=== PATIENT | male | born 1945 | race Caucasian/White ===

== ENCOUNTER → 2017-05-01 | Outpatient (CLI) | payer MEDICARE, BC | LOC: OD 10:05 | PROVIDERS: ATTEND Family Medicine | DX: N40.1 Benign prostatic hyperplasia with lower urinary tract symptoms (principal) | CPT/HCPCS: 36415; 84153 ==

== ENCOUNTER → 2017-06-06 | Outpatient (CLI) | payer MEDICARE, BC ==
--- NOTE | 2017-06-06 14:35 | RADIOLOGY REPORT (SQ) ---
EXAM DESCRIPTION: CHEST PA/LATERAL COMPLETED DATE/TIME: 06/06/2017 2:16 pm REASON FOR STUDY: COPD J44.9 CHRONIC OBSTRUCTIVE PULMONARY DISEASE, UNSPECIFIED COMPARISON: CT angio chest 07/11/2016 Chest films 05/31/2016, 11/30/2008 NUMBER OF VIEWS: Two view. TECHNIQUE: Frontal and lateral radiographic views of the chest acquired. LIMITATIONS: None. FINDINGS: LUNGS AND PLEURA: No masses or pneumothorax. Minimal bandlike atelectasis left lung base. No pleural effusion. Attenuated blood vessels and flattened renuka-diaphragms. MEDIASTINUM AND HILAR STRUCTURES: No masses. No contour abnormalities. HEART AND VASCULAR STRUCTURES: Heart normal in size and contour. No evidence for failure. BONES: No acute findings. HARDWARE: None in the chest. OTHER: No other significant finding. IMPRESSION: COPD. Minimal left basilar bandlike atelectasis. TECHNICAL DOCUMENTATION: JOB ID: [id number] [employer]- All Rights Reserved
== END ==
LOC: OD 14:00
PROVIDERS: ATTEND Internal Medicine Pulmonary Disease
DX: J44.9 Chronic obstructive pulmonary disease, unspecified (principal)
CPT/HCPCS: 71020

== ENCOUNTER → 2017-07-10 | Outpatient (CLI) | payer MEDICARE, BC ==
--- NOTE | 2017-07-11 08:21 | RADIOLOGY REPORT (SQ) ---
EXAM DESCRIPTION: MRI CERVICAL SPINE WITHOUT COMPLETED DATE/TIME: 07/10/2017 8:49 pm REASON FOR STUDY: INTERVERTEBRAL DISC DEGEN, LUMBAR AND CERVICAL REGIONS M51.36 OTHER INTERVERTEBRA L DISC DEGENERATION, LUMBAR REGION M50.30 OTHER CERVICAL DISC DEGENERATION, UNSP CERVICAL REGIO COMPARISON: None. TECHNIQUE: Sagittal and Axial imaging includes T1, T2, STIR and gradient echo sequences. LIMITATIONS: None. FINDINGS: ALIGNMENT: Normal. VERTEBRAE: Intact. BONE MARROW: Normal. No marrow replacement or reactive changes. DISCS: Diffuse decreased T2 weighted intervertebral disc signal. Disc space loss of height from C5-6 through T1-2 HARDWARE: None in the spine. CORD AND BASE OF BRAIN: Normal in size and signal intensity. SOFT TISSUES: No soft tissue masses. C1-C2: No significant spinal stenosis. C2-C3: No significant spinal stenosis or exit foraminal stenosis. C3-C4: No central stenosis. There facet and uncovertebral hypertrophy causing moderate bilateral for aminal narrowing C4-C5: Broad diffuse disc bulge and bony spurring is present without central stenosis. High-grade ri ght, moderate left foraminal narrowing from facet and uncovertebral hypertrophy. C5-C6: Broad diffuse posterior disc bulging is present partly effacing the ventral thecal sac without cord flattening or abnormal intrinsic cord signal. Mild central canal stenosis. High-grade bilater al foraminal narrowing from facet and uncovertebral hypertrophy C6-C7: Minimal posterior disc bulge and bony spurring is present without significant central stenosis . High-grade right, mild left foraminal narrowing from facet and uncovertebral hypertrophy C7-T1: Mild posterior disc bulge and bony spurring is present without central stenosis. Mild bilater al foraminal narrowing from facet and uncovertebral hypertrophy OTHER: No other significant finding. IMPRESSION: Multilevel degenerative changes with multilevel significant foraminal narrowing TECHNICAL DOCUMENTATION: JOB ID: [id number] [employer]- All Rights Reserved
--- NOTE | 2017-07-11 08:30 | RADIOLOGY REPORT (SQ) ---
EXAM DESCRIPTION: MRI LUMBAR SPINE WITHOUT COMPLETED DATE/TIME: 07/10/2017 8:49 pm REASON FOR STUDY: INTERVERTEBRAL DISC DEGEN, LUMBAR AND CERVICAL REGIONS M51.36 OTHER INTERVERTEBRA L DISC DEGENERATION, LUMBAR REGION M50.30 OTHER CERVICAL DISC DEGENERATION, UNSP CERVICAL REGIO COMPARISON: None. TECHNIQUE: Sagittal and Axial imaging includes T1, T2, STIR and gradient echo sequences. Coronal T2/ HASTE imaging. LIMITATIONS: None. FINDINGS: VISUALIZED UPPER ABDOMEN: CT chest 07/11/2016 SEGMENTATION: No transitional anatomy. The lowest well-developed disc space is labeled L5-S1. ALIGNMENT: Anatomic. VERTEBRAE: Intact. BONE MARROW: Sclerotic vertebral body endplate change inferior endplate of L2 DISC SIGNAL: Diffuse decreased T2 weighted intervertebral disc signal POSTERIOR ELEMENTS: Generally intact. No pars defect evident. HARDWARE: None in the spine. CORD AND CONUS: Normal in size and signal intensity. Conus at the L1 level. SOFT TISSUES: No aortic aneurysm seen. No bulky retroperitoneal adenopathy or mass. No paraspinal mas s or fluid. T11-12: Minimal posterior disc bulging and mild bilateral facet hypertrophy is present without signi ficant central or foraminal stenosis. T12-L1: No central or foraminal stenosis. L1-L2: No central or foraminal stenosis. Mild bilateral facet hypertrophy. L2-L3: No central or foraminal stenosis. Mild bilateral facet hypertrophy. L3-L4: No central or foraminal stenosis. Mild bilateral facet hypertrophy. L4-L5: Broad diffuse posterior disc bulge and bony spurring, moderate bilateral facet hypertrophy. M ild central stenosis. Mild bilateral foraminal narrowing. L5-S1: Mild diffuse posterior disc bulging. Moderate bilateral facet and ligament hypertrophy. No c entral stenosis. Minimal right, no left foraminal narrowing. SACRUM: Visualized upper sacrum intact. OTHER: No other significant findings. IMPRESSION: Diffuse degenerative changes as above TECHNICAL DOCUMENTATION: JOB ID: [id number] [email or web address]- All Rights Reserved
== END ==
LOC: RAD 18:19
PROVIDERS: ATTEND Physician Assistant
DX: M51.36 Other intervertebral disc degeneration, lumbar region (principal); M50.30 Other cervical disc degeneration, unspecified cervical region
CPT/HCPCS: 72141; 72148

== ENCOUNTER → 2017-08-27 | Outpatient (CLI) | payer MEDICARE, BC ==
--- NOTE | 2017-08-28 09:11 | RADIOLOGY REPORT (SQ) ---
EXAM DESCRIPTION: PET CT LIMITED COMPLETED DATE/TIME: 08/27/2017 6:38 pm REASON FOR STUDY: SOLITARY PULMONARY NODULE R91.1 SOLITARY PULMONARY NODULE COMPARISON: None. Correlation: Chest CT 07/29/2017. RADIONUCLIDE AND DOSE: 11.9 mCi F18 FDG The route of agent administration: Intravenous FASTING BLOOD SUGAR: 91 mg/dl CONTRAST TYPE AND DOSE: No CT contrast given. TECHNIQUE: Blood glucose level was verified. Above dose of FDG was injected intravenously. 2-D seg mented attenuation correction images were obtained from the base of the skull to the midthighs. Nonc ontrast CT images were obtained for attenuation correction and fusion with emission images. CT image s were performed without oral or intravenous contrast and are not sensitive for parenchymal lesions. A series of overlapping emission PET images were obtained. Images reviewed and manipulated at [facility] work station by the radiologist. Images stored on PACS. LIMITATIONS: None. FINDINGS: HEAD AND NECK: No areas of abnormal metabolic activity in the soft tissues of the head and neck. CHEST: Recently described right upper lobe nodule measures about 1.9 mean SUV. ABDOMEN AND PELVIS: No areas of abnormal metabolic activity in the abdomen or pelvis. Expected physi ologic activity is present in the genitourinary system and bowel. PROXIMAL LOWER EXTREMITIES: No areas of abnormal metabolic activity in the soft tissues of the lower extremities. BONES: No abnormal metabolic activity in the visualized skeleton. ADDITIONAL CT FINDINGS: No additional significant findings on the noncontrast CT images. OTHER: No other significant findings. IMPRESSION: Right upper lobe nodule with borderline significant metabolic activity. COMMENT: Recommend repeat CT chest in 3 to 6 months. TECHNICAL DOCUMENTATION: JOB ID: [id number]- All Rights Reserved
== END ==
LOC: RAD 15:55
PROVIDERS: ATTEND Internal Medicine Pulmonary Disease
DX: R91.1 Solitary pulmonary nodule (principal)
CPT/HCPCS: 78814; A9552

== ENCOUNTER 2017-11-22 14:08 | Emergency (ER) | payer MEDICARE, BC ==
[2017-11-22] MEDS ORDERED: IPRATROPIUM/ALBUTEROL 0.5-2.5 MG/3 ML AMPUL NEB ONE (14:59)
--- NOTE | 2017-11-22 15:14 | ER Document Report ---
ED Medical Screen (RME) - General Chief Complaint: Breathing Difficulty Stated Complaint: DIFFICULTY BREATHING Time Seen by Provider: 11/22/17 14:59 Mode of Arrival: Ambulatory Information source: Patient Notes: pt with several days of shortness of breath and inability to sleep TRAVEL OUTSIDE OF THE [place] IN LAST 30 DAYS: No - Related Data Allergies/Adverse Reactions: Penicillins Allergy (Verified 11/22/17 14:09) Past Medical History - Past Medical History Cardiac Medical History: Reports: Hx Atrial Fibrillation, Hx Hypercholesterolemia, Hx Hypertension Pulmonary Medical History: Reports: Hx Asthma, Hx Bronchitis, Hx COPD Neurological Medical History: Reports: Hx Cerebrovascular Accident Endocrine Medical History: Reports: Hx Diabetes Mellitus Type 1, Hx Diabetes Mellitus Type 2 Renal/ Medical History: Denies: Hx Peritoneal Dialysis GI Medical History: Reports: Hx Gastritis, Hx Gastroesophageal Reflux Disease, Hx Ulcer, Hx Colonoscopy Musculoskeltal Medical History: Reports Hx Arthritis Psychiatric Medical History: Reports: Hx Anxiety, Hx Depression Past Surgical History: Reports: Hx Orthopedic Surgery - L Arm - Immunizations Hx Diphtheria, Pertussis, Tetanus Vaccination: Yes
[2017-11-22 15:49] LABS: ABSOLUTE BASOPHILS # (AUTO) 0.1 10^3/uL (0.0-0.2); ABSOLUTE EOSINOPHILS # (AUTO) 0.1 10^3/uL (0.0-0.6); ABSOLUTE LYMPHOCYTES (AUTO) 1.2 10^3/uL (0.5-4.7); ABSOLUTE MONOCYTES (AUTO) 0.7 10^3/uL (0.1-1.4); ABSOLUTE NEUT (AUTO) 8.3 10^3/uL (1.7-8.2); BASOPHILS % (AUTO) 0.5 % (0-2); EOSINOPHILS % (AUTO) 1.4 % (0-6); HEMATOCRIT 39.2 % (37.9-51.0); LYMPHOCYTES % (AUTO) 11.8 % (13-45); MEAN CORPUSCULAR HEMOGLOBIN 29.1 pg (27.0-33.4); MEAN CORPUSCULAR HGB CONC 33.2 g/dL (32.0-36.0); MEAN CORPUSCULAR VOLUME 88 fl (80-97); MONOCYTES % (AUTO) 6.3 % (3-13); PLATELET COUNT 367 10^3/uL (150-450); RED BLOOD COUNT 4.46 10^6/uL (4.35-5.55); RED CELL DISTRIBUTION WIDTH 16.3 % (11.5-14.0); TOTAL CELLS COUNTED % (AUTO) 100 %; WHITE BLOOD COUNT 10.3 10^3/uL (4.0-10.5)
[2017-11-22] MEDS ORDERED: ALBUTEROL SULFATE 0.083% NEB 2.5 MG/3 ML AMPUL NEB ONE (15:55)
[2017-11-22 16:02] LABS: ALANINE AMINOTRANSFERASE 66 U/L (21-72); ALBUMIN 4.1 g/dL (3.5-5.0); ALKALINE PHOSPHATASE 130 U/L (38-126); ANION GAP 14 (5-19); ASPARTATE AMINO TRANSFERASE 42 U/L (17-59); BILIRUBIN,DIRECT 0.5 mg/dL (0.0-0.4); BILIRUBIN,TOTAL 0.6 mg/dL (0.2-1.3); BLOOD UREA NITROGEN 16 mg/dL (7-20); CALCIUM 9.8 mg/dL (8.4-10.2); CARBON DIOXIDE 25 mmol/L (22-30); CHLORIDE 97 mmol/L (98-107); GLUCOSE 355 mg/dL (75-110); POTASSIUM 4.4 mmol/L (3.6-5.0); SODIUM 135.6 mmol/L (137-145); TOTAL PROTEIN 6.5 g/dL (6.3-8.2)
--- NOTE | 2017-11-22 16:03 | RADIOLOGY REPORT (SQ) ---
EXAM DESCRIPTION: CHEST PA/LAT COMPLETED DATE/TIME: 11/22/2017 3:36 pm REASON FOR STUDY: dyspnea COMPARISON: CT chest 07/01/2016, 07/29/2017 PET-CT 08/27/2017 EXAM PARAMETERS: NUMBER OF VIEWS: two views TECHNIQUE: Digital Frontal and Lateral radiographic views of the chest acquired. RADIATION DOSE: NA LIMITATIONS: none FINDINGS: LUNGS AND PLEURA: Persistent nodule periphery of the right lung apex. This had minimal me tabolic activity on PET-CT 08/27/2017. Continued periodic imaging surveillance is recommended with CT chest, in February 2018. There is bandlike atelectasis above the right hemidiaphragm. Left lung clear. No pleural effusions or pneumothorax. MEDIASTINUM AND HILAR STRUCTURES: No masses or contour abnormalities. HEART AND VASCULAR STRUCTURES: Heart normal size. No evidence for failure. BONES: No acute findings. HARDWARE: None in the chest. OTHER: No other significant finding. IMPRESSION: Right basilar bandlike atelectasis Persistent right apical nodule TECHNICAL DOCUMENTATION: JOB ID: [id number] [employer]- All Rights Reserved Reading location - IP/workstation name: [email or web address]
[2017-11-22 16:12] LABS: NT PRO BNP 640 pg/mL (5-900)
[2017-11-22 16:17] LABS: TROPONIN I < 0.012 ng/mL
--- NOTE | 2017-11-22 20:03 | EKG REPORT ---
SEVERITY:- ABNORMAL ECG - ATRIAL FIBRILLATION, V-RATE 63-114 LEFT AXIS DEVIATION LOW VOLTAGE IN FRONTAL LEADS BORDERLINE T WAVE ABNORMALITIES BORDERLINE PROLONGED QT INTERVAL : Confirmed by: Davonte Bailon MD 22-Nov-2017 20:02:39
--- NOTE | 2017-11-23 00:34 | ER Document Report ---
ED Respiratory Problem - General Chief Complaint: Breathing Difficulty Stated Complaint: DIFFICULTY BREATHING Time Seen by Provider: 11/22/17 14:59 Mode of Arrival: Ambulatory Notes: Patient says that he has been having trouble breathing for several months. It has worsened over the past couple of days. He has noticed some swelling of his ankles with some pink coloration to the lower portion of both extremities. He has a home nebulizer in which he uses albuterol 4 times a day. He is also on inhalers of Spiriva and Breo. Has not been on prednisone. Patient says he has had a productive cough that is white in color. Feel short of breath with difficulty breathing. Diagnosed with asthma and COPD. Has not noticed any fever. TRAVEL OUTSIDE OF THE [place] IN LAST 30 DAYS: No - Related Data Allergies/Adverse Reactions: Penicillins Allergy (Verified 11/22/17 14:09) Past Medical History - General Information source: Patient - Social History Smoking Status: Current Every Day Smoker Family History: Arthritis, CAD, COPD, DM, Hyperlipidemia, Hypertension, Thyroid Disfunction Patient has suicidal ideation: No Patient has homicidal ideation: No - Past Medical History Cardiac Medical History: Reports: Hx Atrial Fibrillation, Hx Hypercholesterolemia, Hx Hypertension Pulmonary Medical History: Reports: Hx Asthma, Hx Bronchitis, Hx COPD Neurological Medical History: Reports: Hx Cerebrovascular Accident Endocrine Medical History: Reports: Hx Diabetes Mellitus Type 1, Hx Diabetes Mellitus Type 2 Renal/ Medical History: Reports: Hx Benign Prostatic Hyperplasia GI Medical History: Reports: Hx Gastritis, Hx Gastroesophageal Reflux Disease, Hx Ulcer, Hx Colonoscopy Musculoskeltal Medical History: Reports Hx Arthritis Psychiatric Medical History: Reports: Hx Anxiety, Hx Depression Past Surgical History: Reports: Hx Orthopedic Surgery - L Arm - Immunizations Hx Diphtheria, Pertussis, Tetanus Vaccination: Yes Hx Pneumococcal Vaccination: 09/25/13 Review of Systems - Review of Systems Notes: REVIEW OF SYSTEMS: CONSTITUTIONAL : Denies fever. EENT: Denies eye, ear, nose or mouth or throat pain or other symptoms. CARDIOVASCULAR: Denies chest pain. RESPIRATORY: See HPI. GASTROINTESTINAL: Denies abdominal pain or nausea, vomiting, or diarrhea. GENITOURINARY: Denies difficulty or painful urinating, urinary frequency, blood in urine. MUSCULOSKELETAL: Denies back or neck pain. Denies joint pain or swelling. SKIN: Denies rash or skin lesions. NEUROLOGICAL: Denies LOC or altered mental status. Denies sensory loss or motor deficits. ALL OTHER SYSTEMS REVIEWED AND NEGATIVE. Physical Exam - Vital signs Interpretation: Normal - Notes Notes: PHYSICAL EXAMINATION: GENERAL: Well-appearing, in no acute distress. Has had a nebulizer treatment out front. Vital signs are all normal. HEAD: Atraumatic, normocephalic. NECK: Normal range of motion, supple. LUNGS: Breath sounds have diffuse expiratory wheezes, but good air exchange.. HEART: Irregular rate and rhythm without murmurs. ABDOMEN: Soft, nontender. No guarding or rebound. No masses. BACK: No tenderness throughout entire back. EXTREMITIES: Normal range of motion without pain. +1 pretibial edema bilaterally. Mild diffuse erythema of the lower portion of both lower legs likely representing mild cellulitis. NEUROLOGICAL: Normal speech, normal gait. Normal sensory, motor, and reflex exams. Awake, alert, and oriented x3. Cranial nerves normal. PSYCH: Normal mood, normal affect. SKIN: Warm, dry, no rashes. Course - Re-evaluation Re-evalutation: 11/23/17 00:37 After I to finish my initial assessment of this patient, and was about to leave his examining room, the patient said that he would like for us to provide him with 4 or 5 masks and tubings for him to use on his nebulizer machine. I told him that we could give him the tubing set that he has been using for his nebulizer treatment here, but not likely any more than that. While this patient was in the treatment area, after I examined him, we had a cardiac arrest brought in that required my full attention for some time. During that time, the patient expressed that he wanted to leave AGAINST MEDICAL ADVICE. After the patient left, 1 of the staff noted that 1 of the cabinets in the patient's room which house objects like tubing and mask for the nebulizers was practically empty. - Laboratory Result Diagrams: 11/22/17 15:20 11/22/17 15:20 Laboratory results interpreted by me: 11/22/17 11/22/17 15:20 15:20 Hgb 13.0 L RDW 16.3 H Seg Neutrophils % 80.0 H Lymphocytes % 11.8 L Absolute Neutrophils 8.3 H Sodium 135.6 L Chloride 97 L Glucose 355 H Direct Bilirubin 0.5 H Alkaline Phosphatase 130 H - Diagnostic Test Radiology results interpreted by me: 11/23/17 00:36 Chest x-ray shows very slight amount of basilar atelectasis. A nodule is present which is been noted previously. - EKG Interpretation by Me Rate: Normal Rhythm: A.Fib Additional EKG results interpreted by me: 11/23/17 00:37 No acute changes of the area Discharge - Discharge Clinical Impression: Left against medical advice, COPD exacerbation Disposition: AGAINST MEDICAL ADVICE Referrals: GERRI AGUILERA MD [Primary Care Provider] - Follow up as needed
== END 2017-11-22 16:54 | disposition left against medical advice (07) ==
LOC: ER 14:08
DX: J44.1 Chronic obstructive pulmonary disease with (acute) exacerbation (principal); R06.02 Shortness of breath; M79.89 Other specified soft tissue disorders; R60.0 Localized edema; R05 Cough; Z79.899 Other long term (current) drug therapy; F17.200 Nicotine dependence, unspecified, uncomplicated
CPT/HCPCS: 93005; 94640 ×2; 99285; 36415; 85025; 80053; 84484; 83880; 71046; 93010; A9270 ×2; J7620

== ENCOUNTER → 2017-11-29 | Outpatient (CLI) | payer MEDICARE, BC ==
--- NOTE | 2017-11-29 10:54 | RADIOLOGY REPORT (SQ) ---
EXAM DESCRIPTION: CT CHEST WITHOUT COMPLETED DATE/TIME: 11/29/2017 10:29 am REASON FOR STUDY: R91.1 SOLITARY PULMONARY NODULE R91.1 SOLITARY PULMONARY NODULE COMPARISON: 2016, 2017. TECHNIQUE: CT scan performed of the chest without intravenous contrast. Images reviewed with lung, soft tissue and bone windows. Reconstructed coronal and sagittal MPR images reviewed. All images st ored on PACS. All CT scanners at this facility use dose modulation, iterative reconstruction, and/or weight based d osing when appropriate to reduce radiation dose to as low as reasonably achievable (ALARA). [facility]: Dose Right [facility]: CareDose [facility]: Dose Right [facility]: Teradose 4D [facility]: [employer] RADIATION DOSE: CT Rad equipment meets quality standard of care and radiation dose reduction techniq ues were employed. CTDIvol: 16.1 mGy. DLP: 603 mGy-cm. mGy. LIMITATIONS: No technical limitations. FINDINGS: LUNGS AND PLEURA: Pleural-based nodule right upper lobe looks slightly larger, now at 1.4 cm with some adjacent parenchymal density. Regional bullous changes. No other nodules or masses dev eloping. Mild bronchial wall thickening particularly in the right lower lobe, likely bronchitis. HILAR AND MEDIASTINAL STRUCTURES: No identified masses or abnormal nodes. No obvious aneurysm. HEART AND VASCULAR STRUCTURES: No aneurysm. No pericardial effusion. UPPER ABDOMEN: No significant findings. Limited exam. THYROID AND OTHER SOFT TISSUES: No masses. No adenopathy. BONES: Mid thoracic spondylosis. HARDWARE: None in the chest. OTHER: No other significant findings. IMPRESSION: 1. Subpleural right upper lobe nodule looks larger and better defined on current study. This has increased compared to 2017 and was not seen as a discrete lesion in 2016. Recommend furthe r evaluation with PET-CT. TECHNICAL DOCUMENTATION: JOB ID: [id number] Quality ID # [id number]: Final reports with documentation of one or more dose reduction techniques (e.g., Au tomated exposure control, adjustment of the mA and/or kV according to patient size, use of iterative reconstruction technique) 2010 [email or web address]- All Rights Reserved Reading location - IP/workstation name: [email or web address]
== END ==
LOC: RAD 10:21
PROVIDERS: ATTEND Physician Assistant
DX: R91.1 Solitary pulmonary nodule (principal)
CPT/HCPCS: 71250

== ENCOUNTER → 2017-12-17 | Outpatient (CLI) | payer MEDICARE, BC ==
--- NOTE | 2017-12-19 09:47 | RADIOLOGY REPORT (SQ) ---
EXAM DESCRIPTION: PET CT SKULL/THIGH COMPLETED DATE/TIME: 12/18/2017 6:38 pm REASON FOR STUDY: PULMONARY NODULE (R91.1), OTHER DISORDERS OF LUNG (J98.4) R91.1 SOLITARY PULMONAR Y NODULE J98.4 OTHER DISORDERS OF LUNG COMPARISON: 08/27/2017 RADIONUCLIDE AND DOSE: 10.7 mCi F18 FDG The route of agent administration: Intravenous FASTING BLOOD SUGAR: 128 mg/dl CONTRAST TYPE AND DOSE: No CT contrast given. TECHNIQUE: Blood glucose level was verified. Above dose of FDG was injected intravenously. 2-D seg mented attenuation correction images were obtained from the base of the skull to the midthighs. Nonc ontrast CT images were obtained for attenuation correction and fusion with emission images. CT image s were performed without oral or intravenous contrast and are not sensitive for parenchymal lesions. A series of overlapping emission PET images were obtained. Images reviewed and manipulated at [facility] work station by the radiologist. Images stored on PACS. LIMITATIONS: None. FINDINGS: HEAD AND NECK: No areas of abnormal metabolic activity in the soft tissues of the head and neck. CHEST: Pleural-based right upper lobe nodule measures about 1.5 cm in diameter and 2.3 mean SUV. ABDOMEN AND PELVIS: No areas of abnormal metabolic activity in the abdomen or pelvis. Expected physi ologic activity is present in the genitourinary system and bowel. PROXIMAL LOWER EXTREMITIES: No areas of abnormal metabolic activity in the soft tissues of the lower extremities. BONES: No abnormal metabolic activity in the visualized skeleton. ADDITIONAL CT FINDINGS: Paraseptal emphysema. Cardiomegaly. OTHER: No other significant findings. IMPRESSION: Slight increase in size of right upper lobe nodule with unchanged borderline significant metabolic activity. Continued close surveillance is recommended. TECHNICAL DOCUMENTATION: JOB ID: [id number] [employer]- All Rights Reserved Reading location - IP/workstation name: [email or web address]
== END ==
LOC: RAD 18:53
PROVIDERS: ATTEND Physician Assistant
DX: R91.1 Solitary pulmonary nodule (principal); J98.4 Other disorders of lung
CPT/HCPCS: 78815; A9552

== ENCOUNTER → 2018-02-08 | Outpatient (CLI) | payer MEDICARE, BC | LOC: LAB 11:57 | PROVIDERS: ATTEND Thoracic Surgery (Cardiothoracic Vascular Surgery) | DX: Z87.891 Personal history of nicotine dependence (principal) | CPT/HCPCS: 36415; 82375 ==

== ENCOUNTER → 2018-03-02 | Outpatient (CLI) | payer MEDICARE, BC | LOC: LAB 11:12 | PROVIDERS: ATTEND Thoracic Surgery (Cardiothoracic Vascular Surgery) | DX: Z87.891 Personal history of nicotine dependence (principal) | CPT/HCPCS: 36415; 82375 ==

== ENCOUNTER → 2018-04-25 | Outpatient (CLI) | payer MEDICARE, BC ==
--- NOTE | 2018-04-25 13:19 | RADIOLOGY REPORT (SQ) ---
EXAM DESCRIPTION: CT CHEST WITHOUT COMPLETED DATE/TIME: 04/25/2018 8:40 am REASON FOR STUDY: LUNG CA (C34.11) C34.11 MALIGNANT NEOPLASM OF UPPER LOBE, RIGHT BRONCHUS OR L COMPARISON: 11/29/2017, 07/29/2017, and 07/11/2016. TECHNIQUE: CT scan performed of the chest without intravenous contrast. Images reviewed with lung, soft tissue and bone windows. Reconstructed coronal and sagittal MPR images reviewed. All images st ored on PACS. All CT scanners at this facility use dose modulation, iterative reconstruction, and/or weight based d osing when appropriate to reduce radiation dose to as low as reasonably achievable (ALARA). [facility]: Dose Right [facility]: CareDose [facility]: Dose Right [facility]: Teradose 4D [facility]: [employer] RADIATION DOSE: CT Rad equipment meets quality standard of care and radiation dose reduction techniq ues were employed. CTDIvol: 11.1 mGy. DLP: 388 mGy-cm. mGy. LIMITATIONS: No technical limitations. FINDINGS: LUNGS AND PLEURA: Surgical changes in the right upper lobe. Linear scar in the posterior right upper lobe with associated surgical david. The more inferior portion has a somewhat nodular appearance measuring 1.5 cm. No other parenchymal nodules. Emphysematous changes with apical bullae . Scattered scarring. No pleural effusion or pleural thickening. HILAR AND MEDIASTINAL STRUCTURES: No identified masses or abnormal nodes. No obvious aneurysm. HEART AND VASCULAR STRUCTURES: No aneurysm. Coronary artery calcifications. No pericardial effusion . UPPER ABDOMEN: No significant findings. Limited exam. THYROID AND OTHER SOFT TISSUES: No masses. No adenopathy. BONES: No significant finding. HARDWARE: None in the chest. OTHER: No other significant findings. IMPRESSION: INTERVAL SURGICAL CHANGES IN THE RIGHT UPPER LOBE WITH REMOVAL OF THE RIGHT UPPER LOBE N ODULE. THERE IS SOMEWHAT NODULAR APPEARANCE OF THE SURGICAL SCAR WHICH WILL NEED TO BE RE-EVALUATED WITH FOLLOW-UP CT. CHRONIC EMPHYSEMATOUS CHANGES. NO OTHER SIGNIFICANT FINDINGS. TECHNICAL DOCUMENTATION: JOB ID: [id number] Quality ID # 436: Final reports with documentation of one or more dose reduction techniques (e.g., Au tomated exposure control, adjustment of the mA and/or kV according to patient size, use of iterative reconstruction technique) 2010 [employer]- All Rights Reserved Reading location - IP/workstation name: [email or web address]
== END ==
LOC: RAD 08:24
PROVIDERS: ATTEND Internal Medicine
DX: C34.11 Malignant neoplasm of upper lobe, right bronchus or lung (principal)
CPT/HCPCS: 71250

== ENCOUNTER → 2018-07-31 | Outpatient (CLI) | payer MEDICARE, BC ==
--- NOTE | 2018-07-31 11:04 | RADIOLOGY REPORT (SQ) ---
EXAM DESCRIPTION: CT CHEST WITHOUT COMPLETED DATE/TIME: 07/31/2018 9:02 am REASON FOR STUDY: MAL ROYCE OF UPPER LOBE R BRONCHUS OR LUNG C34.11 MALIGNANT NEOPLASM OF UPPER LOBE, RIGHT BRONCHUS OR L COMPARISON: 04/25/2018 TECHNIQUE: CT scan performed of the chest without intravenous contrast. Images reviewed with lung, soft tissue and bone windows. Reconstructed coronal and sagittal MPR images reviewed. All images st ored on PACS. All CT scanners at this facility use dose modulation, iterative reconstruction, and/or weight based d osing when appropriate to reduce radiation dose to as low as reasonably achievable (ALARA). [facility]: Dose Right [facility]: CareDose [facility]: Dose Right [facility]: Teradose 4D [facility]: [employer] RADIATION DOSE: CT Rad equipment meets quality standard of care and radiation dose reduction techniq ues were employed. CTDIvol: 11.8 mGy. DLP: 441 mGy-cm. mGy. LIMITATIONS: No technical limitations. FINDINGS: LUNGS AND PLEURA: Bandlike scar tissue posterior right upper lung status post wedge resect ion. No developing nodules or infiltrate. No effusions. HILAR AND MEDIASTINAL STRUCTURES: No identified masses or abnormal nodes. No obvious aneurysm. HEART AND VASCULAR STRUCTURES: No aneurysm. No pericardial effusion. UPPER ABDOMEN: No significant findings. Limited exam. THYROID AND OTHER SOFT TISSUES: Gynecomastia. BONES: No acute findings. HARDWARE: None in the chest. OTHER: No other significant findings. IMPRESSION: Stable appearance of the chest. TECHNICAL DOCUMENTATION: JOB ID: [id number] Quality ID # 436: Final reports with documentation of one or more dose reduction techniques (e.g., Au tomated exposure control, adjustment of the mA and/or kV according to patient size, use of iterative reconstruction technique) 2010 [employer]- All Rights Reserved Reading location - IP/workstation name: [email or web address]
== END ==
LOC: RAD 08:45
PROVIDERS: ATTEND Internal Medicine
DX: C34.11 Malignant neoplasm of upper lobe, right bronchus or lung (principal)
CPT/HCPCS: 71250

== ENCOUNTER → 2018-11-05 | Outpatient (CLI) | payer MEDICARE, BC ==
--- NOTE | 2018-11-05 10:36 | RADIOLOGY REPORT (SQ) ---
EXAM DESCRIPTION: CT CHEST WITHOUT COMPLETED DATE/TIME: 11/05/2018 8:46 am REASON FOR STUDY: LUNG CA (C34.11) C34.11 MALIGNANT NEOPLASM OF UPPER LOBE, RIGHT BRONCHUS OR L COMPARISON: 07/31/2018 TECHNIQUE: CT scan performed of the chest without intravenous contrast. Images reviewed with lung, soft tissue and bone windows. Reconstructed coronal and sagittal MPR images reviewed. All images st ored on PACS. All CT scanners at this facility use dose modulation, iterative reconstruction, and/or weight based d osing when appropriate to reduce radiation dose to as low as reasonably achievable (ALARA). [facility]: Dose Right [facility]: CareDose [facility]: Dose Right [facility]: Teradose 4D [facility]: [employer] RADIATION DOSE: CT Rad equipment meets quality standard of care and radiation dose reduction techniq ues were employed. CTDIvol: 11.4 mGy. DLP: 428 mGy-cm. LIMITATIONS: No technical limitations. FINDINGS: LUNGS AND PLEURA: Stable post operative changes in the right upper lobe, status post wedg e resection with band slight scarring in the posterior right upper lobe. Emphysematous changes in th e lungs with biapical - upper lobe paramediastinal blebs/bullae. Scattered areas of minimal to very slight scarring in the lungs. No pneumothorax or pleural effusion. The central airways are clear. HILAR AND MEDIASTINAL STRUCTURES: No identified masses or abnormal nodes. No obvious aneurysm. HEART AND VASCULAR STRUCTURES: Mild atherosclerotic changes involving the thoracic aorta. Coronary artery calcifications, stable findings. Small pericardial effusion, unchanged finding. No aneurysm. UPPER ABDOMEN: No significant interval changes. Limited exam. THYROID AND OTHER SOFT TISSUES: No masses. No adenopathy. BONES: The osseous structures are stable in appearance. No significant finding. HARDWARE: None in the chest. OTHER: Bilateral mild gynecomastia, unchanged finding. IMPRESSION: 1. No significant interval changes since the prior study dated 07/31/2018. 2. Stable post operative changes in the right hemithorax. 3. Emphysematous changes in the lungs. TECHNICAL DOCUMENTATION: JOB ID: [id number] Quality ID # [id number]: Final reports with documentation of one or more dose reduction techniques (e.g., Au tomated exposure control, adjustment of the mA and/or kV according to patient size, use of iterative reconstruction technique) 2010 [employer]- All Rights Reserved Reading location - IP/workstation name: [email or web address]
== END ==
LOC: RAD 08:09
PROVIDERS: ATTEND Physician Assistant Medical
DX: C34.11 Malignant neoplasm of upper lobe, right bronchus or lung (principal); N62 Hypertrophy of breast
CPT/HCPCS: 71250

== ENCOUNTER → 2019-02-11 | Outpatient (CLI) | payer MEDICARE, BC ==
--- NOTE | 2019-02-11 12:34 | RADIOLOGY REPORT (SQ) ---
EXAM DESCRIPTION: CT CHEST WITHOUT COMPLETED DATE/TIME: 02/11/2019 9:22 am REASON FOR STUDY: MALIGNANT NEOPLASM OF UPPER LOBE, RIGHT BRONCHUS OR LUNG C34.11 MALIGNANT NEOPLAS M OF UPPER LOBE, RIGHT BRONCHUS OR L COMPARISON: 11/05/2018 TECHNIQUE: CT scan performed of the chest without intravenous contrast. Images reviewed with lung, soft tissue and bone windows. Reconstructed coronal and sagittal MPR images reviewed. All images st ored on PACS. All CT scanners at this facility use dose modulation, iterative reconstruction, and/or weight based d osing when appropriate to reduce radiation dose to as low as reasonably achievable (ALARA). [facility]: Dose Right [facility]: CareDose [facility]: Dose Right [facility]: Teradose 4D [facility]: [employer] RADIATION DOSE: CT Rad equipment meets quality standard of care and radiation dose reduction techniq ues were employed. CTDIvol: 11.2 mGy. DLP: 429 mGy-cm. mGy. LIMITATIONS: No technical limitations. FINDINGS: LUNGS AND PLEURA: Paraseptal blebs in the upper lobes. Surgical changes in right upper lo be with associated scarring. No pulmonary nodule or mass. Subsegmental atelectasis in the left base . HILAR AND MEDIASTINAL STRUCTURES: No identified masses or abnormal nodes. No obvious aneurysm. HEART AND VASCULAR STRUCTURES: No aneurysm. Small pericardial effusion. UPPER ABDOMEN: No significant findings. Limited exam. THYROID AND OTHER SOFT TISSUES: No masses. No adenopathy. BONES: No significant finding. HARDWARE: None in the chest. OTHER: No other significant findings. IMPRESSION: Pulmonary emphysema. Surgical changes. No acute findings in the thorax. TECHNICAL DOCUMENTATION: JOB ID: [id number] Quality ID # [id number]: Final reports with documentation of one or more dose reduction techniques (e.g., Au tomated exposure control, adjustment of the mA and/or kV according to patient size, use of iterative reconstruction technique) 2010 [employer]- All Rights Reserved Reading location - IP/workstation name: [email or web address]
== END ==
LOC: RAD 08:54
PROVIDERS: ATTEND Internal Medicine
DX: C34.11 Malignant neoplasm of upper lobe, right bronchus or lung (principal); J43.9 Emphysema, unspecified
CPT/HCPCS: 71250

== ENCOUNTER → 2019-06-03 | Outpatient (CLI) | payer MEDICARE, BC ==
--- NOTE | 2019-06-03 10:23 | RADIOLOGY REPORT (SQ) ---
EXAM DESCRIPTION: CT CHEST WITHOUT COMPLETED DATE/TIME: 06/03/2019 8:50 am REASON FOR STUDY: C34.12 MALIGNANT NEOPLASM OF UPPER LOBE, LEFT BRONCHUS OR LUNG C34.12 MALIGNANT N EOPLASM OF UPPER LOBE, LEFT BRONCHUS OR TOYA COMPARISON: PET-CT 12/17/2017 CT chest 07/29/2017, 07/31/2018, 11/05/2018, 02/11/2019 TECHNIQUE: CT scan performed of the chest without intravenous contrast. Images reviewed with lung, soft tissue and bone windows. Reconstructed coronal and sagittal MPR images reviewed. All images st ored on PACS. All CT scanners at this facility use dose modulation, iterative reconstruction, and/or weight based d osing when appropriate to reduce radiation dose to as low as reasonably achievable (ALARA). [facility]: Dose Right [facility]: CareDose [facility]: Dose Right [facility]: Teradose 4D [facility]: [employer] RADIATION DOSE: CT Rad equipment meets quality standard of care and radiation dose reduction techniq ues were employed. CTDIvol: 13.5 mGy. DLP: 532 mGy-cm. mGy. LIMITATIONS: No technical limitations. FINDINGS: LUNGS AND PLEURA: Patient has overall of david along the right upper lobe posterior lung apex. Bandlike scarring adjacent to the david is present without worrisome solid nodule. Overall appearance is similar compared to multiple previous studies. No focal infiltrates. No pleural effusion. No pneumothorax. Small bulla or blebs at the lung apice s. Airways are patent. HILAR AND MEDIASTINAL STRUCTURES: No identified masses or abnormal nodes. No obvious aneurysm. HEART AND VASCULAR STRUCTURES: No aneurysm. No pericardial effusion. Calcified aortic valve leaflet s, calcified coronary arteries UPPER ABDOMEN: No significant findings. Limited exam. THYROID AND OTHER SOFT TISSUES: No masses. No adenopathy. BONES: Diffuse degenerative disc changes thoracic spine. HARDWARE: None in the chest. OTHER: No other significant findings. IMPRESSION: Old right posterior upper lobe wedge resection scar. No CT evidence of recurrent lung c ancer. TECHNICAL DOCUMENTATION: JOB ID: [id number] Quality ID # 436: Final reports with documentation of one or more dose reduction techniques (e.g., Au tomated exposure control, adjustment of the mA and/or kV according to patient size, use of iterative reconstruction technique) 2010 [employer]- All Rights Reserved Reading location - IP/workstation name: [email or web address]
== END ==
LOC: RAD 08:30
PROVIDERS: ATTEND Physician Assistant Medical
DX: C34.12 Malignant neoplasm of upper lobe, left bronchus or lung (principal)
CPT/HCPCS: 71250

== ENCOUNTER → 2019-12-05 | Outpatient (CLI) | payer MEDICARE, BC ==
--- NOTE | 2019-12-05 14:04 | RADIOLOGY REPORT (SQ) ---
EXAM DESCRIPTION: CT CHEST WITHOUT COMPLETED DATE/TIME: 12/05/2019 9:12 am REASON FOR STUDY: LUNG CA C34.11 MALIGNANT NEOPLASM OF UPPER LOBE, RIGHT BRONCHUS OR L COMPARISON: Multiple, most recent 06/03/2019. TECHNIQUE: CT scan performed of the chest without intravenous contrast. Images reviewed with lung, soft tissue and bone windows. Reconstructed coronal and sagittal MPR images reviewed. All images st ored on PACS. All CT scanners at this facility use dose modulation, iterative reconstruction, and/or weight based d osing when appropriate to reduce radiation dose to as low as reasonably achievable (ALARA). [facility]: Dose Right [facility]: CareDose [facility]: Dose Right [facility]: Teradose 4D [facility]: [employer] RADIATION DOSE: CT Rad equipment meets quality standard of care and radiation dose reduction techniq ues were employed. CTDIvol: 13.6 mGy. DLP: 556 mGy-cm. mGy. LIMITATIONS: No technical limitations. FINDINGS: LUNGS AND PLEURA: Stable paraseptal emphysematous changes in the lung apices. Bandlike sc arring along staple line in the right upper lobe. No developing nodules or infiltrate. No effusions . HILAR AND MEDIASTINAL STRUCTURES: No identified masses or abnormal nodes. No obvious aneurysm. HEART AND VASCULAR STRUCTURES: No aneurysm. No pericardial effusion. UPPER ABDOMEN: No significant findings. Limited exam. THYROID AND OTHER SOFT TISSUES: No masses. No adenopathy. BONES: No significant finding. HARDWARE: None in the chest. OTHER: No other significant findings. IMPRESSION: Postsurgical changes right upper lobe wedge resection. No significant change. TECHNICAL DOCUMENTATION: JOB ID: [id number] Quality ID # 436: Final reports with documentation of one or more dose reduction techniques (e.g., Au tomated exposure control, adjustment of the mA and/or kV according to patient size, use of iterative reconstruction technique) 2010 [employer]- All Rights Reserved Reading location - IP/workstation name: [email or web address]
== END ==
LOC: RAD 09:00
PROVIDERS: ATTEND Internal Medicine
DX: C34.11 Malignant neoplasm of upper lobe, right bronchus or lung (principal)
CPT/HCPCS: 71250

== ENCOUNTER 2020-03-10 07:33 | Inpatient (IN) | payer MEDICARE, BC ==
[2020-03-10] MEDS ORDERED: NORMAL SALINE 500 ML IV ONE (08:34)
[2020-03-10] MEDS ORDERED: ALBUTEROL SULFATE 0.083% NEB 2.5 MG/3 ML AMPUL NEB ONE (08:37)
--- NOTE | 2020-03-10 08:49 | EKG REPORT ---
SEVERITY:- ABNORMAL ECG - ATRIAL FIBRILLATION, V-RATE 89-135 INFERIOR INFARCT, AGE INDETERMINATE NONSPECIFIC T ABNORMALITIES, ANT-LAT LEADS (NEW, COMPARED T 11/22/17 EKG). : Confirmed by: Davonte Bailon MD 10-Mar-2020 08:49:20
[2020-03-10 09:22] LABS: VENOUS BLOOD BASE EXCESS 2.5 mmol/L; VENOUS BLOOD HCO3 26.6 mmol/L (20-32); VENOUS BLOOD PCO2 39.5 mmHg (35-63); VENOUS BLOOD PH 7.45 (7.30-7.42)
--- NOTE | 2020-03-10 09:35 | RADIOLOGY REPORT (SQ) ---
EXAM DESCRIPTION: CHEST SINGLE VIEW IMAGES COMPLETED DATE/TIME: 03/10/2020 9:25 am REASON FOR STUDY: cough/lung cancer/copd/r resection/smoker COMPARISON: 11/22/2017 EXAM PARAMETERS: NUMBER OF VIEWS: One view. TECHNIQUE: Single frontal radiographic view of the chest acquired. RADIATION DOSE: NA LIMITATIONS: None. FINDINGS: LUNGS AND PLEURA: No opacities, masses or pneumothorax. No pleural effusion. MEDIASTINUM AND HILAR STRUCTURES: No masses. Contour normal. HEART AND VASCULAR STRUCTURES: Heart normal in size. Normal vasculature. BONES: No acute findings. HARDWARE: None in the chest. OTHER: No other significant finding. IMPRESSION: NO ACUTE RADIOGRAPHIC FINDING IN THE CHEST. TECHNICAL DOCUMENTATION: JOB ID: [id number] 2010 [employer]- All Rights Reserved Reading location - IP/workstation name: [email or web address]
[2020-03-10 09:37] LABS: HEMATOCRIT 42.7 % (37.9-51.0); HEMOGLOBIN 14.5 g/dL (13.5-17.0); MEAN CORPUSCULAR HEMOGLOBIN 31.4 pg (27.0-33.4); MEAN CORPUSCULAR HGB CONC 33.9 g/dL (32.0-36.0); MEAN CORPUSCULAR VOLUME 93 fl (80-97); PLATELET COUNT 253 10^3/uL (150-450); RED BLOOD COUNT 4.61 10^6/uL (4.35-5.55); RED CELL DISTRIBUTION WIDTH 14.6 % (11.5-14.0)
[2020-03-10 09:42] LABS: INTERNATIONAL RATION (INR) 1.57; PROTHROMBIN TIME 18.9 SEC (11.4-15.4)
[2020-03-10 09:43] LABS: PARTIAL THROMBOPLASTIN TIME 39.3 SEC (23.5-35.8)
[2020-03-10 10:01] LABS: ALBUMIN 3.6 g/dL (3.5-5.0); ALKALINE PHOSPHATASE 106 U/L (38-126); ANION GAP 9 (5-19); ASPARTATE AMINO TRANSFERASE 23 U/L (17-59); BILIRUBIN,DIRECT 0.3 mg/dL (0.0-0.4); BILIRUBIN,TOTAL 1.7 mg/dL (0.2-1.3); BLOOD UREA NITROGEN 23 mg/dL (7-20); CALCIUM 8.5 mg/dL (8.4-10.2); CARBON DIOXIDE 26 mmol/L (22-30); CHLORIDE 94 mmol/L (98-107); GLUCOSE 306 mg/dL (75-110); POTASSIUM 3.8 mmol/L (3.6-5.0); TOTAL PROTEIN 6.9 g/dL (6.3-8.2)
[2020-03-10 10:02] LABS: TROPONIN I 0.033 ng/mL
[2020-03-10 10:04] LABS: ABSOLUTE LYMPHOCYTES# (MANUAL) 1.8 10^3/uL (0.5-4.7); ABSOLUTE MONOCYTES # (MANUAL) 1.5 10^3/uL (0.1-1.4); BASOPHILS % (MANUAL) 0 % (0-2); EOSINOPHILS % (MANUAL) 0 % (0-6); LYMPHOCYTES % (MANUAL) 8 % (13-45); MONOCYTES % (MANUAL) 7 % (3-13); SEGMENTED NEUTROPHILS % (MAN) 85 % (42-78); TOTAL CELLS COUNTED 100
[2020-03-10 10:05] LABS: ANISOCYTOSIS SLIGHT; PLATELET COMMENT ADEQUATE; POLYCHROMASIA SLIGHT
[2020-03-10] MEDS ORDERED: CEFEPIME 2 GM/D5W RTU 2 GM/50 ML RTUPB IV ONE (10:47)
[2020-03-10] MEDS ORDERED: VANCOMYCIN HCL INJ 1000 MG VIAL IV ONE (10:48)
[2020-03-10] MEDS ORDERED: NORMAL SALINE 1000 ML 1,000 ML IV ONE ×2 (10:49→15:29)
[2020-03-10] MEDS ORDERED: ACETAMINOPHEN 325 MG TABLET PO ONE (11:39)
--- NOTE | 2020-03-10 12:18 | RADIOLOGY REPORT (SQ) ---
EXAM DESCRIPTION: CT HEAD WITHOUT IMAGES COMPLETED DATE/TIME: 03/10/2020 12:02 pm REASON FOR STUDY: headache/s/p forehead contusion/on coumadin COMPARISON: None. TECHNIQUE: Axial images acquired through the brain without intravenous contrast. Images reviewed wi th bone, brain and subdural windows. Additional sagittal and coronal reconstructions were generated. Images stored on PACS. All CT scanners at this facility use dose modulation, iterative reconstruction, and/or weight based d osing when appropriate to reduce radiation dose to as low as reasonably achievable (ALARA). [facility]: Dose Right [facility]: CareDose [facility]: Dose Right [facility]: Teradose 4D [facility]: [employer] RADIATION DOSE: CT Rad equipment meets quality standard of care and radiation dose reduction techniq ues were employed. CTDIvol: 53.2 mGy. DLP: 1070 mGy-cm. mGy. LIMITATIONS: None. FINDINGS: VENTRICLES: Mild ex vacuo dilatation of the left lateral ventricle. CEREBRUM: No masses. No hemorrhage. No midline shift. No evidence for acute infarction. Multifocal encephalomalacia involving the left frontal and left parietal lobes, consistent with sequela of larg e territory ischemic injury. CEREBELLUM: No masses. No hemorrhage. No alteration of density. No evidence for acute infarction. EXTRAAXIAL SPACES: No fluid collections. No masses. ORBITS AND GLOBE: No intra- or extraconal masses. Normal contour of globe without masses. CALVARIUM: No fracture. PARANASAL SINUSES: No fluid or mucosal thickening. SOFT TISSUES: No mass or hematoma. OTHER: No other significant finding. IMPRESSION: No evidence of calvarial injury or intracranial hemorrhage. Left frontal and parietal e ncephalomalacia consistent with sequela of previous large territory ischemic injury. EVIDENCE OF ACUTE STROKE: NO. COMMENT: Quality ID # 436: Final reports with documentation of one or more dose reduction techniques (e.g., Automated exposure control, adjustment of the mA and/or kV according to patient size, use of iterative reconstruction technique) TECHNICAL DOCUMENTATION: JOB ID: [id number] 2010 [employer]- All Rights Reserved Reading location - IP/workstation name: [email or web address]
[2020-03-10 12:26] LABS: APPEARANCE,URINE SLIGHTLY-CLOUDY; BILIRUBIN,URINE NEGATIVE (NEGATIVE); COLOR,URINE AMBER; GLUCOSE, URINE NEGATIVE (NEGATIVE); KETONES,URINE NEGATIVE (NEGATIVE); LEUKOCYTE ESTERASE,URINE NEGATIVE (NEGATIVE); NITRITE,URINE NEGATIVE (NEGATIVE); PROTEIN,URINE 30 mg/dL (NEGATIVE); URINE SPECIFIC GRAVITY 1.019
[2020-03-10 12:31] LABS: URINE AMPHETAMINES SCREEN NEGATIVE; URINE BENZODIAZEPINES SCREEN NEGATIVE; URINE COCAINE SCREEN NEGATIVE; URINE MARIJUANA (THC) SCREEN NEGATIVE; URINE METHADONE SCREEN NEGATIVE; URINE PHENCYCLIDINE SCREEN NEGATIVE
--- NOTE | 2020-03-10 12:32 | RADIOLOGY REPORT (SQ) ---
EXAM DESCRIPTION: CT CHEST WITH; CT ABD/PELVIS WITH IV ORAL IMAGES COMPLETED DATE/TIME: 03/10/2020 12:02 pm REASON FOR STUDY: lung cancer/weight loss/cough; abd distension/perianal abscess COMPARISON: 12/05/2019 CONTRAST TYPE AND DOSE: 100 mL Omnipaque 350- low osmolar. RENAL FUNCTION: BUN 23; creatinine 1.31 TECHNIQUE: CT scan of the chest performed using helical scanning technique with dynamic intravenous contrast injection. Images reviewed with lung, soft tissue and bone windows. Reconstructed coronal a nd sagittal MPR images reviewed. All images stored on PACS. CT scan of the abdomen and pelvis performed with intravenous and oral contrast using helical scanning technique with dynamic intravenous contrast injection. Images reviewed with lung, soft tissue and b one windows. Reconstructed coronal and sagittal MPR images reviewed. Delayed images for evaluation of the urinary system also acquired and evaluated. All images stored on PACS. All CT scanners at this facility use dose modulation, iterative reconstruction, and/or weight based d osing when appropriate to reduce radiation dose to as low as reasonably achievable (ALARA). [facility]: Dose Right [facility]: CareDose [facility]: Dose Right [facility]: Teradose 4D [facility]: [employer] RADIATION DOSE: CT Rad equipment meets quality standard of care and radiation dose reduction techniq ues were employed. CTDIvol: 12.3 - 16.5 mGy. DLP: 1921 mGy-cm. . LIMITATIONS: None. FINDINGS: CHEST: AXILLAE: No adenopathy. CHEST WALL: No masses. No subcutaneous air. LUNGS: Stable paraseptal emphysematous changes involving predominantly the apical lungs. Stable righ t apical and left lower lobe scarring. No focal consolidation, pleural effusion, or pneumothorax. PLEURA: No effusions. No calcifications. THYROID: No masses or significant asymmetry. HILAR AND MEDIASTINAL STRUCTURES: No identified masses or abnormal nodes. AORTA AND GREAT VESSELS: No aneurysm. No dissection. PULMONARY ARTERIES: No identified pulmonary emboli. Study not optimized for the pulmonary arteries. HEART: Trace pericardial effusion. Coronary artery calcifications. HARDWARE AND LIFELINES: None. BONES: No significant finding. OTHER: No other significant finding. ABDOMEN AND PELVIS: LIVER: Hepatic steatosis. No mass. No intrahepatic biliary dilatation. SPLEEN: Normal size. No focal lesions. PANCREAS: Fatty atrophy. No masses. No significant calcifications. No inflammatory changes. GALLBLADDER: Gallstones. No inflammatory changes to suggest cholecystitis. ADRENAL GLANDS: No significant masses or asymmetry. RIGHT KIDNEY AND URETER: No solid masses. No significant calcifications. No hydronephrosis or hyd roureter. LEFT KIDNEY AND URETER: No solid masses. No significant calcifications. No hydronephrosis or hydr oureter. AORTA AND VESSELS: No aneurysm. No dissection. Renal arteries, SMA, celiac without stenosis. RETROPERITONEUM: No retroperitoneal adenopathy, hemorrhage or masses. LARGE AND SMALL BOWEL: Colonic diverticula without acute inflammatory changes. No obstruction. No m ass. APPENDIX: Not visualized. ABDOMINAL WALL: Small fat containing umbilical hernia. Bilateral fat containing inguinal hernias. PERITONEAL CAVITY: No free air. No free fluid. No peritoneal implants or masses. PELVIS: No mass or free fluid. Normal bladder. BONES: No significant or acute findings. OTHER: Soft tissue attenuation and subcutaneous fat stranding is seen about the rectum. No subcutane ous gas. IMPRESSION: 1. Perirectal/perineal inflammatory changes without defined abscess. 2. No evidence of acute cardiopulmonary abnormality. 3. No evidence of acute intra-abdominal infectious/inflammatory process. 4. Chronic and incidental findings as detailed above. TECHNICAL DOCUMENTATION: JOB ID: [id number] Quality ID # 436: Final reports with documentation of one or more dose reduction techniques (e.g., Au tomated exposure control, adjustment of the mA and/or kV according to patient size, use of iterative reconstruction technique) 2010 [employer]- All Rights Reserved Reading location - IP/workstation name: [email or web address]
[2020-03-10 12:37] LABS: URINE BARBITURATES SCREEN UNCONFIRMED POSITIVE
--- NOTE | 2020-03-10 14:16 | ER Document Report ---
Entered by LYUDMILA NUÑEZ SCRIBE 03/10/20 0821 Acting as scribe for:STELLA LEWIS MD ED General - General Chief Complaint: Shortness Of Breath Stated Complaint: DIFFICULTY BREATHING Time Seen by Provider: 03/10/20 07:52 Primary Care Provider: ALCON CASILLAS MD [Primary Care Provider] - Follow up as needed Information source: Patient Notes: This 74 year old male patient presents to the emergency department today with complaints of general weakness for the past few weeks. Patient states he has to use more effort than usual getting himself out of his chair and feels off balance. Patient states he recently fell and it his head on the wall. Denies any headache, loss of consciousness, or visual changes after this. Patient states he was visiting his Doctor's office this morning for blood work and a nurse told him to come to the ED. Patient states he missed taking his medication this morning and has a history of COPD, lung cancer, and smoking. Patient states he was recently given a rescue inhaler and uses this x2 a day, with last night being the last time he has used it. Patient reports a cough, but that it is not different than usual, and sharp intermittent chest pain. Denies any fever or chills. Patient also reports a "boil" on his buttocks. TRAVEL OUTSIDE OF THE [place] IN LAST 30 DAYS: No - Related Data Allergies/Adverse Reactions: Penicillins Allergy (Verified 11/22/17 14:09) Past Medical History - General Information source: Patient - Social History Smoking Status: Current Every Day Smoker Cigarette use (# per day): Yes Chew tobacco use (# tins/day): No Frequency of alcohol use: Occasional Drug Abuse: None Family History: Arthritis, CAD, COPD, DM, Hyperlipidemia, Hypertension, Thyroid Disfunction Patient has homicidal ideation: No - Past Medical History Cardiac Medical History: Reports: Hx Atrial Fibrillation, Hx Hypercholesterolemia, Hx Hypertension Pulmonary Medical History: Reports: Hx Asthma, Hx Bronchitis, Hx COPD Neurological Medical History: Reports: Hx Cerebrovascular Accident - 1997 Endocrine Medical History: Reports: Hx Diabetes Mellitus Type 1, Hx Diabetes Mellitus Type 2 Renal/ Medical History: Reports: Hx Benign Prostatic Hyperplasia GI Medical History: Reports: Hx Gastritis, Hx Gastroesophageal Reflux Disease, Hx Ulcer, Hx Colonoscopy Musculoskeletal Medical History: Reports Hx Arthritis Psychiatric Medical History: Reports: Hx Anxiety, Hx Depression Past Surgical History: Reports: Hx Orthopedic Surgery - L Arm - Immunizations Hx Diphtheria, Pertussis, Tetanus Vaccination: Yes Hx Pneumococcal Vaccination: 09/25/13 Review of Systems - Review of Systems Constitutional: See HPI, Weakness. denies: Chills, Fever EENT: See HPI, Other - no vision changes Cardiovascular: See HPI, Chest pain Respiratory: See HPI, Cough Gastrointestinal: No symptoms reported Genitourinary: No symptoms reported Male Genitourinary: No symptoms reported Musculoskeletal: No symptoms reported Skin: See HPI Hematologic/Lymphatic: No symptoms reported Neurological/Psychological: See HPI. denies: Lost consciousness, Headaches -: Yes All other systems reviewed and negative Physical Exam - Vital signs Vitals: Temp 97.2 F 03/10/20 07:33 - General General appearance: Appears well, Alert - HEENT Head: Normocephalic, Atraumatic Eyes: Normal Pupils: PERRL Mucous membranes: Dry Pharynx: Normal - Respiratory Respiratory status: No respiratory distress Chest status: Nontender Breath sounds: Wheezing, Other - Diminished in bases bilaterally. Chest palpation: Normal - Cardiovascular Rhythm: Regular Heart sounds: Normal auscultation Murmur: No - Abdominal Inspection: Obese Distension: Distended, Fluid wave Bowel sounds: Normal Tenderness: Nontender - Extremities General upper extremity: Normal inspection. No: Edema General lower extremity: Normal inspection. No: Edema - Neurological Neuro grossly intact: Yes Cognition: Normal Orientation: AAOx4 Speech: Normal - Psychological Associated symptoms: Normal affect, Normal mood - Skin Skin Temperature: Warm Skin Moisture: Dry Skin Color: Normal Notes: Area of indurated skin on the right buttocks cheek in the perianal area. 20 cm in length and 4 cm in width. Skin is also warm and erythematous. No pus drainage. Course - Re-evaluation Re-evalutation: 03/10/20 14:06 Patient lying in bed resting comfortably at this time. Systolic blood pressure is 103. 03/10/20 14:13 Patient's data of leukocytosis tachycardia low-grade fever find a sepsis alert patient received IV fluids and antibiotics x2. Patient's blood pressure has remained stable throughout this alert phase. Initial lactic acid is within normal limits repeat order has been requested. - Vital Signs Vital signs: Temp Pulse Resp BP Pulse Ox 100.0 F 113 H 20 103/58 L 99 03/10/20 12:40 03/10/20 07:42 03/10/20 13:35 03/10/20 13:35 03/10/20 13:35 03/10/20 14:06 Vital signs as above temperature 100.0 tachycardia 113 - Laboratory Result Diagrams: 03/10/20 08:55 03/10/20 08:55 Laboratory results interpreted by me: 03/10/20 03/10/20 03/10/20 08:55 08:55 08:55 WBC 22.0 H RDW 14.6 H Seg Neuts % (Manual) 85 H Lymphocytes % (Manual) 8 L Abs Neuts (Manual) 18.7 H Abs Monocytes (Manual) 1.5 H PT 18.9 H APTT 39.3 H VBG pH Sodium 129.3 L Chloride 94 L BUN 23 H Creatinine 1.31 H Est GFR (MDRD) Non-Af 53 L Glucose 306 H Total Bilirubin 1.7 H NT-Pro-B Natriuret Pep Lipase 13.0 L Urine Protein Urine Urobilinogen 03/10/20 03/10/20 03/10/20 08:55 08:55 11:48 WBC RDW Seg Neuts % (Manual) Lymphocytes % (Manual) Abs Neuts (Manual) Abs Monocytes (Manual) PT APTT VBG pH 7.45 H Sodium Chloride BUN Creatinine Est GFR (MDRD) Non-Af Glucose Total Bilirubin NT-Pro-B Natriuret Pep 2010 H Lipase Urine Protein 30 H Urine Urobilinogen 2.0 H Laboratory work shows a leukocytosis and a BNP of 2010. Also patient has an claire vated creatinine of 1.3. And a sodium of 129. - Diagnostic Test Radiology reviewed: Image reviewed, Reports reviewed Radiology results interpreted by me: 03/10/20 14:07 Chest x-ray shows no acute process CT scan of head shows a prior infarct area but no new acute process. 03/10/20 14:08 CT abdomen pelvis shows no acute process except for peritoneal inflammatory changes noted without defined abscess. - EKG Interpretation by Me Additional EKG results interpreted by me: 03/10/20 14:10 EKG shows atrial fibrillation with a variable rate of ventricle 89-1 35. Old inferior infarct and nonspecific ST-T wave changes. Critical Care Note - Critical Care Note Total time excluding time spent on procedures (mins): 45 - Management sepsis, generalized weakness, dehydration, chronic A. fib, and perineal infection cellulitis. Discharge - Discharge Clinical Impression: Generalized weakness, Chronic atrial fibrillation with RVR, Cellulitis, perineum, Leukocytosis, COPD (chronic obstructive pulmonary disease), Dehydration, Hyponatremia Condition: Fair Disposition: ADMITTED INPATIENT Admitting Provider: Reid (Hospitalist) Unit Admitted: [facility] Referrals: ALCON CASILLAS MD [Primary Care Provider] - Follow up as needed I personally performed the services described in the documentation, reviewed and edited the documentation which was dictated to the scribe in my presence, and it accurately records my words and actions.
[2020-03-10] MEDS ORDERED: NORMAL SALINE 1000 ML 1,000 ML IV PRN (14:26)
[2020-03-10] MEDS ORDERED: ACETAMINOPHEN 325 MG TABLET PO PRN (14:26)
[2020-03-10] MEDS ORDERED: DEXTROSE 40% GEL 15 GM TUBE PO PRN ×4 (14:31→16:20)
[2020-03-10] MEDS ORDERED: DEXTROSE 50%-WATER 25 GM/50 ML DISP.SYRIN IV PRN ×4 (14:31→16:20)
[2020-03-10] MEDS ORDERED: GLUCAGON,HUMAN RECOMB 1 MG INJ IM PRN (14:31)
--- NOTE | 2020-03-10 14:51 | PDOC H&P ---
History of Present Illness Admission Date/PCP: 03/10/20 14:22 ALCON CASILLAS MD Patient complains of: generalized weakness History of Present Illness: JAMILA HOWELL is a 74 year old male with h/o copd /lung cancer , af on coumadin came to the emergency room with complaints of nonspecific symptoms of generalized weakness not feeling well shortness of breath and wheezing. Is also admitting he is not eating drinking well. In the emergency room shows low-grade fever of 100 with a WBC count of 22,000 and hypotensive. Lactic acid level is 1.8. CT scan of the abdomen pelvis indicates inflammation around the perirectal area without abscess. Patient agreed to stay in the hospital for further management wants to be DNR/DNI. Also given history of fall at home CT head was negative for bleed. INR is 1.57. Past Medical History Cardiac Medical History: Reports: Atrial Fibrillation, Hyperlipidema, Hypertension Pulmonary Medical History: Reports: Asthma, Bronchitis, Chronic Obstructive Pulmonary Disease (COPD) Endocrine Medical History: Reports: Diabetes Mellitus Type 1, Diabetes Mellitus Type 2 GI Medical History: Reports: Gastroesophageal Reflux Disease Musculoskeltal Medical History: Reports: Arthritis Psychiatric Medical History: Reports: Depression Past Surgical History Past Surgical History: Reports: Orthopedic Surgery - L Arm, Other - Lung surgery. Social History Information Source: Patient Smoking Status: Current Every Day Smoker Electronic Cigarette use?: No - Advance Directive Resuscitation Status: Do Not Resuscitate Family History Family History: Arthritis, CAD, COPD, DM, Hyperlipidemia, Hypertension, Thyroid Disfunction Family History: Family history of diabetes mellitus Parental Family History Reviewed: Yes Children Family History Reviewed: Yes Sibling(s) Family History Reviewed.: Yes Medication/Allergy Allergies/Adverse Reactions: Penicillins Allergy (Verified 11/22/17 14:09) Review of Systems Constitutional: PRESENT: fatigue, weakness. ABSENT: fever(s) Eyes: ABSENT: visual disturbances Ears: ABSENT: hearing changes Nose, Mouth, and Throat: ABSENT: sore throat Cardiovascular: PRESENT: dyspnea on exertion Respiratory: PRESENT: dyspnea Musculoskeletal: ABSENT: joint swelling Integumentary: ABSENT: rash, wounds Neurological: ABSENT: abnormal gait, abnormal speech, confusion, dizziness, focal weakness, syncope Psychiatric: ABSENT: anxiety, depression, homidical ideation, suicidal ideation Hematologic/Lymphatic: ABSENT: easy bleeding, easy bruising Physical Exam Vital Signs: Temp Pulse Resp BP Pulse Ox 100.0 F 113 H 19 93/56 L 98 03/10/20 12:40 03/10/20 07:42 03/10/20 14:10 03/10/20 14:10 03/10/20 14:10 Intake & Output 03/09/20 03/10/20 03/11/20 06:59 06:59 06:59 Intake Total 1550 Output Total 100 Balance 1450 Weight 89.358 kg General appearance: PRESENT: no acute distress, well-developed Head exam: PRESENT: atraumatic Eye exam: PRESENT: PERRLA Mouth exam: PRESENT: moist, tongue midline Teeth exam: PRESENT: poor dentation Neck exam: ABSENT: carotid bruit, JVD, lymphadenopathy, thyromegaly Respiratory exam: PRESENT: decreased breath sounds, wheezes Cardiovascular exam: PRESENT: tachycardia GI/Abdominal exam: PRESENT: normal bowel sounds, soft. ABSENT: distended, guarding, mass, organolmegaly, rebound, tenderness Rectal exam: PRESENT: deferred, other - Patient refused rectal exam Extremities exam: PRESENT: full ROM. ABSENT: calf tenderness, clubbing, pedal edema Neurological exam: PRESENT: alert, awake, oriented to person, oriented to place, oriented to time, oriented to situation, CN II-XII grossly intact. ABSENT: motor sensory deficit Psychiatric exam: PRESENT: appropriate affect, normal mood. ABSENT: homicidal ideation, suicidal ideation Results Laboratory Results: 03/10/20 08:55 03/10/20 08:55 03/10/20 03/10/20 03/10/20 08:55 08:55 08:55 WBC 22.0 H RBC 4.61 Hgb 14.5 Hct 42.7 MCV 93 MCH 31.4 MCHC 33.9 RDW 14.6 H Plt Count 253 Seg Neutrophils % Not Reportable VBG pH VBG pCO2 VBG HCO3 VBG Base Excess Sodium 129.3 L Potassium 3.8 Chloride 94 L Carbon Dioxide 26 Anion Gap 9 BUN 23 H Creatinine 1.31 H Est GFR ( Amer) > 60 Glucose 306 H Lactic Acid 1.8 Calcium 8.5 Total Bilirubin 1.7 H AST 23 Alkaline Phosphatase 106 Total Protein 6.9 Albumin 3.6 Lipase 13.0 L Urine Color Urine Appearance Urine pH Ur Specific [place] Urine Protein Urine Glucose (UA) Urine Ketones Urine Blood Urine Nitrite Ur Leukocyte Esterase Urine WBC (Auto) Urine RBC (Auto) 03/10/20 03/10/20 08:55 11:48 WBC RBC Hgb Hct MCV MCH MCHC RDW Plt Count Seg Neutrophils % VBG pH 7.45 H VBG pCO2 39.5 VBG HCO3 26.6 VBG Base Excess 2.5 Sodium Potassium Chloride Carbon Dioxide Anion Gap BUN Creatinine Est GFR ( Amer) Glucose Lactic Acid Calcium Total Bilirubin AST Alkaline Phosphatase Total Protein Albumin Lipase Urine Color [place] Urine Appearance SLIGHTLY-CLOUDY Urine pH 5.0 Ur Specific [place] 1.019 Urine Protein 30 H Urine Glucose (UA) NEGATIVE Urine Ketones NEGATIVE Urine Blood NEGATIVE Urine Nitrite NEGATIVE Ur Leukocyte Esterase NEGATIVE Urine WBC (Auto) 1 Urine RBC (Auto) 1 03/10/20 08:55 Troponin I 0.033 NT-Pro-B Natriuret Pep 2010 H Impressions: Abdomen/Pelvis CT 03/10/20 00:00 IMPRESSION: 1. Perirectal/perineal inflammatory changes without defined abscess. 2. No evidence of acute cardiopulmonary abnormality. 3. No evidence of acute intra-abdominal infectious/inflammatory process. 4. Chronic and incidental findings as detailed above. Chest X-Ray 03/10/20 08:32 IMPRESSION: NO ACUTE RADIOGRAPHIC FINDING IN THE CHEST. Head CT 03/10/20 08:36 IMPRESSION: No evidence of calvarial injury or intracranial hemorrhage. Left frontal and parietal encephalomalacia consistent with sequela of previous large territory ischemic injury. EVIDENCE OF ACUTE STROKE: NO. Chest CT 03/10/20 08:38 IMPRESSION: 1. Perirectal/perineal inflammatory changes without defined abscess. 2. No evidence of acute cardiopulmonary abnormality. 3. No evidence of acute intra-abdominal infectious/inflammatory process. 4. Chronic and incidental findings as detailed above. Assessment and Plan - Diagnosis (1) Sepsis Is this a current diagnosis for this admission?: Yes Plan: 03/10/2020-patient is going to be admitted to [facility] as an inpatient for sepsis. Came in with low-grade fever with elevated WBC count and is hypotensive. Septic protocol is initiated. Start on IV fluids normal saline at 200 cc/h, blood cultures are requested. Urine cultures are requested. GI prophylaxis DVT prophylaxis initiated. Started on IV cefepime and IV vancomycin. CODE STATUS will be DNR/DNI. (2) Cellulitis of perineum Is this a current diagnosis for this admission?: Yes Plan: 03/10/2020-patient came in with nonspecific symptoms CT abdomen and pelvis indicates perirectal inflammation with elevated WBC count and normal lactic acid level and hypotensive. To start him on IV cefepime and IV vancomycin at this time. (3) Hyponatremia Is this a current diagnosis for this admission?: Yes Plan: 03/10/2020-serum sodium is 129.3. Patient is complaining of poor appetite at home hyponatremia may be secondary to prerenal causes. Started on normal saline 200 cc/h to recheck the labs tomorrow. (4) ALEYDA (acute kidney injury) Is this a current diagnosis for this admission?: Yes Plan: 03/10/2021 baseline creatinine is around 1.1 admitted with serum creatinine 1.3. Started on IV fluids normal saline 200 cc/h plan is to recheck labs tomorrow. (5) Chronic obstructive pulmonary disease Is this a current diagnosis for this admission?: No Plan: 03/10/2020-patient has history of COPD on examination bilateral extensive wheezing is present with a decreased bilateral air entry. We will start him on albuterol nebulizations and to restart his home medications. (6) Tobacco abuse Is this a current diagnosis for this admission?: No Plan: 03/10/2020-patient is a chronic daily smoker smokes 2 packs/day. Smoking counseling was provided for more than 15 minutes to offer him nicotine patches. (7) Diabetes Qualifiers: Diabetes mellitus type: type 2 Is this a current diagnosis for this admission?: No Plan: 03/10/2020-patient has history of type 2 diabetes mellitus blood sugar is 306. To start him on insulin sliding scale before meals and at bedtime to check for hemoglobin A1c.
[2020-03-10] MEDS ORDERED: IPRATROPIUM/ALBUTEROL 0.5-2.5 MG/3 ML AMPUL NEB ONE (15:00)
[2020-03-10 15:33] LABS: HEMATOCRIT 34.7 % (37.9-51.0); MEAN CORPUSCULAR HEMOGLOBIN 31.3 pg (27.0-33.4); MEAN CORPUSCULAR HGB CONC 34.4 g/dL (32.0-36.0); MEAN CORPUSCULAR VOLUME 91 fl (80-97); PLATELET COUNT 206 10^3/uL (150-450); RED BLOOD COUNT 3.81 10^6/uL (4.35-5.55); RED CELL DISTRIBUTION WIDTH 14.4 % (11.5-14.0); WHITE BLOOD COUNT 16.8 10^3/uL (4.0-10.5)
[2020-03-10 16:12] LABS: HEMOGLOBIN 11.9 g/dL (13.5-17.0)
[2020-03-10] MEDS ORDERED: GLUCAGON,HUMAN RECOMB 1 MG INJ SUBCUT PRN (16:20)
[2020-03-10] MEDS ORDERED: NORMAL SALINE 250 ML IV PRN ×2 (16:21)
--- NOTE | 2020-03-10 16:35 | PDOC CONSULTATION ---
Consultation Consult Date: 03/10/20 Provider Consulted: HONORIO RUSH Consult reason:: GI bleeding, abnormal CT scan showing possible thickening in rectum History of Present Illness Admission Date/PCP: 03/10/20 14:22 ALCON CASILLAS MD History of Present Illness: JAMILA HOWELL is a 74 year old male I am asked to see this patient who has been admitted on the Hospitalist service history of being on anticoagulation and patient has normal INR having possible lower GI Bleeding patient did have CT scan and noted to have abnormal thickening in the rectum without any abscess patient admitted and I am asked to see this patient to evaluate for possible GI Bleeding patient will need a colonoscopy will schedule with Propofol sedation Past Medical History Cardiac Medical History: Reports: Atrial Fibrillation, Hyperlipidema, Hypertension Pulmonary Medical History: Reports: Asthma, Bronchitis, Chronic Obstructive Pulmonary Disease (COPD) Endocrine Medical History: Reports: Diabetes Mellitus Type 1, Diabetes Mellitus Type 2 GI Medical History: Reports: Gastroesophageal Reflux Disease Musculoskeltal Medical History: Reports: Arthritis Psychiatric Medical History: Reports: Depression Past Surgical History Past Surgical History: Reports: Orthopedic Surgery - L Arm, Other - Lung surge ry. Social History Smoking Status: Current Every Day Smoker Electronic Cigarette use?: No - Advance Directive Resuscitation Status: Do Not Resuscitate Family History Family History: Arthritis, CAD, COPD, DM, Hyperlipidemia, Hypertension, Thyroid Disfunction Parental Family History Reviewed: Yes Children Family History Reviewed: Unknown Sibling(s) Family History Reviewed.: Unknown Medication/Allergy Home Medications: Alfuzosin HCl [Alfuzosin HCl ER] 10 mg PO DAILY 03/10/20 Atorvastatin Calcium [Lipitor 40 mg Tablet] 40 mg PO QHS 03/10/20 Finasteride [Proscar 5 mg Tablet] 5 mg PO DAILY 03/10/20 Lamotrigine 100 mg PO DAILY 03/10/20 Lisinopril [Prinivil 10 mg Tablet] 10 mg PO DAILY 03/10/20 Primidone [Mysoline 50 mg Tablet] 50 mg PO 03/10/20 Warfarin Sodium [Coumadin 5 mg Tablet] 5 mg PO QHS 03/10/20 Allergies/Adverse Reactions: Penicillins Allergy (Verified 11/22/17 14:09) Review of Systems Constitutional: ABSENT: fever(s), headache(s), night sweats, weakness Eyes: ABSENT: visual disturbances Ears: ABSENT: hearing changes Nose, Mouth, and Throat: ABSENT: mouth pain, sore throat Respiratory: ABSENT: dyspnea, hemoptysis Gastrointestinal: ABSENT: dysphagia, hematemesis, hematochezia Genitourinary: ABSENT: dysuria, hematuria Musculoskeletal: ABSENT: deformity, joint swelling Neurological: ABSENT: syncope, tingling, tremor(s), vertigo Endocrine: ABSENT: polydipsia, polyphagia Hematologic/Lymphatic: ABSENT: easy bruising Physical Exam Vital Signs: Temp Pulse Resp BP Pulse Ox 99.0 F 113 H 21 H 94/62 L 99 03/10/20 15:01 03/10/20 07:42 03/10/20 15:21 03/10/20 15:32 03/10/20 15:21 Intake & Output 03/09/20 03/10/20 03/11/20 06:59 06:59 06:59 Intake Total 1643 Output Total 100 Balance 1543 Weight 89.358 kg General appearance: PRESENT: no acute distress, well-developed, well-nourished Head exam: PRESENT: atraumatic, normocephalic Eye exam: PRESENT: EOMI, PERRLA. ABSENT: nystagmus, scleral icterus Mouth exam: PRESENT: moist, neck supple Teeth exam: ABSENT: edentulous Throat exam: ABSENT: post pharyngeal erythema Neck exam: ABSENT: meningismus, tenderness, thyromegaly Respiratory exam: ABSENT: rhonchi, stridor, symmetrical, tachypnea Cardiovascular exam: PRESENT: +S2. ABSENT: irregular rhythm GI/Abdominal exam: PRESENT: normal bowel sounds, soft. ABSENT: John's sign, organolmegaly, rebound, rigid Extremities exam: ABSENT: joint swelling Musculoskeletal exam: PRESENT: full ROM Neurological exam: PRESENT: alert, awake, CN II-XII grossly intact Skin exam: ABSENT: normal color, pallor, petechiae, urticaria, vesicles Results Laboratory Results: 03/10/20 15:21 03/10/20 08:55 03/10/20 03/10/20 03/10/20 08:55 08:55 08:55 WBC 22.0 H RBC 4.61 Hgb 14.5 Hct 42.7 MCV 93 MCH 31.4 MCHC 33.9 RDW 14.6 H Plt Count 253 Seg Neutrophils % Not Reportable VBG pH VBG pCO2 VBG HCO3 VBG Base Excess Sodium 129.3 L Potassium 3.8 Chloride 94 L Carbon Dioxide 26 Anion Gap 9 BUN 23 H Creatinine 1.31 H Est GFR ( Amer) > 60 Glucose 306 H Lactic Acid 1.8 Calcium 8.5 Total Bilirubin 1.7 H AST 23 Alkaline Phosphatase 106 Total Protein 6.9 Albumin 3.6 Lipase 13.0 L Urine Color Urine Appearance Urine pH Ur Specific [place] Urine Protein Urine Glucose (UA) Urine Ketones Urine Blood Urine Nitrite Ur Leukocyte Esterase Urine WBC (Auto) Urine RBC (Auto) 03/10/20 03/10/20 03/10/20 08:55 11:48 14:30 WBC RBC Hgb Hct MCV MCH MCHC RDW Plt Count Seg Neutrophils % VBG pH 7.45 H VBG pCO2 39.5 VBG HCO3 26.6 VBG Base Excess 2.5 Sodium Potassium Chloride Carbon Dioxide Anion Gap BUN Creatinine Est GFR ( Amer) Glucose Lactic Acid 1.3 Calcium Total Bilirubin AST Alkaline Phosphatase Total Protein Albumin Lipase Urine Color [place] Urine Appearance SLIGHTLY-CLOUDY Urine pH 5.0 Ur Specific [place] 1.019 Urine Protein 30 H Urine Glucose (UA) NEGATIVE Urine Ketones NEGATIVE Urine Blood NEGATIVE Urine Nitrite NEGATIVE Ur Leukocyte Esterase NEGATIVE Urine WBC (Auto) 1 Urine RBC (Auto) 1 03/10/20 15:21 WBC 16.8 H RBC 3.81 L Hgb 11.9 L D Hct 34.7 L MCV 91 MCH 31.3 MCHC 34.4 RDW 14.4 H Plt Count 206 Seg Neutrophils % VBG pH VBG pCO2 VBG HCO3 VBG Base Excess Sodium Potassium Chloride Carbon Dioxide Anion Gap BUN Creatinine Est GFR ( Amer) Glucose Lactic Acid Calcium Total Bilirubin AST Alkaline Phosphatase Total Protein Albumin Lipase Urine Color Urine Appearance Urine pH Ur Specific [place] Urine Protein Urine Glucose (UA) Urine Ketones Urine Blood Urine Nitrite Ur Leukocyte Esterase Urine WBC (Auto) Urine RBC (Auto) 03/10/20 03/10/20 08:55 15:21 Troponin I 0.033 0.026 NT-Pro-B Natriuret Pep 2010 H Impressions: Abdomen/Pelvis CT 03/10/20 00:00 IMPRESSION: 1. Perirectal/perineal inflammatory changes without defined abscess. 2. No evidence of acute cardiopulmonary abnormality. 3. No evidence of acute intra-abdominal infectious/inflammatory process. 4. Chronic and incidental findings as detailed above. Chest X-Ray 03/10/20 08:32 IMPRESSION: NO ACUTE RADIOGRAPHIC FINDING IN THE CHEST. Head CT 03/10/20 08:36 IMPRESSION: No evidence of calvarial injury or intracranial hemorrhage. Left frontal and parietal encephalomalacia consistent with sequela of previous large territory ischemic injury. EVIDENCE OF ACUTE STROKE: NO. Chest CT 03/10/20 08:38 IMPRESSION: 1. Perirectal/perineal inflammatory changes without defined abscess. 2. No evidence of acute cardiopulmonary abnormality. 3. No evidence of acute intra-abdominal infectious/inflammatory process. 4. Chronic and incidental findings as detailed above. Assessment & Plan - Diagnosis (1) GI bleeding Plan: will schedule colonoscopy will need Propofol sedation given A Fib differential to include possible ischemic colitis vs diverticular bleeding however has thickening on recent CT scan in rectum and will need work up will schedule for am Risks, benefits and alternatives are explained to the patient in detail further recommendations to follow - Time Time Spent: 50 to 70 Minutes
[2020-03-10] MEDS ORDERED: POLYETHYLENE GLYCOL 3350 POWDER 17 GM/1 PACKET PO ONE (17:00)
[2020-03-10] MEDS: INSULIN LISPRO 100 UNIT/ML 3 ML VIAL SUBCUT SCH ×2 (17:22→22:00)
--- NOTE | 2020-03-10 19:43 | PDOC CONSULTATION ---
Consultation Consult Date: 03/10/20 Provider Consulted: SHAMAR CLAY Consult reason:: evaluate perineal abscess History of Present Illness Admission Date/PCP: 03/10/20 14:22 ALCON CASILLAS MD Patient complains of: Generalized weakness along with the pain at the buttocks. History of Present Illness: JAMILA HOWELL is a 74 year old male history of diabetes presenting with 2-week history of painful lump of his buttocks near the anus. Patient has noted in the last several days increasing malaise and generalized weakness. Uncertain whether he has had any fever. He has had diminished appetite. No abdominal pain. Patient was also noted with some blood per rectum upon hospitalization. Patient himself has not noticed any but he has not been looking in the toilet. Past Medical History Cardiac Medical History: Reports: Atrial Fibrillation, Hyperlipidema, Hypertension Pulmonary Medical History: Reports: Asthma, Bronchitis, Chronic Obstructive Pulmonary Disease (COPD) Endocrine Medical History: Reports: Diabetes Mellitus Type 1, Diabetes Mellitus Type 2 GI Medical History: Reports: Gastroesophageal Reflux Disease Musculoskeltal Medical History: Reports: Arthritis Psychiatric Medical History: Reports: Depression Past Surgical History Past Surgical History: Reports: Orthopedic Surgery - L Arm, Other - Lung surgery. Social History Smoking Status: Current Every Day Smoker Electronic Cigarette use?: No Frequency of Alcohol Use: Social Hx Recreational Drug Use: No Drugs: None - Advance Directive Resuscitation Status: Do Not Resuscitate Family History Family History: Arthritis, CAD, COPD, DM, Hyperlipidemia, Hypertension, Thyroid Disfunction Parental Family History Reviewed: No Children Family History Reviewed: No Sibling(s) Family History Reviewed.: No Medication/Allergy Home Medications: Alfuzosin HCl [Alfuzosin HCl ER] 10 mg PO DAILY 03/10/20 Atorvastatin Calcium [Lipitor 40 mg Tablet] 40 mg PO QHS 03/10/20 Ferrous Sulfate [Feosol 325 mg Tablet] 325 mg PO DAILY 03/10/20 Finasteride [Proscar 5 mg Tablet] 5 mg PO DAILY 03/10/20 Furosemide [Lasix 40 mg Tablet] 80 mg PO DAILY 03/10/20 Lamotrigine 100 mg PO DAILY 03/10/20 Lisinopril [Prinivil 10 mg Tablet] 10 mg PO DAILY 03/10/20 Primidone [Mysoline 50 mg Tablet] 50 mg PO QHS 03/10/20 Primidone [Mysoline 50 mg Tablet] 100 mg PO DAILY 03/10/20 Warfarin Sodium [Coumadin 5 mg Tablet] 5 mg PO MOWEFR@219903/10/20 Warfarin Sodium [Coumadin 5 mg Tablet] 7.5 mg PO SUTUTHSA@219903/10/20 Allergies/Adverse Reactions: Penicillins Allergy (Verified 11/22/17 14:09) Review of Systems All systems: reviewed and no additional remarkable complaints except as stated Constitutional: PRESENT: as per HPI Gastrointestinal: PRESENT: as per HPI Integumentary: PRESENT: as per HPI Physical Exam Vital Signs: Temp Pulse Resp BP Pulse Ox 99.0 F 92 24 H 94/62 L 99 03/10/20 15:01 03/10/20 16:08 03/10/20 15:30 03/10/20 15:32 03/10/20 15:30 Intake & Output 03/09/20 03/10/20 03/11/20 06:59 06:59 06:59 Intake Total 1643 Output Total 500 Balance 1143 Weight 89.358 kg General appearance: PRESENT: no acute distress, cooperative Eye exam: PRESENT: conjunctiva pink Respiratory exam: PRESENT: rhonchi Cardiovascular exam: PRESENT: irregular rhythm GI/Abdominal exam: PRESENT: other - Soft, nondistended, nontender to palpation. Rectal exam: PRESENT: other - At his right perianal region extending to his perineum, region of erythema and tenderness with underlying fluctuance and small amount of drainage. On digital rectal exam no palpable perianal masses other than the above-mentioned inflammatory process. Psychiatric exam: PRESENT: appropriate affect Results Laboratory Results: 03/10/20 15:21 03/10/20 08:55 03/10/20 03/10/20 03/10/20 08:55 08:55 08:55 WBC 22.0 H RBC 4.61 Hgb 14.5 Hct 42.7 MCV 93 MCH 31.4 MCHC 33.9 RDW 14.6 H Plt Count 253 Seg Neutrophils % Not Reportable VBG pH VBG pCO2 VBG HCO3 VBG Base Excess Sodium 129.3 L Potassium 3.8 Chloride 94 L Carbon Dioxide 26 Anion Gap 9 BUN 23 H Creatinine 1.31 H Est GFR ( Amer) > 60 Glucose 306 H Lactic Acid 1.8 Calcium 8.5 Total Bilirubin 1.7 H AST 23 Alkaline Phosphatase 106 Total Protein 6.9 Albumin 3.6 Lipase 13.0 L Urine Color Urine Appearance Urine pH Ur Specific [place] Urine Protein Urine Glucose (UA) Urine Ketones Urine Blood Urine Nitrite Ur Leukocyte Esterase Urine WBC (Auto) Urine RBC (Auto) Blood Type Antibody Screen 03/10/20 03/10/20 03/10/20 08:55 11:48 14:30 WBC RBC Hgb Hct MCV MCH MCHC RDW Plt Count Seg Neutrophils % VBG pH 7.45 H VBG pCO2 39.5 VBG HCO3 26.6 VBG Base Excess 2.5 Sodium Potassium Chloride Carbon Dioxide Anion Gap BUN Creatinine Est GFR ( Amer) Glucose Lactic Acid 1.3 Calcium Total Bilirubin AST Alkaline Phosphatase Total Protein Albumin Lipase Urine Color [place] Urine Appearance SLIGHTLY-CLOUDY Urine pH 5.0 Ur Specific [place] 1.019 Urine Protein 30 H Urine Glucose (UA) NEGATIVE Urine Ketones NEGATIVE Urine Blood NEGATIVE Urine Nitrite NEGATIVE Ur Leukocyte Esterase NEGATIVE Urine WBC (Auto) 1 Urine RBC (Auto) 1 Blood Type Antibody Screen 03/10/20 03/10/20 03/10/20 15:21 17:17 17:51 WBC 16.8 H RBC 3.81 L Hgb 11.9 L D Hct 34.7 L MCV 91 MCH 31.3 MCHC 34.4 RDW 14.4 H Plt Count 206 Seg Neutrophils % VBG pH VBG pCO2 VBG HCO3 VBG Base Excess Sodium Potassium Chloride Carbon Dioxide Anion Gap BUN Creatinine Est GFR ( Amer) Glucose Lactic Acid 3.5 H Calcium Total Bilirubin AST Alkaline Phosphatase Total Protein Albumin Lipase Urine Color Urine Appearance Urine pH Ur Specific [place] Urine Protein Urine Glucose (UA) Urine Ketones Urine Blood Urine Nitrite Ur Leukocyte Esterase Urine WBC (Auto) Urine RBC (Auto) Blood Type A POSITIVE Antibody Screen NEGATIVE 03/10/20 03/10/20 08:55 15:21 Troponin I 0.033 0.026 NT-Pro-B Natriuret Pep 2010 H Impressions: Abdomen/Pelvis CT 03/10/20 00:00 IMPRESSION: 1. Perirectal/perineal inflammatory changes without defined abscess. 2. No evidence of acute cardiopulmonary abnormality. 3. No evidence of acute intra-abdominal infectious/inflammatory process. 4. Chronic and incidental findings as detailed above. Chest X-Ray 03/10/20 08:32 IMPRESSION: NO ACUTE RADIOGRAPHIC FINDING IN THE CHEST. Head CT 03/10/20 08:36 IMPRESSION: No evidence of calvarial injury or intracranial hemorrhage. Left frontal and parietal encephalomalacia consistent with sequela of previous large territory ischemic injury. EVIDENCE OF ACUTE STROKE: NO. Chest CT 03/10/20 08:38 IMPRESSION: 1. Perirectal/perineal inflammatory changes without defined absces s. 2. No evidence of acute cardiopulmonary abnormality. 3. No evidence of acute intra-abdominal infectious/inflammatory process. 4. Chronic and incidental findings as detailed above. Assessment & Plan - Diagnosis (1) Perineal abscess Is this a current diagnosis for this admission?: Yes Plan: Possible perianal abscess but I believe it is a perineal process. I will plan to take the patient to the operating room tonight for an incision and drainage procedure. Possible drain placement. I have discussed with the patient the risk and benefits of the surgery including risk of bleeding, fistula formation if it is a perianal abscess, prolonged wound healing, heart-lung complications. Patient understands and agrees to proceed. I believe that he is presenting with low-grade sepsis due to this neglected perineal abscess in a diabetic patient.
[2020-03-10] MEDS: NORMAL SALINE 1000 ML 1,000 ML IV PRN (19:59)
[2020-03-10] MEDS ORDERED: PROMETHAZINE HCL INJ 25 MG/1 ML VIAL IV PRN ×2 (20:18)
[2020-03-10] MEDS ORDERED: DIPHENHYDRAMINE HCL 50 MG/ML VIAL IV PRN (20:18)
[2020-03-10] MEDS ORDERED: ONDANSETRON HCL INJ/PF 4 MG/2 ML SDV IV PRN (20:18)
[2020-03-10] MEDS ORDERED: FENTANYL CITRATE INJ/PF 100 MCG/2 ML AMPUL IV PRN ×3 (20:18)
[2020-03-10] MEDS ORDERED: MEPERIDINE HCL/PF INJ 25 MG/1 ML DISP.SYRIN IV PRN (20:18)
[2020-03-10] MEDS ORDERED: OXYCODONE-ACETAMINOPHEN 5-325 MG TABLET PO PRN ×2 (20:18)
[2020-03-10] MEDS: ZOLPIDEM TARTRATE 5 MG TABLET PO SCH (22:00)
[2020-03-10] MEDS ORDERED: CEFEPIME 2 GM/D5W RTU 2 GM/50 ML RTUPB IV SCH (22:00)
[2020-03-10] MEDS: PANTOPRAZOLE SODIUM 40 MG VIAL IV SCH (22:03)
[2020-03-10] MEDS: CEFEPIME HCL 2 GM in DEXTROSE 5%-WATER 50 ML IV SCH (22:04)
[2020-03-11] MEDS ORDERED: ALBUTEROL SULFATE 0.083% NEB 2.5 MG/3 ML AMPUL NEB ONE ×2 (00:06→00:30)
--- NOTE | 2020-03-11 00:37 | PDOC PROGRESS REPORT ---
Subjective Reason For Visit: GENERALIZED WEAKNESS,CHRONIC ATRIAL FIBRILLATION Physical Exam Vital Signs: Temp Pulse Resp BP Pulse Ox 99.3 F 110 H 21 H 137/79 H 100 03/10/20 23:26 03/11/20 00:15 03/11/20 00:15 03/10/20 23:26 03/11/20 00:15 Intake & Output 03/09/20 03/10/20 03/11/20 06:59 06:59 06:59 Intake Total 1643 Output Total 725 Balance 918 Weight 89.358 kg Results Laboratory Results: 03/10/20 15:21 03/10/20 08:55 03/10/20 03/10/20 03/10/20 08:55 08:55 08:55 WBC 22.0 H RBC 4.61 Hgb 14.5 Hct 42.7 MCV 93 MCH 31.4 MCHC 33.9 RDW 14.6 H Plt Count 253 Seg Neutrophils % Not Reportable VBG pH VBG pCO2 VBG HCO3 VBG Base Excess Sodium 129.3 L Potassium 3.8 Chloride 94 L Carbon Dioxide 26 Anion Gap 9 BUN 23 H Creatinine 1.31 H Est GFR ( Amer) > 60 Glucose 306 H Lactic Acid 1.8 Calcium 8.5 Total Bilirubin 1.7 H AST 23 Alkaline Phosphatase 106 Total Protein 6.9 Albumin 3.6 Lipase 13.0 L Urine Color Urine Appearance Urine pH Ur Specific [place] Urine Protein Urine Glucose (UA) Urine Ketones Urine Blood Urine Nitrite Ur Leukocyte Esterase Urine WBC (Auto) Urine RBC (Auto) Blood Type Antibody Screen 03/10/20 03/10/20 03/10/20 08:55 11:48 14:30 WBC RBC Hgb Hct MCV MCH MCHC RDW Plt Count Seg Neutrophils % VBG pH 7.45 H VBG pCO2 39.5 VBG HCO3 26.6 VBG Base Excess 2.5 Sodium Potassium Chloride Carbon Dioxide Anion Gap BUN Creatinine Est GFR ( Amer) Glucose Lactic Acid 1.3 Calcium Total Bilirubin AST Alkaline Phosphatase Total Protein Albumin Lipase Urine Color [place] Urine Appearance SLIGHTLY-CLOUDY Urine pH 5.0 Ur Specific [place] 1.019 Urine Protein 30 H Urine Glucose (UA) NEGATIVE Urine Ketones NEGATIVE Urine Blood NEGATIVE Urine Nitrite NEGATIVE Ur Leukocyte Esterase NEGATIVE Urine WBC (Auto) 1 Urine RBC (Auto) 1 Blood Type Antibody Screen 03/10/20 03/10/20 03/10/20 15:21 17:17 17:51 WBC 16.8 H RBC 3.81 L Hgb 11.9 L D Hct 34.7 L MCV 91 MCH 31.3 MCHC 34.4 RDW 14.4 H Plt Count 206 Seg Neutrophils % VBG pH VBG pCO2 VBG HCO3 VBG Base Excess Sodium Potassium Chloride Carbon Dioxide Anion Gap BUN Creatinine Est GFR ( Amer) Glucose Lactic Acid 3.5 H Calcium Total Bilirubin AST Alkaline Phosphatase Total Protein Albumin Lipase Urine Color Urine Appearance Urine pH Ur Specific [place] Urine Protein Urine Glucose (UA) Urine Ketones Urine Blood Urine Nitrite Ur Leukocyte Esterase Urine WBC (Auto) Urine RBC (Auto) Blood Type A POSITIVE Antibody Screen NEGATIVE 03/10/20 03/10/20 03/10/20 08:55 15:21 20:14 Troponin I 0.033 0.026 0.028 NT-Pro-B Natriuret Pep 2010 H Impressions: Abdomen/Pelvis CT 03/10/20 00:00 IMPRESSION: 1. Perirectal/perineal inflammatory changes without defined abscess. 2. No evidence of acute cardiopulmonary abnormality. 3. No evidence of acute intra-abdominal infectious/inflammatory process. 4. Chronic and incidental findings as detailed above. Chest X-Ray 03/10/20 08:32 IMPRESSION: NO ACUTE RADIOGRAPHIC FINDING IN THE CHEST. Head CT 03/10/20 08:36 IMPRESSION: No evidence of calvarial injury or intracranial hemorrhage. Left frontal and parietal encephalomalacia consistent with sequela of previous large territory ischemic injury. EVIDENCE OF ACUTE STROKE: NO. Chest CT 03/10/20 08:38 IMPRESSION: 1. Perirectal/perineal inflammatory changes without defined abscess. 2. No evidence of acute cardiopulmonary abnormality. 3. No evidence of acute intra-abdominal infectious/inflammatory process. 4. Chronic and incidental findings as detailed above. Assessment & Plan - Diagnosis (1) Perineal abscess Is this a current diagnosis for this admission?: Yes Plan: Due to scheduling delays, his incision and drainage procedure will be postponed till this morning. Patient is on antibiotics and I think it is reasonable to do the procedure in the morning.
[2020-03-11] MEDS ORDERED: LEVALBUTEROL HCL NEB 0.63 MG/3 ML AMPUL NEB PRN (00:53)
[2020-03-11 02:16] LABS: HEMATOCRIT 35.6 % (37.9-51.0); HEMOGLOBIN 12.2 g/dL (13.5-17.0); MEAN CORPUSCULAR HEMOGLOBIN 31.2 pg (27.0-33.4); MEAN CORPUSCULAR HGB CONC 34.1 g/dL (32.0-36.0); MEAN CORPUSCULAR VOLUME 91 fl (80-97); PLATELET COUNT 190 10^3/uL (150-450); RED CELL DISTRIBUTION WIDTH 14.5 % (11.5-14.0); WHITE BLOOD COUNT 16.7 10^3/uL (4.0-10.5)
[2020-03-11] MEDS: NORMAL SALINE 1000 ML 1,000 ML IV PRN ×4 (02:20→22:00)
[2020-03-11 02:45] LABS: ALBUMIN 2.8 g/dL (3.5-5.0); ALKALINE PHOSPHATASE 87 U/L (38-126); ANION GAP 7 (5-19); ASPARTATE AMINO TRANSFERASE 24 U/L (17-59); BILIRUBIN,DIRECT 0.3 mg/dL (0.0-0.4); BILIRUBIN,TOTAL 1.2 mg/dL (0.2-1.3); BLOOD UREA NITROGEN 22 mg/dL (7-20); CALCIUM 7.7 mg/dL (8.4-10.2); CARBON DIOXIDE 20 mmol/L (22-30); CHLORIDE 103 mmol/L (98-107); CHOLESTEROL 96.26 mg/dL (0-200); GLUCOSE 223 mg/dL (75-110); POTASSIUM 4.1 mmol/L (3.6-5.0); TOTAL PROTEIN 5.3 g/dL (6.3-8.2); TRIGLYCERIDES 98 mg/dL (<150)
[2020-03-11 02:55] LABS: INTERNATIONAL RATION (INR) 1.68
[2020-03-11 02:56] LABS: DIRECT LDL 57 mg/dL (<100)
[2020-03-11] MEDS ORDERED: NORMAL SALINE 1000 ML 1,000 ML IV PRN (04:57)
[2020-03-11] MEDS: VANCOMYCIN HCL 750 MG in DEXTROSE 5%-WATER 250 ML IV SCH ×2 (05:23→17:25)
[2020-03-11] MEDS: INSULIN LISPRO 100 UNIT/ML 3 ML VIAL SUBCUT SCH ×4 (08:34→22:01)
--- NOTE | 2020-03-11 09:05 | PDOC PROGRESS REPORT ---
Subjective Progress Note for:: 03/11/20 Subjective:: 74 year old male with h/o copd /lung cancer , af on coumadin came to the emergency room with complaints of nonspecific symptoms of generalized weakness not feeling well shortness of breath and wheezing. Is also admitting he is not eating drinking well. In the emergency room shows low-grade fever of 100 with a WBC count of 22,000 and hypotensive. Lactic acid level is 1.8. CT scan of the abdomen pelvis indicates inflammation around the perirectal area without a bscess. Patient agreed to stay in the hospital for further management wants to be DNR/DNI. Also given history of fall at home CT head was negative for bleed. INR is 1.57. 03/[id number] male with multiple medical problems including COPD, lung cancer, atrial fibrillation on Coumadin admitted with sepsis. Surgical consult was requested for perineal abscess. He will go to the OR today. Cover test is negative. Patient is also passing black-colored stools melanotic stools and Coumadin is on hold. Patient may go for a EGD/colonoscopy today. Patient is receiving normal saline at 250 cc/h blood pressures are soft this morning. 600/60. WBC count 16,700. Patient is receiving IV cefepime and vancomycin at this time. Blood cultures urine cultures are pending. CODE STATUS is DNR/DNI. Reason For Visit: GENERALIZED WEAKNESS,CHRONIC ATRIAL FIBRILLATION Physical Exam Vital Signs: Temp Pulse Resp BP Pulse Ox 99.2 F 119 H 24 H 98/65 L 98 03/11/20 07:29 03/11/20 07:29 03/11/20 07:29 03/11/20 07:29 03/11/20 07:29 Intake & Output 03/10/20 03/11/20 03/12/20 06:59 06:59 06:59 Intake Total 3693 Output Total 900 Balance 2793 Weight 90.8 kg General appearance: PRESENT: cooperative, mild distress, well-developed Head exam: PRESENT: atraumatic Eye exam: PRESENT: conjunctiva pale, PERRLA Mouth exam: PRESENT: moist, tongue midline Teeth exam: PRESENT: poor dentation Neck exam: ABSENT: carotid bruit, JVD, lymphadenopathy, thyromegaly Respiratory exam: PRESENT: decreased breath sounds, tachypnea, wheezes Cardiovascular exam: PRESENT: irregular rhythm Pulses: PRESENT: normal dorsalis pedis pul GI/Abdominal exam: PRESENT: normal bowel sounds, soft. ABSENT: distended, guarding, mass, organolmegaly, rebound, tenderness Rectal exam: PRESENT: deferred Extremities exam: PRESENT: full ROM. ABSENT: calf tenderness, clubbing, pedal edema Neurological exam: PRESENT: alert, awake, oriented to person, oriented to place, oriented to time, oriented to situation, CN II-XII grossly intact. ABSENT: motor sensory deficit Psychiatric exam: PRESENT: appropriate affect, normal mood. ABSENT: homicidal ideation, suicidal ideation Results Laboratory Results: 03/11/20 02:07 03/11/20 02:07 03/10/20 03/10/20 03/10/20 08:55 08:55 08:55 WBC 22.0 H RBC 4.61 Hgb 14.5 Hct 42.7 MCV 93 MCH 31.4 MCHC 33.9 RDW 14.6 H Plt Count 253 Seg Neutrophils % Not Reportable VBG pH VBG pCO2 VBG HCO3 VBG Base Excess Sodium 129.3 L Potassium 3.8 Chloride 94 L Carbon Dioxide 26 Anion Gap 9 BUN 23 H Creatinine 1.31 H Est GFR ( Amer) > 60 Glucose 306 H Lactic Acid 1.8 Calcium 8.5 Phosphorus Magnesium Total Bilirubin 1.7 H AST 23 Alkaline Phosphatase 106 Total Protein 6.9 Albumin 3.6 Triglycerides Cholesterol LDL Cholesterol Direct VLDL Cholesterol HDL Cholesterol Lipase 13.0 L TSH Urine Color Urine Appearance Urine pH Ur Specific [place] Urine Protein Urine Glucose (UA) Urine Ketones Urine Blood Urine Nitrite Ur Leukocyte Esterase Urine WBC (Auto) Urine RBC (Auto) Blood Type Antibody Screen 03/10/20 03/10/20 03/10/20 08:55 11:48 14:30 WBC RBC Hgb Hct MCV MCH MCHC RDW Plt Count Seg Neutrophils % VBG pH 7.45 H VBG pCO2 39.5 VBG HCO3 26.6 VBG Base Excess 2.5 Sodium Potassium Chloride Carbon Dioxide Anion Gap BUN Creatinine Est GFR ( Amer) Glucose Lactic Acid 1.3 Calcium Phosphorus Magnesium Total Bilirubin AST Alkaline Phosphatase Total Protein Albumin Triglycerides Cholesterol LDL Cholesterol Direct VLDL Cholesterol HDL Cholesterol Lipase TSH Urine Color [place] Urine Appearance SLIGHTLY-CLOUDY Urine pH 5.0 Ur Specific [place] 1.019 Urine Protein 30 H Urine Glucose (UA) NEGATIVE Urine Ketones NEGATIVE Urine Blood NEGATIVE Urine Nitrite NEGATIVE Ur Leukocyte Esterase NEGATIVE Urine WBC (Auto) 1 Urine RBC (Auto) 1 Blood Type Antibody Screen 03/10/20 03/10/20 03/10/20 15:21 17:17 17:51 WBC 16.8 H RBC 3.81 L Hgb 11.9 L D Hct 34.7 L MCV 91 MCH 31.3 MCHC 34.4 RDW 14.4 H Plt Count 206 Seg Neutrophils % VBG pH VBG pCO2 VBG HCO3 VBG Base Excess Sodium Potassium Chloride Carbon Dioxide Anion Gap BUN Creatinine Est GFR ( Amer) Glucose Lactic Acid 3.5 H Calcium Phosphorus Magnesium Total Bilirubin AST Alkaline Phosphatase Total Protein Albumin Triglycerides Cholesterol LDL Cholesterol Direct VLDL Cholesterol HDL Cholesterol Lipase TSH Urine Color Urine Appearance Urine pH Ur Specific [place] Urine Protein Urine Glucose (UA) Urine Ketones Urine Blood Urine Nitrite Ur Leukocyte Esterase Urine WBC (Auto) Urine RBC (Auto) Blood Type A POSITIVE Antibody Screen NEGATIVE 03/11/20 03/11/20 03/11/20 02:07 02:07 02:07 WBC 16.7 H RBC 3.90 L Hgb 12.2 L Hct 35.6 L MCV 91 MCH 31.2 MCHC 34.1 RDW 14.5 H Plt Count 190 Seg Neutrophils % VBG pH VBG pCO2 VBG HCO3 VBG Base Excess Sodium 130.2 L Potassium 4.1 Chloride 103 Carbon Dioxide 20 L Anion Gap 7 BUN 22 H Creatinine 1.14 Est GFR ( Amer) > 60 Glucose 223 H Lactic Acid Calcium 7.7 L Phosphorus 2.0 L Magnesium 1.4 L Total Bilirubin 1.2 AST 24 Alkaline Phosphatase 87 Total Protein 5.3 L Albumin 2.8 L Triglycerides 98 Cholesterol 96.26 LDL Cholesterol Direct 57 VLDL Cholesterol 20.0 HDL Cholesterol 23 L Lipase 17.0 L TSH 0.36 L Urine Color Urine Appearance Urine pH Ur Specific [place] Urine Protein Urine Glucose (UA) Urine Ketones Urine Blood Urine Nitrite Ur Leukocyte Esterase Urine WBC (Auto) Urine RBC (Auto) Blood Type Antibody Screen 03/11/20 02:07 WBC RBC Hgb Hct MCV MCH MCHC RDW Plt Count Seg Neutrophils % VBG pH VBG pCO2 VBG HCO3 VBG Base Excess Sodium Potassium Chloride Carbon Dioxide Anion Gap BUN Creatinine Est GFR ( Amer) Glucose Lactic Acid 1.6 Calcium Phosphorus Magnesium Total Bilirubin AST Alkaline Phosphatase Total Protein Albumin Triglycerides Cholesterol LDL Cholesterol Direct VLDL Cholesterol HDL Cholesterol Lipase TSH Urine Color Urine Appearance Urine pH Ur Specific [place] Urine Protein Urine Glucose (UA) Urine Ketones Urine Blood Urine Nitrite Ur Leukocyte Esterase Urine WBC (Auto) Urine RBC (Auto) Blood Type Antibody Screen 03/10/20 03/10/20 03/10/20 08:55 15:21 20:14 Troponin I 0.033 0.026 0.028 NT-Pro-B Natriuret Pep 2010 H 03/11/20 03/11/20 02:07 02:38 Troponin I 0.042 NT-Pro-B Natriuret Pep 3470 H Impressions: Abdomen/Pelvis CT 03/10/20 00:00 IMPRESSION: 1. Perirectal/perineal inflammatory changes without defined abscess. 2. No evidence of acute cardiopulmonary abnormality. 3. No evidence of acute intra-abdominal infectious/inflammatory process. 4. Chronic and incidental findings as detailed above. Chest X-Ray 03/10/20 08:32 IMPRESSION: NO ACUTE RADIOGRAPHIC FINDING IN THE CHEST. Head CT 03/10/20 08:36 IMPRESSION: No evidence of calvarial injury or intracranial hemorrhage. Left frontal and parietal encephalomalacia consistent with sequela of previous large territory ischemic injury. EVIDENCE OF ACUTE STROKE: NO. Chest CT 03/10/20 08:38 IMPRESSION: 1. Perirectal/perineal inflammatory changes without defined abscess. 2. No evidence of acute cardiopulmonary abnormality. 3. No evidence of acute intra-abdominal infectious/inflammatory process. 4. Chronic and incidental findings as detailed above. Assessment and Plan - Diagnosis (1) Sepsis Is this a current diagnosis for this admission?: Yes Plan: 03/10/2020-patient is going to be admitted to [facility] as an inpatient for sepsis. Came in with low-grade fever with elevated WBC count and is hypotensive. Septic protocol is initiated. Start on IV fluids normal saline at 200 cc/h, blood cultures are requested. Urine cultures are requested. GI prophylaxis DVT prophylaxis initiated. Started on IV cefepime and IV vancomycin. CODE STATUS will be DNR/DNI. 03/11/20-patient is receiving IV cefepime, IV vancomycin. Source of infection probably perineal abscess. Surgery is planning for a incision and drainage in OR. Cover test is negative and latest hemoglobin is 12.2. Coumadin is on hold. Today INR is 1.57. (2) Cellulitis of perineum Is this a current diagnosis for this admission?: Yes Plan: 03/10/2020-patient came in with nonspecific symptoms CT abdomen and pelvis indicates perirectal inflammation with elevated WBC count and normal lactic acid level and hypotensive. To start him on IV cefepime and IV vancomycin at this time. 03/11/2020-patient is going for incision and drainage with possible drain placement in OR today. Coumadin is on hold. Cover test is negative. Receiving IV Vanco and cefepime. WBC count is 16,700 temp is 98.8 this morning. Latest lactic acid level is 1.6. (3) Hyponatremia Is this a current diagnosis for this admission?: Yes Plan: 03/10/2020-serum sodium is 129.3. Patient is complaining of poor appetite at home hyponatremia may be secondary to prerenal causes. Started on normal saline 200 cc/h to recheck the labs tomorrow. 03/11/2020-serum sodium today is 130. Patient has history of lung cancer. He came in with complaints of very poor appetite not eating well at home. So lung cancer and poor nutritional status may be the contributing factors for hyponatremia. Patient is receiving normal saline at 250 cc/h. (4) ALEYDA (acute kidney injury) Is this a current diagnosis for this admission?: Yes Plan: 03/10/2021 baseline creatinine is around 1.1 admitted with serum creatinine 1.3. Started on IV fluids normal saline 200 cc/h plan is to recheck labs tomorrow. 03/11/2020-admission serum creatinine is 1.3 improved to 1.14 today. Acute kidn ey injury is resolving. (5) Chronic obstructive pulmonary disease Is this a current diagnosis for this admission?: No Plan: 03/10/2020-patient has history of COPD on examination bilateral extensive wheezing is present with a decreased bilateral air entry. We will start him on albuterol nebulizations and to restart his home medications. 03/11/2020-patient has history of COPD secondary to chronic smoking uses 3 L of oxygen at home during the night. Presently on 4 L of oxygen pulse ox is 96%. Patient is requesting for portable oxygen at the time of discharge. (6) Tobacco abuse Is this a current diagnosis for this admission?: No Plan: 03/10/2020-patient is a chronic daily smoker smokes 2 packs/day. Smoking counseling was provided for more than 15 minutes to offer him nicotine patches. (7) Diabetes Qualifiers: Diabetes mellitus type: type 2 Is this a current diagnosis for this admission?: No Plan: 03/10/2020-patient has history of type 2 diabetes mellitus blood sugar is 306. To start him on insulin sliding scale before meals and at bedtime to check for hemoglobin A1c. 03/11/20Patient has history of type 2 diabetes mellitus latest blood sugar is 22 3. Hemoglobin A1c is 8.9 patient is on insulin sliding scale before meals and at bedtime. He is n.p.o. at this time.
[2020-03-11] MEDS: CEFEPIME HCL 2 GM in DEXTROSE 5%-WATER 50 ML IV SCH ×2 (09:43→22:01)
[2020-03-11] MEDS: PANTOPRAZOLE SODIUM 40 MG VIAL IV SCH ×2 (09:43→22:01)
[2020-03-11] MEDS ORDERED: VANCOMYCIN HCL INJ 1000 MG VIAL IV SCH (10:00)
[2020-03-11] MEDS: NA PHOS,M-B/NA PHOS,DI-BA (ADULT) 133 ML ENEMA PR PRN ×2 (10:11→11:24)
[2020-03-11] MEDS ORDERED: MIDAZOLAM 2 MG/2 ML INJ ONE (13:16)
[2020-03-11] MEDS ORDERED: PROPOFOL INJ 200 MG/20 ML VIAL IV ONE (13:16)
[2020-03-11] MEDS ORDERED: EPHEDRINE SULFATE INJ 50 MG/1 ML AMPULE ONE ×2 (13:17)
--- NOTE | 2020-03-11 14:00 | Operative Report ---
Operative Report DATE OF SURGERY: 03/11/20 Operative Report: The risks, benefits and alternatives are discussed with the patient in detail he is taken to the OR Propofol sedation is provided colonoscopy is performed to the cecum prep not as good patient tolerated the procedure well retroflexion is performed PREOPERATIVE DIAGNOSIS: GI bleeding POSTOPERATIVE DIAGNOSIS: internal hemorrhoids. diverticulosis without any diverticulits. cecal polyp, removed via biopsy forceps. no active GI bleeding OPERATION: Colonoscopy with biopsy SURGEON: HONORIO RUSH ANESTHESIA: LMAC TISSUE REMOVED OR ALTERED: as noted above COMPLICATIONS: none ESTIMATED BLOOD LOSS: none INTRAOPERATIVE FINDINGS: as noted above PROCEDURE: patient tolerated the procedure well no post procedure complications Dr Safely performing I&D immediately following the colonoscopy follow up as outpatient 5 year surveillance colonoscopy to recovery in good condition resume previous diet and activity level following surgical procedure wait on biopsy report
--- NOTE | 2020-03-11 14:17 | Operative Report ---
Nonrecallable Operative Report DATE OF SURGERY: 03/11/20 PREOPERATIVE DIAGNOSIS: Perirectal abscess POSTOPERATIVE DIAGNOSIS: Large perirectal abscess, involving the ischio rectal fossa OPERATION: Incision and drainage of a large perirectal abscess, involving the ischio rectal fossa SURGEON: MADISYN MORA ANESTHESIA: LMAC TISSUE REMOVED OR ALTERED: Wound culture COMPLICATIONS: None apparent ESTIMATED BLOOD LOSS: Minimal PROCEDURE: Drain/implants: Kerlix soaked in Betadine. Procedure in detail: After informed consent was obtained, the patient was brought to the operating room and laid in the lithotomy position. The area of the perineum and buttock were prepped and draped in a normal sterile fashion. Quarter percent Marcaine was used to anesthetize the skin in the perineum and perirectal area. An incision was created over the area of maximal fluctuance. There is a large abscess cavity with frankly purulent material present. The abscess cavity extended into the ischio rectal fossa. The abscess cavity was cleaned vigorously. The abscess cavity was then packed with Kerlix, soaked in Betadine. Once this was completed, a dressing was fashioned. The procedure was at this time concluded. All sponge, histamine, needle counts were correct. Condition: Fair.
[2020-03-11] MEDS ORDERED: OXYCODONE-ACETAMINOPHEN 5-325 MG TABLET PO PRN ×2 (14:25)
[2020-03-11] MEDS ORDERED: MEPERIDINE HCL/PF INJ 25 MG/1 ML DISP.SYRIN IV PRN (14:25)
[2020-03-11] MEDS ORDERED: DIPHENHYDRAMINE HCL 50 MG/ML VIAL IV PRN (14:25)
[2020-03-11] MEDS ORDERED: FENTANYL CITRATE INJ/PF 100 MCG/2 ML AMPUL IV PRN ×3 (14:25)
[2020-03-11] MEDS ORDERED: PROMETHAZINE HCL INJ 25 MG/1 ML VIAL IV PRN ×2 (14:25)
[2020-03-11] MEDS ORDERED: BUPIVACAINE HCL 0.25 % INJ/PF (2.5 MG/1 ML) 30 ML VIAL ONE (14:46)
[2020-03-11] MEDS: IPRATROPIUM/ALBUTEROL 0.5-2.5 MG/3 ML AMPUL NEB PRN (16:32)
[2020-03-11 17:48] LABS: APPEARANCE,URINE CLOUDY; BILIRUBIN,URINE NEGATIVE (NEGATIVE); COLOR,URINE AMBER; GLUCOSE, URINE 50 mg/dL (NEGATIVE); KETONES,URINE TRACE mg/dL (NEGATIVE); LEUKOCYTE ESTERASE,URINE NEGATIVE (NEGATIVE); NITRITE,URINE NEGATIVE (NEGATIVE); PROTEIN,URINE 100 mg/dL (NEGATIVE); URINE SPECIFIC GRAVITY 1.026; UROBILINOGEN,URINE NEGATIVE mg/dL (<2.0)
[2020-03-11] MEDS: ATORVASTATIN CALCIUM 40 MG TABLET PO SCH (22:00)
[2020-03-11] MEDS: ZOLPIDEM TARTRATE 5 MG TABLET PO SCH (22:02)
[2020-03-11] MEDS: METHYLPREDNISOLONE INJ 40 MG/1 ML SDV IV SCH (22:02)
[2020-03-11] MEDS: PRIMIDONE 50 MG TABLET PO SCH (22:03)
[2020-03-12 05:34] LABS: HEMATOCRIT 33.9 % (37.9-51.0); HEMOGLOBIN 11.5 g/dL (13.5-17.0); MEAN CORPUSCULAR HEMOGLOBIN 31.1 pg (27.0-33.4); MEAN CORPUSCULAR HGB CONC 33.8 g/dL (32.0-36.0); MEAN CORPUSCULAR VOLUME 92 fl (80-97); PLATELET COUNT 193 10^3/uL (150-450); RED BLOOD COUNT 3.69 10^6/uL (4.35-5.55); RED CELL DISTRIBUTION WIDTH 14.8 % (11.5-14.0); WHITE BLOOD COUNT 14.4 10^3/uL (4.0-10.5)
[2020-03-12] MEDS: VANCOMYCIN HCL 750 MG in DEXTROSE 5%-WATER 250 ML IV SCH ×2 (05:46→18:38)
[2020-03-12 05:58] LABS: ALBUMIN 2.6 g/dL (3.5-5.0); ALKALINE PHOSPHATASE 81 U/L (38-126); ANION GAP 9 (5-19); ASPARTATE AMINO TRANSFERASE 39 U/L (17-59); BILIRUBIN,DIRECT 0.3 mg/dL (0.0-0.4); BILIRUBIN,TOTAL 0.8 mg/dL (0.2-1.3); BLOOD UREA NITROGEN 28 mg/dL (7-20); CALCIUM 7.9 mg/dL (8.4-10.2); CARBON DIOXIDE 18 mmol/L (22-30); CHLORIDE 105 mmol/L (98-107); GLUCOSE 189 mg/dL (75-110); TOTAL PROTEIN 5.2 g/dL (6.3-8.2)
[2020-03-12 06:01] LABS: ABSOLUTE LYMPHOCYTES# (MANUAL) 0.7 10^3/uL (0.5-4.7); BAND NEUTROPHILS % (MANUAL) 1 % (3-5); BASOPHILS % (MANUAL) 0 % (0-2); EOSINOPHILS % (MANUAL) 0 % (0-6); LYMPHOCYTES % (MANUAL) 5 % (13-45); MONOCYTES % (MANUAL) 7 % (3-13); PLATELET COMMENT ADEQUATE; RBC MORPHOLOGY COMMENT NORMO-CYTIC/CHROMIC; SEGMENTED NEUTROPHILS % (MAN) 87 % (42-78); TOTAL CELLS COUNTED 100
[2020-03-12] MEDS: INSULIN LISPRO 100 UNIT/ML 3 ML VIAL SUBCUT SCH ×4 (08:54→22:41)
--- NOTE | 2020-03-12 09:01 | PDOC PROGRESS REPORT ---
Subjective Progress Note for:: 03/12/20 Subjective:: 74 year old male with h/o copd /lung cancer , af on coumadin came to the emergency room with complaints of nonspecific symptoms of generalized weakness not feeling well shortness of breath and wheezing. Is also admitting he is not eating drinking well. In the emergency room shows low-grade fever of 100 with a WBC count of 22,000 and hypotensive. Lactic acid level is 1.8. CT scan of the abdomen pelvis indicates inflammation around the perirectal area without a bscess. Patient agreed to stay in the hospital for further management wants to be DNR/DNI. Also given history of fall at home CT head was negative for bleed. INR is 1.57. [id number]-old male with multiple medical problems including COPD, lung cancer, atrial fibrillation on Coumadin admitted with sepsis. Surgical consult was requested for perineal abscess. He will go to the OR today. Cover test is negative. Patient is also passing black-colored stools melanotic stools and Coumadin is on hold. Patient may go for a EGD/colonoscopy today. Patient is receiving normal saline at 250 cc/h blood pressures are soft this morning. 600/60. WBC count 16,700. Patient is receiving IV cefepime and vancomycin at this time. Blood cultures urine cultures are pending. CODE STATUS is DNR/DNI. 03/12/20-patient went for colonoscopy found to have internal hemorrhoids no active bleed seen. He also went for incision and drainage for perirectal abscess huge abscess. Patient is getting IV antibiotic therapy at this time. WBC count came down to 14,400. Patient is on cefepime and vancomycin to add IV Flagyl from today. Comfortably in the bed communicating well. Reason For Visit: GENERALIZED WEAKNESS,CHRONIC ATRIAL FIBRILLATION Physical Exam Vital Signs: Temp Pulse Resp BP Pulse Ox 97.7 F 77 20 120/74 100 03/12/20 02:58 03/12/20 07:00 03/12/20 05:05 03/12/20 02:58 03/12/20 05:05 Intake & Output 03/11/20 03/12/20 03/13/20 06:59 06:59 06:59 Intake Total 3943 886 Output Total 900 525 Balance 3043 361 Weight 90.8 kg 90.1 kg General appearance: PRESENT: no acute distress, well-developed Head exam: PRESENT: atraumatic Eye exam: PRESENT: PERRLA Teeth exam: PRESENT: poor dentation Neck exam: ABSENT: carotid bruit, JVD, lymphadenopathy, thyromegaly Respiratory exam: PRESENT: decreased breath sounds, wheezes Cardiovascular exam: PRESENT: irregular rhythm GI/Abdominal exam: PRESENT: normal bowel sounds, soft. ABSENT: distended, guarding, mass, organolmegaly, rebound, tenderness Rectal exam: PRESENT: deferred Extremities exam: PRESENT: full ROM. ABSENT: calf tenderness, clubbing, pedal edema Neurological exam: PRESENT: alert, awake, oriented to person, oriented to place, oriented to time, oriented to situation, CN II-XII grossly intact. ABSENT: motor sensory deficit Psychiatric exam: PRESENT: appropriate affect, normal mood. ABSENT: homicidal ideation, suicidal ideation Results Laboratory Results: 03/12/20 04:58 03/12/20 04:58 03/11/20 03/12/20 03/12/20 17:18 04:58 04:58 WBC 14.4 H RBC 3.69 L Hgb 11.5 L Hct 33.9 L MCV 92 MCH 31.1 MCHC 33.8 RDW 14.8 H Plt Count 193 Seg Neutrophils % Not Reportable Sodium 131.7 L Potassium 4.0 Chloride 105 Carbon Dioxide 18 L Anion Gap 9 BUN 28 H Creatinine 1.42 H Est GFR ( Amer) 59 L Glucose 189 H Calcium 7.9 L Magnesium 1.8 Total Bilirubin 0.8 AST 39 Alkaline Phosphatase 81 Total Protein 5.2 L Albumin 2.6 L Urine Color [place] Urine Appearance CLOUDY Urine pH 5.0 Ur Specific [place] 1.026 Urine Protein 100 H Urine Glucose (UA) 50 H Urine Ketones TRACE H Urine Blood MODERATE H Urine Nitrite NEGATIVE Ur Leukocyte Esterase NEGATIVE Urine WBC (Auto) 16 Urine RBC (Auto) 29 03/10/20 03/10/20 03/10/20 08:55 15:21 20:14 Troponin I 0.033 0.026 0.028 NT-Pro-B Natriuret Pep 2010 H 03/11/20 03/11/20 02:07 02:38 Troponin I 0.042 NT-Pro-B Natriuret Pep 3470 H Impressions: Abdomen/Pelvis CT 03/10/20 00:00 IMPRESSION: 1. Perirectal/perineal inflammatory changes without defined abscess. 2. No evidence of acute cardiopulmonary abnormality. 3. No evidence of acute intra-abdominal infectious/inflammatory process. 4. Chronic and incidental findings as detailed above. Chest X-Ray 03/10/20 08:32 IMPRESSION: NO ACUTE RADIOGRAPHIC FINDING IN THE CHEST. Head CT 03/10/20 08:36 IMPRESSION: No evidence of calvarial injury or intracranial hemorrhage. Left frontal and parietal encephalomalacia consistent with sequela of previous large territory ischemic injury. EVIDENCE OF ACUTE STROKE: NO. Chest CT 03/10/20 08:38 IMPRESSION: 1. Perirectal/perineal inflammatory changes without defined abscess. 2. No evidence of acute cardiopulmonary abnormality. 3. No evidence of acute intra-abdominal infectious/inflammatory process. 4. Chronic and incidental findings as detailed above. Assessment and Plan - Diagnosis (1) Sepsis Is this a current diagnosis for this admission?: Yes Plan: 03/10/2020-patient is going to be admitted to [facility] as an inpatient for sepsis. Came in with low-grade fever with elevated WBC count and is hypotensive. Septic protocol is initiated. Start on IV fluids normal saline at 200 cc/h, blood cultures are requested. Urine cultures are requested. GI prophylaxis DVT prophylaxis initiated. Started on IV cefepime and IV vancomycin. CODE STATUS will be DNR/DNI. 03/11/20-patient is receiving IV cefepime, IV vancomycin. Source of infection probably perineal abscess. Surgery is planning for a incision and drainage in OR. Cover test is negative and latest hemoglobin is 12.2. Coumadin is on hold. Today INR is 1.57. 03/12/20-patient is presently on IV cefepime, IV vancomycin. Cultures are pending. Went for incision and drainage for huge perirectal abscess. Surgery is following the patient. Sepsis is due to ricky-rectal abscess. (2) Cellulitis of perineum Is this a current diagnosis for this admission?: Yes Plan: 03/10/2020-patient came in with nonspecific symptoms CT abdomen and pelvis indicates perirectal inflammation with elevated WBC count and normal lactic acid level and hypotensive. To start him on IV cefepime and IV vancomycin at this time. 03/11/2020-patient is going for incision and drainage with possible drain placement in OR today. Coumadin is on hold. Covid test is negative. Receiving IV Vanco and cefepime. WBC count is 16,700 temp is 98.8 this morning. Latest lactic acid level is 1.6. 03/12/20-patient has a huge perirectal abscess status post incision and drainage. To continue IV vancomycin and cefepime to add IV Flagyl at this time. Covid test is negative. (3) Hyponatremia Is this a current diagnosis for this admission?: Yes Plan: 03/10/2020-serum sodium is 129.3. Patient is complaining of poor appetite at home hyponatremia may be secondary to prerenal causes. Started on normal saline 200 cc/h to recheck the labs tomorrow. 03/11/2020-serum sodium today is 130. Patient has history of lung cancer. He came in with complaints of very poor appetite not eating well at home. So lung cancer and poor nutritional status may be the contributing factors for hyponatremia. Patient is receiving normal saline at 250 cc/h. 03/12/2020-serum sodium is 131.7 patient has persistent hyponatremia most likely secondary to history of lung cancer. Patient is asymptomatic alert and awake communicating well. (4) ALEYDA (acute kidney injury) Is this a current diagnosis for this admission?: Yes Plan: 03/10/2021 baseline creatinine is around 1.1 admitted with serum creatinine 1.3. Started on IV fluids normal saline 200 cc/h plan is to recheck labs tomorrow. 03/11/2020-admission serum creatinine is 1.3 improved to 1.14 today. Acute kidney injury is resolving. 03/12/20-serum creatinine today is 1.42 yesterday's creatinine is 1.14. Plan is to continue IV fluids today and to recheck the labs tomorrow. (5) Chronic obstructive pulmonary disease Is this a current diagnosis for this admission?: No Plan: 03/10/2020-patient has history of COPD on examination bilateral extensive wheezing is present with a decreased bilateral air entry. We will start him on albuterol nebulizations and to restart his home medications. 03/11/2020-patient has history of COPD secondary to chronic smoking uses 3 L of oxygen at home during the night. Presently on 4 L of oxygen pulse ox is 96%. Patient is requesting for portable oxygen at the time of discharge. 03/12/2020-patient has history of COPD on 3 L of oxygen at home. Patient was placed on as needed BiPAP yesterday because of complaints of increasing shortness of breath and wheezing. Pulse ox today is 98% on 4 L. To continue IV Solu-Medrol and nebulizer treatments. (6) Tobacco abuse Is this a current diagnosis for this admission?: No (7) Diabetes Qualifiers: Diabetes mellitus type: type 2 Is this a current diagnosis for this admission?: No Plan: 03/10/2020-patient has history of type 2 diabetes mellitus blood sugar is 306. To start him on insulin sliding scale before meals and at bedtime to check for hemoglobin A1c. 03/11/20Patient has history of type 2 diabetes mellitus latest blood sugar is 223. Hemoglobin A1c is 8.9 patient is on insulin sliding scale before meals and at bedtime. He is n.p.o. at this time. 03/12/2020-blood sugar today is 189 to continue insulin sliding scale before meals and at bedtime. Patient is back on diabetic diet. Hemoglobin A1c is 8.9. (8) Atrial fibrillation Is this a current diagnosis for this admission?: No Plan: 03/12/2020-patient history of chronic atrial fibrillation. On Coumadin at home because of the need for a colonoscopy and incision and drainage of the perirectal abscess Coumadin is on hold. Plan is to restart Coumadin from [facility].
--- NOTE | 2020-03-12 09:13 | PDOC PROGRESS REPORT ---
Subjective Progress Note for:: 03/12/20 Subjective:: Wants to go home. Reason For Visit: GENERALIZED WEAKNESS,CHRONIC ATRIAL FIBRILLATION Physical Exam Vital Signs: Temp Pulse Resp BP Pulse Ox 97.7 F 77 20 120/74 100 03/12/20 02:58 03/12/20 07:00 03/12/20 05:05 03/12/20 02:58 03/12/20 05:05 Intake & Output 03/11/20 03/12/20 03/13/20 06:59 06:59 06:59 Intake Total 3943 886 Output Total 900 525 Balance 3043 361 Weight 90.8 kg 90.1 kg Rectal exam: PRESENT: other - Large open wound in the perianal region. His packing was removed today no active bleeding. Slight erythema in the skin edges. Otherwise wound is clean. Results Laboratory Results: 03/12/20 04:58 03/12/20 04:58 03/11/20 03/12/20 03/12/20 17:18 04:58 04:58 WBC 14.4 H RBC 3.69 L Hgb 11.5 L Hct 33.9 L MCV 92 MCH 31.1 MCHC 33.8 RDW 14.8 H Plt Count 193 Seg Neutrophils % Not Reportable Sodium 131.7 L Potassium 4.0 Chloride 105 Carbon Dioxide 18 L Anion Gap 9 BUN 28 H Creatinine 1.42 H Est GFR ( Amer) 59 L Glucose 189 H Calcium 7.9 L Magnesium 1.8 Total Bilirubin 0.8 AST 39 Alkaline Phosphatase 81 Total Protein 5.2 L Albumin 2.6 L Urine Color [place] Urine Appearance CLOUDY Urine pH 5.0 Ur Specific [place] 1.026 Urine Protein 100 H Urine Glucose (UA) 50 H Urine Ketones TRACE H Urine Blood MODERATE H Urine Nitrite NEGATIVE Ur Leukocyte Esterase NEGATIVE Urine WBC (Auto) 16 Urine RBC (Auto) 29 03/10/20 03/10/20 03/10/20 08:55 15:21 20:14 Troponin I 0.033 0.026 0.028 NT-Pro-B Natriuret Pep 2010 H 03/11/20 03/11/20 02:07 02:38 Troponin I 0.042 NT-Pro-B Natriuret Pep 3470 H Impressions: Abdomen/Pelvis CT 03/10/20 00:00 IMPRESSION: 1. Perirectal/perineal inflammatory changes without defined abscess. 2. No evidence of acute cardiopulmonary abnormality. 3. No evidence of acute intra-abdominal infectious/inflammatory process. 4. Chronic and incidental findings as detailed above. Chest X-Ray 03/10/20 08:32 IMPRESSION: NO ACUTE RADIOGRAPHIC FINDING IN THE CHEST. Head CT 03/10/20 08:36 IMPRESSION: No evidence of calvarial injury or intracranial hemorrhage. Left frontal and parietal encephalomalacia consistent with sequela of previous large territory ischemic injury. EVIDENCE OF ACUTE STROKE: NO. Chest CT 03/10/20 08:38 IMPRESSION: 1. Perirectal/perineal inflammatory changes without defined abscess. 2. No evidence of acute cardiopulmonary abnormality. 3. No evidence of acute intra-abdominal infectious/inflammatory process. 4. Chronic and incidental findings as detailed above. Assessment & Plan - Diagnosis (1) Perineal abscess Is this a current diagnosis for this admission?: Yes (2) Perirectal abscess Is this a current diagnosis for this admission?: Yes Plan: Status post debridement. Packing removed today. We will have the patient either do sitz bath's or take a shower daily to keep the wound clean. May use sanitary napkins or ABD pads to catch drainage. Completely agree with hospitalist plan to keep the patient in the hospital for at least another day or 2.
[2020-03-12] MEDS: LISINOPRIL 10 MG TABLET PO SCH (09:36)
[2020-03-12] MEDS: CEFEPIME HCL 2 GM in DEXTROSE 5%-WATER 50 ML IV SCH ×2 (09:36→22:40)
[2020-03-12] MEDS: FINASTERIDE 5 MG TABLET PO SCH (09:36)
[2020-03-12] MEDS: PANTOPRAZOLE SODIUM 40 MG VIAL IV SCH ×2 (09:36→22:40)
[2020-03-12] MEDS: LAMOTRIGINE 100 MG TABLET PO SCH (09:36)
[2020-03-12] MEDS: TAMSULOSIN HCL 0.4 MG CAP.SR.24H PO SCH (09:36)
[2020-03-12] MEDS: FERROUS SULFATE 325 MG TABLET PO SCH (09:36)
[2020-03-12] MEDS: METHYLPREDNISOLONE INJ 40 MG/1 ML SDV IV SCH ×2 (09:37→22:40)
[2020-03-12] MEDS ORDERED: (PENDING PHARMACY ID) (Alfuzosin Hcl [Alfuzosin Hcl Er] 10 MG) PO SCH (10:00)
[2020-03-12] MEDS: IPRATROPIUM/ALBUTEROL 0.5-2.5 MG/3 ML AMPUL NEB PRN (10:52)
[2020-03-12] MEDS: METRONIDAZOLE 500 MG/NS RTU 500 MG/100 ML RTUPB IV SCH ×3 (12:08→23:38)
[2020-03-12] MEDS: OXYCODONE-ACETAMINOPHEN 5-325 MG TABLET PO PRN (17:59)
[2020-03-12] MEDS ORDERED: WARFARIN SODIUM 7.5 MG TABLET PO SCH (22:00)
[2020-03-12] MEDS: ATORVASTATIN CALCIUM 40 MG TABLET PO SCH (22:40)
[2020-03-12] MEDS: ZOLPIDEM TARTRATE 5 MG TABLET PO SCH (22:41)
[2020-03-12] MEDS: PRIMIDONE 50 MG TABLET PO SCH (22:45)
[2020-03-13] MEDS: NORMAL SALINE 1000 ML 1,000 ML IV PRN ×3 (02:50→23:17)
[2020-03-13] MEDS: IPRATROPIUM/ALBUTEROL 0.5-2.5 MG/3 ML AMPUL NEB PRN ×4 (03:25→19:58)
[2020-03-13] MEDS: METRONIDAZOLE 500 MG/NS RTU 500 MG/100 ML RTUPB IV SCH ×3 (05:55→17:05)
[2020-03-13 06:09] LABS: HEMATOCRIT 34.7 % (37.9-51.0); HEMOGLOBIN 11.6 g/dL (13.5-17.0); MEAN CORPUSCULAR HEMOGLOBIN 31.1 pg (27.0-33.4); MEAN CORPUSCULAR HGB CONC 33.6 g/dL (32.0-36.0); MEAN CORPUSCULAR VOLUME 93 fl (80-97); PLATELET COUNT 237 10^3/uL (150-450); RED BLOOD COUNT 3.74 10^6/uL (4.35-5.55); WHITE BLOOD COUNT 14.5 10^3/uL (4.0-10.5)
[2020-03-13 06:13] LABS: PROTHROMBIN TIME 21.2 SEC (11.4-15.4)
[2020-03-13 06:29] LABS: ABSOLUTE LYMPHOCYTES# (MANUAL) 0.4 10^3/uL (0.5-4.7); ABSOLUTE MONOCYTES # (MANUAL) 0.4 10^3/uL (0.1-1.4); ANISOCYTOSIS SLIGHT; BAND NEUTROPHILS % (MANUAL) 1 % (3-5); BASOPHILS % (MANUAL) 0 % (0-2); BURR CELLS 2+; EOSINOPHILS % (MANUAL) 0 % (0-6); LYMPHOCYTES % (MANUAL) 3 % (13-45); MONOCYTES % (MANUAL) 3 % (3-13); PLATELET CLUMPS PRESENT; PLATELET COMMENT ADEQUATE; POIKILOCYTOSIS 2+; SEGMENTED NEUTROPHILS % (MAN) 93 % (42-78); TOTAL CELLS COUNTED 100
[2020-03-13 06:39] LABS: ALBUMIN 2.5 g/dL (3.5-5.0); ALKALINE PHOSPHATASE 96 U/L (38-126); ANION GAP 8 (5-19); ASPARTATE AMINO TRANSFERASE 69 U/L (17-59); BILIRUBIN,DIRECT 0.3 mg/dL (0.0-0.4); BILIRUBIN,TOTAL 0.6 mg/dL (0.2-1.3); BLOOD UREA NITROGEN 45 mg/dL (7-20); CALCIUM 8.3 mg/dL (8.4-10.2); CARBON DIOXIDE 18 mmol/L (22-30); CHLORIDE 105 mmol/L (98-107); GLUCOSE 266 mg/dL (75-110); POTASSIUM 4.2 mmol/L (3.6-5.0); TOTAL PROTEIN 5.1 g/dL (6.3-8.2)
[2020-03-13 06:40] LABS: VANCOMYCIN,TROUGH 13.1 ug/mL (5.0-20.0)
[2020-03-13] MEDS: VANCOMYCIN HCL 750 MG in DEXTROSE 5%-WATER 250 ML IV SCH ×2 (06:45→18:15)
[2020-03-13] MEDS: INSULIN LISPRO 100 UNIT/ML 3 ML VIAL SUBCUT SCH ×4 (07:51→23:18)
[2020-03-13] MEDS: OXYCODONE-ACETAMINOPHEN 5-325 MG TABLET PO PRN (07:54)
[2020-03-13] MEDS: CEFEPIME HCL 2 GM in DEXTROSE 5%-WATER 50 ML IV SCH ×2 (09:12→23:15)
--- NOTE | 2020-03-13 09:12 | PDOC PROGRESS REPORT ---
Subjective Progress Note for:: 03/13/20 Subjective:: 74 year old male with h/o copd /lung cancer , af on coumadin came to the emergency room with complaints of nonspecific symptoms of generalized weakness not feeling well shortness of breath and wheezing. Is also admitting he is not eating drinking well. In the emergency room shows low-grade fever of 100 with a WBC count of 22,000 and hypotensive. Lactic acid level is 1.8. CT scan of the abdomen pelvis indicates inflammation around the perirectal area without a bscess. Patient agreed to stay in the hospital for further management wants to be DNR/DNI. Also given history of fall at home CT head was negative for bleed. INR is 1.57. 03/[id number]-old male with multiple medical problems including COPD, lung cancer, atrial fibrillation on Coumadin admitted with sepsis. Surgical consult was requested for perineal abscess. He will go to the OR today. Cover test is negative. Patient is also passing black-colored stools melanotic stools and Coumadin is on hold. Patient may go for a EGD/colonoscopy today. Patient is receiving normal saline at 250 cc/h blood pressures are soft this morning. 600/60. WBC count 16,700. Patient is receiving IV cefepime and vancomycin at this time. Blood cultures urine cultures are pending. CODE STATUS is DNR/DNI. 03/12/20-patient went for colonoscopy found to have internal hemorrhoids no active bleed seen. He also went for incision and drainage for perirectal abscess huge abscess. Patient is getting IV antibiotic therapy at this time. WBC count came down to 14,400. Patient is on cefepime and vancomycin to add IV Flagyl from today. Comfortably in the bed communicating well. 03/13/20-no acute events in the last 24 hours. WBC count is 14,500 patient is receiving IV Flagyl, IV cefepime, IV vancomycin. wound Culture is positive for group B streptococcus. Reason For Visit: GENERALIZED WEAKNESS,CHRONIC ATRIAL FIBRILLATION Physical Exam Vital Signs: Temp Pulse Resp BP Pulse Ox 97.3 F 98 20 106/74 98 03/13/20 07:00 03/13/20 07:00 03/13/20 07:00 03/13/20 07:00 03/13/20 07:00 Intake & Output 03/12/20 03/13/2003/14/20 06:59 06:59 06:59 Intake Total 936 1715 Output Total 525 675 Balance 411 1040 Weight 90.1 kg 95 kg General appearance: PRESENT: no acute distress, well-developed Head exam: PRESENT: atraumatic Eye exam: PRESENT: PERRLA Ear exam: PRESENT: normal external ear exam Mouth exam: PRESENT: neck supple Teeth exam: PRESENT: poor dentation Neck exam: PRESENT: lymphadenopathy Respiratory exam: PRESENT: decreased breath sounds, wheezes Cardiovascular exam: PRESENT: irregular rhythm. ABSENT: diastolic murmur, rubs, systolic murmur Pulses: PRESENT: normal dorsalis pedis pul GI/Abdominal exam: PRESENT: normal bowel sounds, soft. ABSENT: distended, guarding, mass, organolmegaly, rebound, tenderness Rectal exam: PRESENT: deferred, other - The wound around the perianal area looking better. Extremities exam: PRESENT: full ROM. ABSENT: calf tenderness, clubbing, pedal edema Neurological exam: PRESENT: alert, awake, oriented to person, oriented to place, oriented to time, oriented to situation, CN II-XII grossly intact. ABSENT: motor sensory deficit Results Laboratory Results: 03/13/20 05:35 03/13/20 05:35 03/13/20 03/13/20 03/13/20 05:35 05:35 05:35 WBC 14.5 H RBC 3.74 L Hgb 11.6 L Hct 34.7 L MCV 93 MCH 31.1 MCHC 33.6 RDW 15.0 H Plt Count 237 Seg Neutrophils % Not Reportable Sodium 131.4 L Potassium 4.2 Chloride 105 Carbon Dioxide 18 L Anion Gap 8 BUN 45 H Creatinine Cancelled 1.62 H Est GFR ( Amer) Cancelled 51 L Est GFR (Non-Af Amer) Cancelled Glucose 266 H Calcium 8.3 L Magnesium Cancelled 2.1 Total Bilirubin 0.6 AST 69 H Alkaline Phosphatase 96 Total Protein 5.1 L Albumin 2.5 L 03/11/20 14:02 Perirectal Gram Stain - Final 03/11/20 14:02 Perirectal Wound Culture - Final Group B Beta Streptococcus Prevotella Species Anaerococcus (Peptostrep) Sp. 03/10/20 03/10/20 03/10/20 08:55 15:21 20:14 Troponin I 0.033 0.026 0.028 NT-Pro-B Natriuret Pep 2010 H 03/11/20 03/11/20 02:07 02:38 Troponin I 0.042 NT-Pro-B Natriuret Pep 3470 H Impressions: Abdomen/Pelvis CT 03/10/20 00:00 IMPRESSION: 1. Perirectal/perineal inflammatory changes without defined abscess. 2. No evidence of acute cardiopulmonary abnormality. 3. No evidence of acute intra-abdominal infectious/inflammatory process. 4. Chronic and incidental findings as detailed above. Chest X-Ray 03/10/20 08:32 IMPRESSION: NO ACUTE RADIOGRAPHIC FINDING IN THE CHEST. Head CT 03/10/20 08:36 IMPRESSION: No evidence of calvarial injury or intracranial hemorrhage. Left frontal and parietal encephalomalacia consistent with sequela of previous large territory ischemic injury. EVIDENCE OF ACUTE STROKE: NO. Chest CT 03/10/20 08:38 IMPRESSION: 1. Perirectal/perineal inflammatory changes without defined abscess. 2. No evidence of acute cardiopulmonary abnormality. 3. No evidence of acute intra-abdominal infectious/inflammatory process. 4. Chronic and incidental findings as detailed above. Assessment and Plan - Diagnosis (1) Sepsis Is this a current diagnosis for this admission?: Yes Plan: 03/10/2020-patient is going to be admitted to [facility] as an inpatient for sepsis. Came in with low-grade fever with elevated WBC count and is hypotensive. Septic protocol is initiated. Start on IV fluids normal saline at 200 cc/h, blood c ultures are requested. Urine cultures are requested. GI prophylaxis DVT prophylaxis initiated. Started on IV cefepime and IV vancomycin. CODE STATUS will be DNR/DNI. 03/11/20-patient is receiving IV cefepime, IV vancomycin. Source of infection probably perineal abscess. Surgery is planning for a incision and drainage in OR. Cover test is negative and latest hemoglobin is 12.2. Coumadin is on hold. Today INR is 1.57. 03/12/20-patient is presently on IV cefepime, IV vancomycin. Cultures are pending. Went for incision and drainage for huge perirectal abscess. Surgery is following the patient. Sepsis is due to ricky-rectal abscess. 03/13/2020-blood cultures are negative. Wound cultures are positive for group b streptococcus. Presently on Comycin, cefepime, Flagyl. And is to continue IV antibiotic therapy at this time. (2) Cellulitis of perineum Is this a current diagnosis for this admission?: Yes Plan: 03/10/2020-patient came in with nonspecific symptoms CT abdomen and pelvis indicates perirectal inflammation with elevated WBC count and normal lactic acid level and hypotensive. To start him on IV cefepime and IV vancomycin at this time. 03/11/2020-patient is going for incision and drainage with possible drain placement in OR today. Coumadin is on hold. Covid test is negative. Receiving IV Vanco and cefepime. WBC count is 16,700 temp is 98.8 this morning. Latest lactic acid level is 1.6. 03/12/20-patient has a huge perirectal abscess status post incision and drainage. To continue IV vancomycin and cefepime to add IV Flagyl at this time. Covid test is negative. 03/13/20-patient has perirectal abscess status post incision and drainage. Surgery on board. (3) Hyponatremia Is this a current diagnosis for this admission?: Yes Plan: 03/10/2020-serum sodium is 129.3. Patient is complaining of poor appetite at home hyponatremia may be secondary to prerenal causes. Started on normal saline 200 cc/h to recheck the labs tomorrow. 03/11/2020-serum sodium today is 130. Patient has history of lung cancer. He came in with complaints of very poor appetite not eating well at home. So lung cancer and poor nutritional status may be the contributing factors for hyponatremia. Patient is receiving normal saline at 250 cc/h. 03/12/2020-serum sodium is 131.7 patient has persistent hyponatremia most likely secondary to history of lung cancer. Patient is asymptomatic alert and awake communicating well. 03/13/2020-serum sodium is 131.4. Persistently low. It may be secondary to history of lung cancer. (4) ALEYDA (acute kidney injury) Is this a current diagnosis for this admission?: Yes Plan: 03/10/2021 baseline creatinine is around 1.1 admitted with serum creatinine 1.3. Started on IV fluids normal saline 200 cc/h plan is to recheck labs tomorrow. 03/11/2020-admission serum creatinine is 1.3 improved to 1.14 today. Acute kidney injury is resolving. 6/18/20-serum creatinine today is 1.42 yesterday's creatinine is 1.14. Plan is to continue IV fluids today and to recheck the labs tomorrow. 03/13/2020-serum creatinine today is 1.62. Getting IV fluids at this time. (5) Chronic obstructive pulmonary disease Is this a current diagnosis for this admission?: No Plan: 03/10/2020-patient has history of COPD on examination bilateral extensive wheezing is present with a decreased bilateral air entry. We will start him on albuterol nebulizations and to restart his home medications. 03/11/2020-patient has history of COPD secondary to chronic smoking uses 3 L of oxygen at home during the night. Presently on 4 L of oxygen pulse ox is 96%. Patient is requesting for portable oxygen at the time of discharge. 03/12/2020-patient has history of COPD on 3 L of oxygen at home. Patient was placed on as needed BiPAP yesterday because of complaints of increasing shortness of breath and wheezing. Pulse ox today is 98% on 4 L. To continue IV Solu-Medrol and nebulizer treatments. (6) Tobacco abuse Is this a current diagnosis for this admission?: No Plan: 03/10/2020-patient is a chronic daily smoker smokes 2 packs/day. Smoking counseling was provided for more than 15 minutes to offer him nicotine patches. (7) Diabetes Qualifiers: Diabetes mellitus type: type 2 Is this a current diagnosis for this admission?: No Plan: 03/10/2020-patient has history of type 2 diabetes mellitus blood sugar is 306. To start him on insulin sliding scale before meals and at bedtime to check for hemoglobin A1c. 03/11/20Patient has history of type 2 diabetes mellitus latest blood sugar is 223. Hemoglobin A1c is 8.9 patient is on insulin sliding scale before meals and at bedtime. He is n.p.o. at this time. 03/12/2020-blood sugar today is 189 to continue insulin sliding scale before meals and at bedtime. Patient is back on diabetic diet. Hemoglobin A1c is 8.9. 03/13/2020-hemoglobin A1c is 8.9. Latest blood sugar is 266. Patient is insulin sliding scale before meals and at bedtime to start him on Lantus 10 units twice a day. (8) Atrial fibrillation Is this a current diagnosis for this admission?: No Plan: 03/12/2020-patient history of chronic atrial fibrillation. On Coumadin at home because of the need for a colonoscopy and incision and drainage of the perirectal abscess Coumadin is on hold. Plan is to restart Coumadin from tonight. 03/13/20-patient has history of chronic atrial fibrillation Coumadin was restarted yesterday. Pharmacy adjusting the doses. INR today is 1.8.
[2020-03-13] MEDS: METHYLPREDNISOLONE INJ 40 MG/1 ML SDV IV SCH ×2 (09:14→23:19)
[2020-03-13] MEDS: TAMSULOSIN HCL 0.4 MG CAP.SR.24H PO SCH (09:14)
[2020-03-13] MEDS: PANTOPRAZOLE SODIUM 40 MG VIAL IV SCH ×2 (09:14→23:20)
[2020-03-13] MEDS: FERROUS SULFATE 325 MG TABLET PO SCH (09:15)
[2020-03-13] MEDS: FINASTERIDE 5 MG TABLET PO SCH (09:15)
[2020-03-13] MEDS: LAMOTRIGINE 100 MG TABLET PO SCH (09:15)
[2020-03-13] MEDS: LISINOPRIL 10 MG TABLET PO SCH (09:25)
--- NOTE | 2020-03-13 10:16 | PDOC PROGRESS REPORT ---
Subjective Progress Note for:: 03/13/20 Subjective:: Some pain at the perianal region but otherwise fairly comfortable Reason For Visit: GENERALIZED WEAKNESS,CHRONIC ATRIAL FIBRILLATION Physical Exam Vital Signs: Temp Pulse Resp BP Pulse Ox 97.3 F 98 20 106/74 98 03/13/20 07:00 03/13/20 07:00 03/13/20 07:00 03/13/20 07:00 03/13/20 07:00 Intake & Output 03/12/20 03/13/20 03/14/20 06:59 06:59 06:59 Intake Total 936 1715 Output Total 525 675 Balance 411 1040 Weight 90.1 kg 95 kg General appearance: PRESENT: no acute distress, cooperative Rectal exam: PRESENT: other - Perianal wound appears clean but there is erythema in the surrounding skin with no fluctuance and no crepitus. No necrotic tissue Results Laboratory Results: 03/13/20 05:35 03/13/20 05:35 03/13/20 03/13/20 03/13/20 05:35 05:35 05:35 WBC 14.5 H RBC 3.74 L Hgb 11.6 L Hct 34.7 L MCV 93 MCH 31.1 MCHC 33.6 RDW 15.0 H Plt Count 237 Seg Neutrophils % Not Reportable Sodium 131.4 L Potassium 4.2 Chloride 105 Carbon Dioxide 18 L Anion Gap 8 BUN 45 H Creatinine Cancelled 1.62 H Est GFR ( Amer) Cancelled 51 L Est GFR (Non-Af Amer) Cancelled Glucose 266 H Calcium 8.3 L Magnesium Cancelled 2.1 Total Bilirubin 0.6 AST 69 H Alkaline Phosphatase 96 Total Protein 5.1 L Albumin 2.5 L 03/11/20 14:02 Perirectal Gram Stain - Final 03/11/20 14:02 Perirectal Wound Culture - Final Group B Beta Streptococcus Prevotella Species Anaerococcus (Peptostrep) Sp. 03/10/20 03/10/20 03/10/20 08:55 15:21 20:14 Troponin I 0.033 0.026 0.028 NT-Pro-B Natriuret Pep 2010 H 03/11/20 03/11/20 02:07 02:38 Troponin I 0.042 NT-Pro-B Natriuret Pep 3470 H Impressions: Abdomen/Pelvis CT 03/10/20 00:00 IMPRESSION: 1. Perirectal/perineal inflammatory changes without defined abscess. 2. No evidence of acute cardiopulmonary abnormality. 3. No evidence of acute intra-abdominal infectious/inflammatory process. 4. Chronic and incidental findings as detailed above. Chest X-Ray 03/10/20 08:32 IMPRESSION: NO ACUTE RADIOGRAPHIC FINDING IN THE CHEST. Head CT 03/10/20 08:36 IMPRESSION: No evidence of calvarial injury or intracranial hemorrhage. Left frontal and parietal encephalomalacia consistent with sequela of previous large territory ischemic injury. EVIDENCE OF ACUTE STROKE: NO. Chest CT 03/10/20 08:38 IMPRESSION: 1. Perirectal/perineal inflammatory changes without defined abscess. 2. No evidence of acute cardiopulmonary abnormality. 3. No evidence of acute intra-abdominal infectious/inflammatory process. 4. Chronic and incidental findings as detailed above. Assessment & Plan - Diagnosis (1) Perineal abscess Is this a current diagnosis for this admission?: Yes (2) Perirectal abscess Is this a current diagnosis for this admission?: Yes Plan: Status post debridement. Patient still has significant surrounding erythema. I do not see a role for any further surgical debridement at this time however with multiple organisms growing from his wound and the patient having diabetes and that continued erythema, infectious disease will be consulted as per hospitalist.
[2020-03-13] MEDS: INSULIN GLARGINE,HUM.REC.ANLOG 1,000 UNIT/10 ML VIAL SUBCUT SCH ×2 (10:40→23:17)
[2020-03-13 13:00] LABS: APPEARANCE,URINE SLIGHTLY-CLOUDY; BILIRUBIN,URINE NEGATIVE (NEGATIVE); COLOR,URINE YELLOW; GLUCOSE, URINE 50 mg/dL (NEGATIVE); KETONES,URINE TRACE mg/dL (NEGATIVE); LEUKOCYTE ESTERASE,URINE SMALL (NEGATIVE); NITRITE,URINE NEGATIVE (NEGATIVE); PROTEIN,URINE 30 mg/dL (NEGATIVE); URINE SPECIFIC GRAVITY 1.023; UROBILINOGEN,URINE NEGATIVE mg/dL (<2.0)
--- NOTE | 2020-03-13 14:07 | Progress Note ---
Provider Note Provider Note: [facility] ID Telephone Advice Consultation Chart reviewed. Patient is a 74-year-old man with history of lung cancer, at ria fibrillation, hypercholesterolemia, COPD, arthritis and depression who was admitted due to fever, and generalized weakness. He was also presenting abdominal discomfort. He had leukocytosis on admission up to 22k. A CT scan of abdomen and pelvis demonstrated inflammation in the perineum and perirectal area. He was started on vancomycin, cefepime and metronidazole and he was evaluated by surgery and GI service. He had a colonoscopy that showed internal hemorrhoids. Surgery determined that patient needed I&D. He was taken to the OR and he was found with a large perianal abscess involving the ischio rectal fossa. This was drained on 03/11 and cultures are positive for GBS, Prevotella and Anaerococcus. Blood cultures from 03/10 are still in process but negative to date. Patient has been clinically improving, although per surgery notes there is still significant erythema. ID consulted for recommendations. PMH: Atrial fibrillation Hypercholesterolemia Hypertension COPD DM2 GERD Arthritis Depression Allergies: Penicillins Allergy (Verified 11/22/17 14:09) Medications: Alfuzosin HCl [Alfuzosin HCl ER] 10 mg PO DAILY 03/10/20 Atorvastatin Calcium [Lipitor 40 mg Tablet] 40 mg PO QHS 03/10/20 Ferrous Sulfate [Feosol 325 mg Tablet] 325 mg PO DAILY 03/10/20 Finasteride [Proscar 5 mg Tablet] 5 mg PO DAILY 03/10/20 Furosemide [Lasix 40 mg Tablet] 80 mg PO DAILY 03/10/20 Lamotrigine 100 mg PO DAILY 03/10/20 Lisinopril [Prinivil 10 mg Tablet] 10 mg PO DAILY 03/10/20 Primidone [Mysoline 50 mg Tablet] 50 mg PO QHS 03/10/20 Primidone [Mysoline 50 mg Tablet] 100 mg PO DAILY 03/10/20 Warfarin Sodium [Coumadin 5 mg Tablet] 5 mg PO MOWEFR@219903/10/20 Warfarin Sodium [Coumadin 5 mg Tablet] 7.5 mg PO SUTUTHSA@219903/10/20 Vital Signs: Temp Pulse Resp BP Pulse Ox 97.4 F 78 20 101/62 91 L 03/13/20 10:55 03/13/20 10:55 03/13/20 10:55 03/13/20 10:55 03/13/20 10:55 Intake & Output 03/12/20 03/13/20 03/14/20 06:59 06:59 06:59 Intake Total 936 1715 700 Output Total 525 675 200 Balance 411 1040 500 Weight 90.1 kg 95 kg Weight/Height Weight 95 kg Height 5 ft 10 in Laboratories: 03/13/20 05:35 03/13/20 05:35 MCV 93 fl (80-97) 03/13/20 05:35 MCH 31.1 pg (27.0-33.4) 03/13/20 05:35 MCHC 33.6 g/dL (32.0-36.0) 03/13/20 05:35 RDW 15.0 % (11.5-14.0) H 03/13/20 05:35 Seg Neutrophils % Not Reportable 03/13/20 05:35 VBG pH 7.45 (7.30-7.42) H 03/10/20 08:55 VBG pCO2 39.5 mmHg (35-63) 03/10/20 08:55 VBG HCO3 26.6 mmol/L (20-32) 03/10/20 08:55 VBG Base Excess 2.5 mmol/L 03/10/20 08:55 Chloride 105 mmol/L (98-107) 03/13/20 05:35 Carbon Dioxide 18 mmol/L (22-30) L 03/13/20 05:35 Anion Gap 8 (5-19) 03/13/20 05:35 Est GFR ( Amer) 51 (>60) L 03/13/20 05:35 Est GFR ( Amer) Cancelled 03/13/20 05:35 Est GFR (Non-Af Amer) Cancelled 03/13/20 05:35 Glucose 266 mg/dL (75-110) H 03/13/20 05:35 Lactic Acid 1.6 mmol/L (0.7-2.1) 03/11/20 02:07 Calcium 8.3 mg/dL (8.4-10.2) L 03/13/20 05:35 Phosphorus 2.0 mg/dL (2.5-4.5) L 03/11/20 02:07 Magnesium 2.1 mg/dL (1.6-2.3) 03/13/20 05:35 Magnesium Cancelled 03/13/20 05:35 Total Bilirubin 0.6 mg/dL (0.2-1.3) 03/13/20 05:35 AST 69 U/L (17-59) H 03/13/20 05:35 Alkaline Phosphatase 96 U/L (38-126) 03/13/20 05:35 Total Protein 5.1 g/dL (6.3-8.2) L 03/13/20 05:35 Albumin 2.5 g/dL (3.5-5.0) L 03/13/20 05:35 Triglycerides 98 mg/dL (<150) 03/11/20 02:07 Cholesterol 96.26 mg/dL (0-200) 03/11/20 02:07 LDL Cholesterol Direct 57 mg/dL (<100) 03/11/20 02:07 VLDL Cholesterol 20.0 mg/dL (10-31) 03/11/20 02:07 HDL Cholesterol 23 mg/dL (>40) L 03/11/20 02:07 Lipase 17.0 U/L (23-300) L 03/11/20 02:07 TSH 0.36 uIU/mL (0.47-4.68) L 03/11/20 02:07 Urine Color YELLOW 03/13/20 12:29 Urine Appearance SLIGHTLY-CLOUDY 03/13/20 12:29 Urine pH 6.0 (5.0-9.0) 03/13/20 12:29 Ur Specific [facility] 1.023 03/13/20 12:29 Urine Protein 30 mg/dL (NEGATIVE) H 03/13/20 12:29 Urine Glucose (UA) 50 mg/dL (NEGATIVE) H 03/13/20 12:29 Urine Ketones TRACE mg/dL (NEGATIVE) H 03/13/20 12:29 Urine Blood MODERATE (NEGATIVE) H 03/13/20 12:29 Urine Nitrite NEGATIVE (NEGATIVE) 03/13/20 12:29 Ur Leukocyte Esterase SMALL (NEGATIVE) H 03/13/20 12:29 Urine WBC (Auto) 24 /HPF 03/13/20 12:29 Urine RBC (Auto) 35 /HPF 03/13/20 12:29 Blood Type A POSITIVE 03/10/20 17:51 Antibody Screen NEGATIVE 03/10/20 17:51 03/11/20 14:02 Perirectal Gram Stain - Final 03/11/20 14:02 Perirectal Wound Culture - Final Group B Beta Streptococcus Prevotella Species Anaerococcus (Peptostrep) Sp. 03/10/20 03/10/20 03/10/20 08:55 15:21 20:14 Troponin I 0.033 0.026 0.028 NT-Pro-B Natriuret Pep 2010 H 03/11/20 03/11/20 02:07 02:38 Troponin I 0.042 NT-Pro-B Natriuret Pep 3470 H Radiology: Abdomen/Pelvis CT 03/10/20 00:00 IMPRESSION: 1. Perirectal/perineal inflammatory changes without defined abscess. 2. No evidence of acute cardiopulmonary abnormality. 3. No evidence of acute intra-abdominal infectious/inflammatory process. 4. Chronic and incidental findings as detailed above. Chest X-Ray 03/10/20 08:32 IMPRESSION: NO ACUTE RADIOGRAPHIC FINDING IN THE CHEST. Head CT 03/10/20 08:36 IMPRESSION: No evidence of calvarial injury or intracranial hemorrhage. Left frontal and parietal encephalomalacia consistent with sequela of previous large territory ischemic injury. EVIDENCE OF ACUTE STROKE: NO. Chest CT 03/10/20 08:38 IMPRESSION: 1. Perirectal/perineal inflammatory changes without defined abscess. 2. No evidence of acute cardiopulmonary abnormality. 3. No evidence of acute intra-abdominal infectious/inflammatory process. 4. Chronic and incidental findings as detailed above. Assessment and Recommendations: Patient evaluated for large perirectal abscess with polymicrobial infection including GBS, Prevotella and Anaerococcus. He is afebrile and HD stable, leukocytosis slowly improving. Blood cultures remain negative. He is now s/p I&D with source control. Per surgery, no further surgical procedure planned for now. He is on vancomycin, cefepime and metronidazole. At this point vancomycin is not needed, consider to discontinue. Can continue cefepime and metronidazole. Duration of therapy will depend on clinical response and source control. It seems that he is improving and that good source control has been achieved. He is diabetic and BS is not very well controlled, this may impair healing. A minimum of 14 days of therapy is recommended. If patient clinically improves, may transition therapy to oral antibiotics to ciprofloxacin 500 mg po bid and metronidazole 500 mg po bid. Should avoid any divalent cations while taking ciprofloxacin due to impaired absorption. QTc is 421 which is adequate. Patient should be aware of risk of tendon rupture, aneurysms and C diff infection with ciprofloxacin and he should notify his PCP if he develops diarrhea. Please call if questions. Claudette Walker MD [facility] ID [phone]
[2020-03-13 14:58] LABS: HEMATOCRIT 35.2 % (37.9-51.0); HEMOGLOBIN 11.8 g/dL (13.5-17.0); MEAN CORPUSCULAR HEMOGLOBIN 31.4 pg (27.0-33.4); MEAN CORPUSCULAR HGB CONC 33.6 g/dL (32.0-36.0); MEAN CORPUSCULAR VOLUME 93 fl (80-97); PLATELET COUNT 244 10^3/uL (150-450); RED BLOOD COUNT 3.76 10^6/uL (4.35-5.55); RED CELL DISTRIBUTION WIDTH 14.8 % (11.5-14.0); WHITE BLOOD COUNT 13.2 10^3/uL (4.0-10.5)
[2020-03-13] MEDS ORDERED: WARFARIN SODIUM 5 MG TABLET PO SCH (22:00)
[2020-03-13] MEDS ORDERED: INSULIN GLARGINE,HUM.REC.ANLOG 1,000 UNIT/10 ML VIAL (PYX) SUBCUT ONE (23:02)
[2020-03-13] MEDS: ZOLPIDEM TARTRATE 5 MG TABLET PO SCH (23:19)
[2020-03-13] MEDS: ATORVASTATIN CALCIUM 40 MG TABLET PO SCH (23:19)
[2020-03-13] MEDS: PRIMIDONE 50 MG TABLET PO SCH (23:22)
[2020-03-14] MEDS: METRONIDAZOLE 500 MG/NS RTU 500 MG/100 ML RTUPB IV SCH ×4 (01:08→17:38)
[2020-03-14] MEDS ORDERED: BENZOCAINE/MENTHOL SORE THROAT LOZENGE BUCCAL PRN (02:30)
[2020-03-14 05:44] LABS: HEMATOCRIT 36.7 % (37.9-51.0); HEMOGLOBIN 12.1 g/dL (13.5-17.0); MEAN CORPUSCULAR HEMOGLOBIN 30.9 pg (27.0-33.4); MEAN CORPUSCULAR HGB CONC 32.9 g/dL (32.0-36.0); MEAN CORPUSCULAR VOLUME 94 fl (80-97); PLATELET COUNT 291 10^3/uL (150-450); RED CELL DISTRIBUTION WIDTH 15.6 % (11.5-14.0); WHITE BLOOD COUNT 14.2 10^3/uL (4.0-10.5)
[2020-03-14 05:45] LABS: INTERNATIONAL RATION (INR) 2.56
[2020-03-14 06:00] LABS: ALBUMIN 2.7 g/dL (3.5-5.0); ALKALINE PHOSPHATASE 111 U/L (38-126); ANION GAP 9 (5-19); ASPARTATE AMINO TRANSFERASE 76 U/L (17-59); BILIRUBIN,DIRECT 0.1 mg/dL (0.0-0.4); BILIRUBIN,TOTAL 0.5 mg/dL (0.2-1.3); BLOOD UREA NITROGEN 46 mg/dL (7-20); CALCIUM 8.5 mg/dL (8.4-10.2); CARBON DIOXIDE 20 mmol/L (22-30); CHLORIDE 105 mmol/L (98-107); GLUCOSE 320 mg/dL (75-110); TOTAL PROTEIN 5.5 g/dL (6.3-8.2)
[2020-03-14 06:14] LABS: ABSOLUTE LYMPHOCYTES# (MANUAL) 0.3 10^3/uL (0.5-4.7); ABSOLUTE MONOCYTES # (MANUAL) 1.3 10^3/uL (0.1-1.4); BAND NEUTROPHILS % (MANUAL) 5 % (3-5); BASOPHILS % (MANUAL) 0 % (0-2); EOSINOPHILS % (MANUAL) 0 % (0-6); LYMPHOCYTES % (MANUAL) 2 % (13-45); MONOCYTES % (MANUAL) 9 % (3-13); SEGMENTED NEUTROPHILS % (MAN) 84 % (42-78); TOTAL CELLS COUNTED 100
[2020-03-14 06:15] LABS: PLATELET COMMENT ADEQUATE; RBC MORPHOLOGY COMMENT NORMO-CYTIC/CHROMIC
[2020-03-14] MEDS: VANCOMYCIN HCL 750 MG in DEXTROSE 5%-WATER 250 ML IV SCH (06:40)
[2020-03-14] MEDS: INSULIN LISPRO 100 UNIT/ML 3 ML VIAL SUBCUT SCH ×5 (09:27→22:44)
[2020-03-14] MEDS: METHYLPREDNISOLONE INJ 40 MG/1 ML SDV IV SCH ×2 (09:28→23:37)
[2020-03-14] MEDS: LISINOPRIL 10 MG TABLET PO SCH (09:29)
[2020-03-14] MEDS: FINASTERIDE 5 MG TABLET PO SCH (09:29)
[2020-03-14] MEDS: TAMSULOSIN HCL 0.4 MG CAP.SR.24H PO SCH (09:29)
[2020-03-14] MEDS: FERROUS SULFATE 325 MG TABLET PO SCH (09:29)
[2020-03-14] MEDS: LAMOTRIGINE 100 MG TABLET PO SCH (09:29)
[2020-03-14] MEDS: PANTOPRAZOLE SODIUM 40 MG VIAL IV SCH ×2 (09:29→23:36)
[2020-03-14] MEDS: INSULIN GLARGINE,HUM.REC.ANLOG 1,000 UNIT/10 ML VIAL SUBCUT SCH ×2 (09:43→23:31)
[2020-03-14] MEDS: CEFEPIME HCL 2 GM in DEXTROSE 5%-WATER 50 ML IV SCH ×2 (09:44→23:29)
[2020-03-14] MEDS: LORAZEPAM 0.5 MG TABLET PO SCH ×2 (10:25→16:23)
[2020-03-14] MEDS: NORMAL SALINE 1000 ML 1,000 ML IV PRN (11:53)
[2020-03-14] MEDS ORDERED: NORMAL SALINE 1000 ML 1,000 ML IV PRN (15:08)
--- NOTE | 2020-03-14 15:27 | PDOC PROGRESS REPORT ---
Subjective Progress Note for:: 03/14/20 Subjective:: 74 year old male with h/o copd /lung cancer , af on coumadin came to the emergency room with complaints of nonspecific symptoms of generalized weakness not feeling well shortness of breath and wheezing. Is also admitting he is not eating drinking well. In the emergency room shows low-grade fever of 100 with a WBC count of 22,000 and hypotensive. Lactic acid level is 1.8. CT scan of the abdomen pelvis indicates inflammation around the perirectal area without ab scess. Patient agreed to stay in the hospital for further management wants to be DNR/DNI. Also given history of fall at home CT head was negative for bleed. INR is 1.57. 11/14/2019. No acute events overnight. Patient still BiPAP and supplemental oxygen dependent, respiratory symptoms has not improved much, alert and oriented with physical examination. Denies any fever, chills, nausea, vomiting, diarrhea. Reason For Visit: GENERALIZED WEAKNESS,CHRONIC ATRIAL FIBRILLATION Physical Exam Vital Signs: Temp Pulse Resp BP Pulse Ox 97.6 F 94 16 132/72 H 98 03/14/20 11:10 03/14/20 11:10 03/14/20 11:10 03/14/20 11:10 03/14/20 11:10 Intake & Output 03/13/20 03/14/20 03/15/20 06:59 06:59 06:59 Intake Total 1715 4780 400 Output Total 675 875 200 Balance 1040 3905 200 Weight 95 kg 97.4 kg General appearance: PRESENT: mild distress, obese Head exam: PRESENT: atraumatic, normocephalic Respiratory exam: PRESENT: accessory muscle use, clear to auscultation vannessa, decreased breath sounds, tachypnea. ABSENT: rales, rhonchi, wheezes GI/Abdominal exam: PRESENT: normal bowel sounds, soft. ABSENT: distended, guarding, mass, organolmegaly, rebound, tenderness Extremities exam: PRESENT: full ROM. ABSENT: calf tenderness, clubbing, pedal edema Neurological exam: PRESENT: alert, awake, oriented to person, oriented to place, oriented to time, oriented to situation, CN II-XII grossly intact. ABSENT: motor sensory deficit Results Laboratory Results: 03/14/20 05:15 03/14/20 05:15 03/14/20 03/14/20 05:15 05:15 WBC 14.2 H RBC 3.90 L Hgb 12.1 L Hct 36.7 L MCV 94 MCH 30.9 MCHC 32.9 RDW 15.6 H Plt Count 291 Seg Neutrophils % Not Reportable Sodium 134.1 L Potassium 4.0 Chloride 105 Carbon Dioxide 20 L Anion Gap 9 BUN 46 H Creatinine 1.71 H Est GFR ( Amer) 48 L Glucose 320 H Calcium 8.5 Magnesium 2.4 H Total Bilirubin 0.5 AST 76 H Alkaline Phosphatase 111 Total Protein 5.5 L Albumin 2.7 L 03/10/20 11:48 Clean Catch Midstream Urine Culture - Final NO GROWTH 2 DAYS 03/10/20 03/10/20 03/10/20 08:55 15:21 20:14 Troponin I 0.033 0.026 0.028 NT-Pro-B Natriuret Pep 2010 H 03/11/20 03/11/20 02:07 02:38 Troponin I 0.042 NT-Pro-B Natriuret Pep 3470 H Impressions: Abdomen/Pelvis CT 03/10/20 00:00 IMPRESSION: 1. Perirectal/perineal inflammatory changes without defined abscess. 2. No evidence of acute cardiopulmonary abnormality. 3. No evidence of acute intra-abdominal infectious/inflammatory process. 4. Chronic and incidental findings as detailed above. Chest X-Ray 03/10/20 08:32 IMPRESSION: NO ACUTE RADIOGRAPHIC FINDING IN THE CHEST. Head CT 03/10/20 08:36 IMPRESSION: No evidence of calvarial injury or intracranial hemorrhage. Left frontal and parietal encephalomalacia consistent with sequela of previous large territory ischemic injury. EVIDENCE OF ACUTE STROKE: NO. Chest CT 03/10/20 08:38 IMPRESSION: 1. Perirectal/perineal inflammatory changes without defined abscess. 2. No evidence of acute cardiopulmonary abnormality. 3. No evidence of acute intra-abdominal infectious/inflammatory process. 4. Chronic and incidental findings as detailed above. Assessment and Plan - Diagnosis (1) ALEYDA (acute kidney injury) Is this a current diagnosis for this admission?: Yes Plan: Mild worsening of renal function. Electrolytes overnight. Monitor volume status and electrolyte repletion as needed. Cautious corrie ymerization guided by volume status. Strict in and out. Renal ultrasound unremarkable. (2) Atrial fibrillation Qualifiers: Atrial fibrillation type: longstanding persistent Qualified Code(s): I48.11 - Longstanding persistent atrial fibrillation Is this a current diagnosis for this admission?: No Plan: History of nonvalvular A. fib. Rate controlled. Anticoagulated. Continue Coumadin INR goal of 2-2.5. Monitor for bleeding. (3) Cellulitis of perineum Is this a current diagnosis for this admission?: Yes Plan: Polymicrobial. Status post I&D by surgery. On broad-spectrum IV antibiotics. DC vancomycin as per ID recommendation. Continue IV cefepime and metronidazole. Based on clinical improvement could be switched to p.o. ciprofloxacin and metronidazole. Continue wound care. Surgery following, recommendations noted. (4) Chronic obstructive pulmonary disease Qualifiers: COPD type: COPD with acute exacerbation Qualified Code(s): J44.1 - Chronic obstructive pulmonary disease with (acute) exacerbation Is this a current diagnosis for this admission?: No Plan: History of COPD. Presented with acute exacerbation. Continue IV steroids, LABA, LABA, ICS, incentive spirometry, flutter valve, pulmonary toileting. (5) Diabetes Qualifiers: Diabetes mellitus type: type 2 Is this a current diagnosis for this admission?: Yes Plan: Not very well controlled. Hemoglobin A1c 8.9%. Continue basal, sliding scale and prandial insulin. Accu-Cheks. Hypoglycemic protocol. Adjust dosage increase. Could be a candidate for oral hypoglycemic once kidney function improves. Outpatient PCP follow-up. 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 Stable. Monitor electrolytes and replace as needed. (7) Tobacco abuse Is this a current diagnosis for this admission?: No Plan: Counseled on quitting. NicoDerm patch placement.
[2020-03-14] MEDS: FLUTICASONE/UMECLIDIN/VILANTER 100-62.5-25 MCG/DOSE IH SCH (17:38)
[2020-03-14] MEDS: LORAZEPAM 0.5 MG TABLET PO PRN (19:20)
[2020-03-14] MEDS: IPRATROPIUM/ALBUTEROL 0.5-2.5 MG/3 ML AMPUL NEB SCH (20:04)
[2020-03-14] MEDS: WARFARIN SODIUM 4 MG TABLET PO SCH (23:31)
[2020-03-14] MEDS: ZOLPIDEM TARTRATE 5 MG TABLET PO SCH (23:31)
[2020-03-14] MEDS: ATORVASTATIN CALCIUM 40 MG TABLET PO SCH (23:36)
[2020-03-14] MEDS: PRIMIDONE 50 MG TABLET PO SCH (23:36)
[2020-03-15] MEDS: METRONIDAZOLE 500 MG/NS RTU 500 MG/100 ML RTUPB IV SCH ×4 (02:16→19:33)
[2020-03-15 05:38] LABS: HEMATOCRIT 37.3 % (37.9-51.0); HEMOGLOBIN 12.4 g/dL (13.5-17.0); MEAN CORPUSCULAR HEMOGLOBIN 31.2 pg (27.0-33.4); MEAN CORPUSCULAR HGB CONC 33.2 g/dL (32.0-36.0); MEAN CORPUSCULAR VOLUME 94 fl (80-97); PLATELET COUNT 343 10^3/uL (150-450); RED BLOOD COUNT 3.97 10^6/uL (4.35-5.55); RED CELL DISTRIBUTION WIDTH 15.5 % (11.5-14.0); WHITE BLOOD COUNT 10.9 10^3/uL (4.0-10.5)
[2020-03-15 05:44] LABS: INTERNATIONAL RATION (INR) 3.09; PROTHROMBIN TIME 32.6 SEC (11.4-15.4)
[2020-03-15 06:05] LABS: ABSOLUTE LYMPHOCYTES# (MANUAL) 0.7 10^3/uL (0.5-4.7); ABSOLUTE MONOCYTES # (MANUAL) 0.8 10^3/uL (0.1-1.4); BAND NEUTROPHILS % (MANUAL) 2 % (3-5); BASOPHILS % (MANUAL) 0 % (0-2); EOSINOPHILS % (MANUAL) 0 % (0-6); LYMPHOCYTES % (MANUAL) 6 % (13-45); MONOCYTES % (MANUAL) 7 % (3-13); SEGMENTED NEUTROPHILS % (MAN) 85 % (42-78); TOTAL CELLS COUNTED 100
[2020-03-15 06:08] LABS: ANISOCYTOSIS 1+; POLYCHROMASIA 1+
[2020-03-15 06:09] LABS: PLATELET COMMENT ADEQUATE
[2020-03-15 06:12] LABS: ALBUMIN 2.5 g/dL (3.5-5.0); ALKALINE PHOSPHATASE 118 U/L (38-126); ANION GAP 8 (5-19); ASPARTATE AMINO TRANSFERASE 82 U/L (17-59); BILIRUBIN,DIRECT 0.1 mg/dL (0.0-0.4); BILIRUBIN,TOTAL 0.4 mg/dL (0.2-1.3); BLOOD UREA NITROGEN 38 mg/dL (7-20); CALCIUM 8.8 mg/dL (8.4-10.2); CARBON DIOXIDE 22 mmol/L (22-30); CHLORIDE 109 mmol/L (98-107); GLUCOSE 234 mg/dL (75-110); POTASSIUM 4.1 mmol/L (3.6-5.0); TOTAL PROTEIN 5.2 g/dL (6.3-8.2)
[2020-03-15] MEDS: IPRATROPIUM/ALBUTEROL 0.5-2.5 MG/3 ML AMPUL NEB SCH ×3 (08:04→20:37)
[2020-03-15] MEDS: INSULIN LISPRO 100 UNIT/ML 3 ML VIAL SUBCUT SCH ×7 (08:13→23:56)
[2020-03-15] MEDS: LORAZEPAM 0.5 MG TABLET PO PRN (08:15)
[2020-03-15] MEDS: LAMOTRIGINE 100 MG TABLET PO SCH (10:05)
[2020-03-15] MEDS: CEFEPIME HCL 2 GM in DEXTROSE 5%-WATER 50 ML IV SCH ×2 (10:05→23:55)
[2020-03-15] MEDS: METHYLPREDNISOLONE INJ 40 MG/1 ML SDV IV SCH (10:05)
[2020-03-15] MEDS: FERROUS SULFATE 325 MG TABLET PO SCH (10:05)
[2020-03-15] MEDS: FINASTERIDE 5 MG TABLET PO SCH (10:05)
[2020-03-15] MEDS: PANTOPRAZOLE SODIUM 40 MG VIAL IV SCH ×2 (10:05→23:58)
[2020-03-15] MEDS: INSULIN GLARGINE,HUM.REC.ANLOG 1,000 UNIT/10 ML VIAL SUBCUT SCH ×2 (10:06→23:55)
[2020-03-15] MEDS: TAMSULOSIN HCL 0.4 MG CAP.SR.24H PO SCH (10:06)
[2020-03-15] MEDS: FLUTICASONE/UMECLIDIN/VILANTER 100-62.5-25 MCG/DOSE IH SCH (10:07)
[2020-03-15] MEDS ORDERED: GUAIFENESIN/D-METHORPHAN (200-20 MG) SYRUP 10 ML PO PRN (10:42)
[2020-03-15] MEDS ORDERED: NORMAL SALINE 250 ML IV PRN ×2 (14:09)
--- NOTE | 2020-03-15 14:23 | PDOC PROGRESS REPORT ---
Subjective Progress Note for:: 03/15/20 Subjective:: 74 year old male with h/o copd /lung cancer , af on coumadin came to the emergency room with complaints of nonspecific symptoms of generalized weakness not feeling well shortness of breath and wheezing. Is also admitting he is not eating drinking well. In the emergency room shows low-grade fever of 100 with a WBC count of 22,000 and hypotensive. Lactic acid level is 1.8. CT scan of the abdomen pelvis indicates inflammation around the perirectal area without ab scess. Patient agreed to stay in the hospital for further management wants to be DNR/DNI. Also given history of fall at home CT head was negative for bleed. INR is 1.57. 11/14/2019. No acute events overnight. Patient still BiPAP and supplemental oxygen dependent, respiratory symptoms has not improved much, alert and oriented with physical examination. Denies any fever, chills, nausea, vomiting, diarrhea. 11/15/2019. No acute events overnight. Patient reported to be getting anxious once a while and has mentioned that he would like to go home but unfortunately patient is still IV antibiotics and needs further I&D as per surgery, on my encounter patient is resting in bed no apparent distress, wearing BiPAP, denies any chest pain, nausea, vomiting, diarrhea, constipation or any urinary symptoms, complaining of nonproductive cough. Reason For Visit: GENERALIZED WEAKNESS,CHRONIC ATRIAL FIBRILLATION Physical Exam Vital Signs: Temp Pulse Resp BP Pulse Ox 97.6 F 70 27 H 136/81 H 98 03/15/20 11:15 03/15/20 14:03 03/15/20 14:03 03/15/20 11:15 03/15/20 14:03 Intake & Output 03/14/20 03/15/20 03/16/20 06:59 06:59 06:59 Intake Total 4780 1850 250 Output Total 875 2000 550 Balance 3905 -150 -300 Weight 97.4 kg 99.4 kg General appearance: PRESENT: no acute distress, obese, well-developed, well- nourished Head exam: PRESENT: atraumatic, normocephalic Respiratory exam: PRESENT: decreased breath sounds, prolonged expiratory phas, tachypnea, wheezes. ABSENT: rales, rhonchi Cardiovascular exam: PRESENT: RRR. ABSENT: diastolic murmur, rubs, systolic m urmur GI/Abdominal exam: PRESENT: normal bowel sounds, soft. ABSENT: distended, guarding, mass, organolmegaly, rebound, tenderness Neurological exam: PRESENT: alert, awake, oriented to person, oriented to place, oriented to time, oriented to situation, CN II-XII grossly intact. ABSENT: motor sensory deficit Results Laboratory Results: 03/15/20 05:12 03/15/20 05:12 03/15/20 03/15/20 05:12 05:12 WBC 10.9 H RBC 3.97 L Hgb 12.4 L Hct 37.3 L MCV 94 MCH 31.2 MCHC 33.2 RDW 15.5 H Plt Count 343 Seg Neutrophils % Not Reportable Sodium 138.6 Potassium 4.1 Chloride 109 H Carbon Dioxide 22 Anion Gap 8 BUN 38 H Creatinine 1.42 H Est GFR ( Amer) 59 L Glucose 234 H Calcium 8.8 Magnesium 2.5 H Total Bilirubin 0.4 AST 82 H Alkaline Phosphatase 118 Total Protein 5.2 L Albumin 2.5 L 03/10/20 09:50 Blood Blood Culture - Final NO GROWTH IN 5 DAYS 03/10/20 08:55 Blood Blood Culture - Final NO GROWTH IN 5 DAYS 03/10/20 03/10/20 03/10/20 08:55 15:21 20:14 Troponin I 0.033 0.026 0.028 NT-Pro-B Natriuret Pep 2010 H 03/11/20 03/11/20 02:07 02:38 Troponin I 0.042 NT-Pro-B Natriuret Pep 3470 H Impressions: Abdomen/Pelvis CT 03/10/20 00:00 IMPRESSION: 1. Perirectal/perineal inflammatory changes without defined abscess. 2. No evidence of acute cardiopulmonary abnormality. 3. No evidence of acute intra-abdominal infectious/inflammatory process. 4. Chronic and incidental findings as detailed above. Chest X-Ray 03/10/20 08:32 IMPRESSION: NO ACUTE RADIOGRAPHIC FINDING IN THE CHEST. Head CT 03/10/20 08:36 IMPRESSION: No evidence of calvarial injury or intracranial hemorrhage. Left frontal and parietal encephalomalacia consistent with sequela of previous large territory ischemic injury. EVIDENCE OF ACUTE STROKE: NO. Chest CT 03/10/20 08:38 IMPRESSION: 1. Perirectal/perineal inflammatory changes without defined abscess. 2. No evidence of acute cardiopulmonary abnormality. 3. No evidence of acute intra-abdominal infectious/inflammatory process. 4. Chronic and incidental findings as detailed above. Assessment and Plan - Diagnosis (1) ALEYDA (acute kidney injury) Is this a current diagnosis for this admission?: Yes Plan: Improving renal function. Nonoliguric. Electrolytes WNL. Monitor volume status and electrolyte repletion as needed. Cautious polymerization guided by volume status. Strict in and out. Renal ultrasound unremarkable. (2) Atrial fibrillation Qualifiers: Atrial fibrillation type: longstanding persistent Qualified Code(s): I48.11 - Longstanding persistent atrial fibrillation Is this a current diagnosis for this admission?: No Plan: History of nonvalvular A. fib. Rate controlled. Anticoagulated. Continue Coumadin INR goal of 2-2.5. Monitor for bleeding. (3) Cellulitis of perineum Is this a current diagnosis for this admission?: Yes Plan: Polymicrobial. Status post I&D by surgery. Scheduled for another I&D today. On broad-spectrum IV antibiotics. DC vancomycin as per ID recommendation. Continue IV cefepime and metronidazole. Based on clinical improvement could be switched to p.o. ciprofloxacin and metronidazole. Continue wound care. Surgery following, recommendations noted. (4) Chronic obstructive pulmonary disease Qualifiers: COPD type: COPD with acute exacerbation Qualified Code(s): J44.1 - Chronic obstructive pulmonary disease with (acute) exacerbation Is this a current diagnosis for this admission?: No Plan: History of present dependent COPD. 3 L/min. Presented with acute exacerbation. Continue IV steroids, LABA, LABA, ICS, incentive spirometry, flutter valve, pulmonary toileting. (5) Diabetes Qualifiers: Diabetes mellitus type: type 2 Is this a current diagnosis for this admission?: Yes Plan: Not very well controlled. Hemoglobin A1c 8.9%. Continue basal, sliding scale and prandial insulin. Accu-Cheks. Hypoglycemic protocol. Adjust dosage increase. Could be a candidate for oral hypoglycemic once kidney function improves. Outpatient PCP follow-up. 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 Stable. Monitor electrolytes and replace as needed. (7) Tobacco abuse Is this a current diagnosis for this admission?: Yes Plan: Counseled on quitting. NicoDerm patch placement.
[2020-03-15 14:31] LABS: HEMATOCRIT 37.2 % (37.9-51.0); HEMOGLOBIN 12.2 g/dL (13.5-17.0); MEAN CORPUSCULAR HEMOGLOBIN 30.9 pg (27.0-33.4); MEAN CORPUSCULAR HGB CONC 32.9 g/dL (32.0-36.0); MEAN CORPUSCULAR VOLUME 94 fl (80-97); PLATELET COUNT 348 10^3/uL (150-450); RED BLOOD COUNT 3.96 10^6/uL (4.35-5.55); RED CELL DISTRIBUTION WIDTH 15.7 % (11.5-14.0); WHITE BLOOD COUNT 12.2 10^3/uL (4.0-10.5)
[2020-03-15] MEDS ORDERED: FENTANYL CITRATE INJ/PF 100 MCG/2 ML AMPUL ONE ×2 (14:59→19:17)
[2020-03-15] MEDS ORDERED: ONDANSETRON HCL INJ/PF 4 MG/2 ML SDV ONE (15:00)
[2020-03-15] MEDS ORDERED: PROPOFOL INJ 200 MG/20 ML VIAL IV ONE (15:00)
[2020-03-15] MEDS ORDERED: MIDAZOLAM 2 MG/2 ML INJ ONE (15:00)
[2020-03-15] MEDS ORDERED: FUROSEMIDE INJ/PF 20 MG/2 ML SDV ONE (16:50)
[2020-03-15] MEDS ORDERED: DIPHENHYDRAMINE HCL 50 MG/ML VIAL IV PRN (17:29)
[2020-03-15] MEDS ORDERED: MEPERIDINE HCL/PF INJ 25 MG/1 ML DISP.SYRIN IV PRN (17:29)
[2020-03-15] MEDS ORDERED: PROMETHAZINE HCL INJ 25 MG/1 ML VIAL IV PRN ×2 (17:29)
[2020-03-15] MEDS ORDERED: ONDANSETRON HCL INJ/PF 4 MG/2 ML SDV IV PRN (17:29)
[2020-03-15] MEDS ORDERED: MORPHINE SULFATE 10 MG/ML INJ IV PRN (17:29)
[2020-03-15] MEDS ORDERED: OXYCODONE-ACETAMINOPHEN 5-325 MG TABLET PO PRN ×2 (17:29)
[2020-03-15] MEDS ORDERED: FENTANYL CITRATE INJ/PF 100 MCG/2 ML AMPUL IV PRN ×2 (17:29)
[2020-03-15 18:06] LABS: INTERNATIONAL RATION (INR) 2.12; PROTHROMBIN TIME 24.1 SEC (11.4-15.4)
[2020-03-15] MEDS ORDERED: METRONIDAZOLE 500 MG/NS RTU 500 MG/100 ML RTUPB IV ONE (18:32)
[2020-03-15] MEDS ORDERED: IPRATROPIUM/ALBUTEROL 0.5-2.5 MG/3 ML AMPUL NEB ONE (18:44)
[2020-03-15] MEDS: FENTANYL CITRATE INJ/PF 100 MCG/2 ML AMPUL IV PRN ×2 (19:04→19:09)
[2020-03-15] MEDS ORDERED: DEXAMETHASONE SOD PHOSPHATE INJ 4 MG/1 ML VIAL ONE (19:13)
[2020-03-15] MEDS ORDERED: ACETAMINOPHEN 0 MG/0 ML RTUPB IV ONE (19:13)
--- NOTE | 2020-03-15 19:16 | Operative Report ---
Nonrecallable Operative Report DATE OF SURGERY: 03/15/20 PREOPERATIVE DIAGNOSIS: Rectal abscess, Camacho's gangrene OPERATION: Incision and debridement of perirectal abscess debridement of posterior scrotum SURGEON: MARY BRITTON ANESTHESIA: LMAC TISSUE REMOVED OR ALTERED: Necrotic tissue from perirectal abscess and ischial fossa COMPLICATIONS: None INTRAOPERATIVE FINDINGS: Perirectal abscess extending to the ischio fossa involving the seminal vesicles base of the scrotum sphincters of the rectum extending down to the ischium PROCEDURE: Patient was brought to the operating room awake alert in stable condition placed in the operative table in a left lateral decubitus position with his right leg extended the perineum and base the scrotum and area of the previous abscess drainage at the rec perirectal tissue was prepped and draped in usual sterile fashion patient. With obvious necrosis extending up to the rectum on the right side. We made a elliptical incision from the base of the scrotum to the buttock just hugging the skin along the border of the anus on the right side extending up to the base of the scrotum. Dissection was carried down to the deep ischio fat with the Bovie cautery there was severe necrosis and purulent tissue all the way up to the base of the scrotum and this was excised with the Bovie cautery. When we reached the seminal vesicles we reached the top of the area of necrosis excised the perirectal fat and it is an issue fossil fat with the Bovie cautery. Is quite obvious that the lateral border of the rectum was quite visible the sphincters were gone on the on the right side. Is able to palpate the Butt catheter and the base of the wound that was noted there was no injury to the urethra. The initial fossa was then irrigated normal saline suctioned dry and a Betadine soaked Kerlix gauze was used to pack the wound. If patient consents he will need a colostomy as he had will have no control of his of his stool and he will continue to stool the wound that will not heal. However the patient is DNR/DNI with known lung cancer sure at this point if he wants to continue treatment. Sponge needle counts were correct x2 the patient was awakened in the operating transferred recovery in stable condition
[2020-03-15] MEDS: OXYCODONE-ACETAMINOPHEN 5-325 MG TABLET PO PRN (20:24)
[2020-03-15] MEDS: PRIMIDONE 50 MG TABLET PO SCH (23:55)
[2020-03-15] MEDS: ZOLPIDEM TARTRATE 5 MG TABLET PO SCH (23:57)
[2020-03-15] MEDS: ATORVASTATIN CALCIUM 40 MG TABLET PO SCH (23:57)
[2020-03-16] MEDS: WARFARIN SODIUM 4 MG TABLET PO SCH ×2 (01:18→22:21)
[2020-03-16] MEDS: METHYLPREDNISOLONE INJ 40 MG/1 ML SDV IV SCH ×4 (01:18→18:20)
[2020-03-16] MEDS: METRONIDAZOLE 500 MG/NS RTU 500 MG/100 ML RTUPB IV SCH ×4 (01:24→18:20)
[2020-03-16] MEDS: ONDANSETRON HCL INJ/PF 4 MG/2 ML SDV IV PRN (04:32)
[2020-03-16 05:22] LABS: HEMOGLOBIN 11.8 g/dL (13.5-17.0); MEAN CORPUSCULAR HGB CONC 33.6 g/dL (32.0-36.0); MEAN CORPUSCULAR VOLUME 92 fl (80-97); PLATELET COUNT 372 10^3/uL (150-450); RED BLOOD COUNT 3.79 10^6/uL (4.35-5.55); RED CELL DISTRIBUTION WIDTH 15.6 % (11.5-14.0); WHITE BLOOD COUNT 12.7 10^3/uL (4.0-10.5)
[2020-03-16 05:31] LABS: INTERNATIONAL RATION (INR) 3.01; PROTHROMBIN TIME 31.9 SEC (11.4-15.4)
[2020-03-16 05:41] LABS: ANION GAP 6 (5-19); BLOOD UREA NITROGEN 31 mg/dL (7-20); CALCIUM 8.6 mg/dL (8.4-10.2); CARBON DIOXIDE 25 mmol/L (22-30); CHLORIDE 109 mmol/L (98-107); GLUCOSE 197 mg/dL (75-110); POTASSIUM 3.4 mmol/L (3.6-5.0)
[2020-03-16] MEDS: IPRATROPIUM/ALBUTEROL 0.5-2.5 MG/3 ML AMPUL NEB SCH ×3 (07:47→19:44)
[2020-03-16] MEDS: INSULIN LISPRO 100 UNIT/ML 3 ML VIAL SUBCUT SCH ×7 (08:10→22:13)
[2020-03-16] MEDS ORDERED: POTASSIUM CHLORIDE 10 MEQ TABLET.ER PO ONE (09:00)
--- NOTE | 2020-03-16 13:31 | PDOC PROGRESS REPORT ---
Subjective Progress Note for:: 03/16/20 Reason For Visit: GENERALIZED WEAKNESS,CHRONIC ATRIAL FIBRILLATION Patient having no complaints. Physical Exam Vital Signs: Temp Pulse Resp BP Pulse Ox 98.6 F 80 18 134/69 H 100 03/16/20 11:24 03/16/20 11:24 03/16/20 11:24 03/16/20 11:24 03/16/20 11:24 Intake & Output 03/15/20 03/16/20 03/17/20 06:59 06:59 06:59 Intake Total 185 2766 240 Output Total 1999 4487 Balance -150 -1659 240 Weight 99.4 kg 97.7 kg 97.7 kg General appearance: PRESENT: no acute distress Rectal exam: PRESENT: other - Patient examined left lateral cubitus position. All packing removed. No active liquid drainage; some nonviable soft tissue g ently debrided. Results Laboratory Results: 03/16/20 05:14 03/16/20 05:14 03/15/20 03/15/20 03/16/20 14:20 14:20 05:14 WBC 12.2 H 12.7 H RBC 3.96 L 3.79 L Hgb 12.2 L 11.8 L Hct 37.2 L 35.0 L MCV 94 92 MCH 30.9 31.0 MCHC 32.9 33.6 RDW 15.7 H 15.6 H Plt Count 348 372 Sodium Potassium Chloride Carbon Dioxide Anion Gap BUN Creatinine Est GFR ( Amer) Glucose Calcium Magnesium Blood Type A POSITIVE 03/16/20 05:14 WBC RBC Hgb Hct MCV MCH MCHC RDW Plt Count Sodium 139.5 Potassium 3.4 L Chloride 109 H Carbon Dioxide 25 Anion Gap 6 BUN 31 H Creatinine 1.21 Est GFR ( Amer) > 60 Glucose 197 H Calcium 8.6 Magnesium 2.0 Blood Type 03/10/20 09:50 Blood Blood Culture - Final NO GROWTH IN 5 DAYS 03/10/20 03/10/20 03/10/20 08:55 15:21 20:14 Troponin I 0.033 0.026 0.028 NT-Pro-B Natriuret Pep 2010 H 03/11/20 03/11/20 02:07 02:38 Troponin I 0.042 NT-Pro-B Natriuret Pep 3470 H Impressions: Abdomen/Pelvis CT 03/10/20 00:00 IMPRESSION: 1. Perirectal/perineal inflammatory changes without defined abscess. 2. No evidence of acute cardiopulmonary abnormality. 3. No evidence of acute intra-abdominal infectious/inflammatory process. 4. Chronic and incidental findings as detailed above. Chest X-Ray 03/10/20 08:32 IMPRESSION: NO ACUTE RADIOGRAPHIC FINDING IN THE CHEST. Head CT 03/10/20 08:36 IMPRESSION: No evidence of calvarial injury or intracranial hemorrhage. Left frontal and parietal encephalomalacia consistent with sequela of previous large territory ischemic injury. EVIDENCE OF ACUTE STROKE: NO. Chest CT 03/10/20 08:38 IMPRESSION: 1. Perirectal/perineal inflammatory changes without defined abscess. 2. No evidence of acute cardiopulmonary abnormality. 3. No evidence of acute intra-abdominal infectious/inflammatory process. 4. Chronic and incidental findings as detailed above. Assessment & Plan - Diagnosis (1) Perirectal abscess Is this a current diagnosis for this admission?: Yes Plan: Impression: Status post aggressive debridement of ricky-rectal abscesses extending through the sphincter and up into the ischio rectal fossa, sepsis appears reasonably controlled Recommendations: 1. Patient growing Prevotella species, Peptostreptococcus, and Streptococcus; on multiple antibiotics, sensitivities pending 2. Urged open wound, with extremity to anus, and this 74-year-old gentleman with multiple comorbidities, patient may best be served with a diverting colostomy. He is not in a position to have this discussion at this time 3. We will continue dressing changes intravenous antibiotic therapy, and reas sess in the next 24 hours. - Time Time Spent: 30 to 50 Minutes
[2020-03-16] MEDS: INSULIN GLARGINE,HUM.REC.ANLOG 1,000 UNIT/10 ML VIAL SUBCUT SCH ×2 (13:59→22:15)
[2020-03-16] MEDS: FINASTERIDE 5 MG TABLET PO SCH (13:59)
[2020-03-16] MEDS: LAMOTRIGINE 100 MG TABLET PO SCH (14:00)
[2020-03-16] MEDS: TAMSULOSIN HCL 0.4 MG CAP.SR.24H PO SCH (14:00)
[2020-03-16] MEDS: FERROUS SULFATE 325 MG TABLET PO SCH (14:00)
[2020-03-16] MEDS: PANTOPRAZOLE SODIUM 40 MG VIAL IV SCH ×2 (14:02→22:12)
[2020-03-16] MEDS: CEFEPIME HCL 2 GM in DEXTROSE 5%-WATER 50 ML IV SCH ×2 (14:13→22:10)
[2020-03-16] MEDS: FLUTICASONE/UMECLIDIN/VILANTER 100-62.5-25 MCG/DOSE IH SCH (14:16)
--- NOTE | 2020-03-16 14:36 | PDOC PROGRESS REPORT ---
Subjective Progress Note for:: 03/16/20 Subjective:: 74 year old male with h/o copd /lung cancer , af on coumadin came to the emergency room with complaints of nonspecific symptoms of generalized weakness not feeling well shortness of breath and wheezing. Is also admitting he is not eating drinking well. In the emergency room shows low-grade fever of 100 with a WBC count of 22,000 and hypotensive. Lactic acid level is 1.8. CT scan of the abdomen pelvis indicates inflammation around the perirectal area without ab scess. Patient agreed to stay in the hospital for further management wants to be DNR/DNI. Also given history of fall at home CT head was negative for bleed. INR is 1.57. 03/14/2020. No acute events overnight. Patient still BiPAP and supplemental oxygen dependent, respiratory symptoms has not improved much, alert and oriented with physical examination. Denies any fever, chills, nausea, vomiting, diarrhea. 03/15/2020. No acute events overnight. Patient reported to be getting anxious once a while and has mentioned that he would like to go home but unfortunately patient is still IV antibiotics and needs further I&D as per surgery, on my encounter patient is resting in bed no apparent distress, wearing BiPAP, denies any chest pain, nausea, vomiting, diarrhea, constipation or any urinary symptoms, complaining of nonproductive cough. 03/16/2020. No acute events overnight. Respiratory symptoms are getting better, patient very anxious to leave however patient was informed that he has very bad infection and he needs further surgical care and IV antibiotics and he has decided to stay, patient denies any fever, chest pain, nausea, vomiting, diarrhea, constipation or any urinary symptoms. Reason For Visit: GENERALIZED WEAKNESS,CHRONIC ATRIAL FIBRILLATION Physical Exam Vital Signs: Temp Pulse Resp BP Pulse Ox 98.6 F 85 18 134/69 H 97 03/16/20 11:24 03/16/20 14:10 03/16/20 14:10 03/16/20 11:24 03/16/20 14:10 Intake & Output 03/15/20 03/16/20 03/17/20 06:59 06:59 06:59 Intake Total 1356 4646 390 Output Total 9707 4968 Balance -150 -3278 390 Weight 99.4 kg 97.7 kg 97.7 kg General appearance: PRESENT: no acute distress, well-developed, well-nourished Head exam: PRESENT: atraumatic, normocephalic Respiratory exam: PRESENT: decreased breath sounds, wheezes. ABSENT: rales, rhonchi Cardiovascular exam: PRESENT: RRR. ABSENT: diastolic murmur, rubs, systolic murmur GI/Abdominal exam: PRESENT: normal bowel sounds, soft. ABSENT: distended, guarding, mass, organolmegaly, rebound, tenderness Rectal exam: PRESENT: other - Perirectal wound dressing in place, no sign of active discharge Neurological exam: PRESENT: alert, awake, oriented to person, oriented to place, oriented to time, oriented to situation, CN II-XII grossly intact. ABSENT: motor sensory deficit Results Laboratory Results: 03/16/20 05:14 03/16/20 05:14 03/15/20 03/15/20 03/16/20 14:20 14:20 05:14 WBC 12.2 H 12.7 H RBC 3.96 L 3.79 L Hgb 12.2 L 11.8 L Hct 37.2 L 35.0 L MCV 94 92 MCH 30.9 31.0 MCHC 32.9 33.6 RDW 15.7 H 15.6 H Plt Count 348 372 Sodium Potassium Chloride Carbon Dioxide Anion Gap BUN Creatinine Est GFR ( Amer) Glucose Calcium Magnesium Blood Type A POSITIVE 03/16/20 05:14 WBC RBC Hgb Hct MCV MCH MCHC RDW Plt Count Sodium 139.5 Potassium 3.4 L Chloride 109 H Carbon Dioxide 25 Anion Gap 6 BUN 31 H Creatinine 1.21 Est GFR ( Amer) > 60 Glucose 197 H Calcium 8.6 Magnesium 2.0 Blood Type 03/10/20 03/10/20 03/10/20 08:55 15:21 20:14 Troponin I 0.033 0.026 0.028 NT-Pro-B Natriuret Pep 2009 H 03/11/20 03/11/20 02:07 02:38 Troponin I 0.042 NT-Pro-B Natriuret Pep 3470 H Impressions: Abdomen/Pelvis CT 03/10/20 00:00 IMPRESSION: 1. Perirectal/perineal inflammatory changes without defined abscess. 2. No evidence of acute cardiopulmonary abnormality. 3. No evidence of acute intra-abdominal infectious/inflammatory process. 4. Chronic and incidental findings as detailed above. Chest X-Ray 03/10/20 08:32 IMPRESSION: NO ACUTE RADIOGRAPHIC FINDING IN THE CHEST. Head CT 03/10/20 08:36 IMPRESSION: No evidence of calvarial injury or intracranial hemorrhage. Left frontal and parietal encephalomalacia consistent with sequela of previous large territory ischemic injury. EVIDENCE OF ACUTE STROKE: NO. Chest CT 03/10/20 08:38 IMPRESSION: 1. Perirectal/perineal inflammatory changes without defined abscess. 2. No evidence of acute cardiopulmonary abnormality. 3. No evidence of acute intra-abdominal infectious/inflammatory process. 4. Chronic and incidental findings as detailed above. Assessment and Plan - Diagnosis (1) ALEYDA (acute kidney injury) Is this a current diagnosis for this admission?: Yes Plan: Resolved. Nonoliguric. Electrolytes WNL. Monitor volume status and electrolyte repletion as needed. Renal ultrasound unremarkable. (2) Atrial fibrillation Qualifiers: Atrial fibrillation type: longstanding persistent Qualified Code(s): I48.11 - Longstanding persistent atrial fibrillation Is this a current diagnosis for this admission?: No Plan: History of nonvalvular A. fib. Rate controlled. Anticoagulated. Continue Coumadin INR goal of 2-2.5. Monitor for bleeding. (3) Cellulitis of perineum Is this a current diagnosis for this admission?: Yes Plan: Perirectal abscess, Camacho gangrene as per surgery note. Polymicrobial. Status post multiple I&D's, by surgery. Afebrile. Leukocytosis improving. On broad-spectrum IV antibiotics. DC vancomycin as per ID recommendation. Continue IV cefepime and metronidazole. As per ID recommendation based on clinical improvement could be switched to p.o. ciprofloxacin and metronidazole. Continue wound care. Surgery following, recommendations noted. (4) Chronic obstructive pulmonary disease Qualifiers: COPD type: COPD with acute exacerbation Qualified Code(s): J44.1 - Chronic obstructive pulmonary disease with (acute) exacerbation Is this a current diagnosis for this admission?: No Plan: History of present dependent COPD. 3 L/min. Presented with acute exacerbation. Continue IV steroids, LABA, LABA, ICS, incentive spirometry, flutter valve, pulmonary toileting. (5) Diabetes Qualifiers: Diabetes mellitus type: type 2 Is this a current diagnosis for this admission?: Yes Plan: Not very well controlled. Hemoglobin A1c 8.9%. Continue basal, sliding scale and prandial insulin. Accu-Cheks. Hypoglycemic protocol. Adjust dosage increase. Could be a candidate for oral hypoglycemic once kidney function improves. Outpatient PCP follow-up. 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 Stable. Monitor electrolytes and replace as needed. (7) Tobacco abuse Is this a current diagnosis for this admission?: Yes Plan: Counseled on quitting. NicoDerm patch placement.
[2020-03-16 15:26] LABS: HEMATOCRIT 34.5 % (37.9-51.0); HEMOGLOBIN 11.6 g/dL (13.5-17.0); MEAN CORPUSCULAR HGB CONC 33.5 g/dL (32.0-36.0); MEAN CORPUSCULAR VOLUME 93 fl (80-97); PLATELET COUNT 369 10^3/uL (150-450); RED BLOOD COUNT 3.73 10^6/uL (4.35-5.55); RED CELL DISTRIBUTION WIDTH 15.7 % (11.5-14.0); WHITE BLOOD COUNT 11.8 10^3/uL (4.0-10.5)
[2020-03-16 17:58] LABS: APPEARANCE,URINE SLIGHTLY-CLOUDY; BILIRUBIN,URINE NEGATIVE (NEGATIVE); COLOR,URINE YELLOW; GLUCOSE, URINE 50 mg/dL (NEGATIVE); KETONES,URINE NEGATIVE (NEGATIVE); LEUKOCYTE ESTERASE,URINE NEGATIVE (NEGATIVE); NITRITE,URINE NEGATIVE (NEGATIVE); PROTEIN,URINE 30 mg/dL (NEGATIVE); URINE SPECIFIC GRAVITY 1.016; UROBILINOGEN,URINE NEGATIVE mg/dL (<2.0)
[2020-03-16] MEDS: METOPROLOL SUCCINATE 25 MG TAB.SR.24H PO SCH (18:17)
[2020-03-16] MEDS: ATORVASTATIN CALCIUM 40 MG TABLET PO SCH (22:12)
[2020-03-16] MEDS: ZOLPIDEM TARTRATE 5 MG TABLET PO SCH (22:12)
[2020-03-16] MEDS: PRIMIDONE 50 MG TABLET PO SCH (22:29)
[2020-03-17] MEDS: METRONIDAZOLE 500 MG/NS RTU 500 MG/100 ML RTUPB IV SCH ×4 (01:09→17:11)
[2020-03-17] MEDS: METHYLPREDNISOLONE INJ 40 MG/1 ML SDV IV SCH ×2 (01:09→11:26)
[2020-03-17] MEDS: ONDANSETRON HCL INJ/PF 4 MG/2 ML SDV IV PRN (02:51)
[2020-03-17 07:05] LABS: HEMATOCRIT 37.4 % (37.9-51.0); HEMOGLOBIN 12.1 g/dL (13.5-17.0); MEAN CORPUSCULAR HEMOGLOBIN 30.4 pg (27.0-33.4); MEAN CORPUSCULAR HGB CONC 32.3 g/dL (32.0-36.0); MEAN CORPUSCULAR VOLUME 94 fl (80-97); PLATELET COUNT 425 10^3/uL (150-450); RED BLOOD COUNT 3.99 10^6/uL (4.35-5.55); RED CELL DISTRIBUTION WIDTH 15.6 % (11.5-14.0); WHITE BLOOD COUNT 18.5 10^3/uL (4.0-10.5)
[2020-03-17 07:09] LABS: INTERNATIONAL RATION (INR) 3.21; PROTHROMBIN TIME 33.5 SEC (11.4-15.4)
[2020-03-17 07:27] LABS: ANION GAP 8 (5-19); BLOOD UREA NITROGEN 24 mg/dL (7-20); CALCIUM 8.6 mg/dL (8.4-10.2); CARBON DIOXIDE 27 mmol/L (22-30); CHLORIDE 105 mmol/L (98-107); GLUCOSE 198 mg/dL (75-110); POTASSIUM 4.1 mmol/L (3.6-5.0)
[2020-03-17] MEDS: IPRATROPIUM/ALBUTEROL 0.5-2.5 MG/3 ML AMPUL NEB SCH ×3 (07:42→19:54)
[2020-03-17 08:26] LABS: ABSOLUTE LYMPHOCYTES# (MANUAL) 1.5 10^3/uL (0.5-4.7); ABSOLUTE MONOCYTES # (MANUAL) 1.3 10^3/uL (0.1-1.4); BASOPHILS % (MANUAL) 0 % (0-2); EOSINOPHILS % (MANUAL) 1 % (0-6); LYMPHOCYTES % (MANUAL) 8 % (13-45); METAMYELOCYTES % (MANUAL) 1 % (0-1); MONOCYTES % (MANUAL) 7 % (3-13); MYELOCYTES % (MANUAL) 2 % (0); SEGMENTED NEUTROPHILS % (MAN) 81 % (42-78); TOTAL CELLS COUNTED 100
[2020-03-17 08:29] LABS: ANISOCYTOSIS SLIGHT; PLATELET COMMENT ADEQUATE; TEAR DROP CELLS SLIGHT; TOXIC GRANULATION SLIGHT
[2020-03-17] MEDS: INSULIN LISPRO 100 UNIT/ML 3 ML VIAL SUBCUT SCH ×5 (08:52→22:15)
[2020-03-17] MEDS: FINASTERIDE 5 MG TABLET PO SCH (11:24)
[2020-03-17] MEDS: PANTOPRAZOLE SODIUM 40 MG VIAL IV SCH (11:24)
[2020-03-17] MEDS: TAMSULOSIN HCL 0.4 MG CAP.SR.24H PO SCH (11:25)
[2020-03-17] MEDS: METOPROLOL SUCCINATE 25 MG TAB.SR.24H PO SCH (11:25)
[2020-03-17] MEDS: LAMOTRIGINE 100 MG TABLET PO SCH (11:25)
[2020-03-17] MEDS: CEFEPIME HCL 2 GM in DEXTROSE 5%-WATER 50 ML IV SCH ×2 (11:26→22:16)
[2020-03-17] MEDS: FERROUS SULFATE 325 MG TABLET PO SCH (11:34)
[2020-03-17] MEDS: FLUTICASONE/UMECLIDIN/VILANTER 100-62.5-25 MCG/DOSE IH SCH (11:38)
--- NOTE | 2020-03-17 14:16 | PDOC PROGRESS REPORT ---
Subjective Progress Note for:: 03/17/20 Subjective:: 74 year old male with h/o copd /lung cancer , af on coumadin came to the emergency room with complaints of nonspecific symptoms of generalized weakness not feeling well shortness of breath and wheezing. Is also admitting he is not eating drinking well. In the emergency room shows low-grade fever of 100 with a WBC count of 22,000 and hypotensive. Lactic acid level is 1.8. CT scan of the abdomen pelvis indicates inflammation around the perirectal area without ab scess. Patient agreed to stay in the hospital for further management wants to be DNR/DNI. Also given history of fall at home CT head was negative for bleed. INR is 1.57. 03/14/2020. No acute events overnight. Patient still BiPAP and supplemental oxygen dependent, respiratory symptoms has not improved much, alert and oriented with physical examination. Denies any fever, chills, nausea, vomiting, diarrhea. 03/15/2020. No acute events overnight. Patient reported to be getting anxious once a while and has mentioned that he would like to go home but unfortunately patient is still IV antibiotics and needs further I&D as per surgery, on my encounter patient is resting in bed no apparent distress, wearing BiPAP, denies any chest pain, nausea, vomiting, diarrhea, constipation or any urinary symptoms, complaining of nonproductive cough. 03/16/2020. No acute events overnight. Respiratory symptoms are getting better, patient very anxious to leave however patient was informed that he has very bad infection and he needs further surgical care and IV antibiotics and he has decided to stay, patient denies any fever, chest pain, nausea, vomiting, diarrhea, constipation or any urinary symptoms. 03/17/2020. No acute events overnight. Moderate improvement of respiratory symptoms, patient progressing with no apparent distress, denies any fever, chills, nausea, vomiting. P.o. tolerant. Reason For Visit: GENERALIZED WEAKNESS,CHRONIC ATRIAL FIBRILLATION Physical Exam Vital Signs: Temp Pulse Resp BP Pulse Ox 97.4 F 78 17 140/73 H 97 03/17/20 11:17 03/17/20 13:35 03/17/20 13:35 03/17/20 11:17 03/17/20 13:35 Intake & Output 03/16/20 03/17/20 03/18/20 06:59 06:59 06:59 Intake Total 2766 1350 Output Total 4452 5424 Balance -1659 -350 Weight 97.7 kg 95 kg General appearance: PRESENT: no acute distress, obese, well-developed, well- nourished Head exam: PRESENT: atraumatic, normocephalic Respiratory exam: PRESENT: clear to auscultation vannessa. ABSENT: rales, rhonchi, wheezes Cardiovascular exam: PRESENT: RRR. ABSENT: diastolic murmur, rubs, systolic murmur GI/Abdominal exam: PRESENT: normal bowel sounds, soft. ABSENT: distended, guarding, mass, organolmegaly, rebound, tenderness Extremities exam: PRESENT: full ROM. ABSENT: calf tenderness, clubbing, pedal edema Neurological exam: PRESENT: alert, awake, oriented to person, oriented to place, oriented to time, oriented to situation, CN II-XII grossly intact. ABSENT: motor sensory deficit Results Laboratory Results: 03/17/20 05:57 03/17/20 05:57 03/16/20 03/16/20 03/17/20 14:40 17:12 05:57 WBC 11.8 H 18.5 H RBC 3.73 L 3.99 L Hgb 11.6 L 12.1 L Hct 34.5 L 37.4 L MCV 93 94 MCH 31.0 30.4 MCHC 33.5 32.3 RDW 15.7 H 15.6 H Plt Count 369 425 Seg Neutrophils % Not Reportable Sodium Potassium Chloride Carbon Dioxide Anion Gap BUN Creatinine Est GFR ( Amer) Glucose Calcium Magnesium Urine Color YELLOW Urine Appearance SLIGHTLY-CLOUDY Urine pH 5.0 Ur Specific [place] 1.016 Urine Protein 30 H Urine Glucose (UA) 50 H Urine Ketones NEGATIVE Urine Blood MODERATE H Urine Nitrite NEGATIVE Ur Leukocyte Esterase NEGATIVE Urine WBC (Auto) 1 Urine RBC (Auto) 9 03/17/20 05:57 WBC RBC Hgb Hct MCV MCH MCHC RDW Plt Count Seg Neutrophils % Sodium 140.0 Potassium 4.1 Chloride 105 Carbon Dioxide 27 Anion Gap 8 BUN 24 H Creatinine 1.22 Est GFR ( Amer) > 60 Glucose 198 H Calcium 8.6 Magnesium 1.9 Urine Color Urine Appearance Urine pH Ur Specific [place] Urine Protein Urine Glucose (UA) Urine Ketones Urine Blood Urine Nitrite Ur Leukocyte Esterase Urine WBC (Auto) Urine RBC (Auto) 03/10/20 03/10/20 03/10/20 08:55 15:21 20:14 Troponin I 0.033 0.026 0.028 NT-Pro-B Natriuret Pep 2010 H 03/11/20 03/11/20 02:07 02:38 Troponin I 0.042 NT-Pro-B Natriuret Pep 3470 H Impressions: Abdomen/Pelvis CT 03/10/20 00:00 IMPRESSION: 1. Perirectal/perineal inflammatory changes without defined abscess. 2. No evidence of acute cardiopulmonary abnormality. 3. No evidence of acute intra-abdominal infectious/inflammatory process. 4. Chronic and incidental findings as detailed above. Chest X-Ray 03/10/20 08:32 IMPRESSION: NO ACUTE RADIOGRAPHIC FINDING IN THE CHEST. Head CT 03/10/20 08:36 IMPRESSION: No evidence of calvarial injury or intracranial hemorrhage. Left frontal and parietal encephalomalacia consistent with sequela of previous large territory ischemic injury. EVIDENCE OF ACUTE STROKE: NO. Chest CT 03/10/20 08:38 IMPRESSION: 1. Perirectal/perineal inflammatory changes without defined abscess. 2. No evidence of acute cardiopulmonary abnormality. 3. No evidence of acute intra-abdominal infectious/inflammatory process. 4. Chronic and incidental findings as detailed above. Assessment and Plan - Diagnosis (1) Cellulitis of perineum Is this a current diagnosis for this admission?: Yes Plan: Perirectal abscess, Camacho gangrene as per surgery note. Polymicrobial. Status post multiple I&D's, by surgery. Surgery suggesting diverting colostomy in order to help with the healing of sacral and perianal wound. Patient is aware, still thinking about it. Afebrile. Leukocytosis improving. On broad-spectrum IV antibiotics. DC vancomycin as per ID recommendation. Continue IV cefepime and metronidazole. As per ID recommendation based on clinical improvement could be switched to p.o. ciprofloxacin and metronidazole. Continue wound care. Surgery following, recommendations noted. (2) ALEYDA (acute kidney injury) Is this a current diagnosis for this admission?: Yes Plan: Resolved. Nonoliguric. Electrolytes WNL. Monitor volume status and electrolyte repletion as needed. Renal ultrasound unremarkable. (3) Atrial fibrillation Qualifiers: Atrial fibrillation type: longstanding persistent Qualified Code(s): I48.11 - Longstanding persistent atrial fibrillation Is this a current diagnosis for this admission?: No Plan: History of nonvalvular A. fib. Rate controlled. Anticoagulated. Continue Coumadin INR goal of 2-2.5. Monitor for bleeding. (4) Chronic obstructive pulmonary disease Qualifiers: COPD type: COPD with acute exacerbation Qualified Code(s): J44.1 - Chronic obstructive pulmonary disease with (acute) exacerbation Is this a current diagnosis for this admission?: No Plan: Moderate improvement. Back to baseline. SPO2 WNL on 3 L nasal cannula. History of present dependent COPD. 3 L/min. Presented with acute exacerbation. Continue IV steroids, LABA, LABA, ICS, incentive spirometry, flutter valve, pulmonary toileting. (5) Diabetes Qualifiers: Diabetes mellitus type: type 2 Is this a current diagnosis for this admission?: Yes Plan: Not very well controlled. Hemoglobin A1c 8.9%. Continue basal, sliding scale and prandial insulin. Accu-Cheks. Hypoglycemic protocol. Adjust dosage increase. Could be a candidate for oral hypoglycemic once kidney function improves. Outpatient PCP follow-up. 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 Stable. Monitor electrolytes and replace as needed. (7) Tobacco abuse Is this a current diagnosis for this admission?: Yes Plan: Counseled on quitting. NicoDerm patch placement.
[2020-03-17 14:21] LABS: PATH REVIEW PATHOLOGIST REVIEWED
--- NOTE | 2020-03-17 15:19 | PDOC PROGRESS REPORT ---
Subjective Progress Note for:: 03/17/20 Reason For Visit: GENERALIZED WEAKNESS,CHRONIC ATRIAL FIBRILLATION Physical Exam Vital Signs: Temp Pulse Resp BP Pulse Ox 97.4 F 78 17 140/73 H 97 03/17/20 11:17 03/17/20 13:35 03/17/20 13:35 03/17/20 11:17 03/17/20 13:35 Intake & Output 03/16/20 03/17/20 03/18/20 06:59 06:59 06:59 Intake Total 2766 1350 50 Output Total 4403 1700 Balance -1659 -350 50 Weight 97.7 kg 95 kg Results Laboratory Results: 03/17/20 05:57 03/17/20 05:57 03/16/20 03/16/20 03/17/20 14:40 17:12 05:57 WBC 11.8 H 18.5 H RBC 3.73 L 3.99 L Hgb 11.6 L 12.1 L Hct 34.5 L 37.4 L MCV 93 94 MCH 31.0 30.4 MCHC 33.5 32.3 RDW 15.7 H 15.6 H Plt Count 369 425 Seg Neutrophils % Not Reportable Sodium Potassium Chloride Carbon Dioxide Anion Gap BUN Creatinine Est GFR ( Amer) Glucose Calcium Magnesium Urine Color YELLOW Urine Appearance SLIGHTLY-CLOUDY Urine pH 5.0 Ur Specific [place] 1.016 Urine Protein 30 H Urine Glucose (UA) 50 H Urine Ketones NEGATIVE Urine Blood MODERATE H Urine Nitrite NEGATIVE Ur Leukocyte Esterase NEGATIVE Urine WBC (Auto) 1 Urine RBC (Auto) 9 03/17/20 05:57 WBC RBC Hgb Hct MCV MCH MCHC RDW Plt Count Seg Neutrophils % Sodium 140.0 Potassium 4.1 Chloride 105 Carbon Dioxide 27 Anion Gap 8 BUN 24 H Creatinine 1.22 Est GFR ( Amer) > 60 Glucose 198 H Calcium 8.6 Magnesium 1.9 Urine Color Urine Appearance Urine pH Ur Specific [place] Urine Protein Urine Glucose (UA) Urine Ketones Urine Blood Urine Nitrite Ur Leukocyte Esterase Urine WBC (Auto) Urine RBC (Auto) 03/10/20 03/10/20 03/10/20 08:55 15:21 20:14 Troponin I 0.033 0.026 0.028 NT-Pro-B Natriuret Pep 2009 H 03/11/20 03/11/20 02:07 02:38 Troponin I 0.042 NT-Pro-B Natriuret Pep 3470 H Impressions: Abdomen/Pelvis CT 03/10/20 00:00 IMPRESSION: 1. Perirectal/perineal inflammatory changes without defined abscess. 2. No evidence of acute cardiopulmonary abnormality. 3. No evidence of acute intra-abdominal infectious/inflammatory process. 4. Chronic and incidental findings as detailed above. Chest X-Ray 03/10/20 08:32 IMPRESSION: NO ACUTE RADIOGRAPHIC FINDING IN THE CHEST. Head CT 03/10/20 08:36 IMPRESSION: No evidence of calvarial injury or intracranial hemorrhage. Left frontal and parietal encephalomalacia consistent with sequela of previous large territory ischemic injury. EVIDENCE OF ACUTE STROKE: NO. Chest CT 03/10/20 08:38 IMPRESSION: 1. Perirectal/perineal inflammatory changes without defined abscess. 2. No evidence of acute cardiopulmonary abnormality. 3. No evidence of acute intra-abdominal infectious/inflammatory process. 4. Chronic and incidental findings as detailed above. Assessment & Plan - Diagnosis (1) Perirectal abscess Is this a current diagnosis for this admission?: Yes - Plan Summary Plan Summary: This is a 74-year-old male with a severe perineal/perirectal abscess. He has a large cavity present. I have changed the packing today and examined the wound. There is no active purulence or fecal soiling. There is concern, however, that he may have sphincter dysfunction due to the large amount of inflammation and necrosis. Patient has not had a bowel movement since admission to the hospital. I have again discussed the likelihood that he will require a diverting colostomy (likely permanent) in order to heal his large wound. The patient would like to think more about this before making a decision. Surgery will cont inue to follow this patient very closely with you. Continue dressing changes. Okay to shower. Out of bed today.
[2020-03-17] MEDS: INSULIN GLARGINE,HUM.REC.ANLOG 1,000 UNIT/10 ML VIAL SUBCUT SCH ×2 (15:34→22:16)
[2020-03-17] MEDS: ATORVASTATIN CALCIUM 40 MG TABLET PO SCH (22:15)
[2020-03-17] MEDS: PRIMIDONE 50 MG TABLET PO SCH (22:15)
[2020-03-18] MEDS: METRONIDAZOLE 500 MG/NS RTU 500 MG/100 ML RTUPB IV SCH ×4 (00:08→18:09)
[2020-03-18] MEDS: METHYLPREDNISOLONE INJ 40 MG/1 ML SDV IV SCH ×4 (02:00→21:43)
[2020-03-18 07:03] LABS: HEMATOCRIT 36.4 % (37.9-51.0); HEMOGLOBIN 12.1 g/dL (13.5-17.0); MEAN CORPUSCULAR HEMOGLOBIN 30.8 pg (27.0-33.4); MEAN CORPUSCULAR HGB CONC 33.1 g/dL (32.0-36.0); MEAN CORPUSCULAR VOLUME 93 fl (80-97); PLATELET COUNT 432 10^3/uL (150-450); RED BLOOD COUNT 3.91 10^6/uL (4.35-5.55); RED CELL DISTRIBUTION WIDTH 15.7 % (11.5-14.0); WHITE BLOOD COUNT 18.1 10^3/uL (4.0-10.5)
[2020-03-18 07:13] LABS: INTERNATIONAL RATION (INR) 3.87
[2020-03-18 07:30] LABS: BLOOD UREA NITROGEN 23 mg/dL (7-20); CALCIUM 8.5 mg/dL (8.4-10.2); GLUCOSE 133 mg/dL (75-110)
[2020-03-18 07:31] LABS: ALBUMIN 2.7 g/dL (3.5-5.0); ALKALINE PHOSPHATASE 118 U/L (38-126); ASPARTATE AMINO TRANSFERASE 51 U/L (17-59); BILIRUBIN,DIRECT 0.2 mg/dL (0.0-0.4); BILIRUBIN,TOTAL 0.5 mg/dL (0.2-1.3); CARBON DIOXIDE 32 mmol/L (22-30); CHLORIDE 105 mmol/L (98-107); POTASSIUM 3.6 mmol/L (3.6-5.0); TOTAL PROTEIN 5.4 g/dL (6.3-8.2)
[2020-03-18 07:37] LABS: ANION GAP 3 (5-19)
--- NOTE | 2020-03-18 08:06 | PDOC PROGRESS REPORT ---
Subjective Progress Note for:: 03/18/20 Subjective:: feels ok Reason For Visit: GENERALIZED WEAKNESS,CHRONIC ATRIAL FIBRILLATION Physical Exam Vital Signs: Temp Pulse Resp BP Pulse Ox 97.8 F 79 23 H 138/72 H 97 03/18/20 03:49 03/18/20 03:49 03/18/20 04:20 03/18/20 03:49 03/18/20 04:20 Intake & Output 03/17/20 03/18/20 03/19/20 06:59 06:59 06:59 Intake Total 1350 550 Output Total 1700 1600 Balance -350 -1050 Weight 95 kg 95.3 kg General appearance: PRESENT: no acute distress Head exam: PRESENT: normocephalic Eye exam: PRESENT: EOMI Ear exam: PRESENT: normal external ear exam Mouth exam: PRESENT: moist Teeth exam: PRESENT: poor dentation Neck exam: PRESENT: full ROM Respiratory exam: PRESENT: clear to auscultation vannessa Cardiovascular exam: PRESENT: RRR Pulses: PRESENT: normal femoral pulses, normal dorsalis pedis pul Vascular exam: PRESENT: normal capillary refill Breast: PRESENT: Normal GI/Abdominal exam: PRESENT: soft Rectal exam: PRESENT: other - rectal wound clean, packed Gentrourinary exam: PRESENT: indwelling catheter Extremities exam: PRESENT: full ROM Musculoskeletal exam: PRESENT: full ROM Psychiatric exam: PRESENT: appropriate affect Skin exam: PRESENT: dry Results Laboratory Results: 03/18/20 06:49 03/18/20 06:49 03/17/20 03/18/20 03/18/20 05:57 06:49 06:49 WBC 18.5 H 18.1 H RBC 3.99 L 3.91 L Hgb 12.1 L 12.1 L Hct 37.4 L 36.4 L MCV 94 93 MCH 30.4 30.8 MCHC 32.3 33.1 RDW 15.6 H 15.7 H Plt Count 425 432 Seg Neutrophils % Not Reportable Sodium 140.4 Potassium 3.6 Chloride 105 Carbon Dioxide 32 H Anion Gap 3 L BUN 23 H Creatinine 1.17 Est GFR ( Amer) > 60 Glucose 133 H Calcium 8.5 Total Bilirubin 0.5 AST 51 Alkaline Phosphatase 118 Total Protein 5.4 L Albumin 2.7 L 03/10/20 03/10/20 03/10/20 08:55 15:21 20:14 Troponin I 0.033 0.026 0.028 NT-Pro-B Natriuret Pep 2010 H 03/11/20 03/11/20 02:07 02:38 Troponin I 0.042 NT-Pro-B Natriuret Pep 3470 H Impressions: Abdomen/Pelvis CT 03/10/20 00:00 IMPRESSION: 1. Perirectal/perineal inflammatory changes without defined abscess. 2. No evidence of acute cardiopulmonary abnormality. 3. No evidence of acute intra-abdominal infectious/inflammatory process. 4. Chronic and incidental findings as detailed above. Chest X-Ray 03/10/20 08:32 IMPRESSION: NO ACUTE RADIOGRAPHIC FINDING IN THE CHEST. Head CT 03/10/20 08:36 IMPRESSION: No evidence of calvarial injury or intracranial hemorrhage. Left frontal and parietal encephalomalacia consistent with sequela of previous large territory ischemic injury. EVIDENCE OF ACUTE STROKE: NO. Chest CT 03/10/20 08:38 IMPRESSION: 1. Perirectal/perineal inflammatory changes without defined abscess. 2. No evidence of acute cardiopulmonary abnormality. 3. No evidence of acute intra-abdominal infectious/inflammatory process. 4. Chronic and incidental findings as detailed above. Assessment & Plan - Plan Summary Plan Summary: doing ok from surgery standpt will need colostomy due to loss of rectal sphincters pt has agreed to lap colostomy will schedule for tomorrow
[2020-03-18] MEDS: IPRATROPIUM/ALBUTEROL 0.5-2.5 MG/3 ML AMPUL NEB SCH ×3 (08:42→20:13)
[2020-03-18] MEDS: METOPROLOL SUCCINATE 25 MG TAB.SR.24H PO SCH (10:25)
[2020-03-18] MEDS: FINASTERIDE 5 MG TABLET PO SCH (10:25)
[2020-03-18] MEDS: FERROUS SULFATE 325 MG TABLET PO SCH (10:25)
[2020-03-18] MEDS: TAMSULOSIN HCL 0.4 MG CAP.SR.24H PO SCH (10:25)
[2020-03-18] MEDS: LAMOTRIGINE 100 MG TABLET PO SCH (10:25)
[2020-03-18] MEDS: INSULIN LISPRO 100 UNIT/ML 3 ML VIAL SUBCUT SCH ×7 (10:27→21:40)
[2020-03-18] MEDS: INSULIN GLARGINE,HUM.REC.ANLOG 1,000 UNIT/10 ML VIAL SUBCUT SCH ×2 (10:30→21:44)
[2020-03-18] MEDS: CEFEPIME HCL 2 GM in DEXTROSE 5%-WATER 50 ML IV SCH ×2 (10:31→21:47)
[2020-03-18] MEDS: FLUTICASONE/UMECLIDIN/VILANTER 100-62.5-25 MCG/DOSE IH SCH (10:32)
--- NOTE | 2020-03-18 11:47 | PDOC PROGRESS REPORT ---
Subjective Progress Note for:: 03/18/20 Subjective:: 74 year old male with h/o copd /lung cancer , af on coumadin came to the emergency room with complaints of nonspecific symptoms of generalized weakness not feeling well shortness of breath and wheezing. Is also admitting he is not eating drinking well. In the emergency room shows low-grade fever of 100 with a WBC count of 22,000 and hypotensive. Lactic acid level is 1.8. CT scan of the abdomen pelvis indicates inflammation around the perirectal area without ab scess. Patient agreed to stay in the hospital for further management wants to be DNR/DNI. Also given history of fall at home CT head was negative for bleed. INR is 1.57. 03/14/2020. No acute events overnight. Patient still BiPAP and supplemental oxygen dependent, respiratory symptoms has not improved much, alert and oriented with physical examination. Denies any fever, chills, nausea, vomiting, diarrhea. 03/15/2020. No acute events overnight. Patient reported to be getting anxious once a while and has mentioned that he would like to go home but unfortunately patient is still IV antibiotics and needs further I&D as per surgery, on my encounter patient is resting in bed no apparent distress, wearing BiPAP, denies any chest pain, nausea, vomiting, diarrhea, constipation or any urinary symptoms, complaining of nonproductive cough. 03/16/2020. No acute events overnight. Respiratory symptoms are getting better, patient very anxious to leave however patient was informed that he has very bad infection and he needs further surgical care and IV antibiotics and he has decided to stay, patient denies any fever, chest pain, nausea, vomiting, diarrhea, constipation or any urinary symptoms. 03/17/2020. No acute events overnight. Moderate improvement of respiratory symptoms, patient progressing with no apparent distress, denies any fever, chills, nausea, vomiting. P.o. tolerant. 03/18/2020. Events overnight. Patient currently receiving up in distress, complaining of minimal pain in the buttocks region, shortness of breath has improved, patient has decided to undergo diverting colostomy tomorrow, denies any fever, chills, nausea, vomiting, diarrhea, constipation or any urinary symptoms. Reason For Visit: GENERALIZED WEAKNESS,CHRONIC ATRIAL FIBRILLATION Physical Exam Vital Signs: Temp Pulse Resp BP Pulse Ox 98.7 F 75 16 160/77 H 96 03/18/20 08:02 03/18/20 08:42 03/18/20 08:42 03/18/20 08:02 03/18/20 08:42 Intake & Output 03/17/20 03/18/20 03/19/20 06:59 06:59 06:59 Intake Total 1350 550 240 Output Total 1700 1600 400 Balance -350 -1050 -160 Weight 95 kg 95.3 kg General appearance: PRESENT: no acute distress, obese, well-developed, well- nourished Head exam: PRESENT: atraumatic, normocephalic Respiratory exam: PRESENT: clear to auscultation vannessa. ABSENT: rales, rhonchi, wheezes Cardiovascular exam: PRESENT: RRR. ABSENT: diastolic murmur, rubs, systolic murmur GI/Abdominal exam: PRESENT: normal bowel sounds, soft. ABSENT: distended, guarding, mass, organolmegaly, rebound, tenderness Rectal exam: PRESENT: other - Right perirectal abscess, wound looks clean, no drainage or discharge, no tenderness. Neurological exam: PRESENT: alert, awake, oriented to person, oriented to place, oriented to time, oriented to situation, CN II-XII grossly intact. ABSENT: motor sensory deficit Results Laboratory Results: 03/18/20 06:49 03/18/20 06:49 03/18/20 03/18/20 06:49 06:49 WBC 18.1 H RBC 3.91 L Hgb 12.1 L Hct 36.4 L MCV 93 MCH 30.8 MCHC 33.1 RDW 15.7 H Plt Count 432 Sodium 140.4 Potassium 3.6 Chloride 105 Carbon Dioxide 32 H Anion Gap 3 L BUN 23 H Creatinine 1.17 Est GFR ( Amer) > 60 Glucose 133 H Calcium 8.5 Total Bilirubin 0.5 AST 51 Alkaline Phosphatase 118 Total Protein 5.4 L Albumin 2.7 L 03/10/20 03/10/20 03/10/20 08:55 15:21 20:14 Troponin I 0.033 0.026 0.028 NT-Pro-B Natriuret Pep 2010 H 03/11/20 03/11/20 02:07 02:38 Troponin I 0.042 NT-Pro-B Natriuret Pep 3470 H Impressions: Abdomen/Pelvis CT 03/10/20 00:00 IMPRESSION: 1. Perirectal/perineal inflammatory changes without defined abscess. 2. No evidence of acute cardiopulmonary abnormality. 3. No evidence of acute intra-abdominal infectious/inflammatory process. 4. Chronic and incidental findings as detailed above. Chest X-Ray 03/10/20 08:32 IMPRESSION: NO ACUTE RADIOGRAPHIC FINDING IN THE CHEST. Head CT 03/10/20 08:36 IMPRESSION: No evidence of calvarial injury or intracranial hemorrhage. Left frontal and parietal encephalomalacia consistent with sequela of previous large territory ischemic injury. EVIDENCE OF ACUTE STROKE: NO. Chest CT 03/10/20 08:38 IMPRESSION: 1. Perirectal/perineal inflammatory changes without defined abscess. 2. No evidence of acute cardiopulmonary abnormality. 3. No evidence of acute intra-abdominal infectious/inflammatory process. 4. Chronic and incidental findings as detailed above. Assessment and Plan - Diagnosis (1) Cellulitis of perineum Is this a current diagnosis for this admission?: Yes Plan: Perirectal abscess, Camacho gangrene as per surgery note. Polymicrobial. Status post multiple I&D's, by surgery. Surgery suggesting diverting colostomy patient has agreed to. Possible surgery tomorrow. Afebrile. Leukocytosis improving. On broad-spectrum IV antibiotics. DC vancomycin as per ID recommendation. Continue IV cefepime and metronidazole. As per ID recommendation based on clinical improvement could be switched to p.o. ciprofloxacin and metronidazole. Continue wound care. Surgery following, recommendations noted. (2) ALEYDA (acute kidney injury) Is this a current diagnosis for this admission?: Yes Plan: Resolved. Nonoliguric. Electrolytes WNL. Monitor volume status and electrolyte repletion as needed. Renal ultrasound unremarkable. (3) Atrial fibrillation Qualifiers: Atrial fibrillation type: longstanding persistent Qualified Code(s): I48.11 - Longstanding persistent atrial fibrillation Is this a current diagnosis for this admission?: No Plan: History of nonvalvular A. fib. Rate controlled. Anticoagulated. Continue Coumadin INR goal of 2-2.5. Monitor for bleeding. (4) Chronic obstructive pulmonary disease Qualifiers: COPD type: COPD with acute exacerbation Qualified Code(s): J44.1 - Chronic obstructive pulmonary disease with (acute) exacerbation Is this a current diagnosis for this admission?: No Plan: Moderate improvement. Back to baseline. SPO2 WNL on 3 L nasal cannula. History of present dependent COPD. 3 L/min. Presented with acute exacerbation. Continue IV steroids, LABA, LABA, ICS, incentive spirometry, flutter valve, pulmonary toileting. (5) Diabetes Qualifiers: Diabetes mellitus type: type 2 Is this a current diagnosis for this admission?: Yes Plan: Not very well controlled. Hemoglobin A1c 8.9%. Continue basal, sliding scale and prandial insulin. Accu-Cheks. Hypoglycemic protocol. Adjust dosage increase. Could be a candidate for oral hypoglycemic once kidney function improves. Outpatient PCP follow-up. 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 Stable. Monitor electrolytes and replace as needed. (7) Tobacco abuse Is this a current diagnosis for this admission?: Yes Plan: Counseled on quitting. NicoDerm patch placement.
[2020-03-18] MEDS ORDERED: HYDRALAZINE HCL INJ/PF 20 MG/1 ML SDV IV PRN (11:54)
[2020-03-18] MEDS ORDERED: NORMAL SALINE 250 ML IV PRN ×2 (14:58)
[2020-03-18] MEDS ORDERED: FUROSEMIDE INJ/PF 20 MG/2 ML SDV IV ONE ×2 (15:30→18:15)
[2020-03-18] MEDS ORDERED: PHYTONADIONE 5 MG TABLET PO ONE (16:00)
[2020-03-18] MEDS: ATORVASTATIN CALCIUM 40 MG TABLET PO SCH (21:47)
[2020-03-18] MEDS: PRIMIDONE 50 MG TABLET PO SCH (21:48)
[2020-03-19] MEDS: METRONIDAZOLE 500 MG/NS RTU 500 MG/100 ML RTUPB IV SCH ×5 (00:49→23:21)
[2020-03-19 00:53] LABS: APPEARANCE,URINE CLEAR; BILIRUBIN,URINE NEGATIVE (NEGATIVE); COLOR,URINE YELLOW; GLUCOSE, URINE NEGATIVE (NEGATIVE); KETONES,URINE TRACE mg/dL (NEGATIVE); LEUKOCYTE ESTERASE,URINE NEGATIVE (NEGATIVE); NITRITE,URINE NEGATIVE (NEGATIVE); PROTEIN,URINE 30 mg/dL (NEGATIVE); URINE SPECIFIC GRAVITY 1.017; UROBILINOGEN,URINE NEGATIVE mg/dL (<2.0)
[2020-03-19] MEDS: METHYLPREDNISOLONE INJ 40 MG/1 ML SDV IV SCH ×2 (02:04→10:00)
[2020-03-19 02:24] LABS: HEMATOCRIT 34.1 % (37.9-51.0); HEMOGLOBIN 11.4 g/dL (13.5-17.0); MEAN CORPUSCULAR HEMOGLOBIN 30.8 pg (27.0-33.4); MEAN CORPUSCULAR HGB CONC 33.3 g/dL (32.0-36.0); MEAN CORPUSCULAR VOLUME 93 fl (80-97); PLATELET COUNT 355 10^3/uL (150-450); RED BLOOD COUNT 3.69 10^6/uL (4.35-5.55); RED CELL DISTRIBUTION WIDTH 15.5 % (11.5-14.0); WHITE BLOOD COUNT 15.7 10^3/uL (4.0-10.5)
[2020-03-19] MEDS: OXYCODONE-ACETAMINOPHEN 5-325 MG TABLET PO PRN ×3 (02:49→22:30)
[2020-03-19 03:09] LABS: ABSOLUTE LYMPHOCYTES# (MANUAL) 1.3 10^3/uL (0.5-4.7); ABSOLUTE MONOCYTES # (MANUAL) 1.1 10^3/uL (0.1-1.4); BASOPHILS % (MANUAL) 0 % (0-2); EOSINOPHILS % (MANUAL) 1 % (0-6); LYMPHOCYTES % (MANUAL) 8 % (13-45); MONOCYTES % (MANUAL) 7 % (3-13); SEGMENTED NEUTROPHILS % (MAN) 84 % (42-78); TOTAL CELLS COUNTED 100
[2020-03-19 03:11] LABS: OVALOCYTES SLIGHT; PLATELET COMMENT ADEQUATE; POIKILOCYTOSIS SLIGHT; POLYCHROMASIA SLIGHT; SCHISTOCYTES SLIGHT; TOXIC GRANULATION SLIGHT
[2020-03-19 07:30] LABS: HEMATOCRIT 37.5 % (37.9-51.0); HEMOGLOBIN 12.3 g/dL (13.5-17.0); MEAN CORPUSCULAR HEMOGLOBIN 30.5 pg (27.0-33.4); MEAN CORPUSCULAR HGB CONC 32.7 g/dL (32.0-36.0); MEAN CORPUSCULAR VOLUME 93 fl (80-97); PLATELET COUNT 399 10^3/uL (150-450); RED BLOOD COUNT 4.02 10^6/uL (4.35-5.55); RED CELL DISTRIBUTION WIDTH 15.5 % (11.5-14.0); WHITE BLOOD COUNT 18.5 10^3/uL (4.0-10.5)
[2020-03-19 07:34] LABS: INTERNATIONAL RATION (INR) 1.69; PROTHROMBIN TIME 20.1 SEC (11.4-15.4)
[2020-03-19 07:48] LABS: ANION GAP 7 (5-19); BLOOD UREA NITROGEN 23 mg/dL (7-20); CALCIUM 8.5 mg/dL (8.4-10.2); CARBON DIOXIDE 31 mmol/L (22-30); CHLORIDE 101 mmol/L (98-107); GLUCOSE 172 mg/dL (75-110); POTASSIUM 4.1 mmol/L (3.6-5.0)
[2020-03-19] MEDS: IPRATROPIUM/ALBUTEROL 0.5-2.5 MG/3 ML AMPUL NEB SCH ×3 (08:09→20:06)
[2020-03-19 08:16] LABS: ABSOLUTE LYMPHOCYTES# (MANUAL) 1.7 10^3/uL (0.5-4.7); BAND NEUTROPHILS % (MANUAL) 5 % (3-5); BASOPHILS % (MANUAL) 0 % (0-2); EOSINOPHILS % (MANUAL) 0 % (0-6); LYMPHOCYTES % (MANUAL) 8 % (13-45); METAMYELOCYTES % (MANUAL) 3 % (0-1); MONOCYTES % (MANUAL) 0 % (3-13); MYELOCYTES % (MANUAL) 2 % (0); SEGMENTED NEUTROPHILS % (MAN) 81 % (42-78); TOTAL CELLS COUNTED 100
[2020-03-19 08:17] LABS: ANISOCYTOSIS 1+; PLATELET COMMENT ADEQUATE; POLYCHROMASIA SLIGHT; TOXIC GRANULATION 1+
[2020-03-19] MEDS: INSULIN LISPRO 100 UNIT/ML 3 ML VIAL SUBCUT SCH ×9 (08:54→22:25)
[2020-03-19] MEDS ORDERED: NORMAL SALINE 250 ML IV PRN ×2 (09:34)
--- NOTE | 2020-03-19 09:34 | PDOC PROGRESS REPORT ---
Subjective Progress Note for:: 03/19/20 Reason For Visit: GENERALIZED WEAKNESS,CHRONIC ATRIAL FIBRILLATION Physical Exam Vital Signs: Temp Pulse Resp BP Pulse Ox 97.7 F 71 15 163/82 H 98 03/19/20 06:56 03/19/20 08:09 03/19/20 08:09 03/19/20 06:56 03/19/20 08:09 Intake & Output 03/18/20 03/19/20 03/20/20 06:59 06:59 06:59 Intake Total 550 1574 Output Total 1600 3075 Balance -1050 -1501 Weight 95.3 kg 95.1 kg Results Laboratory Results: 03/19/20 06:57 03/19/20 06:57 03/18/20 03/19/20 03/19/20 15:32 00:19 02:02 WBC 15.7 H RBC 3.69 L Hgb 11.4 L Hct 34.1 L MCV 93 MCH 30.8 MCHC 33.3 RDW 15.5 H Plt Count 355 Seg Neutrophils % Not Reportable Sodium Potassium Chloride Carbon Dioxide Anion Gap BUN Creatinine Est GFR ( Amer) Glucose Calcium Urine Color YELLOW Urine Appearance CLEAR Urine pH 5.0 Ur Specific Serafina 1.017 Urine Protein 30 H Urine Glucose (UA) NEGATIVE Urine Ketones TRACE H Urine Blood MODERATE H Urine Nitrite NEGATIVE Ur Leukocyte Esterase NEGATIVE Urine WBC (Auto) 1 Urine RBC (Auto) 19 Blood Type A POSITIVE 03/19/20 03/19/20 06:57 06:57 WBC 18.5 H RBC 4.02 L Hgb 12.3 L Hct 37.5 L MCV 93 MCH 30.5 MCHC 32.7 RDW 15.5 H Plt Count 399 Seg Neutrophils % Not Reportable Sodium 138.5 Potassium 4.1 Chloride 101 Carbon Dioxide 31 H Anion Gap 7 BUN 23 H Creatinine 1.14 Est GFR ( Amer) > 60 Glucose 172 H Calcium 8.5 Urine Color Urine Appearance Urine pH Ur Specific Serafina Urine Protein Urine Glucose (UA) Urine Ketones Urine Blood Urine Nitrite Ur Leukocyte Esterase Urine WBC (Auto) Urine RBC (Auto) Blood Type 03/10/20 03/10/20 03/10/20 08:55 15:21 20:14 Troponin I 0.033 0.026 0.028 NT-Pro-B Natriuret Pep 2009 H 03/11/20 03/11/20 02:07 02:38 Troponin I 0.042 NT-Pro-B Natriuret Pep 3470 H Impressions: Abdomen/Pelvis CT 03/10/20 00:00 IMPRESSION: 1. Perirectal/perineal inflammatory changes without defined abscess. 2. No evidence of acute cardiopulmonary abnormality. 3. No evidence of acute intra-abdominal infectious/inflammatory process. 4. Chronic and incidental findings as detailed above. Chest X-Ray 03/10/20 08:32 IMPRESSION: NO ACUTE RADIOGRAPHIC FINDING IN THE CHEST. Head CT 03/10/20 08:36 IMPRESSION: No evidence of calvarial injury or intracranial hemorrhage. Left frontal and parietal encephalomalacia consistent with sequela of previous large territory ischemic injury. EVIDENCE OF ACUTE STROKE: NO. Chest CT 03/10/20 08:38 IMPRESSION: 1. Perirectal/perineal inflammatory changes without defined abscess. 2. No evidence of acute cardiopulmonary abnormality. 3. No evidence of acute intra-abdominal infectious/inflammatory process. 4. Chronic and incidental findings as detailed above. Assessment & Plan - Diagnosis (1) Perirectal abscess Is this a current diagnosis for this admission?: Yes - Plan Summary Plan Summary: This is a 74-year-old male with a severe perineal/perirectal abscess. He has a large cavity present. There is no active purulence or fecal soiling. There is concern, however, that he may have sphincter dysfunction due to the large amount of inflammation and necrosis. Patient has not had a bowel movement since admission to the hospital. I have again discussed the likelihood that he will require a diverting colostomy (likely permanent) in order to heal his large wound. The patient is receptive today, and has agreed to placement of a diverting colostomy. Plan for diverting colostomy in the very near future. Surgery will continue to follow this patient very closely with you. Continue dressing changes. Okay to shower. Out of bed.
[2020-03-19] MEDS: METOPROLOL SUCCINATE 50 MG TAB.SR.24H PO SCH (10:00)
[2020-03-19] MEDS: LAMOTRIGINE 100 MG TABLET PO SCH (10:00)
[2020-03-19] MEDS ORDERED: METOPROLOL SUCCINATE 25 MG TAB.SR.24H PO SCH (10:00)
[2020-03-19] MEDS: TAMSULOSIN HCL 0.4 MG CAP.SR.24H PO SCH (10:00)
[2020-03-19] MEDS: FINASTERIDE 5 MG TABLET PO SCH (10:00)
[2020-03-19] MEDS: FLUTICASONE/UMECLIDIN/VILANTER 100-62.5-25 MCG/DOSE IH SCH (10:05)
[2020-03-19] MEDS: CEFEPIME HCL 2 GM in DEXTROSE 5%-WATER 50 ML IV SCH ×2 (10:09→22:30)
[2020-03-19] MEDS: FERROUS SULFATE 325 MG TABLET PO SCH (11:25)
[2020-03-19] MEDS: INSULIN GLARGINE,HUM.REC.ANLOG 1,000 UNIT/10 ML VIAL SUBCUT SCH ×2 (11:25→22:36)
[2020-03-19] MEDS ORDERED: FENTANYL CITRATE INJ/PF 100 MCG/2 ML AMPUL ONE (12:19)
[2020-03-19] MEDS ORDERED: DEXAMETHASONE SOD PHOSPHATE INJ 4 MG/1 ML VIAL ONE (12:20)
[2020-03-19] MEDS ORDERED: MIDAZOLAM 2 MG/2 ML INJ ONE (12:20)
[2020-03-19] MEDS ORDERED: PROPOFOL INJ 200 MG/20 ML VIAL IV ONE ×2 (12:20→13:14)
[2020-03-19] MEDS ORDERED: ONDANSETRON HCL INJ/PF 4 MG/2 ML SDV ONE (12:20)
[2020-03-19] MEDS ORDERED: BUPIVACAINE HCL 0.25 % INJ/PF (2.5 MG/1 ML) 30 ML VIAL ONE (13:03)
[2020-03-19] MEDS ORDERED: LIDOCAINE 1% INJ-PF (10 MG/ML) 30 ML SDV ONE (13:12)
[2020-03-19] MEDS ORDERED: DEXMEDETOMIDINE INJ 80 MCG/20 ML VIAL IV ONE (13:14)
[2020-03-19] MEDS ORDERED: PHENYLEPHRINE HCL 0.25% NASAL SPRAY 15 ML ONE (14:09)
--- NOTE | 2020-03-19 14:38 | Operative Report ---
Nonrecallable Operative Report DATE OF SURGERY: 03/19/20 PREOPERATIVE DIAGNOSIS: 1. Necrotizing fasciitis. 2. Large perirectal abscess, with loss of sphincters due to infection. POSTOPERATIVE DIAGNOSIS: Same as above. OPERATION: Diverting left lower quadrant loop sigmoid colostomy SURGEON: MADISYN MORA ANESTHESIA: LMAC TISSUE REMOVED OR ALTERED: None COMPLICATIONS: None apparent ESTIMATED BLOOD LOSS: Minimal PROCEDURE: Drains/implants: 18 Norwegian Butt used as a strut for loop colostomy. Procedure in detail: After informed consent was obtained, the patient was brought to the operating room and laid in the supine position. The area of the abdomen was prepped and draped in a normal sterile fashion. An incision was created in the anterior abdominal wall, left lower quadrant. Dissection was carried through the subcutaneous tissues using sharp dissection. The fascia was incised using a cruciate incision. The rectus muscle was spread, and the posterior fascia was then incised. The posterior fascia was incised in cruciate fashion as well. The descending/sigmoid colon was easily palpated. It was elevated. Blunt dissection was used to mobilize it superiorly and inferiorly. The colon reached easily into the wound. An 18 Norwegian Butt catheter was placed behind the colon for retraction purposes. The colon was then exteriorized. The 18 Norwegian Butt catheter was sutured to the skin, as a support. Next, the colon was opened, and matured in Ivis fashion. A colostomy appliance was then p laced, and the procedure was concluded. All sponge, instrument, and needle counts were correct x2. Condition: fair.
--- NOTE | 2020-03-19 16:02 | PDOC PROGRESS REPORT ---
Subjective Progress Note for:: 03/19/20 Subjective:: 74 year old male with h/o copd /lung cancer , af on coumadin came to the emergency room with complaints of nonspecific symptoms of generalized weakness not feeling well shortness of breath and wheezing. Is also admitting he is not eating drinking well. In the emergency room shows low-grade fever of 100 with a WBC count of 22,000 and hypotensive. Lactic acid level is 1.8. CT scan of the abdomen pelvis indicates inflammation around the perirectal area without ab scess. Patient agreed to stay in the hospital for further management wants to be DNR/DNI. Also given history of fall at home CT head was negative for bleed. INR is 1.57. 03/14/2020. No acute events overnight. Patient still BiPAP and supplemental oxygen dependent, respiratory symptoms has not improved much, alert and oriented with physical examination. Denies any fever, chills, nausea, vomiting, diarrhea. 03/15/2020. No acute events overnight. Patient reported to be getting anxious once a while and has mentioned that he would like to go home but unfortunately patient is still IV antibiotics and needs further I&D as per surgery, on my encounter patient is resting in bed no apparent distress, wearing BiPAP, denies any chest pain, nausea, vomiting, diarrhea, constipation or any urinary symptoms, complaining of nonproductive cough. 03/16/2020. No acute events overnight. Respiratory symptoms are getting better, patient very anxious to leave however patient was informed that he has very bad infection and he needs further surgical care and IV antibiotics and he has decided to stay, patient denies any fever, chest pain, nausea, vomiting, diarrhea, constipation or any urinary symptoms. 03/17/2020. No acute events overnight. Moderate improvement of respiratory symptoms, patient progressing with no apparent distress, denies any fever, chills, nausea, vomiting. P.o. tolerant. 03/18/2020. Events overnight. Patient currently receiving up in distress, complaining of minimal pain in the buttocks region, shortness of breath has improved, patient has decided to undergo diverting colostomy tomorrow, denies any fever, chills, nausea, vomiting, diarrhea, constipation or any urinary symptoms. 03/19/2020. Saw patient this morning, comfortably resting in bed no apparent distress, n.p.o. and waiting for his surgery, alert and oriented x3 no apparent distress, denies any fever, chills, nausea, vomiting, diarrhea. Reason For Visit: GENERALIZED WEAKNESS,CHRONIC ATRIAL FIBRILLATION Physical Exam Vital Signs: Temp Pulse Resp BP Pulse Ox 98.1 F 70 20 150/85 H 96 03/19/20 14:42 03/19/20 14:57 03/19/20 14:57 03/19/20 14:57 03/19/20 14:57 Intake & Output 03/18/20 03/19/20 03/20/20 06:59 06:59 06:59 Intake Total 550 1574 850 Output Total 1600 3075 10 Balance -1050 -1501 840 Weight 95.3 kg 95.1 kg General appearance: PRESENT: no acute distress, well-developed, well-nourished Head exam: PRESENT: atraumatic, normocephalic Respiratory exam: PRESENT: clear to auscultation vannessa. ABSENT: rales, rhonchi, wheezes Cardiovascular exam: PRESENT: RRR. ABSENT: diastolic murmur, rubs, systolic murmur Pulses: PRESENT: normal dorsalis pedis pul GI/Abdominal exam: PRESENT: normal bowel sounds, soft. ABSENT: distended, guarding, mass, organolmegaly, rebound, tenderness Rectal exam: PRESENT: other - Right perirectal wound looks clean, packing in place. No discharge. Neurological exam: PRESENT: alert, awake, oriented to person, oriented to place, oriented to time, oriented to situation, CN II-XII grossly intact. ABSENT: motor sensory deficit Results Laboratory Results: 03/19/20 06:57 03/19/20 06:57 03/18/20 03/19/20 03/19/20 15:32 00:19 02:02 WBC 15.7 H RBC 3.69 L Hgb 11.4 L Hct 34.1 L MCV 93 MCH 30.8 MCHC 33.3 RDW 15.5 H Plt Count 355 Seg Neutrophils % Not Reportable Sodium Potassium Chloride Carbon Dioxide Anion Gap BUN Creatinine Est GFR ( Amer) Glucose Calcium Urine Color YELLOW Urine Appearance CLEAR Urine pH 5.0 Ur Specific [place] 1.017 Urine Protein 30 H Urine Glucose (UA) NEGATIVE Urine Ketones TRACE H Urine Blood MODERATE H Urine Nitrite NEGATIVE Ur Leukocyte Esterase NEGATIVE Urine WBC (Auto) 1 Urine RBC (Auto) 19 Blood Type A POSITIVE 03/19/20 03/19/20 06:57 06:57 WBC 18.5 H RBC 4.02 L Hgb 12.3 L Hct 37.5 L MCV 93 MCH 30.5 MCHC 32.7 RDW 15.5 H Plt Count 399 Seg Neutrophils % Not Reportable Sodium 138.5 Potassium 4.1 Chloride 101 Carbon Dioxide 31 H Anion Gap 7 BUN 23 H Creatinine 1.14 Est GFR ( Amer) > 60 Glucose 172 H Calcium 8.5 Urine Color Urine Appearance Urine pH Ur Specific [place] Urine Protein Urine Glucose (UA) Urine Ketones Urine Blood Urine Nitrite Ur Leukocyte Esterase Urine WBC (Auto) Urine RBC (Auto) Blood Type 03/10/20 03/10/20 03/10/20 08:55 15:21 20:14 Troponin I 0.033 0.026 0.028 NT-Pro-B Natriuret Pep 2010 H 03/11/20 03/11/20 02:07 02:38 Troponin I 0.042 NT-Pro-B Natriuret Pep 3470 H Impressions: Abdomen/Pelvis CT 03/10/20 00:00 IMPRESSION: 1. Perirectal/perineal inflammatory changes without defined abscess. 2. No evidence of acute cardiopulmonary abnormality. 3. No evidence of acute intra-abdominal infectious/inflammatory process. 4. Chronic and incidental findings as detailed above. Chest X-Ray 03/10/20 08:32 IMPRESSION: NO ACUTE RADIOGRAPHIC FINDING IN THE CHEST. Head CT 03/10/20 08:36 IMPRESSION: No evidence of calvarial injury or intracranial hemorrhage. Left frontal and parietal encephalomalacia consistent with sequela of previous large territory ischemic injury. EVIDENCE OF ACUTE STROKE: NO. Chest CT 03/10/20 08:38 IMPRESSION: 1. Perirectal/perineal inflammatory changes without defined abscess. 2. No evidence of acute cardiopulmonary abnormality. 3. No evidence of acute intra-abdominal infectious/inflammatory process. 4. Chronic and incidental findings as detailed above. Assessment and Plan - Diagnosis (1) Perirectal abscess Is this a current diagnosis for this admission?: Yes Plan: POD #1 diverting colostomy Perirectal abscess, necrotizing fasciitis Status post multiple I&D's, by surgery. Polymicrobial. Afebrile. Leukocytosis improving. On broad-spectrum IV antibiotics. DC vancomycin as per ID recommendation. Continue IV cefepime and metronidazole. As per ID recommendation based on clinical improvement could be switched to p.o. ciprofloxacin and metronidazole. Continue wound care. Surgery following, recommendations noted. (2) Cellulitis of perineum Is this a current diagnosis for this admission?: Yes Plan: Perirectal abscess, Camacho gangrene as per surgery note. Polymicrobial. Status post multiple I&D's, by surgery. Surgery suggesting diverting colostomy patient has agreed to. Possible surgery tomorrow. Afebrile. Leukocytosis improving. On broad-spectrum IV antibiotics. DC vancomycin as per ID recommendation. Continue IV cefepime and metronidazole. As per ID recommendation based on clinical improvement could be switched to p.o. ciprofloxacin and metronidazole. Continue wound care. Surgery following, recommendations noted. (3) ALEYDA (acute kidney injury) Is this a current diagnosis for this admission?: Yes Plan: Resolved. Nonoliguric. Electrolytes WNL. Monitor volume status and electrolyte repletion as needed. Renal ultrasound unremarkable. (4) Atrial fibrillation Qualifiers: Atrial fibrillation type: longstanding persistent Qualified Code(s): I48.11 - Longstanding persistent atrial fibrillation Is this a current diagnosis for this admission?: No Plan: History of nonvalvular A. fib. Rate controlled. Coumadin on hold for diverting colostomy. (5) Chronic obstructive pulmonary disease Qualifiers: COPD type: COPD with acute exacerbation Qualified Code(s): J44.1 - Chronic obstructive pulmonary disease with (acute) exacerbation Is this a current diagnosis for this admission?: No Plan: Moderate improvement. Back to baseline. SPO2 WNL on 3 L nasal cannula. History of present dependent COPD. 3 L/min. Presented with acute exacerbation. Continue IV steroids, LABA, LABA, ICS, incentive spirometry, flutter valve, pulmonary toileting. (6) Diabetes Qualifiers: Diabetes mellitus type: type 2 Is this a current diagnosis for this admission?: Yes Plan: Not very well controlled. Hemoglobin A1c 8.9%. Continue basal, sliding scale and prandial insulin. Accu-Cheks. Hypoglycemic protocol. Adjust dosage increase. Could be a candidate for oral hypoglycemic once kidney function improves. Outpatient PCP follow-up. 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 Stable. Monitor electrolytes and replace as needed. (8) Tobacco abuse Is this a current diagnosis for this admission?: Yes Plan: Counseled on quitting. NicoDerm patch placement.
[2020-03-19 16:08] LABS: HEMATOCRIT 36.4 % (37.9-51.0); HEMOGLOBIN 11.9 g/dL (13.5-17.0); MEAN CORPUSCULAR HEMOGLOBIN 30.8 pg (27.0-33.4); MEAN CORPUSCULAR HGB CONC 32.8 g/dL (32.0-36.0); MEAN CORPUSCULAR VOLUME 94 fl (80-97); PLATELET COUNT 399 10^3/uL (150-450); RED BLOOD COUNT 3.88 10^6/uL (4.35-5.55); RED CELL DISTRIBUTION WIDTH 15.5 % (11.5-14.0)
[2020-03-19] MEDS: PRIMIDONE 50 MG TABLET PO SCH (22:30)
[2020-03-19] MEDS: ATORVASTATIN CALCIUM 40 MG TABLET PO SCH (22:30)
[2020-03-20] MEDS: CLONAZEPAM 1 MG TABLET PO PRN ×2 (04:31→12:34)
[2020-03-20] MEDS: METRONIDAZOLE 500 MG/NS RTU 500 MG/100 ML RTUPB IV SCH ×4 (05:36→23:35)
[2020-03-20] MEDS: IPRATROPIUM/ALBUTEROL 0.5-2.5 MG/3 ML AMPUL NEB SCH ×3 (07:49→20:00)
--- NOTE | 2020-03-20 07:52 | PDOC PROGRESS REPORT ---
Subjective Progress Note for:: 03/20/20 Subjective:: comfortable Reason For Visit: GENERALIZED WEAKNESS,CHRONIC ATRIAL FIBRILLATION Physical Exam Vital Signs: Temp Pulse Resp BP Pulse Ox 97.7 F 72 16 158/95 H 97 03/20/20 03:32 03/20/20 03:32 03/20/20 03:32 03/20/20 03:32 03/20/20 03:32 Intake & Output 03/19/20 03/20/20 03/21/20 06:59 06:59 06:59 Intake Total 1574 2260 Output Total 3075 1210 Balance -1501 1050 Weight 95.1 kg 94.2 kg General appearance: PRESENT: no acute distress Head exam: PRESENT: normocephalic Eye exam: PRESENT: EOMI Ear exam: PRESENT: normal external ear exam Mouth exam: PRESENT: moist Teeth exam: PRESENT: poor dentation Neck exam: PRESENT: full ROM Respiratory exam: PRESENT: clear to auscultation vannessa Cardiovascular exam: PRESENT: RRR Pulses: PRESENT: normal radial pulses, normal femoral pulses Breast: PRESENT: Normal GI/Abdominal exam: PRESENT: soft, other - stoma pink Rectal exam: PRESENT: deferred, other - wound on left ischium and rectum clean, being packed with saline soaked gauze Gentrourinary exam: PRESENT: indwelling catheter Extremities exam: PRESENT: full ROM Musculoskeletal exam: PRESENT: full ROM Neurological exam: PRESENT: alert, awake, oriented to person, oriented to place Psychiatric exam: PRESENT: appropriate affect Skin exam: PRESENT: dry Results Laboratory Results: 03/19/20 15:49 03/19/20 06:57 03/18/20 03/19/20 03/19/20 15:32 06:57 06:57 WBC 18.5 H RBC 4.02 L Hgb 12.3 L Hct 37.5 L MCV 93 MCH 30.5 MCHC 32.7 RDW 15.5 H Plt Count 399 Seg Neutrophils % Not Reportable Sodium 138.5 Potassium 4.1 Chloride 101 Carbon Dioxide 31 H Anion Gap 7 BUN 23 H Creatinine 1.14 Est GFR ( Amer) > 60 Glucose 172 H Calcium 8.5 Blood Type A POSITIVE 03/19/20 15:49 WBC 18.0 H RBC 3.88 L Hgb 11.9 L Hct 36.4 L MCV 94 MCH 30.8 MCHC 32.8 RDW 15.5 H Plt Count 399 Seg Neutrophils % Sodium Potassium Chloride Carbon Dioxide Anion Gap BUN Creatinine Est GFR ( Amer) Glucose Calcium Blood Type 03/10/20 03/10/20 03/10/20 08:55 15:21 20:14 Troponin I 0.033 0.026 0.028 NT-Pro-B Natriuret Pep 2010 H 03/11/20 03/11/20 02:07 02:38 Troponin I 0.042 NT-Pro-B Natriuret Pep 3470 H Impressions: Abdomen/Pelvis CT 03/10/20 00:00 IMPRESSION: 1. Perirectal/perineal inflammatory changes without defined abscess. 2. No evidence of acute cardiopulmonary abnormality. 3. No evidence of acute intra-abdominal infectious/inflammatory process. 4. Chronic and incidental findings as detailed above. Chest X-Ray 03/10/20 08:32 IMPRESSION: NO ACUTE RADIOGRAPHIC FINDING IN THE CHEST. Head CT 03/10/20 08:36 IMPRESSION: No evidence of calvarial injury or intracranial hemorrhage. Left frontal and parietal encephalomalacia consistent with sequela of previous large territory ischemic injury. EVIDENCE OF ACUTE STROKE: NO. Chest CT 03/10/20 08:38 IMPRESSION: 1. Perirectal/perineal inflammatory changes without defined abscess. 2. No evidence of acute cardiopulmonary abnormality. 3. No evidence of acute intra-abdominal infectious/inflammatory process. 4. Chronic and incidental findings as detailed above. Assessment & Plan - Plan Summary Plan Summary: s/p colostomy for large perirectal abscess and loss of rectal sphincters pod 1 will start full liquids pt could be discharged after bowel function resumes.
[2020-03-20] MEDS: INSULIN LISPRO 100 UNIT/ML 3 ML VIAL SUBCUT SCH ×7 (08:43→22:37)
[2020-03-20] MEDS: OXYCODONE-ACETAMINOPHEN 5-325 MG TABLET PO PRN (09:27)
[2020-03-20] MEDS: INSULIN GLARGINE,HUM.REC.ANLOG 1,000 UNIT/10 ML VIAL SUBCUT SCH ×2 (09:28→22:36)
[2020-03-20] MEDS: LAMOTRIGINE 100 MG TABLET PO SCH (09:28)
[2020-03-20] MEDS: FERROUS SULFATE 325 MG TABLET PO SCH (09:28)
[2020-03-20] MEDS: CEFEPIME HCL 2 GM in DEXTROSE 5%-WATER 50 ML IV SCH ×2 (09:28→22:35)
[2020-03-20] MEDS: FINASTERIDE 5 MG TABLET PO SCH (09:28)
[2020-03-20] MEDS: METOPROLOL SUCCINATE 50 MG TAB.SR.24H PO SCH (09:28)
[2020-03-20] MEDS: TAMSULOSIN HCL 0.4 MG CAP.SR.24H PO SCH (09:28)
[2020-03-20] MEDS: FLUTICASONE/UMECLIDIN/VILANTER 100-62.5-25 MCG/DOSE IH SCH (09:28)
[2020-03-20 14:14] LABS: HEMATOCRIT 36.9 % (37.9-51.0); HEMOGLOBIN 12.2 g/dL (13.5-17.0); MEAN CORPUSCULAR HEMOGLOBIN 30.6 pg (27.0-33.4); MEAN CORPUSCULAR HGB CONC 33.2 g/dL (32.0-36.0); MEAN CORPUSCULAR VOLUME 92 fl (80-97); PLATELET COUNT 369 10^3/uL (150-450); RED CELL DISTRIBUTION WIDTH 15.3 % (11.5-14.0); WHITE BLOOD COUNT 18.6 10^3/uL (4.0-10.5)
[2020-03-20 15:08] LABS: APPEARANCE,URINE SLIGHTLY-CLOUDY; BILIRUBIN,URINE NEGATIVE (NEGATIVE); COLOR,URINE YELLOW; GLUCOSE, URINE NEGATIVE (NEGATIVE); KETONES,URINE NEGATIVE (NEGATIVE); LEUKOCYTE ESTERASE,URINE SMALL (NEGATIVE); NITRITE,URINE NEGATIVE (NEGATIVE); PROTEIN,URINE 30 mg/dL (NEGATIVE); URINE SPECIFIC GRAVITY 1.011; UROBILINOGEN,URINE NEGATIVE mg/dL (<2.0)
--- NOTE | 2020-03-20 17:38 | PDOC PROGRESS REPORT ---
Subjective Progress Note for:: 03/20/20 Subjective:: 74 year old male with h/o copd /lung cancer , af on coumadin came to the emergency room with complaints of nonspecific symptoms of generalized weakness not feeling well shortness of breath and wheezing. Is also admitting he is not eating drinking well. In the emergency room shows low-grade fever of 100 with a WBC count of 22,000 and hypotensive. Lactic acid level is 1.8. CT scan of the abdomen pelvis indicates inflammation around the perirectal area without ab scess. Patient agreed to stay in the hospital for further management wants to be DNR/DNI. Also given history of fall at home CT head was negative for bleed. INR is 1.57. 03/14/2020. No acute events overnight. Patient still BiPAP and supplemental oxygen dependent, respiratory symptoms has not improved much, alert and oriented with physical examination. Denies any fever, chills, nausea, vomiting, diarrhea. 03/15/2020. No acute events overnight. Patient reported to be getting anxious once a while and has mentioned that he would like to go home but unfortunately patient is still IV antibiotics and needs further I&D as per surgery, on my encounter patient is resting in bed no apparent distress, wearing BiPAP, denies any chest pain, nausea, vomiting, diarrhea, constipation or any urinary symptoms, complaining of nonproductive cough. 03/16/2020. No acute events overnight. Respiratory symptoms are getting better, patient very anxious to leave however patient was informed that he has very bad infection and he needs further surgical care and IV antibiotics and he has decided to stay, patient denies any fever, chest pain, nausea, vomiting, diarrhea, constipation or any urinary symptoms. 03/17/2020. No acute events overnight. Moderate improvement of respiratory symptoms, patient progressing with no apparent distress, denies any fever, chills, nausea, vomiting. P.o. tolerant. 03/18/2020. Events overnight. Patient currently receiving up in distress, complaining of minimal pain in the buttocks region, shortness of breath has improved, patient has decided to undergo diverting colostomy tomorrow, denies any fever, chills, nausea, vomiting, diarrhea, constipation or any urinary symptoms. 03/19/2020. Saw patient this morning, comfortably resting in bed no apparent distress, n.p.o. and waiting for his surgery, alert and oriented x3 no apparent distress, denies any fever, chills, nausea, vomiting, diarrhea. 03/20/2020. No acute events overnight. Patient complaining of soreness in his ostomy area, tolerating p.o. intake, denies any fever, chills, nausea, vomiting, diarrhea. Patient has agreed to be transition to LTAC were he can receive continuous wound care. Reason For Visit: GENERALIZED WEAKNESS,CHRONIC ATRIAL FIBRILLATION Physical Exam Vital Signs: Temp Pulse Resp BP Pulse Ox 97.4 F 82 16 149/86 H 96 03/20/20 11:50 03/20/20 14:00 03/20/20 13:45 03/20/20 11:50 03/20/20 13:45 Intake & Output 03/19/20 03/20/20 03/21/20 06:59 06:59 06:59 Intake Total 1574 2260 390 Output Total 3075 1210 1000 Balance -1501 1050 -610 Weight 95.1 kg 94.2 kg General appearance: PRESENT: no acute distress, well-developed, well-nourished Head exam: PRESENT: atraumatic, normocephalic Respiratory exam: PRESENT: clear to auscultation vannessa. ABSENT: rales, rhonchi, wheezes GI/Abdominal exam: PRESENT: normal bowel sounds, soft. ABSENT: distended, guarding, mass, organolmegaly, rebound, tenderness Rectal exam: PRESENT: other - Right perirectal wound looks clean, no sign of discharge, no erythema. Packing in place. Neurological exam: PRESENT: alert, awake, oriented to person, oriented to place, oriented to time, oriented to situation, CN II-XII grossly intact. ABSENT: motor sensory deficit Skin exam: PRESENT: dry, intact, warm. ABSENT: cyanosis, rash Results Laboratory Results: 03/20/20 13:55 03/19/20 06:57 03/18/20 03/20/20 03/20/20 15:32 13:55 14:45 WBC 18.6 H RBC 4.00 L Hgb 12.2 L Hct 36.9 L MCV 92 MCH 30.6 MCHC 33.2 RDW 15.3 H Plt Count 369 Urine Color YELLOW Urine Appearance SLIGHTLY-CLOUDY Urine pH 7.0 Ur Specific [place] 1.011 Urine Protein 30 H Urine Glucose (UA) NEGATIVE Urine Ketones NEGATIVE Urine Blood MODERATE H Urine Nitrite NEGATIVE Ur Leukocyte Esterase SMALL H Urine WBC (Auto) 8 Urine RBC (Auto) 24 Blood Type A POSITIVE 03/10/20 03/10/20 03/10/20 08:55 15:21 20:14 Troponin I 0.033 0.026 0.028 NT-Pro-B Natriuret Pep 2010 H 03/11/20 03/11/20 02:07 02:38 Troponin I 0.042 NT-Pro-B Natriuret Pep 3470 H Impressions: Abdomen/Pelvis CT 03/10/20 00:00 IMPRESSION: 1. Perirectal/perineal inflammatory changes without defined abscess. 2. No evidence of acute cardiopulmonary abnormality. 3. No evidence of acute intra-abdominal infectious/inflammatory process. 4. Chronic and incidental findings as detailed above. Chest X-Ray 03/10/20 08:32 IMPRESSION: NO ACUTE RADIOGRAPHIC FINDING IN THE CHEST. Head CT 03/10/20 08:36 IMPRESSION: No evidence of calvarial injury or intracranial hemorrhage. Left frontal and parietal encephalomalacia consistent with sequela of previous large territory ischemic injury. EVIDENCE OF ACUTE STROKE: NO. Chest CT 03/10/20 08:38 IMPRESSION: 1. Perirectal/perineal inflammatory changes without defined abscess. 2. No evidence of acute cardiopulmonary abnormality. 3. No evidence of acute intra-abdominal infectious/inflammatory process. 4. Chronic and incidental findings as detailed above. Assessment and Plan - Diagnosis (1) Perirectal abscess Is this a current diagnosis for this admission?: Yes Plan: POD #2 diverting colostomy Perirectal abscess, necrotizing fasciitis Status post multiple I&D's, by surgery. Polymicrobial. Afebrile. Leukocytosis improving. On broad-spectrum IV antibiotics. DC vancomycin as per ID recommendation. Continue IV cefepime and metronidazole. As per ID recommendation based on clinical improvement could be switched to p.o. ciprofloxacin and metronidazole. Continue wound care. Surgery following, recommendations noted. (2) Cellulitis of perineum Is this a current diagnosis for this admission?: Yes Plan: Perirectal abscess, Camacho gangrene as per surgery note. Polymicrobial. Status post multiple I&D's, by surgery. Surgery suggesting diverting colostomy patient has agreed to. Possible surgery tomorrow. Afebrile. Leukocytosis improving. On broad-spectrum IV antibiotics. DC vancomycin as per ID recommendation. Continue IV cefepime and metronidazole. As per ID recommendation based on clinical improvement could be switched to p.o. ciprofloxacin and metronidazole. Continue wound care. Surgery following, recommendations noted. (3) ALEYDA (acute kidney injury) Is this a current diagnosis for this admission?: Yes Plan: Resolved. Nonoliguric. Electrolytes WNL. Monitor volume status and electrolyte repletion as needed. Renal ultrasound unremarkable. (4) Atrial fibrillation Qualifiers: Atrial fibrillation type: longstanding persistent Qualified Code(s): I48.11 - Longstanding persistent atrial fibrillation Is this a current diagnosis for this admission?: No Plan: History of nonvalvular A. fib. Rate controlled. Coumadin on hold for diverting colostomy. (5) Chronic obstructive pulmonary disease Qualifiers: COPD type: COPD with acute exacerbation Qualified Code(s): J44.1 - Chronic obstructive pulmonary disease with (acute) exacerbation Is this a current diagnosis for this admission?: No Plan: Moderate improvement. Back to baseline. SPO2 WNL on 3 L nasal cannula. History of present dependent COPD. 3 L/min. Presented with acute exacerbation. Continue IV steroids, LABA, LABA, ICS, incentive spirometry, flutter valve, pulmonary toileting. (6) Diabetes Qualifiers: Diabetes mellitus type: type 2 Is this a current diagnosis for this admission?: Yes Plan: Not very well controlled. Hemoglobin A1c 8.9%. Continue basal, sliding scale and prandial insulin. Accu-Cheks. Hypoglycemic protocol. Adjust dosage increase. Could be a candidate for oral hypoglycemic once kidney function improves. Outpatient PCP follow-up. 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 Stable. Monitor electrolytes and replace as needed. (8) Tobacco abuse Is this a current diagnosis for this admission?: Yes Plan: Counseled on quitting. NicoDerm patch placement.
[2020-03-20] MEDS: ONDANSETRON HCL INJ/PF 4 MG/2 ML SDV IV PRN (22:33)
[2020-03-20] MEDS: ATORVASTATIN CALCIUM 40 MG TABLET PO SCH (22:36)
[2020-03-20] MEDS: PRIMIDONE 50 MG TABLET PO SCH (22:36)
[2020-03-20] MEDS: WARFARIN SODIUM 4 MG TABLET PO SCH (22:48)
[2020-03-21] MEDS: METRONIDAZOLE 500 MG/NS RTU 500 MG/100 ML RTUPB IV SCH ×3 (05:08→18:16)
[2020-03-21 06:32] LABS: HEMOGLOBIN 12.2 g/dL (13.5-17.0); MEAN CORPUSCULAR HEMOGLOBIN 31.2 pg (27.0-33.4); MEAN CORPUSCULAR HGB CONC 33.7 g/dL (32.0-36.0); MEAN CORPUSCULAR VOLUME 92 fl (80-97); PLATELET COUNT 320 10^3/uL (150-450); RED CELL DISTRIBUTION WIDTH 15.3 % (11.5-14.0); WHITE BLOOD COUNT 17.3 10^3/uL (4.0-10.5)
[2020-03-21 06:35] LABS: BLOOD UREA NITROGEN 16 mg/dL (7-20); CALCIUM 8.2 mg/dL (8.4-10.2); CARBON DIOXIDE 35 mmol/L (22-30); CHLORIDE 100 mmol/L (98-107); GLUCOSE 118 mg/dL (75-110); POTASSIUM 3.4 mmol/L (3.6-5.0)
[2020-03-21 06:44] LABS: ANION GAP 3 (5-19)
[2020-03-21 06:47] LABS: ABSOLUTE LYMPHOCYTES# (MANUAL) 0.7 10^3/uL (0.5-4.7); ABSOLUTE MONOCYTES # (MANUAL) 0.9 10^3/uL (0.1-1.4); BAND NEUTROPHILS % (MANUAL) 7 % (3-5); BASOPHILS % (MANUAL) 0 % (0-2); EOSINOPHILS % (MANUAL) 0 % (0-6); INTERNATIONAL RATION (INR) 1.16; LYMPHOCYTES % (MANUAL) 4 % (13-45); MONOCYTES % (MANUAL) 5 % (3-13); PROTHROMBIN TIME 14.9 SEC (11.4-15.4); SEGMENTED NEUTROPHILS % (MAN) 84 % (42-78); TOTAL CELLS COUNTED 100
[2020-03-21 06:48] LABS: ANISOCYTOSIS 1+; PLATELET COMMENT ADEQUATE; POLYCHROMASIA 1+
[2020-03-21] MEDS ORDERED: POTASSIUM CHLORIDE 10 MEQ TABLET.ER PO ONE (07:36)
[2020-03-21] MEDS: IPRATROPIUM/ALBUTEROL 0.5-2.5 MG/3 ML AMPUL NEB SCH ×3 (08:06→20:16)
[2020-03-21] MEDS: INSULIN LISPRO 100 UNIT/ML 3 ML VIAL SUBCUT SCH ×7 (08:55→21:55)
[2020-03-21] MEDS: METOPROLOL SUCCINATE 50 MG TAB.SR.24H PO SCH (09:34)
[2020-03-21] MEDS: OXYCODONE-ACETAMINOPHEN 5-325 MG TABLET PO PRN (09:34)
[2020-03-21] MEDS: TAMSULOSIN HCL 0.4 MG CAP.SR.24H PO SCH (09:35)
[2020-03-21] MEDS: FERROUS SULFATE 325 MG TABLET PO SCH (09:35)
[2020-03-21] MEDS: LAMOTRIGINE 100 MG TABLET PO SCH (09:35)
[2020-03-21] MEDS: FINASTERIDE 5 MG TABLET PO SCH (09:35)
[2020-03-21] MEDS: FLUTICASONE/UMECLIDIN/VILANTER 100-62.5-25 MCG/DOSE IH SCH (09:36)
[2020-03-21] MEDS: INSULIN GLARGINE,HUM.REC.ANLOG 1,000 UNIT/10 ML VIAL SUBCUT SCH ×2 (09:36→21:57)
[2020-03-21] MEDS: CEFEPIME HCL 2 GM in DEXTROSE 5%-WATER 50 ML IV SCH ×2 (09:36→22:00)
--- NOTE | 2020-03-21 12:42 | PDOC PROGRESS REPORT ---
Subjective Progress Note for:: 03/21/20 Subjective:: 74 year old male with h/o copd /lung cancer , af on coumadin came to the emergency room with complaints of nonspecific symptoms of generalized weakness not feeling well shortness of breath and wheezing. Is also admitting he is not eating drinking well. In the emergency room shows low-grade fever of 100 with a WBC count of 22,000 and hypotensive. Lactic acid level is 1.8. CT scan of the abdomen pelvis indicates inflammation around the perirectal area without ab scess. Patient agreed to stay in the hospital for further management wants to be DNR/DNI. Also given history of fall at home CT head was negative for bleed. INR is 1.57. 03/14/2020. No acute events overnight. Patient still BiPAP and supplemental oxygen dependent, respiratory symptoms has not improved much, alert and oriented with physical examination. Denies any fever, chills, nausea, vomiting, diarrhea. 03/15/2020. No acute events overnight. Patient reported to be getting anxious once a while and has mentioned that he would like to go home but unfortunately patient is still IV antibiotics and needs further I&D as per surgery, on my encounter patient is resting in bed no apparent distress, wearing BiPAP, denies any chest pain, nausea, vomiting, diarrhea, constipation or any urinary symptoms, complaining of nonproductive cough. 03/16/2020. No acute events overnight. Respiratory symptoms are getting better, patient very anxious to leave however patient was informed that he has very bad infection and he needs further surgical care and IV antibiotics and he has decided to stay, patient denies any fever, chest pain, nausea, vomiting, diarrhea, constipation or any urinary symptoms. 03/17/2020. No acute events overnight. Moderate improvement of respiratory symptoms, patient progressing with no apparent distress, denies any fever, chills, nausea, vomiting. P.o. tolerant. 03/18/2020. Events overnight. Patient currently receiving up in distress, complaining of minimal pain in the buttocks region, shortness of breath has improved, patient has decided to undergo diverting colostomy tomorrow, denies any fever, chills, nausea, vomiting, diarrhea, constipation or any urinary symptoms. 03/19/2020. Saw patient this morning, comfortably resting in bed no apparent distress, n.p.o. and waiting for his surgery, alert and oriented x3 no apparent distress, denies any fever, chills, nausea, vomiting, diarrhea. 03/20/2020. No acute events overnight. Patient complaining of soreness in his ostomy area, tolerating p.o. intake, denies any fever, chills, nausea, vomiting, diarrhea. Patient has agreed to be transition to LTAC were he can receive continuous wound care. 03/21/2020. No acute events overnight. Patient complains with no apparent distress. Complaining of persistent lower back pain however compared to yesterday improving, denies any fever, chills, nausea, vomiting any urinary symptoms. Pending transfer to LTAC. Reason For Visit: GENERALIZED WEAKNESS,CHRONIC ATRIAL FIBRILLATION Physical Exam Vital Signs: Temp Pulse Resp BP Pulse Ox 97.4 F 74 20 141/77 H 96 03/21/20 12:04 03/21/20 12:04 03/21/20 12:04 03/21/20 12:04 03/21/20 12:04 Intake & Output 03/20/20 03/21/20 03/22/20 06:59 06:59 06:59 Intake Total 2260 858 50 Output Total 1210 3550 Balance 1050 -2692 50 Weight 94.2 kg 90.3 kg General appearance: PRESENT: no acute distress, obese, well-developed, well- nourished Head exam: PRESENT: atraumatic, normocephalic Respiratory exam: PRESENT: clear to auscultation vannessa. ABSENT: rales, rhonchi, wheezes Cardiovascular exam: PRESENT: RRR. ABSENT: diastolic murmur, rubs, systolic murmur GI/Abdominal exam: PRESENT: normal bowel sounds, soft, other - Colostomy in place. Patent.. ABSENT: distended, guarding, mass, organolmegaly, rebound, tenderness Rectal exam: PRESENT: other - Wound looks clean. Packing in place. Extremities exam: PRESENT: full ROM. ABSENT: calf tenderness, clubbing, pedal edema Neurological exam: PRESENT: alert, awake, oriented to person, oriented to place, oriented to time, oriented to situation, CN II-XII grossly intact. ABSENT: motor sensory deficit Results Laboratory Results: 03/21/20 05:50 03/21/20 05:50 03/20/20 03/20/20 03/21/20 13:55 14:45 05:50 WBC 18.6 H 17.3 H RBC 4.00 L 3.90 L Hgb 12.2 L 12.2 L Hct 36.9 L 36.0 L MCV 92 92 MCH 30.6 31.2 MCHC 33.2 33.7 RDW 15.3 H 15.3 H Plt Count 369 320 Seg Neutrophils % Not Reportable Sodium Potassium Chloride Carbon Dioxide Anion Gap BUN Creatinine Est GFR ( Amer) Glucose Calcium Urine Color YELLOW Urine Appearance SLIGHTLY-CLOUDY Urine pH 7.0 Ur Specific [place] 1.011 Urine Protein 30 H Urine Glucose (UA) NEGATIVE Urine Ketones NEGATIVE Urine Blood MODERATE H Urine Nitrite NEGATIVE Ur Leukocyte Esterase SMALL H Urine WBC (Auto) 8 Urine RBC (Auto) 24 03/21/20 05:50 WBC RBC Hgb Hct MCV MCH MCHC RDW Plt Count Seg Neutrophils % Sodium 138.3 Potassium 3.4 L Chloride 100 Carbon Dioxide 35 H Anion Gap 3 L BUN 16 Creatinine 1.08 Est GFR ( Amer) > 60 Glucose 118 H Calcium 8.2 L Urine Color Urine Appearance Urine pH Ur Specific [place] Urine Protein Urine Glucose (UA) Urine Ketones Urine Blood Urine Nitrite Ur Leukocyte Esterase Urine WBC (Auto) Urine RBC (Auto) 03/10/20 03/10/20 03/10/20 08:55 15:21 20:14 Troponin I 0.033 0.026 0.028 NT-Pro-B Natriuret Pep 2010 H 03/11/20 03/11/20 02:07 02:38 Troponin I 0.042 NT-Pro-B Natriuret Pep 3470 H Impressions: Abdomen/Pelvis CT 03/10/20 00:00 IMPRESSION: 1. Perirectal/perineal inflammatory changes without defined abscess. 2. No evidence of acute cardiopulmonary abnormality. 3. No evidence of acute intra-abdominal infectious/inflammatory process. 4. Chronic and incidental findings as detailed above. Chest X-Ray 03/10/20 08:32 IMPRESSION: NO ACUTE RADIOGRAPHIC FINDING IN THE CHEST. Head CT 03/10/20 08:36 IMPRESSION: No evidence of calvarial injury or intracranial hemorrhage. Left frontal and parietal encephalomalacia consistent with sequela of previous large territory ischemic injury. EVIDENCE OF ACUTE STROKE: NO. Chest CT 03/10/20 08:38 IMPRESSION: 1. Perirectal/perineal inflammatory changes without defined abscess. 2. No evidence of acute cardiopulmonary abnormality. 3. No evidence of acute intra-abdominal infectious/inflammatory process. 4. Chronic and incidental findings as detailed above. Assessment and Plan - Diagnosis (1) Perirectal abscess Is this a current diagnosis for this admission?: Yes Plan: POD #3 diverting colostomy Perirectal abscess, necrotizing fasciitis Status post multiple I&D's, by surgery. Polymicrobial. Afebrile. Leukocytosis improving. On broad-spectrum IV antibiotics. DC vancomycin as per ID recommendation. Continue IV cefepime and metronidazole. As per ID recommendation based on clinical improvement could be switched to p.o. ciprofloxacin and metronidazole. Continue wound care. Surgery following, recommendations noted. (2) Cellulitis of perineum Is this a current diagnosis for this admission?: Yes Plan: Perirectal abscess, Camacho gangrene as per surgery note. Polymicrobial. Status post multiple I&D's, by surgery. Surgery suggesting diverting colostomy patient has agreed to. Possible surgery tomorrow. Afebrile. Leukocytosis improving. On broad-spectrum IV antibiotics. DC vancomycin as per ID recommendation. Continue IV cefepime and metronidazole. As per ID recommendation based on clinical improvement could be switched to p.o. ciprofloxacin and metronidazole. Continue wound care. Surgery following, recommendations noted. (3) ALEYDA (acute kidney injury) Is this a current diagnosis for this admission?: Yes Plan: Resolved. Nonoliguric. Electrolytes WNL. Monitor volume status and electrolyte repletion as needed. Renal ultrasound unremarkable. (4) Atrial fibrillation Qualifiers: Atrial fibrillation type: longstanding persistent Qualified Code(s): I48.11 - Longstanding persistent atrial fibrillation Is this a current diagnosis for this admission?: No Plan: History of nonvalvular A. fib. Rate controlled. Coumadin on hold for diverting colostomy. (5) Chronic obstructive pulmonary disease Qualifiers: COPD type: COPD with acute exacerbation Qualified Code(s): J44.1 - Chronic obstructive pulmonary disease with (acute) exacerbation Is this a current diagnosis for this admission?: No Plan: Moderate improvement. Back to baseline. SPO2 WNL on 3 L nasal cannula. History of present dependent COPD. 3 L/min. Presented with acute exacerbation. Continue IV steroids, LABA, LABA, ICS, incentive spirometry, flutter valve, pulmonary toileting. (6) Diabetes Qualifiers: Diabetes mellitus type: type 2 Is this a current diagnosis for this admission?: Yes Plan: Not very well controlled. Hemoglobin A1c 8.9%. Continue basal, sliding scale and prandial insulin. Accu-Cheks. Hypoglycemic protocol. Adjust dosage increase. Could be a candidate for oral hypoglycemic once kidney function improves. Outpatient PCP follow-up. 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 Stable. Monitor electrolytes and replace as needed. (8) Tobacco abuse Is this a current diagnosis for this admission?: Yes Plan: Counseled on quitting. NicoDerm patch placement.
--- NOTE | 2020-03-21 15:16 | PDOC PROGRESS REPORT ---
Subjective Reason For Visit: GENERALIZED WEAKNESS,CHRONIC ATRIAL FIBRILLATION Patient states he wants to go home, is tolerating liquids; minimal out ostomy bag Physical Exam Vital Signs: Temp Pulse Resp BP Pulse Ox 97.4 F 78 16 141/77 H 97 03/21/20 12:04 03/21/20 14:25 03/21/20 14:25 03/21/20 12:04 03/21/20 14:25 Intake & Output 03/20/20 03/21/20 03/22/20 06:59 06:59 06:59 Intake Total 2260 858 630 Output Total 1210 3550 Balance 1050 -2312 630 Weight 94.2 kg 90.3 kg 90.3 kg General appearance: PRESENT: no acute distress GI/Abdominal exam: PRESENT: other - Colostomy exam with appliance soft. Some edema somewhat retracted; not interrogated with under. Rectal exam: PRESENT: other - Patient rolled in left lateral cubitus position. Cavity packing removed, and cavity examined carefully. Some fibrinous debris, minimal cloudy fluid; irrigated and repacked with two 4 x 4 gauzes. Results Laboratory Results: 03/21/20 05:50 03/21/20 05:50 03/21/20 03/21/20 05:50 05:50 WBC 17.3 H RBC 3.90 L Hgb 12.2 L Hct 36.0 L MCV 92 MCH 31.2 MCHC 33.7 RDW 15.3 H Plt Count 320 Seg Neutrophils % Not Reportable Sodium 138.3 Potassium 3.4 L Chloride 100 Carbon Dioxide 35 H Anion Gap 3 L BUN 16 Creatinine 1.08 Est GFR ( Amer) > 60 Glucose 118 H Calcium 8.2 L 03/10/20 03/10/20 03/10/20 08:55 15:21 20:14 Troponin I 0.033 0.026 0.028 NT-Pro-B Natriuret Pep 2009 H 03/11/20 03/11/20 02:07 02:38 Troponin I 0.042 NT-Pro-B Natriuret Pep 3470 H Impressions: Abdomen/Pelvis CT 03/10/20 00:00 IMPRESSION: 1. Perirectal/perineal inflammatory changes without defined abscess. 2. No evidence of acute cardiopulmonary abnormality. 3. No evidence of acute intra-abdominal infectious/inflammatory process. 4. Chronic and incidental findings as detailed above. Chest X-Ray 03/10/20 08:32 IMPRESSION: NO ACUTE RADIOGRAPHIC FINDING IN THE CHEST. Head CT 03/10/20 08:36 IMPRESSION: No evidence of calvarial injury or intracranial hemorrhage. Left frontal and parietal encephalomalacia consistent with sequela of previous large territory ischemic injury. EVIDENCE OF ACUTE STROKE: NO. Chest CT 03/10/20 08:38 IMPRESSION: 1. Perirectal/perineal inflammatory changes without defined abscess. 2. No evidence of acute cardiopulmonary abnormality. 3. No evidence of acute intra-abdominal infectious/inflammatory process. 4. Chronic and incidental findings as detailed above. Assessment & Plan - Diagnosis (1) Perirectal abscess Is this a current diagnosis for this admission?: Yes Plan: Impression: Wound reasonably clean, no indication for additional drainage. Persisting leukocytosis. Patient is 2 days status post colostomy without consistent output yet. Recommendations: 1. Would not advance diet at this time until colostomy functioning reliably 2. We will need to set patient up for home health aftercare. 3. We will continue to follow patient with you
[2020-03-21] MEDS: WARFARIN SODIUM 4 MG TABLET PO SCH (21:58)
[2020-03-21] MEDS: ATORVASTATIN CALCIUM 40 MG TABLET PO SCH (21:58)
[2020-03-21] MEDS: PRIMIDONE 50 MG TABLET PO SCH (22:00)
[2020-03-22] MEDS: METRONIDAZOLE 500 MG/NS RTU 500 MG/100 ML RTUPB IV SCH ×4 (00:57→17:23)
[2020-03-22 04:46] LABS: INTERNATIONAL RATION (INR) 1.26; PROTHROMBIN TIME 15.9 SEC (11.4-15.4)
[2020-03-22 07:06] LABS: HEMOGLOBIN 11.6 g/dL (13.5-17.0); MEAN CORPUSCULAR HGB CONC 33.2 g/dL (32.0-36.0); MEAN CORPUSCULAR VOLUME 93 fl (80-97); PLATELET COUNT 247 10^3/uL (150-450); RED BLOOD COUNT 3.75 10^6/uL (4.35-5.55); RED CELL DISTRIBUTION WIDTH 15.1 % (11.5-14.0); WHITE BLOOD COUNT 13.8 10^3/uL (4.0-10.5)
[2020-03-22 07:27] LABS: ABSOLUTE MONOCYTES # (MANUAL) 0.8 10^3/uL (0.1-1.4); ANISOCYTOSIS 1+; BAND NEUTROPHILS % (MANUAL) 6 % (3-5); BASOPHILS % (MANUAL) 0 % (0-2); EOSINOPHILS % (MANUAL) 0 % (0-6); LYMPHOCYTES % (MANUAL) 22 % (13-45); MONOCYTES % (MANUAL) 6 % (3-13); PLATELET COMMENT ADEQUATE; POLYCHROMASIA 1+; SEGMENTED NEUTROPHILS % (MAN) 66 % (42-78); TOTAL CELLS COUNTED 100
[2020-03-22] MEDS: IPRATROPIUM/ALBUTEROL 0.5-2.5 MG/3 ML AMPUL NEB SCH ×3 (08:10→19:48)
[2020-03-22] MEDS: INSULIN LISPRO 100 UNIT/ML 3 ML VIAL SUBCUT SCH ×7 (08:40→22:16)
[2020-03-22] MEDS: TAMSULOSIN HCL 0.4 MG CAP.SR.24H PO SCH (10:17)
[2020-03-22] MEDS: LAMOTRIGINE 100 MG TABLET PO SCH (10:17)
[2020-03-22] MEDS: LISINOPRIL 5 MG TABLET PO SCH (10:18)
[2020-03-22] MEDS: METOPROLOL SUCCINATE 50 MG TAB.SR.24H PO SCH (10:18)
[2020-03-22] MEDS: FINASTERIDE 5 MG TABLET PO SCH (10:19)
[2020-03-22] MEDS: FERROUS SULFATE 325 MG TABLET PO SCH (10:19)
[2020-03-22] MEDS: INSULIN GLARGINE,HUM.REC.ANLOG 1,000 UNIT/10 ML VIAL SUBCUT SCH ×2 (10:19→22:16)
[2020-03-22] MEDS: CEFEPIME HCL 2 GM in DEXTROSE 5%-WATER 50 ML IV SCH ×2 (10:20→22:28)
[2020-03-22] MEDS: FLUTICASONE/UMECLIDIN/VILANTER 100-62.5-25 MCG/DOSE IH SCH (10:21)
[2020-03-22] MEDS: NICOTINE 21 MG/24 HR PATCH.TD24 TD SCH (13:37)
[2020-03-22] MEDS: OXYCODONE-ACETAMINOPHEN 5-325 MG TABLET PO PRN ×2 (14:37→22:28)
[2020-03-22 15:19] LABS: HEMATOCRIT 33.8 % (37.9-51.0); HEMOGLOBIN 11.2 g/dL (13.5-17.0); MEAN CORPUSCULAR HGB CONC 33.2 g/dL (32.0-36.0); MEAN CORPUSCULAR VOLUME 94 fl (80-97); PLATELET COUNT 243 10^3/uL (150-450); RED BLOOD COUNT 3.61 10^6/uL (4.35-5.55); RED CELL DISTRIBUTION WIDTH 15.2 % (11.5-14.0)
--- NOTE | 2020-03-22 15:58 | PDOC PROGRESS REPORT ---
Subjective Progress Note for:: 03/22/20 Reason For Visit: GENERALIZED WEAKNESS,CHRONIC ATRIAL FIBRILLATION Patient sitting up in bed, more awake alert; glasses on Physical Exam Vital Signs: Temp Pulse Resp BP Pulse Ox 97.6 F 82 18 149/80 H 95 03/22/20 11:44 03/22/20 11:44 03/22/20 11:44 03/22/20 11:44 03/22/20 11:44 Intake & Output 03/21/20 03/22/20 03/23/20 06:59 06:59 06:59 Intake Total 858 1756 390 Output Total 3550 1175 Balance -8062 581 390 Weight 90.3 kg 91.2 kg General appearance: PRESENT: no acute distress GI/Abdominal exam: PRESENT: other - Abdomen examined. Soft, minimally distended. The ostomy appliance has approximately 20 cc in the bag; the mucosa is still edematous and aperture small Results Laboratory Results: 03/22/20 14:45 03/21/20 05:50 03/22/20 03/22/20 04:09 14:45 WBC 13.8 H 14.0 H RBC 3.75 L 3.61 L Hgb 11.6 L 11.2 L Hct 35.0 L 33.8 L MCV 93 94 MCH 31.0 31.0 MCHC 33.2 33.2 RDW 15.1 H 15.2 H Plt Count 247 243 Seg Neutrophils % Not Reportable 03/10/20 03/10/20 03/10/20 08:55 15:21 20:14 Troponin I 0.033 0.026 0.028 NT-Pro-B Natriuret Pep 2010 H 03/11/20 03/11/20 02:07 02:38 Troponin I 0.042 NT-Pro-B Natriuret Pep 3470 H Impressions: Abdomen/Pelvis CT 03/10/20 00:00 IMPRESSION: 1. Perirectal/perineal inflammatory changes without defined absc ess. 2. No evidence of acute cardiopulmonary abnormality. 3. No evidence of acute intra-abdominal infectious/inflammatory process. 4. Chronic and incidental findings as detailed above. Chest X-Ray 03/10/20 08:32 IMPRESSION: NO ACUTE RADIOGRAPHIC FINDING IN THE CHEST. Head CT 03/10/20 08:36 IMPRESSION: No evidence of calvarial injury or intracranial hemorrhage. Left frontal and parietal encephalomalacia consistent with sequela of previous large territory ischemic injury. EVIDENCE OF ACUTE STROKE: NO. Chest CT 03/10/20 08:38 IMPRESSION: 1. Perirectal/perineal inflammatory changes without defined a bscess. 2. No evidence of acute cardiopulmonary abnormality. 3. No evidence of acute intra-abdominal infectious/inflammatory process. 4. Chronic and incidental findings as detailed above. Assessment & Plan - Diagnosis (1) Perirectal abscess Is this a current diagnosis for this admission?: Yes Plan: Impression: Patient is 1 week status post perineal debridement, and 4 days status post loop colostomy, with minimal ostomy output. Perineum cleaning up nicely. Recommendations: 1. Patient on clear liquids; would not advance until ostomy functioning satisfactorily 2. Continue intravenous antimicrobial therapy (3) Diabetes Qualifiers: Diabetes mellitus type: type 2
--- NOTE | 2020-03-22 16:33 | PDOC PROGRESS REPORT ---
Subjective Progress Note for:: 03/22/20 Subjective:: 74 year old male with h/o copd /lung cancer , af on coumadin came to the emergency room with complaints of nonspecific symptoms of generalized weakness not feeling well shortness of breath and wheezing. Is also admitting he is not eating drinking well. In the emergency room shows low-grade fever of 100 with a WBC count of 22,000 and hypotensive. Lactic acid level is 1.8. CT scan of the abdomen pelvis indicates inflammation around the perirectal area without ab scess. Patient agreed to stay in the hospital for further management wants to be DNR/DNI. Also given history of fall at home CT head was negative for bleed. INR is 1.57. 03/14/2020. No acute events overnight. Patient still BiPAP and supplemental oxygen dependent, respiratory symptoms has not improved much, alert and oriented with physical examination. Denies any fever, chills, nausea, vomiting, diarrhea. 03/15/2020. No acute events overnight. Patient reported to be getting anxious once a while and has mentioned that he would like to go home but unfortunately patient is still IV antibiotics and needs further I&D as per surgery, on my encounter patient is resting in bed no apparent distress, wearing BiPAP, denies any chest pain, nausea, vomiting, diarrhea, constipation or any urinary symptoms, complaining of nonproductive cough. 03/16/2020. No acute events overnight. Respiratory symptoms are getting better, patient very anxious to leave however patient was informed that he has very bad infection and he needs further surgical care and IV antibiotics and he has decided to stay, patient denies any fever, chest pain, nausea, vomiting, diarrhea, constipation or any urinary symptoms. 03/17/2020. No acute events overnight. Moderate improvement of respiratory symptoms, patient progressing with no apparent distress, denies any fever, chills, nausea, vomiting. P.o. tolerant. 03/18/2020. Events overnight. Patient currently receiving up in distress, complaining of minimal pain in the buttocks region, shortness of breath has improved, patient has decided to undergo diverting colostomy tomorrow, denies any fever, chills, nausea, vomiting, diarrhea, constipation or any urinary symptoms. 03/19/2020. Saw patient this morning, comfortably resting in bed no apparent distress, n.p.o. and waiting for his surgery, alert and oriented x3 no apparent distress, denies any fever, chills, nausea, vomiting, diarrhea. 03/20/2020. No acute events overnight. Patient complaining of soreness in his ostomy area, tolerating p.o. intake, denies any fever, chills, nausea, vomiting, diarrhea. Patient has agreed to be transition to LTAC were he can receive continuous wound care. 03/21/2020. No acute events overnight. Patient complains with no apparent distress. Complaining of persistent lower back pain however compared to yesterday improving, denies any fever, chills, nausea, vomiting any urinary symptoms. Pending transfer to LTAC. 03/22/2020. No acute events overnight. Alert and oriented in no apparent distress, denies any fever, chills, nausea, vomiting, or any urinary symptoms. Not having much ostomy output. Denies any chest pain or shortness of breath. Reason For Visit: GENERALIZED WEAKNESS,CHRONIC ATRIAL FIBRILLATION Physical Exam Vital Signs: Temp Pulse Resp BP Pulse Ox 97.6 F 77 16 149/80 H 98 03/22/20 11:44 03/22/20 14:00 03/22/20 13:40 03/22/20 11:44 03/22/20 13:40 Intake & Output 03/21/20 03/22/20 03/23/20 06:59 06:59 06:59 Intake Total 858 1756 390 Output Total 3550 1175 Balance -2692 581 390 Weight 90.3 kg 91.2 kg General appearance: PRESENT: no acute distress, obese, well-developed, well- nourished Head exam: PRESENT: atraumatic, normocephalic Respiratory exam: PRESENT: clear to auscultation vannessa. ABSENT: rales, rhonchi, wheezes Cardiovascular exam: PRESENT: RRR. ABSENT: diastolic murmur, rubs, systolic murmur GI/Abdominal exam: PRESENT: normal bowel sounds, soft. ABSENT: distended, guarding, mass, organolmegaly, rebound, tenderness Rectal exam: PRESENT: other - Wound looks clean, no erythema or discharge. Packing in place. Neurological exam: PRESENT: alert, awake, oriented to person, oriented to place, oriented to time, oriented to situation, CN II-XII grossly intact. ABSENT: motor sensory deficit Skin exam: PRESENT: dry, intact, warm. ABSENT: cyanosis, rash Results Laboratory Results: 03/22/20 14:45 03/21/20 05:50 03/22/20 03/22/20 04:09 14:45 WBC 13.8 H 14.0 H RBC 3.75 L 3.61 L Hgb 11.6 L 11.2 L Hct 35.0 L 33.8 L MCV 93 94 MCH 31.0 31.0 MCHC 33.2 33.2 RDW 15.1 H 15.2 H Plt Count 247 243 Seg Neutrophils % Not Reportable 03/10/20 03/10/20 03/10/20 08:55 15:21 20:14 Troponin I 0.033 0.026 0.028 NT-Pro-B Natriuret Pep 2010 H 03/11/20 03/11/20 02:07 02:38 Troponin I 0.042 NT-Pro-B Natriuret Pep 3470 H Impressions: Abdomen/Pelvis CT 03/10/20 00:00 IMPRESSION: 1. Perirectal/perineal inflammatory changes without defined abscess. 2. No evidence of acute cardiopulmonary abnormality. 3. No evidence of acute intra-abdominal infectious/inflammatory process. 4. Chronic and incidental findings as detailed above. Chest X-Ray 03/10/20 08:32 IMPRESSION: NO ACUTE RADIOGRAPHIC FINDING IN THE CHEST. Head CT 03/10/20 08:36 IMPRESSION: No evidence of calvarial injury or intracranial hemorrhage. Left frontal and parietal encephalomalacia consistent with sequela of previous large territory ischemic injury. EVIDENCE OF ACUTE STROKE: NO. Chest CT 03/10/20 08:38 IMPRESSION: 1. Perirectal/perineal inflammatory changes without defined abscess. 2. No evidence of acute cardiopulmonary abnormality. 3. No evidence of acute intra-abdominal infectious/inflammatory process. 4. Chronic and incidental findings as detailed above. Assessment and Plan - Diagnosis (1) Perirectal abscess Is this a current diagnosis for this admission?: Yes Plan: POD #4 diverting colostomy Perirectal abscess, necrotizing fasciitis Status post multiple I&D's, by surgery. Polymicrobial. Afebrile. Leukocytosis improving. On broad-spectrum IV antibiotics. DC vancomycin as per ID recommendation. Continue IV cefepime and metronidazole. As per ID recommendation based on clinical improvement could be switched to p.o. ciprofloxacin and metronidazole. Continue wound care. Surgery following, recommendations noted. (2) Cellulitis of perineum Is this a current diagnosis for this admission?: Yes Plan: Perirectal abscess, Camacho gangrene as per surgery note. Polymicrobial. Status post multiple I&D's, by surgery. Surgery suggesting diverting colostomy patient has agreed to. Possible surgery tomorrow. Afebrile. Leukocytosis improving. On broad-spectrum IV antibiotics. DC vancomycin as per ID recommendation. Continue IV cefepime and metronidazole. As per ID recommendation based on clinical improvement could be switched to p.o. ciprofloxacin and metronidazole. Continue wound care. Surgery following, recommendations noted. (3) ALEYDA (acute kidney injury) Is this a current diagnosis for this admission?: Yes Plan: Resolved. Nonoliguric. Electrolytes WNL. Monitor volume status and electrolyte repletion as needed. Renal ultrasound unremarkable. (4) Atrial fibrillation Qualifiers: Atrial fibrillation type: longstanding persistent Qualified Code(s): I48.11 - Longstanding persistent atrial fibrillation Is this a current diagnosis for this admission?: No Plan: History of nonvalvular A. fib. Rate controlled. Coumadin on hold for diverting colostomy. (5) Chronic obstructive pulmonary disease Qualifiers: COPD type: COPD with acute exacerbation Qualified Code(s): J44.1 - Chronic obstructive pulmonary disease with (acute) exacerbation Is this a current diagnosis for this admission?: No Plan: Moderate improvement. Back to baseline. SPO2 WNL on 3 L nasal cannula. History of present dependent COPD. 3 L/min. Presented with acute exacerbation. Continue IV steroids, LABA, LABA, ICS, incentive spirometry, flutter valve, pulmonary toileting. (6) Diabetes Qualifiers: Diabetes mellitus type: type 2 Is this a current diagnosis for this admission?: Yes Plan: Not very well controlled. Hemoglobin A1c 8.9%. Continue basal, sliding scale and prandial insulin. Accu-Cheks. Hypoglycemic p rotocol. Adjust dosage increase. Could be a candidate for oral hypoglycemic once kidney function improves. Outpatient PCP follow-up. 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 Stable. Monitor electrolytes and replace as needed. (8) Tobacco abuse Is this a current diagnosis for this admission?: Yes Plan: Counseled on quitting. NicoDerm patch placement.
[2020-03-22] MEDS: WARFARIN SODIUM 4 MG TABLET PO SCH (22:27)
[2020-03-22] MEDS: PRIMIDONE 50 MG TABLET PO SCH (22:28)
[2020-03-22] MEDS: ATORVASTATIN CALCIUM 40 MG TABLET PO SCH (22:28)
[2020-03-23] MEDS: METRONIDAZOLE 500 MG/NS RTU 500 MG/100 ML RTUPB IV SCH ×4 (00:43→17:47)
[2020-03-23 05:09] LABS: PROTHROMBIN TIME 18.3 SEC (11.4-15.4)
[2020-03-23] MEDS: OXYCODONE-ACETAMINOPHEN 5-325 MG TABLET PO PRN ×2 (05:22→17:11)
[2020-03-23] MEDS: IPRATROPIUM/ALBUTEROL 0.5-2.5 MG/3 ML AMPUL NEB SCH ×2 (07:52→13:35)
--- NOTE | 2020-03-23 08:36 | RADIOLOGY REPORT (SQ) ---
EXAM DESCRIPTION: KUB/ABDOMEN (SINGLE VIEW) IMAGES COMPLETED DATE/TIME: 03/23/2020 8:20 am REASON FOR STUDY: distention COMPARISON: None. NUMBER OF VIEWS: One view. TECHNIQUE: Supine radiographic image of the abdomen acquired. LIMITATIONS: None. FINDINGS: BOWEL GAS PATTERN: Gas pattern is nonobstructive. There is large amount of stool througho ut the colon. There is a radiopacity overlying the left ilium on 1 of the 2 films submitted. This p resumably represents something lying on or behind the patient. CALCIFICATIONS: No suspicious calcifications. SOFT TISSUES: No gross mass or suggestion of organomegaly. HARDWARE: None in the abdomen. BONES: No acute fracture. No worrisome bone lesions. OTHER: No other significant finding. IMPRESSION: Constipation. No evidence of obstruction. TECHNICAL DOCUMENTATION: JOB ID: [id number] 2010 [employer]- All Rights Reserved Reading location - IP/workstation name: [email or web address]
[2020-03-23] MEDS: INSULIN LISPRO 100 UNIT/ML 3 ML VIAL SUBCUT SCH ×7 (08:46→22:13)
[2020-03-23] MEDS: DOCUSATE SODIUM 100 MG CAPSULE PO SCH ×2 (10:39→17:46)
[2020-03-23] MEDS: LAMOTRIGINE 100 MG TABLET PO SCH (10:40)
[2020-03-23] MEDS: CEFEPIME HCL 2 GM in DEXTROSE 5%-WATER 50 ML IV SCH ×2 (10:40→21:00)
[2020-03-23] MEDS: TAMSULOSIN HCL 0.4 MG CAP.SR.24H PO SCH (10:40)
[2020-03-23] MEDS: FERROUS SULFATE 325 MG TABLET PO SCH (10:40)
[2020-03-23] MEDS: NICOTINE 21 MG/24 HR PATCH.TD24 TD SCH (10:41)
[2020-03-23] MEDS: LISINOPRIL 5 MG TABLET PO SCH (10:41)
[2020-03-23] MEDS: FINASTERIDE 5 MG TABLET PO SCH (10:42)
[2020-03-23] MEDS: METOPROLOL SUCCINATE 50 MG TAB.SR.24H PO SCH (10:42)
[2020-03-23] MEDS: FLUTICASONE/UMECLIDIN/VILANTER 100-62.5-25 MCG/DOSE IH SCH (10:45)
[2020-03-23] MEDS: INSULIN GLARGINE,HUM.REC.ANLOG 1,000 UNIT/10 ML VIAL SUBCUT SCH ×2 (11:11→22:13)
[2020-03-23 11:40] LABS: APPEARANCE,URINE CLEAR; BILIRUBIN,URINE NEGATIVE (NEGATIVE); COLOR,URINE YELLOW; GLUCOSE, URINE NEGATIVE (NEGATIVE); KETONES,URINE NEGATIVE (NEGATIVE); LEUKOCYTE ESTERASE,URINE TRACE (NEGATIVE); NITRITE,URINE NEGATIVE (NEGATIVE); PROTEIN,URINE 30 mg/dL (NEGATIVE); URINE SPECIFIC GRAVITY 1.011; UROBILINOGEN,URINE NEGATIVE mg/dL (<2.0)
[2020-03-23 13:57] LABS: HEMATOCRIT 36.4 % (37.9-51.0); HEMOGLOBIN 12.1 g/dL (13.5-17.0); MEAN CORPUSCULAR HEMOGLOBIN 30.8 pg (27.0-33.4); MEAN CORPUSCULAR HGB CONC 33.3 g/dL (32.0-36.0); MEAN CORPUSCULAR VOLUME 93 fl (80-97); PLATELET COUNT 231 10^3/uL (150-450); RED BLOOD COUNT 3.93 10^6/uL (4.35-5.55); RED CELL DISTRIBUTION WIDTH 15.2 % (11.5-14.0); WHITE BLOOD COUNT 13.8 10^3/uL (4.0-10.5)
--- NOTE | 2020-03-23 17:26 | PDOC PROGRESS REPORT ---
Subjective Progress Note for:: 03/23/20 Reason For Visit: GENERALIZED WEAKNESS,CHRONIC ATRIAL FIBRILLATION Physical Exam Vital Signs: Temp Pulse Resp BP Pulse Ox 97.7 F 72 16 155/80 H 96 03/23/20 11:20 03/23/20 14:00 03/23/20 13:37 03/23/20 11:20 03/23/20 13:37 Intake & Output 03/22/20 03/23/20 03/24/20 06:59 06:59 06:59 Intake Total 1756 1960 270 Output Total 1175 1700 850 Balance 581 260 -580 Weight 91.2 kg 89.9 kg Results Laboratory Results: 03/23/20 13:43 03/21/20 05:50 03/23/20 03/23/20 11:20 13:43 WBC 13.8 H RBC 3.93 L Hgb 12.1 L Hct 36.4 L MCV 93 MCH 30.8 MCHC 33.3 RDW 15.2 H Plt Count 231 Urine Color YELLOW Urine Appearance CLEAR Urine pH 8.0 Ur Specific [place] 1.011 Urine Protein 30 H Urine Glucose (UA) NEGATIVE Urine Ketones NEGATIVE Urine Blood MODERATE H Urine Nitrite NEGATIVE Ur Leukocyte Esterase TRACE H Urine WBC (Auto) 4 Urine RBC (Auto) 37 03/10/20 03/10/20 03/10/20 08:55 15:21 20:14 Troponin I 0.033 0.026 0.028 NT-Pro-B Natriuret Pep 2010 H 03/11/20 03/11/20 02:07 02:38 Troponin I 0.042 NT-Pro-B Natriuret Pep 3470 H Impressions: Abdomen/Pelvis CT 03/10/20 00:00 IMPRESSION: 1. Perirectal/perineal inflammatory changes without defined abscess. 2. No evidence of acute cardiopulmonary abnormality. 3. No evidence of acute intra-abdominal infectious/inflammatory process. 4. Chronic and incidental findings as detailed above. Chest X-Ray 03/10/20 08:32 IMPRESSION: NO ACUTE RADIOGRAPHIC FINDING IN THE CHEST. Head CT 03/10/20 08:36 IMPRESSION: No evidence of calvarial injury or intracranial hemorrhage. Left frontal and parietal encephalomalacia consistent with sequela of previous large territory ischemic injury. EVIDENCE OF ACUTE STROKE: NO. Chest CT 03/10/20 08:38 IMPRESSION: 1. Perirectal/perineal inflammatory changes without defined abscess. 2. No evidence of acute cardiopulmonary abnormality. 3. No evidence of acute intra-abdominal infectious/inflammatory process. 4. Chronic and incidental findings as detailed above. KUB X-Ray 03/23/20 00:00 IMPRESSION: Constipation. No evidence of obstruction. Assessment & Plan - Diagnosis (1) Perirectal abscess Is this a current diagnosis for this admission?: Yes - Plan Summary Plan Summary: This is a 74-year-old male status post diverting loop colostomy related to his large perineal wound. Patient's colostomy is retracted this morning, more than it previously was. The colostomy is pink, and productive of small amounts of air. He has not had any stool from his colostomy as of yet. I have encouraged the patient to get out of bed (as he has been refusing). Lying in the supine position will worsen his retracting colostomy. Out of bed. Advance diet. Add stool softeners.
--- NOTE | 2020-03-23 17:27 | PDOC PROGRESS REPORT ---
Subjective Progress Note for:: 03/23/20 Subjective:: 74 year old male with h/o copd /lung cancer , af on coumadin came to the emergency room with complaints of nonspecific symptoms of generalized weakness not feeling well shortness of breath and wheezing. Is also admitting he is not eating drinking well. In the emergency room shows low-grade fever of 100 with a WBC count of 22,000 and hypotensive. Lactic acid level is 1.8. CT scan of the abdomen pelvis indicates inflammation around the perirectal area without ab scess. Patient agreed to stay in the hospital for further management wants to be DNR/DNI. Also given history of fall at home CT head was negative for bleed. INR is 1.57. 03/14/2020. No acute events overnight. Patient still BiPAP and supplemental oxygen dependent, respiratory symptoms has not improved much, alert and oriented with physical examination. Denies any fever, chills, nausea, vomiting, diarrhea. 03/15/2020. No acute events overnight. Patient reported to be getting anxious once a while and has mentioned that he would like to go home but unfortunately patient is still IV antibiotics and needs further I&D as per surgery, on my encounter patient is resting in bed no apparent distress, wearing BiPAP, denies any chest pain, nausea, vomiting, diarrhea, constipation or any urinary symptoms, complaining of nonproductive cough. 03/16/2020. No acute events overnight. Respiratory symptoms are getting better, patient very anxious to leave however patient was informed that he has very bad infection and he needs further surgical care and IV antibiotics and he has decided to stay, patient denies any fever, chest pain, nausea, vomiting, diarrhea, constipation or any urinary symptoms. 03/17/2020. No acute events overnight. Moderate improvement of respiratory symptoms, patient progressing with no apparent distress, denies any fever, chills, nausea, vomiting. P.o. tolerant. 03/18/2020. Events overnight. Patient currently receiving up in distress, complaining of minimal pain in the buttocks region, shortness of breath has improved, patient has decided to undergo diverting colostomy tomorrow, denies any fever, chills, nausea, vomiting, diarrhea, constipation or any urinary symptoms. 03/19/2020. Saw patient this morning, comfortably resting in bed no apparent distress, n.p.o. and waiting for his surgery, alert and oriented x3 no apparent distress, denies any fever, chills, nausea, vomiting, diarrhea. 03/20/2020. No acute events overnight. Patient complaining of soreness in his ostomy area, tolerating p.o. intake, denies any fever, chills, nausea, vomiting, diarrhea. Patient has agreed to be transition to LTAC were he can receive continuous wound care. 03/21/2020. No acute events overnight. Patient complains with no apparent distress. Complaining of persistent lower back pain however compared to yesterday improving, denies any fever, chills, nausea, vomiting any urinary symptoms. Pending transfer to LTAC. 03/22/2020. No acute events overnight. Alert and oriented in no apparent distress, denies any fever, chills, nausea, vomiting, or any urinary symptoms. Not having much ostomy output. Denies any chest pain or shortness of breath. 03/23/2020. No acute events overnight. He is A&O x4. He is frustrated that his discharge to LTAC has been delayed related to development of constipation with minimal ostomy output. He denies abdominal discomfort, nausea, vomiting. He reports adequate appetite; coffee and tuna sandwich for lunch today. He further denies fever, chills, chest pain, palpitations, dyspnea and cough. He has no other questions or concerns at this time. No concerns per nursing. Reason For Visit: GENERALIZED WEAKNESS,CHRONIC ATRIAL FIBRILLATION Physical Exam Vital Signs: Temp Pulse Resp BP Pulse Ox 97.7 F 72 16 155/80 H 96 03/23/20 11:20 03/23/20 14:00 03/23/20 13:37 03/23/20 11:20 03/23/20 13:37 Intake & Output 03/22/20 03/23/20 03/24/20 06:59 06:59 06:59 Intake Total 1756 1960 270 Output Total 1175 1700 850 Balance 581 260 -580 Weight 91.2 kg 89.9 kg General appearance: PRESENT: no acute distress, cooperative, well-developed, well-nourished - overweight Head exam: PRESENT: atraumatic, normocephalic Eye exam: PRESENT: conjunctiva pink, EOMI, PERRLA. ABSENT: scleral icterus Ear exam: PRESENT: normal external ear exam Mouth exam: PRESENT: moist, tongue midline Respiratory exam: PRESENT: clear to auscultation vannessa, symmetrical, unlabored. ABSENT: rales, rhonchi, wheezes Cardiovascular exam: PRESENT: RRR, +S1, +S2. ABSENT: diastolic murmur, rubs, systolic murmur Vascular exam: PRESENT: normal capillary refill GI/Abdominal exam: PRESENT: distended, hyperactive bowel sounds, soft. ABSENT: guarding, mass, organolmegaly, rebound, tenderness Rectal exam: PRESENT: deferred Extremities exam: PRESENT: full ROM. ABSENT: calf tenderness, clubbing, pedal edema Neurological exam: PRESENT: alert, awake, oriented to person, oriented to place, oriented to time, oriented to situation, CN II-XII grossly intact. ABSENT: motor sensory deficit Psychiatric exam: PRESENT: appropriate affect, normal mood. ABSENT: homicidal ideation, suicidal ideation Skin exam: PRESENT: dry, warm. ABSENT: cyanosis, rash Results Laboratory Results: 03/23/20 13:43 03/21/20 05:50 03/23/20 03/23/20 11:20 13:43 WBC 13.8 H RBC 3.93 L Hgb 12.1 L Hct 36.4 L MCV 93 MCH 30.8 MCHC 33.3 RDW 15.2 H Plt Count 231 Urine Color YELLOW Urine Appearance CLEAR Urine pH 8.0 Ur Specific [place] 1.011 Urine Protein 30 H Urine Glucose (UA) NEGATIVE Urine Ketones NEGATIVE Urine Blood MODERATE H Urine Nitrite NEGATIVE Ur Leukocyte Esterase TRACE H Urine WBC (Auto) 4 Urine RBC (Auto) 37 03/10/20 03/10/20 03/10/20 08:55 15:21 20:14 Troponin I 0.033 0.026 0.028 NT-Pro-B Natriuret Pep 2010 H 03/11/20 03/11/20 02:07 02:38 Troponin I 0.042 NT-Pro-B Natriuret Pep 3470 H Impressions: Abdomen/Pelvis CT 03/10/20 00:00 IMPRESSION: 1. Perirectal/perineal inflammatory changes without defined abscess. 2. No evidence of acute cardiopulmonary abnormality. 3. No evidence of acute intra-abdominal infectious/inflammatory process. 4. Chronic and incidental findings as detailed above. Chest X-Ray 03/10/20 08:32 IMPRESSION: NO ACUTE RADIOGRAPHIC FINDING IN THE CHEST. Head CT 03/10/20 08:36 IMPRESSION: No evidence of calvarial injury or intracranial hemorrhage. Left frontal and parietal encephalomalacia consistent with sequela of previous large territory ischemic injury. EVIDENCE OF ACUTE STROKE: NO. Chest CT 03/10/20 08:38 IMPRESSION: 1. Perirectal/perineal inflammatory changes without defined abscess. 2. No evidence of acute cardiopulmonary abnormality. 3. No evidence of acute intra-abdominal infectious/inflammatory process. 4. Chronic and incidental findings as detailed above. KUB X-Ray 03/23/20 00:00 IMPRESSION: Constipation. No evidence of obstruction. Assessment and Plan - Diagnosis (1) Perirectal abscess Is this a current diagnosis for this admission?: Yes Plan: POD #5 diverting colostomy Perirectal abscess, necrotizing fasciitis Status post multiple I&D's, by surgery. Polymicrobial. Afebrile. Leukocytosis improving. On broad-spectrum IV antibiotics. DC vancomycin as per ID recommendation. Continue IV cefepime and metronidazole. As per ID recommendation based on clinical improvement could be switched to p.o. ciprofloxacin and metronidazole. Continue wound care. Surgery following, recommendations noted. Discharge planning consulted for LTAC referral. (2) Cellulitis of perineum Is this a current diagnosis for this admission?: Yes Plan: Perirectal abscess, Camacho gangrene as per surgery note. Polymicrobial. Status post multiple I&D's, by surgery. Now s/p diverting colostomy Cultures and antibiotics as above. (3) ALEYDA (acute kidney injury) Is this a current diagnosis for this admission?: Yes Plan: Resolved. Nonoliguric. Electrolytes WNL. Monitor volume status and electrolyte repletion as needed. Renal ultrasound unremarkable. (4) Atrial fibrillation Qualifiers: Atrial fibrillation type: longstanding persistent Qualified Code(s): I48.11 - Longstanding persistent atrial fibrillation Is this a current diagnosis for this admission?: No Plan: History of nonvalvular A. fib. Rate controlled. Coumadin has been resumed; pharmacy to dose. (5) Chronic obstructive pulmonary disease Qualifiers: COPD type: COPD with acute exacerbation Qualified Code(s): J44.1 - Chronic obstructive pulmonary disease with (acute) exacerbation Is this a current diagnosis for this admission?: No Plan: At baseline. SPO2 WNL on 3 L nasal cannula. History of present dependent COPD. 3 L/min. Presented with acute exacerbation. Have weaned off steroids. Continue Trelegy. Continue schedule and as needed nebulizer treatments. Incentive spirometry, flutter valve, pulmonary toileting. (6) Diabetes Qualifiers: Diabetes mellitus type: type 2 Is this a current diagnosis for this admission?: Yes Plan: Not very well controlled. Hemoglobin A1c 8.9%. Continue basal, sliding scale and prandial insulin. Accu-Cheks. Hypoglycemic protocol. Could be a candidate for oral hypoglycemic closer to discharge. Outpatient PCP follow-up. 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 Monitor electrolytes and replace as needed. (8) Tobacco abuse Is this a current diagnosis for this admission?: Yes Plan: Counseled on quitting. NicoDerm patch placement. - Time Time Spent with patient: 25-34 minutes Medications reviewed and adjusted accordingly: Yes Anticipated discharge: Other - LTAC Within: Other - pending surgical clearance
[2020-03-23] MEDS: PRIMIDONE 50 MG TABLET PO SCH (21:00)
[2020-03-23] MEDS: ATORVASTATIN CALCIUM 40 MG TABLET PO SCH (21:00)
[2020-03-23] MEDS: WARFARIN SODIUM 4 MG TABLET PO SCH (21:00)
[2020-03-24] MEDS: METRONIDAZOLE 500 MG/NS RTU 500 MG/100 ML RTUPB IV SCH ×2 (00:03→05:36)
[2020-03-24] MEDS: OXYCODONE-ACETAMINOPHEN 5-325 MG TABLET PO PRN ×2 (05:37→19:51)
[2020-03-24 07:17] LABS: HEMATOCRIT 35.5 % (37.9-51.0); HEMOGLOBIN 11.7 g/dL (13.5-17.0); MEAN CORPUSCULAR HEMOGLOBIN 30.6 pg (27.0-33.4); MEAN CORPUSCULAR HGB CONC 32.8 g/dL (32.0-36.0); MEAN CORPUSCULAR VOLUME 93 fl (80-97); PLATELET COUNT 217 10^3/uL (150-450); RED BLOOD COUNT 3.82 10^6/uL (4.35-5.55); RED CELL DISTRIBUTION WIDTH 15.2 % (11.5-14.0); WHITE BLOOD COUNT 12.5 10^3/uL (4.0-10.5)
[2020-03-24 07:25] LABS: INTERNATIONAL RATION (INR) 1.87; PROTHROMBIN TIME 21.8 SEC (11.4-15.4)
[2020-03-24 07:42] LABS: BLOOD UREA NITROGEN 14 mg/dL (7-20); CALCIUM 8.1 mg/dL (8.4-10.2); GLUCOSE 89 mg/dL (75-110); POTASSIUM 4.1 mmol/L (3.6-5.0)
[2020-03-24] MEDS: IPRATROPIUM/ALBUTEROL 0.5-2.5 MG/3 ML AMPUL NEB SCH ×2 (07:43→15:53)
[2020-03-24 07:48] LABS: CARBON DIOXIDE 30 mmol/L (22-30); CHLORIDE 103 mmol/L (98-107)
[2020-03-24 07:53] LABS: ANION GAP 4 (5-19)
[2020-03-24] MEDS: INSULIN LISPRO 100 UNIT/ML 3 ML VIAL SUBCUT SCH ×7 (08:33→21:34)
[2020-03-24] MEDS: CLONAZEPAM 1 MG TABLET PO PRN (08:53)
--- NOTE | 2020-03-24 09:03 | PDOC PROGRESS REPORT ---
Subjective Progress Note for:: 03/24/20 Reason For Visit: GENERALIZED WEAKNESS,CHRONIC ATRIAL FIBRILLATION Physical Exam Vital Signs: Temp Pulse Resp BP Pulse Ox 98.1 F 57 L 20 130/92 H 100 03/24/20 08:00 03/24/20 08:00 03/24/20 08:00 03/24/20 08:00 03/24/20 08:00 Intake & Output 03/23/20 03/24/20 03/25/20 06:59 06:59 06:59 Intake Total 1960 1110 100 Output Total 1700 2650 Balance 260 -1540 100 Weight 89.9 kg 88.6 kg 88.6 kg Results Laboratory Results: 03/24/20 06:35 03/24/20 06:35 03/23/20 03/23/20 03/24/20 11:20 13:43 06:35 WBC 13.8 H 12.5 H RBC 3.93 L 3.82 L Hgb 12.1 L 11.7 L Hct 36.4 L 35.5 L MCV 93 93 MCH 30.8 30.6 MCHC 33.3 32.8 RDW 15.2 H 15.2 H Plt Count 231 217 Sodium Potassium Chloride Carbon Dioxide Anion Gap BUN Creatinine Est GFR ( Amer) Glucose Calcium Urine Color YELLOW Urine Appearance CLEAR Urine pH 8.0 Ur Specific [place] 1.011 Urine Protein 30 H Urine Glucose (UA) NEGATIVE Urine Ketones NEGATIVE Urine Blood MODERATE H Urine Nitrite NEGATIVE Ur Leukocyte Esterase TRACE H Urine WBC (Auto) 4 Urine RBC (Auto) 37 03/24/20 06:35 WBC RBC Hgb Hct MCV MCH MCHC RDW Plt Count Sodium 137.1 Potassium 4.1 Chloride 103 Carbon Dioxide 30 Anion Gap 4 L BUN 14 Creatinine 1.08 Est GFR ( Amer) > 60 Glucose 89 Calcium 8.1 L Urine Color Urine Appearance Urine pH Ur Specific [place] Urine Protein Urine Glucose (UA) Urine Ketones Urine Blood Urine Nitrite Ur Leukocyte Esterase Urine WBC (Auto) Urine RBC (Auto) 03/10/20 03/10/20 03/10/20 08:55 15:21 20:14 Troponin I 0.033 0.026 0.028 NT-Pro-B Natriuret Pep 2010 H 03/11/20 03/11/20 02:07 02:38 Troponin I 0.042 NT-Pro-B Natriuret Pep 3470 H Impressions: Abdomen/Pelvis CT 03/10/20 00:00 IMPRESSION: 1. Perirectal/perineal inflammatory changes without defined abscess. 2. No evidence of acute cardiopulmonary abnormality. 3. No evidence of acute intra-abdominal infectious/inflammatory process. 4. Chronic and incidental findings as detailed above. Chest X-Ray 03/10/20 08:32 IMPRESSION: NO ACUTE RADIOGRAPHIC FINDING IN THE CHEST. Head CT 03/10/20 08:36 IMPRESSION: No evidence of calvarial injury or intracranial hemorrhage. Left frontal and parietal encephalomalacia consistent with sequela of previous large territory ischemic injury. EVIDENCE OF ACUTE STROKE: NO. Chest CT 03/10/20 08:38 IMPRESSION: 1. Perirectal/perineal inflammatory changes without defined abscess. 2. No evidence of acute cardiopulmonary abnormality. 3. No evidence of acute intra-abdominal infectious/inflammatory process. 4. Chronic and incidental findings as detailed above. KUB X-Ray 03/23/20 00:00 IMPRESSION: Constipation. No evidence of obstruction. Assessment & Plan - Diagnosis (1) Perirectal abscess Is this a current diagnosis for this admission?: Yes - Plan Summary Plan Summary: This is a 74-year-old male status post diverting loop colostomy related to his large perineal wound. Patient's colostomy is retracted, however the colostomy remains pink. He has not had any stool from his colostomy as of yet. He is tolerating a regular diet. Check KUB today. I have encouraged the patient to get out of bed and ambulate in the halls. Lying in the supine position will worsen his retracting colostomy. Out of bed. Mag citrate today.
[2020-03-24] MEDS ORDERED: MAGNESIUM CITRATE 296 ML BOTTLE PO ONE ×2 (09:30→16:30)
[2020-03-24] MEDS: TAMSULOSIN HCL 0.4 MG CAP.SR.24H PO SCH (10:21)
[2020-03-24] MEDS: FINASTERIDE 5 MG TABLET PO SCH (10:21)
[2020-03-24] MEDS: LAMOTRIGINE 100 MG TABLET PO SCH (10:21)
[2020-03-24] MEDS: FERROUS SULFATE 325 MG TABLET PO SCH (10:21)
[2020-03-24] MEDS: LISINOPRIL 5 MG TABLET PO SCH (10:21)
[2020-03-24] MEDS: DOCUSATE SODIUM 100 MG CAPSULE PO SCH ×2 (10:21→17:30)
[2020-03-24] MEDS: NICOTINE 21 MG/24 HR PATCH.TD24 TD SCH (10:21)
[2020-03-24] MEDS: METOPROLOL SUCCINATE 50 MG TAB.SR.24H PO SCH (10:21)
[2020-03-24] MEDS: CEFEPIME HCL 2 GM in DEXTROSE 5%-WATER 50 ML IV SCH (10:22)
[2020-03-24] MEDS: INSULIN GLARGINE,HUM.REC.ANLOG 1,000 UNIT/10 ML VIAL SUBCUT SCH ×2 (10:22→22:32)
[2020-03-24] MEDS: FLUTICASONE/UMECLIDIN/VILANTER 100-62.5-25 MCG/DOSE IH SCH (10:27)
--- NOTE | 2020-03-24 10:44 | RADIOLOGY REPORT (SQ) ---
EXAM DESCRIPTION: KUB/ABDOMEN (SINGLE VIEW) IMAGES COMPLETED DATE/TIME: 03/24/2020 10:20 am REASON FOR STUDY: distention COMPARISON: Previous day NUMBER OF VIEWS: One view. TECHNIQUE: Supine radiographic image of the abdomen acquired. LIMITATIONS: None. FINDINGS: Left lower quadrant ostomy. Abundant fecal material within nondilated colon. Butt therese ter overlying urinary bladder. IMPRESSION: No significant change. TECHNICAL DOCUMENTATION: JOB ID: [id number] 2010 [employer]- All Rights Reserved Reading location - IP/workstation name: [email or web address]
[2020-03-24] MEDS: IPRATROPIUM/ALBUTEROL 0.5-2.5 MG/3 ML AMPUL NEB PRN ×2 (14:32→22:25)
--- NOTE | 2020-03-24 19:52 | PDOC PROGRESS REPORT ---
Subjective Progress Note for:: 03/24/20 Subjective:: 74 year old male with h/o copd /lung cancer, af on coumadin came to the emergency room with complaints of nonspecific symptoms of generalized weakness not feeling well shortness of breath and wheezing. Is also admitting he is not eating drinking well. In the emergency room shows low-grade fever of 100 with a WBC count of 22,000 and hypotensive. Lactic acid level is 1.8. CT scan of the abdomen pelvis indicates inflammation around the perirectal area without abs cess. Patient agreed to stay in the hospital for further management wants to be DNR/DNI. Also given history of fall at home CT head was negative for bleed. INR is 1.57. 03/23/2020. No acute events overnight. He is A&O x4. He is frustrated that his discharge to LTAC has been delayed related to development of constipation with minimal ostomy output. He denies abdominal discomfort, nausea, vomiting. He reports adequate appetite; coffee and tuna sandwich for lunch today. He further denies fever, chills, chest pain, palpitations, dyspnea and cough. He has no other questions or concerns at this time. No concerns per nursing. 03/24/2020. No acute events overnight. He is A&O x4. Still no bowel movement though passing flatulence. He denies abdominal discomfort, nausea, vomiting. Tolerating p.o. intake. He further denies fever, chills, chest pain, palpitations, dyspnea and cough. He has no other questions or concerns at this time. No concerns per nursing. Reason For Visit: GENERALIZED WEAKNESS,CHRONIC ATRIAL FIBRILLATION Physical Exam Vital Signs: Temp Pulse Resp BP Pulse Ox 97.4 F 67 18 134/85 H 98 03/24/20 11:35 03/24/20 14:32 03/24/20 14:32 03/24/20 11:35 03/24/20 14:32 Intake & Output 03/23/20 03/24/20 03/25/20 06:59 06:59 06:59 Intake Total 1960 1110 750 Output Total 1700 2650 300 Balance 260 -1540 450 Weight 89.9 kg 88.6 kg 88.6 kg General appearance: PRESENT: no acute distress, cooperative, well-developed, well-nourished - overweight Head exam: PRESENT: atraumatic, normocephalic Eye exam: PRESENT: conjunctiva pink, EOMI, PERRLA. ABSENT: scleral icterus Mouth exam: PRESENT: moist, tongue midline Respiratory exam: PRESENT: clear to auscultation vannessa, symmetrical, unlabored, other - Supplemental oxygen via nasal cannula. ABSENT: rales, rhonchi, wheezes Cardiovascular exam: PRESENT: RRR. ABSENT: diastolic murmur, rubs, systolic murmur Pulses: PRESENT: normal dorsalis pedis pul Vascular exam: PRESENT: normal capillary refill GI/Abdominal exam: PRESENT: distended, hypoactive bowel sounds, soft. ABSENT: guarding, mass, organolmegaly, rebound, tenderness Rectal exam: PRESENT: deferred Extremities exam: PRESENT: full ROM. ABSENT: calf tenderness, clubbing, pedal edema Musculoskeletal exam: PRESENT: ambulatory - With front wheel walker and assistance Neurological exam: PRESENT: alert, awake, oriented to person, oriented to place, oriented to time, oriented to situation, CN II-XII grossly intact. ABSENT: motor sensory deficit Psychiatric exam: PRESENT: appropriate affect, normal mood. ABSENT: homicidal ideation, suicidal ideation Skin exam: PRESENT: dry, warm. ABSENT: cyanosis, rash Results Laboratory Results: 03/24/20 06:35 03/24/20 06:35 03/24/20 03/24/20 06:35 06:35 WBC 12.5 H RBC 3.82 L Hgb 11.7 L Hct 35.5 L MCV 93 MCH 30.6 MCHC 32.8 RDW 15.2 H Plt Count 217 Sodium 137.1 Potassium 4.1 Chloride 103 Carbon Dioxide 30 Anion Gap 4 L BUN 14 Creatinine 1.08 Est GFR ( Amer) > 60 Glucose 89 Calcium 8.1 L 03/10/20 03/10/20 03/10/20 08:55 15:21 20:14 Troponin I 0.033 0.026 0.028 NT-Pro-B Natriuret Pep 2010 H 03/11/20 03/11/20 02:07 02:38 Troponin I 0.042 NT-Pro-B Natriuret Pep 3470 H Impressions: Abdomen/Pelvis CT 03/10/20 00:00 IMPRESSION: 1. Perirectal/perineal inflammatory changes without defined abscess. 2. No evidence of acute cardiopulmonary abnormality. 3. No evidence of acute intra-abdominal infectious/inflammatory process. 4. Chronic and incidental findings as detailed above. Chest X-Ray 03/10/20 08:32 IMPRESSION: NO ACUTE RADIOGRAPHIC FINDING IN THE CHEST. Head CT 03/10/20 08:36 IMPRESSION: No evidence of calvarial injury or intracranial hemorrhage. Left frontal and parietal encephalomalacia consistent with sequela of previous large territory ischemic injury. EVIDENCE OF ACUTE STROKE: NO. Chest CT 03/10/20 08:38 IMPRESSION: 1. Perirectal/perineal inflammatory changes without defined absce ss. 2. No evidence of acute cardiopulmonary abnormality. 3. No evidence of acute intra-abdominal infectious/inflammatory process. 4. Chronic and incidental findings as detailed above. KUB X-Ray 03/24/20 00:00 IMPRESSION: No significant change. Assessment and Plan - Diagnosis (1) Perirectal abscess Is this a current diagnosis for this admission?: Yes Plan: POD #6 diverting colostomy Perirectal abscess, necrotizing fasciitis Status post multiple I&D's, by surgery. Polymicrobial. Afebrile. Leukocytosis improving. On broad-spectrum IV antibiotics. DC vancomycin as per ID recommendation. Continue IV cefepime and metronidazole. As per ID recommendation based on clinical improvement could be switched to p.o. ciprofloxacin and metronidazole; will consider transition once having adequate bowel movements. Continue wound care. Surgery following, recommendations noted. Discharge planning consulted for LTAC referral. (2) Cellulitis of perineum Is this a current diagnosis for this admission?: Yes Plan: Perirectal abscess, Camacho gangrene as per surgery note. Polymicrobial. Status post multiple I&D's, by surgery. Now s/p diverting colostomy Cultures and antibiotics as above. (3) ALEYDA (acute kidney injury) Is this a current diagnosis for this admission?: Yes Plan: Resolved. Nonoliguric. Electrolytes WNL. Monitor volume status and electrolyte repletion as needed. Renal ultrasound unremarkable. (4) Atrial fibrillation Qualifiers: Atrial fibrillation type: longstanding persistent Qualified Code(s): I48.11 - Longstanding persistent atrial fibrillation Is this a current diagnosis for this admission?: No Plan: History of nonvalvular A. fib. Rate controlled. Coumadin has been resumed; pharmacy to dose. (5) Chronic obstructive pulmonary disease Qualifiers: COPD type: COPD with acute exacerbation Qualified Code(s): J44.1 - Chronic obstructive pulmonary disease with (acute) exacerbation Is this a current diagnosis for this admission?: No Plan: At baseline. SPO2 WNL on 3 L nasal cannula. History of present dependent COPD. 3 L/min. Presented with acute exacerbation. Have weaned off steroids. Continue Trelegy. Continue schedule and as needed nebulizer treatments. Incentive spirometry, flutter valve, pulmonary toileting. (6) Diabetes Qualifiers: Diabetes mellitus type: type 2 Is this a current diagnosis for this admission?: Yes Plan: Not very well controlled. Hemoglobin A1c 8.9%. Continue basal, sliding scale and prandial insulin. Accu-Cheks. Hypoglycemic protocol. Could be a candidate for oral hypoglycemic closer to discharge. Outpatient PCP follow-up. 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 Monitor electrolytes and replace as needed. (8) Tobacco abuse Is this a current diagnosis for this admission?: Yes Plan: Counseled on quitting. NicoDerm patch placement. - Time Time Spent with patient: 15-24 minutes Medications reviewed and adjusted accordingly: Yes Anticipated discharge: Other - LTAC Within: Other - pending surgical clearance
[2020-03-24] MEDS: PRIMIDONE 50 MG TABLET PO SCH (21:38)
[2020-03-24] MEDS: ATORVASTATIN CALCIUM 40 MG TABLET PO SCH (21:38)
[2020-03-24] MEDS: WARFARIN SODIUM 4 MG TABLET PO SCH (21:38)
[2020-03-25] MEDS: IPRATROPIUM/ALBUTEROL 0.5-2.5 MG/3 ML AMPUL NEB SCH ×2 (07:42→16:12)
[2020-03-25] MEDS: INSULIN LISPRO 100 UNIT/ML 3 ML VIAL SUBCUT SCH ×7 (08:14→22:24)
[2020-03-25 08:32] LABS: INTERNATIONAL RATION (INR) 2.21; PROTHROMBIN TIME 24.9 SEC (11.4-15.4)
--- NOTE | 2020-03-25 08:58 | RADIOLOGY REPORT (SQ) ---
EXAM DESCRIPTION: KUB/ABDOMEN (SINGLE VIEW) IMAGES COMPLETED DATE/TIME: 03/25/2020 8:35 am REASON FOR STUDY: distention COMPARISON: 03/24/2020 NUMBER OF VIEWS: One view. TECHNIQUE: Supine radiographic image of the abdomen acquired. LIMITATIONS: None. FINDINGS: BOWEL GAS PATTERN: Constipation. No small or large bowel distention. CALCIFICATIONS: No suspicious calcifications. SOFT TISSUES: No gross mass or suggestion of organomegaly. HARDWARE: None in the abdomen. BONES: No acute fracture. No worrisome bone lesions. OTHER: No other significant finding. IMPRESSION: No interval change. TECHNICAL DOCUMENTATION: JOB ID: [id number] 2010 [employer]- All Rights Reserved Reading location - IP/workstation name: [email or web address]
[2020-03-25] MEDS: METOPROLOL SUCCINATE 50 MG TAB.SR.24H PO SCH (09:30)
[2020-03-25] MEDS: TAMSULOSIN HCL 0.4 MG CAP.SR.24H PO SCH (09:30)
[2020-03-25] MEDS: LAMOTRIGINE 100 MG TABLET PO SCH (09:31)
[2020-03-25] MEDS: FERROUS SULFATE 325 MG TABLET PO SCH (09:31)
[2020-03-25] MEDS: INSULIN GLARGINE,HUM.REC.ANLOG 1,000 UNIT/10 ML VIAL SUBCUT SCH ×2 (09:31→22:30)
[2020-03-25] MEDS: DOCUSATE SODIUM 100 MG CAPSULE PO SCH ×2 (09:31→17:09)
[2020-03-25] MEDS: FLUTICASONE/UMECLIDIN/VILANTER 100-62.5-25 MCG/DOSE IH SCH (09:31)
[2020-03-25] MEDS: FINASTERIDE 5 MG TABLET PO SCH (09:31)
[2020-03-25] MEDS: LISINOPRIL 5 MG TABLET PO SCH (09:31)
[2020-03-25] MEDS: NICOTINE 21 MG/24 HR PATCH.TD24 TD SCH (09:37)
--- NOTE | 2020-03-25 11:50 | PDOC PROGRESS REPORT ---
Subjective Progress Note for:: 03/25/20 Reason For Visit: GENERALIZED WEAKNESS,CHRONIC ATRIAL FIBRILLATION Patient sitting up in bed, taking his full liquids. Cantankerous. Physical Exam Vital Signs: Temp Pulse Resp BP Pulse Ox 97.5 F 79 18 157/84 H 100 03/25/20 08:00 03/25/20 08:00 03/25/20 08:00 03/25/20 08:00 03/25/20 08:00 Intake & Output 03/24/20 03/25/20 03/26/20 06:59 06:59 06:59 Intake Total 1110 1550 Output Total 2650 2050 Balance -1540 -500 Weight 88.6 kg 87.1 kg General appearance: PRESENT: no acute distress GI/Abdominal exam: PRESENT: other - May appliance has some stool in it, minimal. The abdomen is soft nontender. Rectal exam: PRESENT: other - Patient rolled in left lateral cubitus position. Wound packing removed. Wound is clean, pink and starting to fill in with granulation tissue. Results Laboratory Results: 03/24/20 06:35 03/24/20 06:35 03/10/20 03/10/20 03/10/20 08:55 15:21 20:14 Troponin I 0.033 0.026 0.028 NT-Pro-B Natriuret Pep 2010 H 03/11/20 03/11/20 02:07 02:38 Troponin I 0.042 NT-Pro-B Natriuret Pep 3470 H Impressions: Abdomen/Pelvis CT 03/10/20 00:00 IMPRESSION: 1. Perirectal/perineal inflammatory changes without defined abscess. 2. No evidence of acute cardiopulmonary abnormality. 3. No evidence of acute intra-abdominal infectious/inflammatory process. 4. Chronic and incidental findings as detailed above. Chest X-Ray 03/10/20 08:32 IMPRESSION: NO ACUTE RADIOGRAPHIC FINDING IN THE CHEST. Head CT 03/10/20 08:36 IMPRESSION: No evidence of calvarial injury or intracranial hemorrhage. Left frontal and parietal encephalomalacia consistent with sequela of previous large territory ischemic injury. EVIDENCE OF ACUTE STROKE: NO. Chest CT 03/10/20 08:38 IMPRESSION: 1. Perirectal/perineal inflammatory changes without defined abscess. 2. No evidence of acute cardiopulmonary abnormality. 3. No evidence of acute intra-abdominal infectious/inflammatory process. 4. Chronic and incidental findings as detailed above. KUB X-Ray 03/25/20 06:00 IMPRESSION: No interval change. Assessment & Plan - Diagnosis (1) Perirectal abscess Is this a current diagnosis for this admission?: Yes Plan: Impression: Overall doing well with reduction in white blood cell count, no fever, tolerating p.o.; minimal amount of stool in ostomy this morning. Per ineal wound cleaning up nicely; Macerated surrounding intact skin, possible early fungal infection Recommendations: 1. We will start nystatin cream for perineal excoriation 2. Patient not ready to go to LTAC yet; needs needs more reliable ostomy output. This was explained to patient and he was quite unhappy about the delay. (2) ALEYDA (acute kidney injury) Is this a current diagnosis for this admission?: Yes (3) Diabetes Qualifiers: Diabetes mellitus type: type 2 Is this a current diagnosis for this admission?: Yes
[2020-03-25 15:56] LABS: HEMATOCRIT 37.9 % (37.9-51.0); HEMOGLOBIN 12.5 g/dL (13.5-17.0); MEAN CORPUSCULAR HEMOGLOBIN 30.7 pg (27.0-33.4); MEAN CORPUSCULAR HGB CONC 33.1 g/dL (32.0-36.0); MEAN CORPUSCULAR VOLUME 93 fl (80-97); PLATELET COUNT 221 10^3/uL (150-450); RED BLOOD COUNT 4.09 10^6/uL (4.35-5.55); RED CELL DISTRIBUTION WIDTH 15.2 % (11.5-14.0); WHITE BLOOD COUNT 11.7 10^3/uL (4.0-10.5)
--- NOTE | 2020-03-25 17:34 | PDOC PROGRESS REPORT ---
Subjective Progress Note for:: 03/25/20 Subjective:: 74 year old male with h/o copd /lung cancer, af on coumadin came to the emergency room with complaints of nonspecific symptoms of generalized weakness not feeling well shortness of breath and wheezing. Is also admitting he is not eating drinking well. In the emergency room shows low-grade fever of 100 with a WBC count of 22,000 and hypotensive. Lactic acid level is 1.8. CT scan of the abdomen pelvis indicates inflammation around the perirectal area without abs cess. Patient agreed to stay in the hospital for further management wants to be DNR/DNI. Also given history of fall at home CT head was negative for bleed. INR is 1.57. 03/23/2020. No acute events overnight. He is A&O x4. He is frustrated that his discharge to LTAC has been delayed related to development of constipation with minimal ostomy output. He denies abdominal discomfort, nausea, vomiting. He reports adequate appetite; coffee and tuna sandwich for lunch today. He further denies fever, chills, chest pain, palpitations, dyspnea and cough. He has no other questions or concerns at this time. No concerns per nursing. 03/24/2020. No acute events overnight. He is A&O x4. Still no bowel movement though passing flatulence. He denies abdominal discomfort, nausea, vomiting. Tolerating p.o. intake. He further denies fever, chills, chest pain, palpitations, dyspnea and cough. He has no other questions or concerns at this time. No concerns per nursing. 03/25/2020 No acute events overnight. He is A&O x4. Slight ostomy output today. He denies abdominal discomfort, nausea, vomiting. Tolerating p.o. intake. He further denies fever, chills, chest pain, palpitations, dyspnea and cough. He has no other questions or concerns at this time. No concerns per nursing. Reason For Visit: GENERALIZED WEAKNESS,CHRONIC ATRIAL FIBRILLATION Physical Exam Vital Signs: Temp Pulse Resp BP Pulse Ox 97.4 F 80 18 160/74 H 98 03/25/20 12:00 03/25/20 16:12 03/25/20 16:12 03/25/20 12:00 03/25/20 16:12 Intake & Output 03/24/20 03/25/20 03/26/20 06:59 06:59 06:59 Intake Total 1110 1550 150 Output Total 2650 2050 750 Balance -1540 -500 -600 Weight 88.6 kg 87.1 kg General appearance: PRESENT: no acute distress, cooperative, well-developed, well-nourished Head exam: PRESENT: atraumatic, normocephalic Eye exam: PRESENT: conjunctiva pink, EOMI, PERRLA. ABSENT: scleral icterus Mouth exam: PRESENT: moist, tongue midline Respiratory exam: PRESENT: clear to auscultation vannessa, symmetrical, unlabored, other - Supplemental oxygen by nasal cannula. ABSENT: rales, rhonchi, wheezes Cardiovascular exam: PRESENT: RRR. ABSENT: diastolic murmur, rubs, systolic murmur Vascular exam: PRESENT: normal capillary refill GI/Abdominal exam: PRESENT: distended, hypoactive bowel sounds, soft, other - Ostomy; slight dark stool output. ABSENT: guarding, mass, organolmegaly, rebound, tenderness Rectal exam: PRESENT: deferred Extremities exam: PRESENT: full ROM. ABSENT: calf tenderness, clubbing, pedal edema Musculoskeletal exam: PRESENT: ambulatory Neurological exam: PRESENT: alert, awake, oriented to person, oriented to place, oriented to time, oriented to situation, CN II-XII grossly intact. ABSENT: motor sensory deficit Psychiatric exam: PRESENT: appropriate affect, normal mood. ABSENT: homicidal ideation, suicidal ideation Skin exam: PRESENT: dry, warm. ABSENT: cyanosis, rash Results Laboratory Results: 03/25/20 14:58 03/24/20 06:35 03/25/20 14:58 WBC 11.7 H RBC 4.09 L Hgb 12.5 L Hct 37.9 MCV 93 MCH 30.7 MCHC 33.1 RDW 15.2 H Plt Count 221 03/10/20 03/10/20 03/10/20 08:55 15:21 20:14 Troponin I 0.033 0.026 0.028 NT-Pro-B Natriuret Pep 2010 H 03/11/20 03/11/20 02:07 02:38 Troponin I 0.042 NT-Pro-B Natriuret Pep 3470 H Impressions: Abdomen/Pelvis CT 03/10/20 00:00 IMPRESSION: 1. Perirectal/perineal inflammatory changes without defined abscess. 2. No evidence of acute cardiopulmonary abnormality. 3. No evidence of acute intra-abdominal infectious/inflammatory process. 4. Chronic and incidental findings as detailed above. Chest X-Ray 03/10/20 08:32 IMPRESSION: NO ACUTE RADIOGRAPHIC FINDING IN THE CHEST. Head CT 03/10/20 08:36 IMPRESSION: No evidence of calvarial injury or intracranial hemorrhage. Left frontal and parietal encephalomalacia consistent with sequela of previous large territory ischemic injury. EVIDENCE OF ACUTE STROKE: NO. Chest CT 03/10/20 08:38 IMPRESSION: 1. Perirectal/perineal inflammatory changes without defined abscess. 2. No evidence of acute cardiopulmonary abnormality. 3. No evidence of acute intra-abdominal infectious/inflammatory process. 4. Chronic and incidental findings as detailed above. KUB X-Ray 03/25/20 06:00 IMPRESSION: No interval change. Assessment and Plan - Diagnosis (1) Perirectal abscess Is this a current diagnosis for this admission?: Yes Plan: POD #7 diverting colostomy Perirectal abscess, necrotizing fasciitis Status post multiple I&D's, by surgery. Polymicrobial. Afebrile. Leukocytosis improving. On broad-spectrum IV antibiotics. DC vancomycin as per ID recommendation. Continue IV cefepime and metronidazole. As per ID recommendation based on clinical improvement could be switched to p.o. ciprofloxacin and metronidazole; will consider transition once having adequate bowel movements. Nystatin cream per Dr. Munoz Continue wound care. Surgery following, recommendations noted. Discharge planning consulted for LTAC referral. (2) Cellulitis of perineum Is this a current diagnosis for this admission?: Yes Plan: Perirectal abscess, Camacho gangrene as per surgery note. Polymicrobial. Status post multiple I&D's, by surgery. Now s/p diverting colostomy Cultures and antibiotics as above. (3) ALEYDA (acute kidney injury) Is this a current diagnosis for this admission?: Yes Plan: Resolved. Nonoliguric. Electrolytes WNL. Monitor volume status and electrolyte repletion as needed. Renal ultrasound unremarkable. (4) Atrial fibrillation Qualifiers: Atrial fibrillation type: longstanding persistent Qualified Code(s): I48.11 - Longstanding persistent atrial fibrillation Is this a current diagnosis for this admission?: No Plan: History of nonvalvular A. fib. Rate controlled. INR 2.21 today Coumadin has been resumed; pharmacy to dose. (5) Chronic obstructive pulmonary disease Qualifiers: COPD type: COPD with acute exacerbation Qualified Code(s): J44.1 - Chronic obstructive pulmonary disease with (acute) exacerbation Is this a current diagnosis for this admission?: No Plan: At baseline. SPO2 WNL on 3 L nasal cannula. History of present dependent COPD. 3 L/min. Presented with acute exacerbation. Have weaned off steroids. Continue Trelegy. Continue schedule and as needed nebulizer treatments. Incentive spirometry, flutter valve, pulmonary toileting. (6) Diabetes Qualifiers: Diabetes mellitus type: type 2 Is this a current diagnosis for this admission?: Yes Plan: Not very well controlled. Hemoglobin A1c 8.9%. Continue basal, sliding scale and prandial insulin. Accu-Cheks. Hypoglycemic p rotocol. Could be a candidate for oral hypoglycemic closer to discharge. Outpatient PCP follow-up. 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 Monitor electrolytes and replace as needed. (8) Tobacco abuse Is this a current diagnosis for this admission?: Yes Plan: Counseled on quitting. NicoDerm patch placement. - Time Time Spent with patient: 25-34 minutes Medications reviewed and adjusted accordingly: Yes Anticipated discharge: Other - LTAC Within: Other - Pending surgical clearance
[2020-03-25] MEDS ORDERED: NYSTATIN CREAM 15 GM TP PRN (18:48)
[2020-03-25 19:55] LABS: APPEARANCE,URINE CLEAR; BILIRUBIN,URINE NEGATIVE (NEGATIVE); COLOR,URINE YELLOW; GLUCOSE, URINE NEGATIVE (NEGATIVE); KETONES,URINE NEGATIVE (NEGATIVE); LEUKOCYTE ESTERASE,URINE NEGATIVE (NEGATIVE); NITRITE,URINE NEGATIVE (NEGATIVE); PROTEIN,URINE 30 mg/dL (NEGATIVE); URINE SPECIFIC GRAVITY 1.011; UROBILINOGEN,URINE NEGATIVE mg/dL (<2.0)
[2020-03-25] MEDS: ATORVASTATIN CALCIUM 40 MG TABLET PO SCH (22:30)
[2020-03-25] MEDS: PRIMIDONE 50 MG TABLET PO SCH (22:30)
[2020-03-25] MEDS: WARFARIN SODIUM 4 MG TABLET PO SCH (22:30)
[2020-03-25] MEDS: OXYCODONE-ACETAMINOPHEN 5-325 MG TABLET PO PRN (22:33)
[2020-03-26] MEDS: CLONAZEPAM 1 MG TABLET PO PRN (04:28)
[2020-03-26 08:09] LABS: INTERNATIONAL RATION (INR) 2.24; PROTHROMBIN TIME 25.2 SEC (11.4-15.4)
[2020-03-26] MEDS: IPRATROPIUM/ALBUTEROL 0.5-2.5 MG/3 ML AMPUL NEB SCH ×2 (08:23→16:35)
[2020-03-26] MEDS: INSULIN LISPRO 100 UNIT/ML 3 ML VIAL SUBCUT SCH ×6 (09:20→18:12)
[2020-03-26] MEDS: NICOTINE 21 MG/24 HR PATCH.TD24 TD SCH (09:21)
[2020-03-26] MEDS: DOCUSATE SODIUM 100 MG CAPSULE PO SCH ×2 (09:21→17:51)
[2020-03-26] MEDS: METOPROLOL SUCCINATE 50 MG TAB.SR.24H PO SCH (09:22)
[2020-03-26] MEDS: FERROUS SULFATE 325 MG TABLET PO SCH (09:22)
[2020-03-26] MEDS: LAMOTRIGINE 100 MG TABLET PO SCH (09:22)
[2020-03-26] MEDS: TAMSULOSIN HCL 0.4 MG CAP.SR.24H PO SCH (09:22)
[2020-03-26] MEDS: LISINOPRIL 5 MG TABLET PO SCH (09:22)
[2020-03-26] MEDS: FINASTERIDE 5 MG TABLET PO SCH (09:23)
[2020-03-26] MEDS: INSULIN GLARGINE,HUM.REC.ANLOG 1,000 UNIT/10 ML VIAL SUBCUT SCH (09:23)
[2020-03-26] MEDS: FLUTICASONE/UMECLIDIN/VILANTER 100-62.5-25 MCG/DOSE IH SCH (09:29)
--- NOTE | 2020-03-26 10:09 | PDOC PROGRESS REPORT ---
Subjective Progress Note for:: 03/26/20 Reason For Visit: GENERALIZED WEAKNESS,CHRONIC ATRIAL FIBRILLATION Physical Exam Vital Signs: Temp Pulse Resp BP Pulse Ox 97.9 F 75 15 145/77 H 95 03/26/20 03:00 03/26/20 08:23 03/26/20 08:23 03/26/20 03:00 03/26/20 08:23 Intake & Output 03/25/20 03/26/20 03/27/20 06:59 06:59 06:59 Intake Total 1550 498 Output Total 2050 1850 Balance -500 -1352 Weight 87.1 kg 85.3 kg Results Laboratory Results: 03/25/20 14:58 03/24/20 06:35 03/25/20 03/25/20 14:58 19:05 WBC 11.7 H RBC 4.09 L Hgb 12.5 L Hct 37.9 MCV 93 MCH 30.7 MCHC 33.1 RDW 15.2 H Plt Count 221 Urine Color YELLOW Urine Appearance CLEAR Urine pH 9.0 Ur Specific [place] 1.011 Urine Protein 30 H Urine Glucose (UA) NEGATIVE Urine Ketones NEGATIVE Urine Blood NEGATIVE Urine Nitrite NEGATIVE Ur Leukocyte Esterase NEGATIVE Urine WBC (Auto) 1 Urine RBC (Auto) 1 03/10/20 03/10/20 03/10/20 08:55 15:21 20:14 Troponin I 0.033 0.026 0.028 NT-Pro-B Natriuret Pep 2010 H 03/11/20 03/11/20 02:07 02:38 Troponin I 0.042 NT-Pro-B Natriuret Pep 3470 H Impressions: Abdomen/Pelvis CT 03/10/20 00:00 IMPRESSION: 1. Perirectal/perineal inflammatory changes without defined abscess. 2. No evidence of acute cardiopulmonary abnormality. 3. No evidence of acute intra-abdominal infectious/inflammatory process. 4. Chronic and incidental findings as detailed above. Chest X-Ray 03/10/20 08:32 IMPRESSION: NO ACUTE RADIOGRAPHIC FINDING IN THE CHEST. Head CT 03/10/20 08:36 IMPRESSION: No evidence of calvarial injury or intracranial hemorrhage. Left frontal and parietal encephalomalacia consistent with sequela of previous large territory ischemic injury. EVIDENCE OF ACUTE STROKE: NO. Chest CT 03/10/20 08:38 IMPRESSION: 1. Perirectal/perineal inflammatory changes without defined abscess. 2. No evidence of acute cardiopulmonary abnormality. 3. No evidence of acute intra-abdominal infectious/inflammatory process. 4. Chronic and incidental findings as detailed above. KUB X-Ray 03/25/20 06:00 IMPRESSION: No interval change. Assessment & Plan - Diagnosis (1) Perirectal abscess Is this a current diagnosis for this admission?: Yes - Plan Summary Plan Summary: This is a 74-year-old male status post diverting loop colostomy related to his large perineal wound. Patient's colostomy is retracted, however the colostomy remains pink. It is now productive. He is tolerating a regular diet. I have encouraged the patient to get out of bed and ambulate in the halls. Continue with stool softeners. Continue with dressing changes to the large perineal wound. Okay for discharge when stable from a medical standpoint. Surgery will sign off at this time. Please renotify with any questions or concerns.
--- NOTE | 2020-03-26 11:46 | PDOC TRANSFER SUMMARY ---
General Admission Date/PCP: 03/10/20 14:22 ALCON CASILLAS MD Admission Date: 03/10/20 Transfer Date: 03/26/20 Accepting Facility: Other (Comments) - [facility] Resuscitation Status: Do Not Resuscitate - Transfer Diagnosis (1) Perirectal abscess Is this a current diagnosis for this admission?: Yes Diagnosis Summary: POD #8 diverting colostomy Perirectal abscess, necrotizing fasciitis Status post multiple I&D's, by surgery . Polymicrobial. Afebrile. Leukocytosis improving. On broad-spectrum IV antibiotics. DC vancomycin as per ID recommendation. Continued on IV cefepime and metronidazole. As per ID recommendation, have transitioned to p.o. ciprofloxacin and metronidazole; continue for an additional 7 days. Now having adequate stool output through ostomy. Cleared by Surgery for discharge. Transfer to [facility] for continued wound care. (2) Cellulitis of perineum Is this a current diagnosis for this admission?: Yes Diagnosis Summary: Perirectal abscess, Camacho gangrene as per surgery note. Polymicrobial. Status post multiple I&D's, by surgery. Now s/p diverting colostomy Cultures and antibiotics as above. (3) ALEYDA (acute kidney injury) Is this a current diagnosis for this admission?: Yes Diagnosis Summary: Resolved. Nonoliguric. Electrolytes WNL. Renal ultrasound unremarkable. (4) Atrial fibrillation Is this a current diagnosis for this admission?: No Diagnosis Summary: History of nonvalvular A. fib. Rate controlled. INR 2.21 today Coumadin has been resumed; pharmacy to dose. (5) Chronic obstructive pulmonary disease Is this a current diagnosis for this admission?: No Diagnosis Summary: At baseline. SPO2 WNL on 3 L nasal cannula. History of present dependent COPD. 3 L/min. Presented with acute exacerbation; no resolved. Have weaned off steroids. Continue Trelegy. Continue schedule and as needed nebulizer treatments. Incentive spirometry, flutter valve, pulmonary toileting. (6) Diabetes Is this a current diagnosis for this admission?: Yes Diagnosis Summary: Not very well controlled. Hemoglobin A1c 8.9%. Continue basal, sliding scale and prandial insulin. Accu-Cheks. Hypoglycemic protocol. (7) Hyponatremia Is this a current diagnosis for this admission?: Yes Diagnosis Summary: Resolved. (8) Tobacco abuse Is this a current diagnosis for this admission?: Yes Diagnosis Summary: Counseled on quitting. NicoDerm patches provided. - Transfer Medications Home Medications: Alfuzosin HCl [Alfuzosin HCl ER] 10 mg PO DAILY 03/10/20 Atorvastatin Calcium [Lipitor 40 mg Tablet] 40 mg PO QHS 03/10/20 Ferrous Sulfate [Feosol 325 mg Tablet] 325 mg PO DAILY 03/10/20 Finasteride [Proscar 5 mg Tablet] 5 mg PO DAILY 03/10/20 Lamotrigine 100 mg PO DAILY 03/10/20 Primidone [Mysoline 50 mg Tablet] 50 mg PO QHS 03/10/20 Warfarin Sodium [Coumadin 5 mg Tablet] 5 mg PO MOWEFR@219903/10/20 Warfarin Sodium [Coumadin 5 mg Tablet] 7.5 mg PO SUTUTHSA@219903/10/20 Transfer Medications: Current Medications Acetaminophen (Tylenol 325 Mg Tablet) 650 mg PO Q4HP PRN PRN Reason: FEVER >101 Stop: 04/09/20 14:25 Last Admin: 03/22/20 19:02 Dose: 650 mg Documented by: Albuterol/Ipratropium (Duoneb 3 Ml Ampul) 3 ml NEB RTQ6HP PRN PRN Reason: SHORTNESS OF BREATH Stop: 04/13/20 15:04 Last Admin: 03/24/20 22:25 Dose: 3 ml Documented by: Albuterol/Ipratropium (Duoneb 3 Ml Ampul) 3 ml NEB [id number] [facility] Stop: 04/23/20 07:59 Last Admin: 03/26/20 08:23 Dose: 3 ml Documented by: Atorvastatin Calcium (Lipitor 40 Mg Tablet) 40 mg PO QHS [facility] Stop: 04/10/20 21:59 Last Admin: 03/25/20 22:30 Dose: 40 mg Documented by: Clonazepam (Klonopin 1 Mg Tablet) 1 mg PO Q8HP PRN PRN Reason: ANXIETY Stop: 03/27/20 10:40 Last Admin: 03/26/20 04:28 Dose: 1 mg Documented by: Dextrose (Dextrose Inj 50% Syringe (25 Gm/50 Ml)) 12.5 gm IV PRN PRN; Protocol PRN Reason: FOR BG 50-69 IN ALERT PATIENT Stop: 04/09/20 16:19 Dextrose (Dextrose Inj 50% Syringe (25 Gm/50 Ml)) 25 gm IV PRN PRN; Protocol PRN Reason: See Label Comments Stop: 04/09/20 16:19 Docusate Sodium (Colace 100 Mg Capsule) 200 mg PO BID [facility] Stop: 04/22/20 09:59 Last Admin: 03/26/20 09:21 Dose: 200 mg Documented by: Ferrous Sulfate (Feosol 325 Mg Tablet) 325 mg PO DAILY [facility] Stop: 04/11/20 09:59 Last Admin: 03/26/20 09:22 Dose: 325 mg Documented by: Finasteride (Proscar 5 Mg Tablet) 5 mg PO DAILY [facility] Stop: 04/11/20 09:59 Last Admin: 03/26/20 09:23 Dose: 5 mg Documented by: Fluticasone/Vilanterol (Trelegy 100-62.5-25 Mcg Ellipta 14 Dose/Dpi) 1 inh IH DAILY [facility] Stop: 04/13/20 15:59 Last Admin: 03/26/20 09:29 Dose: 1 puff Documented by: Glucagon (Glucagen Inj 1 Mg Vial) 1 mg IM PRN PRN; Protocol PRN Reason: Evaluate for BG < 70 Stop: 04/09/20 14:30 Glucagon (Glucagen Inj 1 Mg Vial) 1 mg SUBCUT PRN PRN; Protocol PRN Reason: Evaluate for BG < 70 Stop: 04/09/20 16:19 Glucose (Glutose 40% Gel 15 Gm Tube) 15 gm PO PRN PRN; Protocol PRN Reason: For BG 50-69 in Alert Patient Stop: 04/09/20 16:19 Last Admin: 03/20/20 16:53 Dose: 15 gm Documented by: Glucose (Glutose 40% Gel 15 Gm Tube) 30 gm PO PRN PRN; Protocol PRN Reason: FOR BG < 50 IN ALERT PATIENT Stop: 04/09/20 16:19 Guaifenesin/Dextromethorphan (Robitussin-Dm Syrup 10 Ml Udcup) 10 ml PO QIDP PRN PRN Reason: COUGH Stop: 04/14/20 10:41 Hydralazine HCl (Apresoline Inj/Pf 20 Mg/1 Ml Sdv) 10 mg IV Q3HP PRN PRN Reason: Give For Sbp > [150] Stop: 04/17/20 11:53 Last Admin: 03/24/20 08:32 Dose: 10 mg Documented by: Insulin Glargine (Lantus Insulin 100 Unit/1 Ml 10 Ml) 13 unit SUBCUT Q12 [facility] Stop: 04/19/20 21:59 Last Admin: 03/26/20 09:23 Dose: 13 unit Documented by: Insulin Human Lispro (Humalog Insulin 100 Unit/1 Ml 3 Ml Vial) 0 - 12 unit SUBCUT ACHS [facility]; Protocol Stop: 04/09/20 15:59 Last Admin: 03/26/20 09:20 Dose: Not Given Documented by: Insulin Human Lispro (Humalog Insulin 100 Unit/1 Ml 3 Ml Vial) 5 unit SUBCUT AC [facility] Stop: 04/21/20 15:59 Last Admin: 03/26/20 09:23 Dose: 5 unit Documented by: Lamotrigine (Lamictal 100 Mg Tablet) 100 mg PO DAILY [facility] Stop: 04/11/20 09:59 Last Admin: 03/26/20 09:22 Dose: 100 mg Documented by: Lisinopril (Prinivil 5 Mg Tablet) 5 mg PO DAILY [facility] Stop: 04/21/20 09:59 Last Admin: 03/26/20 09:22 Dose: 5 mg Documented by: Metoprolol Succinate (Toprol Xl 50 Mg Tab.Sr) 50 mg PO DAILY [facility] Stop: 04/18/20 09:59 Last Admin: 03/26/20 09:22 Dose: 50 mg Documented by: Nicotine (Nicoderm 21 Mg/24 Hr Transderm Patch) 1 each TD DAILY [facility] Stop: 04/21/20 13:59 Last Admin: 03/26/20 09:21 Dose: 1 each Documented by: Nystatin (Mycostatin Cream 15 Gm) 1 applic TP ASDIR PRN PRN Reason: WITH DRESSING CHANGES Stop: 04/01/20 18:47 Ondansetron HCl (Zofran Inj/Pf 4 Mg/2 Ml Sdv) 4 mg IV Q8HP PRN PRN Reason: FOR NAUSEA/VOMITING Stop: 04/09/20 14:25 Last Admin: 03/20/20 22:33 Dose: 4 mg Documented by: Oxycodone/Acetaminophen (Percocet 5-325 Mg Tablet) 1 tab PO Q6HP PRN PRN Reason: PAIN Stop: 03/26/20 20:17 Last Admin: 03/25/20 22:33 Dose: 1 tab Documented by: Primidone (Mysoline 50 Mg Tablet) 50 mg PO QHS [facility] Stop: 04/10/20 21:59 Last Admin: 03/25/20 22:30 Dose: 50 mg Documented by: Sodium Chloride (Saline Flush 2.5 Ml Monoject Prefil Syrin) 2.5 ml IV Q8 JOSSUE Stop: 04/09/20 21:59 Last Admin: 03/26/20 05:26 Dose: Not Given Documented by: Tamsulosin HCl (Flomax 0.4 Mg Cap.Sr) 0.4 mg PO DAILY [facility] Stop: 04/11/20 09:59 Last Admin: 03/26/20 09:22 Dose: 0.4 mg Documented by: Throat Lozenges (Chloraseptic Sore Throat Lozenge) 1 each BUCCAL Q4HP PRN PRN Reason: DRY MOUTH Stop: 04/13/20 02:29 Warfarin Sodium (Coumadin 4 Mg Tablet) 4 mg PO QHS [facility] Stop: 04/19/20 21:59 Last Admin: 03/25/20 22:30 Dose: 4 mg Documented by: - Allergies Allergies/Adverse Reactions: Penicillins Allergy (Verified 11/22/17 14:09) - Diet/Activity Discharge Diet: Cardiac Hospital Course Hospital Course: Per H&P by Dr. Mathews: JAMILA HOWELL is a 74 year old male with h/o copd /lung cancer , af on coumadin came to the emergency room with complaints of nonspecific symptoms of generalized weakness not feeling well shortness of breath and wheezing. Is also admitting he is not eating drinking well. In the emergency room shows low-grade fever of 100 with a WBC count of 22,000 and hypotensive. Lactic acid level is 1.8. CT scan of the abdomen pelvis indicates inflammation around the perirectal area without abscess. Patient agreed to stay in the hospital for further management wants to be DNR/DNI. Also given history of fall at home CT head was negative for bleed. INR is 1.57. Physical Exam Vital Signs: Temp Pulse Resp BP Pulse Ox 97.9 F 75 15 145/77 H 95 03/26/20 03:00 03/26/20 08:23 03/26/20 08:23 03/26/20 03:00 03/26/20 08:23 Intake & Output 03/25/20 03/26/20 03/27/20 06:59 06:59 06:59 Intake Total 1550 498 Output Total 7 3150 Balance -500 -1352 Weight 87.1 kg 85.3 kg 85.3 kg General appearance: PRESENT: no acute distress, cooperative, well-developed, well-nourished Head exam: PRESENT: atraumatic, normocephalic Eye exam: PRESENT: conjunctiva pink, EOMI, PERRLA. ABSENT: scleral icterus Ear exam: PRESENT: normal external ear exam Mouth exam: PRESENT: moist, tongue midline Neck exam: ABSENT: carotid bruit, JVD, lymphadenopathy, thyromegaly Respiratory exam: PRESENT: clear to auscultation vannessa, symmetrical, unlabored, other - supplemental oxygen via NC. ABSENT: rales, rhonchi, wheezes Cardiovascular exam: PRESENT: RRR. ABSENT: diastolic murmur, rubs, systolic murmur Pulses: PRESENT: normal dorsalis pedis pul Vascular exam: PRESENT: normal capillary refill GI/Abdominal exam: PRESENT: normal bowel sounds, soft, other - ostomy; + stool outout. ABSENT: distended, guarding, mass, organolmegaly, rebound, tenderness Rectal exam: PRESENT: deferred Gentrourinary exam: PRESENT: indwelling catheter Extremities exam: PRESENT: full ROM. ABSENT: calf tenderness, clubbing, pedal edema Musculoskeletal exam: PRESENT: ambulatory Neurological exam: PRESENT: alert, awake, oriented to person, oriented to place, oriented to time, oriented to situation, CN II-XII grossly intact. ABSENT: motor sensory deficit Psychiatric exam: PRESENT: appropriate affect, normal mood. ABSENT: homicidal ideation, suicidal ideation Skin exam: PRESENT: dry, warm. ABSENT: cyanosis, rash Results Laboratory Results: 03/25/20 14:58 03/24/20 06:35 03/25/20 03/25/20 14:58 19:05 WBC 11.7 H RBC 4.09 L Hgb 12.5 L Hct 37.9 MCV 93 MCH 30.7 MCHC 33.1 RDW 15.2 H Plt Count 221 Urine Color YELLOW Urine Appearance CLEAR Urine pH 9.0 Ur Specific [place] 1.011 Urine Protein 30 H Urine Glucose (UA) NEGATIVE Urine Ketones NEGATIVE Urine Blood NEGATIVE Urine Nitrite NEGATIVE Ur Leukocyte Esterase NEGATIVE Urine WBC (Auto) 1 Urine RBC (Auto) 1 03/10/20 03/10/20 03/10/20 08:55 15:21 20:14 Troponin I 0.033 0.026 0.028 NT-Pro-B Natriuret Pep 2010 H 03/11/20 03/11/20 02:07 02:38 Troponin I 0.042 NT-Pro-B Natriuret Pep 3470 H Impressions: Abdomen/Pelvis CT 03/10/20 00:00 IMPRESSION: 1. Perirectal/perineal inflammatory changes without defined abscess. 2. No evidence of acute cardiopulmonary abnormality. 3. No evidence of acute intra-abdominal infectious/inflammatory process. 4. Chronic and incidental findings as detailed above. Chest X-Ray 03/10/20 08:32 IMPRESSION: NO ACUTE RADIOGRAPHIC FINDING IN THE CHEST. Head CT 03/10/20 08:36 IMPRESSION: No evidence of calvarial injury or intracranial hemorrhage. Left frontal and parietal encephalomalacia consistent with sequela of previous large territory ischemic injury. EVIDENCE OF ACUTE STROKE: NO. Chest CT 03/10/20 08:38 IMPRESSION: 1. Perirectal/perineal inflammatory changes without defined abscess. 2. No evidence of acute cardiopulmonary abnormality. 3. No evidence of acute intra-abdominal infectious/inflammatory process. 4. Chronic and incidental findings as detailed above. KUB X-Ray 03/25/20 06:00 IMPRESSION: No interval change. Plan Discharge Plan: Transfer to [facility] for continued wound care and physical rehabilitation Time Spent: Greater than 30 Minutes
[2020-03-26 13:33] VITALS: BP 152/81
[2020-03-26 15:00] LABS: HEMATOCRIT 39.1 % (37.9-51.0); HEMOGLOBIN 13.4 g/dL (13.5-17.0); MEAN CORPUSCULAR HEMOGLOBIN 31.4 pg (27.0-33.4); MEAN CORPUSCULAR HGB CONC 34.2 g/dL (32.0-36.0); MEAN CORPUSCULAR VOLUME 92 fl (80-97); PLATELET COUNT 236 10^3/uL (150-450); RED BLOOD COUNT 4.26 10^6/uL (4.35-5.55); WHITE BLOOD COUNT 10.2 10^3/uL (4.0-10.5)
== END 2020-03-26 18:58 | DRG 853 ==
LOC: ER 07:33 → EH 14:22 → 3N 16:12 → 5 03-13 17:57
PROVIDERS: ADMIT Internal Medicine; ATTEND Registered Nurse
PROC: 0D9P0ZZ Drainage of Rectum, Open Approach (ICD-10-PCS; 2020-03-11)
PROC: 0DBH8ZX Excision of Cecum, Via Natural or Artificial Opening Endoscopic, Diagnostic (ICD-10-PCS; 2020-03-11)
PROC: 0VB50ZZ Excision of Scrotum, Open Approach (ICD-10-PCS; 2020-03-15)
PROC: 30233K1 Transfusion of Nonautologous Frozen Plasma into Peripheral Vein, Percutaneous Approach (ICD-10-PCS; 2020-03-15)
PROC: 0D1N0Z4 Bypass Sigmoid Colon to Cutaneous, Open Approach (ICD-10-PCS; principal; 2020-03-19 14:15)
DX: A41.9 Sepsis, unspecified organism (principal); M72.6 Necrotizing fasciitis; E87.1 Hypo-osmolality and hyponatremia; L03.315 Cellulitis of perineum; N17.9 Acute kidney failure, unspecified; C34.90 Malignant neoplasm of unspecified part of unspecified bronchus or lung; I48.11 Longstanding persistent atrial fibrillation; N49.3 Fournier gangrene; N49.2 Inflammatory disorders of scrotum; K61.39 Other ischiorectal abscess; F17.210 Nicotine dependence, cigarettes, uncomplicated; E11.9 Type 2 diabetes mellitus without complications; K64.8 Other hemorrhoids; F32.9 Major depressive disorder, single episode, unspecified; M19.90 Unspecified osteoarthritis, unspecified site; Z66 Do not resuscitate; E78.00 Pure hypercholesterolemia, unspecified; B95.1 Streptococcus, group B, as the cause of diseases classified elsewhere; J44.9 Chronic obstructive pulmonary disease, unspecified; K57.90 Diverticulosis of intestine, part unspecified, without perforation or abscess without bleeding; K63.5 Polyp of colon; E78.5 Hyperlipidemia, unspecified; K59.09 Other constipation; B95.4 Other streptococcus as the cause of diseases classified elsewhere; B96.89 Other specified bacterial agents as the cause of diseases classified elsewhere; Z03.818 Encounter for observation for suspected exposure to other biological agents ruled out; Z88.0 Allergy status to penicillin; Z91.81 History of falling; Z79.01 Long term (current) use of anticoagulants; Z79.4 Long term (current) use of insulin; Z79.899 Other long term (current) drug therapy; Z79.51 Long term (current) use of inhaled steroids
CPT/HCPCS: 00300; 00840; 00902; 36415; 36430; 45380; 70450; 71045; 71260; 74018; 74177; 80048; 80053; 80061; 80202; 80307; 81001; 82803; 82962; 83036; 83605; 83690; 83735; 83880; 84100; 84443; 84484; 85025; 85027; 85610; 85730; 86850; 86900; 86901; 86920; 87040; 87070; 87075; 87077; 87086; 87205; 87635; 88305; 93005; 93010; 94640; 94660; 94667; 94668; 94799; 96361; 96365; 96367; 99140; 99291; C1758; C9113; C9803; J0131; J0360; J0692; J1100; J1815; J1940; J2250; J2405; J2704; J2920; J3010; J3370; J3490; J7030; J7040; J7060; J7620; P9017

== ENCOUNTER 2020-04-03 10:40 | Emergency (ER) | payer BC, MEDICARE ==
[2020-04-03] MEDS ORDERED: NORMAL SALINE 1000 ML 1,000 ML IV ONE (11:21)
--- NOTE | 2020-04-03 11:25 | ER Document Report ---
ED General - General Chief Complaint: General Weakness Stated Complaint: WEAKNESS Time Seen by Provider: 04/03/20 10:57 Primary Care Provider: ALCON CASILLAS MD [ACTIVE STAFF] - Follow up as needed Mode of Arrival: Medic Information source: Patient Notes: This 74-year-old man presents to the emergency department with complaint of feeling sick. He complains of mild nausea and overall weakness. Started yesterday. He was discharged from [facility] yesterday. States that he got home last night and this morning his symptoms of feeling sick and weak worsen. EMS was called to the scene patient felt to have a systolic blood pressure of 90. He was given a 500 cc bolus of normal saline with improvement of the blood pressure. He is not aware of a fever, does not have a productive cough or fever. Patient states that his daughter picked him up at the hospital in [place] and brought him home. He has home health coming for dressing changes and is not sure whether physical therapy will be coming. TRAVEL OUTSIDE OF THE [place] IN LAST 30 DAYS: No - Related Data Allergies/Adverse Reactions: Penicillins Allergy (Verified 04/03/20 12:57) Past Medical History - Social History Smoking Status: Current Every Day Smoker Family History: Arthritis, CAD, COPD, DM, Hyperlipidemia, Hypertension, Thyroid Disfunction - Past Medical History Cardiac Medical History: Reports: Hx Atrial Fibrillation, Hx Hypercholesterolemia, Hx Hypertension Pulmonary Medical History: Reports: Hx Asthma, Hx Bronchitis, Hx COPD Neurological Medical History: Reports: Hx Cerebrovascular Accident - 1997 Endocrine Medical History: Reports: Hx Diabetes Mellitus Type 1, Hx Diabetes Mellitus Type 2 Renal/ Medical History: Reports: Hx Benign Prostatic Hyperplasia. Denies: Hx Peritoneal Dialysis GI Medical History: Reports: Hx Gastritis, Hx Gastroesophageal Reflux Disease, Hx Ulcer, Hx Colonoscopy Musculoskeletal Medical History: Reports Hx Arthritis Psychiatric Medical History: Reports: Hx Anxiety, Hx Depression Past Surgical History: Reports: Hx Orthopedic Surgery - L Arm, Other - Lung surgery. - Immunizations Hx Diphtheria, Pertussis, Tetanus Vaccination: Yes Hx Pneumococcal Vaccination: 09/25/13 Review of Systems - Review of Systems Notes: Constitutional: + Generalized weakness HENT: Negative for sore throat. Eyes: Negative for visual changes. Cardiovascular: Negative for chest pain. Respiratory: Negative for shortness of breath. Gastrointestinal: + Colostomy Genitourinary: Negative for dysuria. Musculoskeletal: Negative for back pain. Skin: Negative for rash. Neurological: + Anxiety 10 point ROS negative except as marked above and in HPI. Physical Exam - Vital signs Vitals: Pulse Ox 97 04/03/20 10:42 - Notes Notes: PHYSICAL EXAMINATION: Physical Exam: General: Medically ill-appearing 74-year-old man and no acute distress. HEENT: NC/AT, pupils equal round and reactive to light, MM moist,nares clear, o ropharynx clear, airway patent Neck: supple, no adenopathy, no masses. Good range of motion Lungs: clear, no wheezing, no rales no rhonchi CVS: Regular rate and rhythm no murmur gallop or rub Abdomen: Soft, active, nontender, no masses, no hepatosplenomegaly, colostomy left lower quadrant with tube protruding from the orifice Ext: No edema, clubbing or cyanosis. Neuro: Alert and responsive, moving all 4 extremities on command, cranial nerves intact, no focal findings Skin: Intact no open lesions, no rash Course - Re-evaluation Re-evalutation: 04/03/20 16:53 Patient received IV fluids, blood pressure has improved 140/85. The patient states that he is hungry and would like to eat and he also would like some ice water and coffee. He apparently ate half of a sandwich and drank some water without difficulty. He is now sleeping quietly in no distress. - Vital Signs Vital signs: Temp Pulse Resp BP Pulse Ox 97.3 F 77 16 129/75 H 98 04/03/20 11:15 04/03/20 15:00 04/03/20 16:01 04/03/20 16:01 04/03/20 16:01 - Laboratory Result Diagrams: 04/03/20 10:58 04/03/20 10:58 Laboratory results interpreted by me: 04/03/20 04/03/20 04/03/20 10:58 10:58 12:48 WBC 11.7 H RBC 4.27 L Hgb 13.0 L RDW 14.8 H Lymph % (Auto) 12.6 L Absolute Neuts (auto) 9.3 H Seg Neutrophils % 80.1 H Sodium 135.4 L BUN 29 H Creatinine 1.54 H Est GFR ( Amer) 54 L Est GFR (MDRD) Non-Af 44 L Glucose 147 H Alkaline Phosphatase 167 H Creatine Kinase 27 L Total Protein 5.8 L Albumin 2.8 L Urine Protein 30 H Urine Ketones TRACE H Urine Ascorbic Acid 40 H Discharge - Discharge Clinical Impression: Generalized weakness, Dehydration Hypotension Qualifiers: Hypotension type: unspecified hypotension type Qualified Code(s): I95.9 - Hypotension, unspecified Condition: Good Disposition: HOME, SELF-CARE Additional Instructions: You are seen in the emergency department today with generalized weakness and a low blood pressure. Appears that you have become dehydrated. You are encouraged to increase your fluid intake and to monitor your intake. Please follow-up with your primary care doctor, call for appointment on Monday. If you feel that you are not able to stay at home because of difficulty walking, long- term care rehabilitation stay should be considered. If your symptoms are worsening or if you have other concerns you may return to the emergency department for further evaluation and treatment HOME CARE INSTRUCTIONS & INFORMATION: Thank you for choosing us for your medical needs. We hope you're satisfied with the care you received. After you leave, you must properly care for your problem and, at the same time, observe its progress. Any condition can change. Some illnesses can change rapidly over hours or days. If your condition worsens, return to the Emergency Department or see your physician promptly. ABOUT YOUR X-RAYS AND EKG'S: If you had an EKG or X-rays taken, they have been read by the Emergency Physician. The X-rays and EKG's will also be read by a Radiologist or Environmental Health Safety Manager within 24 hours. If discrepancies are noted, you will be notified by telephone. Please be certain the ED has a correct telephone number & address where you can be reached. Also, realize that some fractures or abnormalities do not show up on initial X-rays. If your symptoms continue, see your physician. ABOUT YOUR LABORATORY TEST: If you had laboratory tests, the results have been reviewed by the Emergency Physician. Some test results (for example cultures) may not be available for several days. You will be contacted if any test result shows you need additional treatment. Please be certain the ED has a correct telephone number and address where you can be reached. ABOUT YOUR MEDICATIONS: You will receive instructions on how to take your medicine on the prescription label you receive. Additional information may be provided by the Pharmacy. If you have questions afterwards, call the ED for clarification or further instructions. Some prescribed medications may cause drowsiness. Do not perform tasks such as driving a car or operating machinery without consulting your Pharmacist. If you feel you need a refill of pain medication, your condition will need re-evaluation. Please do not call for a refill of any medication. ABOUT YOUR SIGNATURE: Signature of this document acknowledges to followin. Understanding that you received emergency treatment and that you may be released before al medical problems are known or treated. Please be certain the ED has a correct phone number & address where you can be reached. 2. Acknowledgement that you will arrange for follow-up care as recommended. 3. Authorization for the Emergency Physician to provide information to your follow-up Physician in order to maximize your care. AT ANY TIME, IF YOUR SYMPTOMS CHANGE SIGNIFICANTLY OR WORSEN OR YOU DEVELOP NEW SYMPTOMS, RETURN TO THE EMERGENCY DEPARTMENT IMMEDIATELY FOR RE-EVALUATION. OUR GOAL IS TO PROVIDE EXCELLENT MEDICAL CARE! WE HOPE THAT WE HAVE MET YOUR EXPECTATIONS DURING YOUR EMERGENCY DEPARTMENT VISIT AND THAT YOU FEEL YOU HAVE RECEIVED EXCELLENT CARE! Referrals: ALCON CASILLAS MD [ACTIVE STAFF] - Follow up as needed
[2020-04-03 11:26] LABS: ABSOLUTE BASOPHILS # (AUTO) 0.1 10^3/uL (0.0-0.2); ABSOLUTE EOSINOPHILS # (AUTO) 0.1 10^3/uL (0.0-0.6); ABSOLUTE LYMPHOCYTES (AUTO) 1.5 10^3/uL (0.5-4.7); ABSOLUTE MONOCYTES (AUTO) 0.7 10^3/uL (0.1-1.4); ABSOLUTE NEUT (AUTO) 9.3 10^3/uL (1.7-8.2); BASOPHILS % (AUTO) 0.8 % (0-2); EOSINOPHILS % (AUTO) 0.7 % (0-6); HEMATOCRIT 38.9 % (37.9-51.0); LYMPHOCYTES % (AUTO) 12.6 % (13-45); MEAN CORPUSCULAR HEMOGLOBIN 30.4 pg (27.0-33.4); MEAN CORPUSCULAR HGB CONC 33.4 g/dL (32.0-36.0); MEAN CORPUSCULAR VOLUME 91 fl (80-97); MONOCYTES % (AUTO) 5.8 % (3-13); PLATELET COUNT 318 10^3/uL (150-450); RED BLOOD COUNT 4.27 10^6/uL (4.35-5.55); RED CELL DISTRIBUTION WIDTH 14.8 % (11.5-14.0); SEGMENTED NEUTROPHILS % (AUTO) 80.1 % (42-78); TOTAL CELLS COUNTED % (AUTO) 100 %; WHITE BLOOD COUNT 11.7 10^3/uL (4.0-10.5)
[2020-04-03 11:51] LABS: ALBUMIN 2.8 g/dL (3.5-5.0); ALKALINE PHOSPHATASE 167 U/L (38-126); ANION GAP 5 (5-19); ASPARTATE AMINO TRANSFERASE 39 U/L (17-59); BILIRUBIN,TOTAL 0.7 mg/dL (0.2-1.3); BLOOD UREA NITROGEN 29 mg/dL (7-20); CALCIUM 8.5 mg/dL (8.4-10.2); CARBON DIOXIDE 27 mmol/L (22-30); CHLORIDE 103 mmol/L (98-107); CREATINE KINASE 27 U/L (55-170); GLUCOSE 147 mg/dL (75-110); POTASSIUM 4.8 mmol/L (3.6-5.0); TOTAL PROTEIN 5.8 g/dL (6.3-8.2)
[2020-04-03 12:00] LABS: CREATINE KINASE MB 1.36 ng/mL (<4.55); TROPONIN I < 0.012 ng/mL
[2020-04-03 13:13] LABS: APPEARANCE,URINE SLIGHTLY-CLOUDY; BILIRUBIN,URINE NEGATIVE (NEGATIVE); COLOR,URINE YELLOW; GLUCOSE, URINE NEGATIVE (NEGATIVE); KETONES,URINE TRACE mg/dL (NEGATIVE); LEUKOCYTE ESTERASE,URINE NEGATIVE (NEGATIVE); NITRITE,URINE NEGATIVE (NEGATIVE); PROTEIN,URINE 30 mg/dL (NEGATIVE); URINE SPECIFIC GRAVITY 1.016; UROBILINOGEN,URINE NEGATIVE mg/dL (<2.0)
--- NOTE | 2020-04-03 15:02 | RADIOLOGY REPORT (SQ) ---
EXAM DESCRIPTION: CT ABD/PELVIS WITH IV ORAL IMAGES COMPLETED DATE/TIME: 04/03/2020 2:22 pm REASON FOR STUDY: New colostomy, possible infection COMPARISON: CT of the abdomen and pelvis with contrast from 03/10/2020. TECHNIQUE: CT scan of the abdomen and pelvis performed using helical scanning technique with dynamic intravenous contrast injection. No oral contrast. Images reviewed with lung, soft tissue, and bone windows. Reconstructed coronal and sagittal MPR images reviewed. Delayed images for evaluation of the urinary system also acquired. All images stored on PACS. All CT scanners at this facility use dose modulation, iterative reconstruction, and/or weight based d osing when appropriate to reduce radiation dose to as low as reasonably achievable (ALARA). [facility]: Dose Right [facility]: CareDose [facility]: Dose Right [facility]: Teradose 4D [facility]: StartDate Labs CONTRAST TYPE AND DOSE: Contrast/concentration: Isovue 300.00 mmol/ml; Total Contrast Delivered: 93. 0 ml; Total Saline Delivered: 52.8 ml RENAL FUNCTION: Creatinine 1.5 milligrams/deciliter. RADIATION DOSE: CT Rad equipment meets quality standard of care and radiation dose reduction techniq ues were employed. CTDIvol: 10.9 - 15.1 mGy. DLP: 1489 mGy-cm. LIMITATIONS: None. FINDINGS: LOWER CHEST: Trace left pleural effusion and area of consolidation with air bronchograms i n the left lower lobe that could represent an infection or atelectasis. LIVER: The morphology of the liver is noncirrhotic. The portal veins are patent. There is no hepati c mass. SPLEEN: No splenomegaly or splenic mass. PANCREAS: No acute gross abnormality of the pancreas GALLBLADDER: Cholelithiasis. There is no pericholecystic inflammation. ADRENAL GLANDS: No mass or asymmetry. RIGHT KIDNEY AND URETER: No solid mass, hydronephrosis, nephrolithiasis, hydroureter or ureterolithia sis. LEFT KIDNEY AND URETER: No solid mass, hydronephrosis, nephrolithiasis, hydroureter or ureterolithia sis. AORTA AND VESSELS: Atherosclerotic calcification of the abdominal aorta and iliac arteries without an eurysmal dilatation. RETROPERITONEUM: No retroperitoneal adenopathy, hemorrhage or mass. BOWEL AND PERITONEAL CAVITY: Loop colostomy in the left lower quadrant. The tube in the stoma projec ts outside the lumen of the bowel. There is colonic diverticulosis without diverticulitis. There is no bowel obstruction, bowel wall thickening or pericolonic/ perienteric inflammation. There is no m esenteric adenopathy, free intraperitoneal fluid or mesenteric/ omental inflammation. APPENDIX: Normal. PELVIS: The wall of the urinary bladder is thickened and there is air within the bladder lumen. The prostate gland is enlarged and heterogeneous. ABDOMINAL WALL: The left inguinal canal is patulous. There is a fat containing umbilical hernia. BONES: No fracture or osseous lesion. OTHER: Atherosclerotic calcification of the coronary arteries. IMPRESSION: 1. Left lower quadrant loop colostomy. There is no associated obstruction or bowel inf lammation. The tube in the stoma projects outside the lumen of the bowel. 2. Thickening of the urinary bladder wall and air within the bladder lumen. Clinical correlation to exclude an acute cystitis is recommended. 3. Trace left pleural effusion and area of consolidation with air bronchograms in the left lower lob e that could represent atelectasis or pneumonia. TECHNICAL DOCUMENTATION: JOB ID: [id number] Quality ID # [id number]: Final reports with documentation of one or more dose reduction techniques (e.g., Au tomated exposure control, adjustment of the mA and/or kV according to patient size, use of iterative reconstruction technique) 2010 [employer]- All Rights Reserved Reading location - IP/workstation name: [email or web address]
[2020-04-03] MEDS ORDERED: LORAZEPAM 0.5 MG TABLET PO ONE (16:35)
--- NOTE | 2020-04-03 18:24 | EKG REPORT ---
SEVERITY:- ABNORMAL ECG - ATRIAL FIBRILLATION, V-RATE 65-93 BORDERLINE LEFT AXIS DEVIATION LOW VOLTAGE IN FRONTAL LEADS BORDERLINE T ABNORMALITIES, LATERAL LEADS : Confirmed by: Davonte Bailon MD 03-Apr-2020 18:23:18
[2020-04-03 18:32] VITALS: BP 137/92
== END 2020-04-03 18:37 | disposition home or self-care (01) ==
LOC: ER 10:40
DX: R53.1 Weakness (principal); E86.0 Dehydration; R11.0 Nausea; I95.9 Hypotension, unspecified; F17.200 Nicotine dependence, unspecified, uncomplicated; I48.91 Unspecified atrial fibrillation; E78.00 Pure hypercholesterolemia, unspecified; I10 Essential (primary) hypertension; E11.9 Type 2 diabetes mellitus without complications; F41.9 Anxiety disorder, unspecified; Z88.0 Allergy status to penicillin; Z86.73 Personal history of transient ischemic attack (TIA), and cerebral infarction without residual deficits; Z93.3 Colostomy status
CPT/HCPCS: 93005; 99285; 96360; 96361; 36415; 82553; 82550; 85025; 80053; 81001; 84484; 74177; 93010; J7030; A9270

== ENCOUNTER 2020-04-06 12:56 | Observation (INO) | payer BC, MEDICARE ==
[2020-04-06] MEDS ORDERED: RINGERS LACTATED IV ONE (13:55)
[2020-04-06 14:49] LABS: VENOUS BLOOD BASE EXCESS 4.4 mmol/L; VENOUS BLOOD HCO3 30.5 mmol/L (20-32); VENOUS BLOOD PCO2 49.6 mmHg (35-63); VENOUS BLOOD PH 7.41 (7.30-7.42)
[2020-04-06 14:51] LABS: ABSOLUTE EOSINOPHILS # (AUTO) 0.5 10^3/uL (0.0-0.6); ABSOLUTE LYMPHOCYTES (AUTO) 1.7 10^3/uL (0.5-4.7); ABSOLUTE MONOCYTES (AUTO) 0.8 10^3/uL (0.1-1.4); BASOPHILS % (AUTO) 0.5 % (0-2); EOSINOPHILS % (AUTO) 5.4 % (0-6); HEMATOCRIT 38.7 % (37.9-51.0); LYMPHOCYTES % (AUTO) 18.8 % (13-45); MEAN CORPUSCULAR HEMOGLOBIN 30.5 pg (27.0-33.4); MEAN CORPUSCULAR HGB CONC 33.7 g/dL (32.0-36.0); MEAN CORPUSCULAR VOLUME 90 fl (80-97); MONOCYTES % (AUTO) 9.1 % (3-13); PLATELET COUNT 376 10^3/uL (150-450); RED BLOOD COUNT 4.28 10^6/uL (4.35-5.55); RED CELL DISTRIBUTION WIDTH 15.4 % (11.5-14.0); SEGMENTED NEUTROPHILS % (AUTO) 66.2 % (42-78); TOTAL CELLS COUNTED % (AUTO) 100 %
[2020-04-06 14:58] LABS: INTERNATIONAL RATION (INR) 2.06; PROTHROMBIN TIME 23.5 SEC (11.4-15.4)
[2020-04-06 15:10] LABS: ALBUMIN 3.3 g/dL (3.5-5.0); ALKALINE PHOSPHATASE 164 U/L (38-126); ANION GAP 8 (5-19); ASPARTATE AMINO TRANSFERASE 44 U/L (17-59); BILIRUBIN,DIRECT 0.1 mg/dL (0.0-0.4); BILIRUBIN,TOTAL 0.6 mg/dL (0.2-1.3); BLOOD UREA NITROGEN 29 mg/dL (7-20); CALCIUM 8.6 mg/dL (8.4-10.2); CARBON DIOXIDE 30 mmol/L (22-30); CHLORIDE 96 mmol/L (98-107); GLUCOSE 132 mg/dL (75-110); POTASSIUM 4.2 mmol/L (3.6-5.0); TOTAL PROTEIN 6.4 g/dL (6.3-8.2)
[2020-04-06] MEDS ORDERED: ACETAMINOPHEN 325 MG TABLET PO PRN (17:00)
[2020-04-06] MEDS ORDERED: MAGNESIUM HYDROXIDE SUSP 30 ML UDCUP PO PRN (17:00)
[2020-04-06] MEDS ORDERED: TEMAZEPAM 15 MG CAPSULE PO PRN (17:00)
--- NOTE | 2020-04-06 17:00 | ER Document Report ---
ED General - General Chief Complaint: Rectal Pain Stated Complaint: WOUND CHECK Time Seen by Provider: 04/06/20 13:39 Primary Care Provider: GERRI AGUILERA MD [Primary Care Provider] - Follow up as needed Mode of Arrival: Medic Information source: Patient TRAVEL OUTSIDE OF THE [place] IN LAST 30 DAYS: No - HPI Notes: Patient presents with acute weakness. Patient states he was recently in the hospital for a serious infection. Patient states after he was discharged in the hospital he was sent to a rehab facility. He states that he felt better and signed himself out of the rehab facility. Since he has been out of the rehab facility he has been living at home by himself but states he is too weak to move around the house and do his activities of daily living. He states he has had nausea as well and is been hard to obtain food and drink. Patient has some pain by his rectal wound but otherwise no significant pain. The pain by this wound has been constant. Is worse with touch and better if left alone. It does radiate into his buttocks and abdomen. It is sharp. It is intermittent. He states that he has not had any significant abdominal pain. He has had some vomiting. No known fevers. No known covert virus exposures. - Related Data Allergies/Adverse Reactions: Penicillins Allergy (Verified 04/03/20 12:57) Past Medical History - General Information source: Patient - Social History Smoking Status: Current Every Day Smoker Frequency of alcohol use: None Drug Abuse: None Family History: Arthritis, CAD, COPD, DM, Hyperlipidemia, Hypertension, Thyroid Disfunction - Past Medical History Cardiac Medical History: Reports: Hx Atrial Fibrillation, Hx Hypercholesterolemia, Hx Hypertension Pulmonary Medical History: Reports: Hx Asthma, Hx Bronchitis, Hx COPD Neurological Medical History: Reports: Hx Cerebrovascular Accident - 1997 Endocrine Medical History: Reports: Hx Diabetes Mellitus Type 1, Hx Diabetes Mellitus Type 2 Renal/ Medical History: Reports: Hx Benign Prostatic Hyperplasia. Denies: Hx Peritoneal Dialysis GI Medical History: Reports: Hx Gastritis, Hx Gastroesophageal Reflux Disease, Hx Ulcer, Hx Colonoscopy Musculoskeletal Medical History: Reports Hx Arthritis Psychiatric Medical History: Reports: Hx Anxiety, Hx Depression Past Surgical History: Reports: Hx Orthopedic Surgery - L Arm, Other - Lung surgery. - Immunizations Hx Diphtheria, Pertussis, Tetanus Vaccination: Yes Hx Pneumococcal Vaccination: 09/25/13 Review of Systems - Review of Systems Constitutional: Malaise, Weakness. denies: Chills, Fever Cardiovascular: denies: Chest pain, Palpitations Respiratory: denies: Cough, Short of breath -: Yes All other systems reviewed and negative Physical Exam - Vital signs Vitals: Resp BP 13 93/70 L 04/06/20 13:11 04/06/20 13:11 Interpretation: Hypotensive - General General appearance: Appears well, Alert - HEENT Head: Normocephalic, Atraumatic Eyes: Normal Pupils: PERRL - Respiratory Respiratory status: No respiratory distress Chest status: Nontender Breath sounds: Normal Chest palpation: Normal - Cardiovascular Rhythm: Regular Heart sounds: Normal auscultation Murmur: No - Abdominal Inspection: Normal Distension: No distension Bowel sounds: Normal Tenderness: Nontender Organomegaly: No organomegaly Notes: Patient has a colostomy in place. Is unremarkable. - Rectal Notes: Rectal area has a healing wound mainly on the left buttock and perineal area. There is some clear serous drainage from this wound. A foul odor was not detected. The wound itself does not appear acutely infected as I do not appreciate any acute erythema or induration. - Back Back: Normal, Nontender - Extremities General upper extremity: Normal inspection, Nontender, Normal color, Normal ROM, Normal temperature General lower extremity: Normal inspection, Nontender, Normal color, Normal ROM, Normal temperature, Normal weight bearing. No: Leon's sign - Neurological Neuro grossly intact: Yes Cognition: Normal Orientation: AAOx4 [place] Coma Scale Eye Opening: Spontaneous [place] Coma Scale Verbal: Oriented [place] Coma Scale Motor: Obeys Commands Raimundo Coma Scale Total: 15 Speech: Normal Sensory: Normal - Psychological Associated symptoms: Normal affect, Normal mood - Skin Skin Temperature: Warm Skin Moisture: Dry Skin Color: Normal, Other - Except as noted above under rectal exam Course - Re-evaluation Re-evalutation: 04/06/20 17:03 Patient presents with severe weakness. Patient lives alone and is not able to care for himself at home. I did have social work help with the case. Patient apparently does have a bed pending at hospice. But due to his dehydration he will need admission for treatment of the dehydration and assessment of the wound. - Vital Signs Vital signs: Temp Pulse Resp BP Pulse Ox 98.4 F 88 19 91/61 L 97 04/06/20 13:18 04/06/20 13:18 04/06/20 13:31 04/06/20 13:31 04/06/20 13:31 - Laboratory Result Diagrams: 04/06/20 14:15 04/06/20 14:15 Laboratory results interpreted by me: 04/06/20 04/06/20 04/06/20 14:13 14:15 14:15 RBC 4.28 L Hgb 13.0 L RDW 15.4 H PT 23.5 H Sodium Chloride BUN Creatinine Est GFR ( Amer) Est GFR (MDRD) Non-Af Glucose POC Glucose 131 H Alkaline Phosphatase Albumin 04/06/20 14:15 RBC Hgb RDW PT Sodium 134.4 L Chloride 96 L BUN 29 H Creatinine 1.93 H Est GFR ( Amer) 41 L Est GFR (MDRD) Non-Af 34 L Glucose 132 H POC Glucose Alkaline Phosphatase 164 H Albumin 3.3 L - EKG Interpretation by Me Rate: Normal - 76 Rhythm: A.Fib [place]/QRS: LAHB/LAFB Discharge - Discharge Clinical Impression: Healing wound, Weakness, Dehydration Atrial fibrillation Qualifiers: Atrial fibrillation type: longstanding persistent Qualified Code(s): I48.11 - Longstanding persistent atrial fibrillation Condition: Fair Disposition: ADMITTED OBSERVATION Admitting Provider: Reggie (Hospitalist) Unit Admitted: Medical Floor Referrals: GERRI AGUILERA MD [Primary Care Provider] - Follow up as needed
[2020-04-06 17:13] LABS: APPEARANCE,URINE SLIGHTLY-CLOUDY; BILIRUBIN,URINE NEGATIVE (NEGATIVE); COLOR,URINE YELLOW; GLUCOSE, URINE 50 mg/dL (NEGATIVE); KETONES,URINE NEGATIVE (NEGATIVE); PROTEIN,URINE NEGATIVE (NEGATIVE); URINE SPECIFIC GRAVITY 1.015; UROBILINOGEN,URINE NEGATIVE mg/dL (<2.0)
[2020-04-06] MEDS ORDERED: OXYCODONE-ACETAMINOPHEN 5-325 MG TABLET PO PRN (17:17)
[2020-04-06] MEDS ORDERED: CLONAZEPAM 1 MG TABLET PO PRN (17:18)
[2020-04-06] MEDS ORDERED: GLUCAGON,HUMAN RECOMB 1 MG INJ IM PRN (17:19)
[2020-04-06] MEDS ORDERED: DEXTROSE 40% GEL 15 GM TUBE PO PRN ×2 (17:19)
[2020-04-06] MEDS ORDERED: DEXTROSE 50%-WATER 25 GM/50 ML DISP.SYRIN IV PRN ×2 (17:19)
--- NOTE | 2020-04-06 18:28 | PDOC H&P ---
History of Present Illness Admission Date/PCP: GERRI AGUILERA MD Patient complains of: Failure to thrive History of Present Illness: JAMILA HOWELL is a 74 year old male who was discharged from [facility] on March 26, 2020. 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 He had multiple surgeries including a colostomy. The infection was polymicrobial. He was broad-spectrum antibiotic therapy. He in fact was transferred to [facility] to maximize recovery in light of complex wound care critical illness weakness. Unfortunately patient was there for 3 days and signed himself out AGAINST MEDICAL ADVICE. He has a history of COPD as well as lung cancer. He has history of atrial fibrillation, hyperlipidemia and hypertension. He has diabetes mellitus, BPH and esophageal reflux. Osteoarthritis consistent with his age and history of depression. He continues to smoke "several packs a day ". After signing himself out AGAINST MEDICAL ADVICE he went home. He states that he has not been able to do much. He lays in bed all day because of his worsening weakness. His appetite is fair. He believes that he had a home health nurse helping with dressing changes but this is unlikely since there is no dressing in the wound and there is yellow mucoid drainage. He states that he occasionally gets lightheaded. He has no discomfort from the wound. Evaluation in the emergency department reveals WBC equals 9, hemoglobin equals 13 and platelet count of 376K. INR is therapeutic at 2.06. Electrolytes are mostly remarkable for an acute kidney injury with a BUN of 29 but his creatinine is 1.93. At the time of discharge from this facility his serum creatinine back was normal. Blood and urine cultures have been submitted. The patient will be admitted to observation status for his acute kidney injury. In addition we will resume wound care. We will continue his other medications including antihypertensives, statins, pain medication and medication for his benign prostatic hyperplasia. Past Medical History Cardiac Medical History: Reports: Atrial Fibrillation, Hyperlipidema, Hypertension Pulmonary Medical History: Reports: Asthma, Bronchitis, Chronic Obstructive Pulmonary Disease (COPD) Neurological Medical History: Denies: Ischemic CVA, Seizures Endocrine Medical History: Reports: Diabetes Mellitus Type 2 Renal/ Medical History: Denies: Chronic Kidney Disease Malignancy Medical History: Reports: Lung Cancer GI Medical History: Reports: Gastroesophageal Reflux Disease, Other - Colostomy (due to necrotizing fasciitis of the perineum) Musculoskeltal Medical History: Reports: Arthritis Psychiatric Medical History: Reports: Depression, Tobacco Dependency Hematology: Denies: Hemophilia, Bleeding Tendencies, Heparin Induced Thrombocytopenia Past Surgical History Past Surgical History: Reports: Colostomy, Orthopedic Surgery - L Arm, Other - Lung surgery. Aggressive debridement of the perineum Social History Information Source: Patient, [facility] Records Lives with: Alone - Family is in [place] Smoking Status: Current Every Day Smoker Cigarettes Packs Per Day: 2 Electronic Cigarette use?: No Frequency of Alcohol Use: Social Hx Recreational Drug Use: No Drugs: None Hx Prescription Drug Abuse: No - Advance Directive Resuscitation Status: Do Not Resuscitate Surrogate healthcare decision maker:: The patient is several of his daughter would be the decision maker. Family History Family History: Arthritis, CAD, COPD, DM, Hyperlipidemia, Hypertension, Thyroid Disfunction, Other - Alcoholism Parental Family History Reviewed: Yes Children Family History Reviewed: Yes Sibling(s) Family History Reviewed.: Yes Medication/Allergy Home Medications: Alfuzosin HCl [Alfuzosin HCl ER] 10 mg PO DAILY 03/10/20 Atorvastatin Calcium [Lipitor 40 mg Tablet] 40 mg PO QHS 03/10/20 Ferrous Sulfate [Feosol 325 mg Tablet] 325 mg PO DAILY 03/10/20 Finasteride [Proscar 5 mg Tablet] 5 mg PO DAILY 03/10/20 Lamotrigine 100 mg PO DAILY 03/10/20 Primidone [Mysoline 50 mg Tablet] 50 mg PO QHS 03/10/20 Warfarin Sodium [Coumadin 5 mg Tablet] 5 mg PO MOWEFR@219903/10/20 Warfarin Sodium [Coumadin 5 mg Tablet] 7.5 mg PO SUTUTHSA@219903/10/20 Acetaminophen [Tylenol 325 mg Tablet] 650 mg PO Q4HP PRN tablet 03/26/20 Clonazepam [Klonopin 1 mg Tablet] 1 mg PO Q8HP PRN #12 tablet 03/26/20 Docusate Sodium [Colace 100 mg Capsule] 200 mg PO BID capsule 03/26/20 Fluticasone/Umeclidin/Vilanter [Trelegy 100-62.5-25 Mcg Ellipta 14 Dose/Dpi] 1 inh IH DAILY #1 inhaler 03/26/20 Guaifenesin/D-Methorphan Hb [Robitussin-Dm Syrup 10 ml Udcup] 10 ml PO QIDP PRN syrup 03/26/20 Insulin Glargine,Hum.rec.anlog [Lantus Insulin 100 Unit/1 ml 10 ml] 13 unit SUBCUT Q12 #1 vial 03/26/20 Insulin Lispro [Humalog Insulin (Lispro) 100 unit/mL] 0 - 12 unit SUBCUT ACHS #1 vial 03/26/20 Insulin Lispro [Humalog Insulin (Lispro) 100 unit/mL] 5 unit SUBCUT AC #1 vial 03/26/20 Lisinopril [Prinivil 5 mg Tablet] 5 mg PO DAILY #60 tablet 03/26/20 Metoprolol Succinate [Toprol Xl 50 mg Tab.sr] 50 mg PO DAILY #30 tab.sr.24h 03/26/20 Nicotine [Nicoderm 21 mg/24 Hr Transderm Patch] 1 each TD DAILY #30 patch.td24 03/26/20 Oxycodone HCl/Acetaminophen [Percocet 5-325 mg Tablet] 1 tab PO Q6HP PRN #12 tablet 03/26/20 Allergies/Adverse Reactions: Penicillins Allergy (Verified 04/03/20 12:57) Review of Systems All systems: reviewed and no additional remarkable complaints except as stated Constitutional: PRESENT: fatigue, weakness Nose, Mouth, and Throat: PRESENT: other - Dry mouth Cardiovascular: PRESENT: edema Genitourinary: PRESENT: nocturia Integumentary: PRESENT: wounds - Open wound and perineum Neurological: PRESENT: weakness Psychiatric: PRESENT: depression Physical Exam Vital Signs: Temp Pulse Resp BP Pulse Ox 98.4 F 88 19 91/61 L 97 04/06/20 13:18 04/06/20 13:18 04/06/20 13:31 04/06/20 13:31 04/06/20 13:31 Intake & Output 04/05/20 04/06/20 04/07/20 06:59 06:59 06:59 Weight 81.647 kg General appearance: PRESENT: cooperative, mild distress, well-developed Head exam: PRESENT: atraumatic, normocephalic Eye exam: PRESENT: conjunctiva pink, EOMI. ABSENT: scleral icterus Ear exam: PRESENT: normal external ear exam. ABSENT: bleeding, drainage Mouth exam: PRESENT: dry mucosa, neck supple, tongue midline Neck exam: ABSENT: carotid bruit, JVD, lymphadenopathy Respiratory exam: PRESENT: clear to auscultation vannessa, symmetrical, unlabored. ABSENT: accessory muscle use, prolonged expiratory phas, rales, rhonchi, stridor, tachypnea, wheezes Cardiovascular exam: PRESENT: RRR, +S1, +S2. ABSENT: diastolic murmur, irregular rhythm, systolic murmur Pulses: PRESENT: normal radial pulses, +1 pedal pulses bilateral GI/Abdominal exam: PRESENT: normal bowel sounds, soft, other - Left lower quadrant colostomy. ABSENT: distended, guarding, tenderness Rectal exam: PRESENT: deferred, other - Colostomy present Gentrourinary exam: ABSENT: indwelling catheter Extremities exam: PRESENT: pedal edema Musculoskeletal exam: PRESENT: normal inspection Neurological exam: PRESENT: alert, awake, oriented to person, oriented to place, oriented to situation, CN II-XII grossly intact. ABSENT: altered Psychiatric exam: PRESENT: flat affect. ABSENT: agitated, anxious Focused psych exam: PRESENT: other - Exhibits inability to provide accurate da cristhian of recent events. States that he was homesick for months. Recall being in the hospital and transferring to the LTAC.. ABSENT: delusional, paranoid, restlessness Skin exam: PRESENT: dry, normal color, warm, other - Exam was somewhat limited. But the patient in the left lateral decubitus position I was able to observe the perineal wound. There is a lot of yellow mucoid drainage. There is no particularly foul odor. The patient's legs were together and the wound was somewhat closed. From the limited visualization it appeared that there is granulation tissue that was partially covering the open wound.. ABSENT: pallor, rash Results Laboratory Results: 04/06/20 14:15 04/06/20 14:15 04/06/20 04/06/20 04/06/20 14:15 14:15 14:15 WBC 9.0 RBC 4.28 L Hgb 13.0 L Hct 38.7 MCV 90 MCH 30.5 MCHC 33.7 RDW 15.4 H Plt Count 376 Seg Neutrophils % 66.2 VBG pH 7.41 VBG pCO2 49.6 VBG HCO3 30.5 VBG Base Excess 4.4 Sodium 134.4 L Potassium 4.2 Chloride 96 L Carbon Dioxide 30 Anion Gap 8 BUN 29 H Creatinine 1.93 H Est GFR ( Amer) 41 L Glucose 132 H Lactic Acid Calcium 8.6 Total Bilirubin 0.6 AST 44 Alkaline Phosphatase 164 H Total Protein 6.4 Albumin 3.3 L Urine Color Urine Appearance Urine pH Ur Specific [place] Urine Protein Urine Glucose (UA) Urine Ketones Urine Blood Urine RBC (Auto) 04/06/20 04/06/20 04/06/20 14:15 16:26 16:47 WBC RBC Hgb Hct MCV MCH MCHC RDW Plt Count Seg Neutrophils % VBG pH VBG pCO2 VBG HCO3 VBG Base Excess Sodium Potassium Chloride Carbon Dioxide Anion Gap BUN Creatinine Est GFR ( Amer) Glucose Lactic Acid 1.6 1.5 Calcium Total Bilirubin AST Alkaline Phosphatase Total Protein Albumin Urine Color YELLOW Urine Appearance SLIGHTLY-CLOUDY Urine pH 5.0 Ur Specific [place] 1.015 Urine Protein NEGATIVE Urine Glucose (UA) 50 H Urine Ketones NEGATIVE Urine Blood NEGATIVE Urine RBC (Auto) 1 04/06/20 14:15 Troponin I < 0.012 Assessment and Plan - Diagnosis (1) Adult failure to thrive Is this a current diagnosis for this admission?: Yes Plan: The patient will be admitted to observation status. He will be given IV fluids for his dehydration. He will be on a cardiac diabetic diet. I will try and arrange for low glucose protein supplements. He will also be started on vitamins. I will have physical therapy assess the patient as he may require a walker for safety when ambulating. I have also ordered stress dose of Solu- Cortef. (2) ALEYDA (acute kidney injury) Is this a current diagnosis for this admission?: Yes Plan: Likely secondary to dehydration as the patient has proven unable to care for himself living alone. Fluid resuscitation. Monitor response of renal function to IV fluids. A creatinine of 1.93 technically meets the minimum standard for sepsis. I believe his abnormal creatinine and blood pressure (low but map 71) are more related to his dehydration. (3) Dehydration Is this a current diagnosis for this admission?: Yes Plan: Plan as above (4) Wound healing, delayed Is this a current diagnosis for this admission?: Yes Plan: The patient states that he was not able to provide any wound care for himself. In fact there is no dressing on the wound. The yellow mucoid discharge indicates substandard wound care. We will use Dakin's solution initially to clean up the wound bed thoroughly. We will then initiate saline wet-to-dry. (5) Longstanding persistent atrial fibrillation Is this a current diagnosis for this admission?: Yes Plan: Currently with good rate control. Continue metoprolol and warfarin. (6) Diabetes mellitus type 2, insulin dependent Is this a current diagnosis for this admission?: Yes Plan: Diabetic diet. Continue Lantus. Sliding scale. Will need to adjust for stress dose of Solu-Cortef. (7) Essential hypertension Is this a current diagnosis for this admission?: Yes Plan: Blood pressures are soft with map just over 70. We will continue IV fluids. Will hold lisinopril especially due to her acute kidney injury. (8) Chronic obstructive pulmonary disease Qualifiers: COPD type: COPD with acute exacerbation Qualified Code(s): J44.1 - Chronic obstructive pulmonary disease with (acute) exacerbation Is this a current diagnosis for this admission?: Yes Plan: Continue Trelegy inhaler (9) Depression Qualifiers: Depression Type: unspecified Qualified Code(s): F32.9 - Major depressive disorder, single episode, unspecified Is this a current diagnosis for this admission?: Yes Plan: Continue Lamictal (10) Tobacco dependence due to cigarettes Is this a current diagnosis for this admission?: Yes Plan: Nicotine patch (11) Weakness Is this a current diagnosis for this admission?: Yes Plan: Should improve with better oral intake and correction of dehydration (12) Noncompliance with treatment plan Is this a current diagnosis for this admission?: Yes Plan: It is unfortunate that the patient left the LTAC AGAINST MEDICAL ADVICE. He has not had any wound care at home. It is unknown if he has been compliant with his medications. With such as severe infection requiring very aggressive surgery and a colostomy compliance is essential. (13) Chronic anticoagulation Is this a current diagnosis for this admission?: Yes Plan: Warfarin protocol - Plan Summary Summary: Unfortunately the patient left AMA from the LTAC. He was transferred there to maximize recovery from a severe perineal necrotizing fasciitis requiring ag gressive surgical debridement and colostomy. He has been home for about 1 week. He states that he cannot take care of himself. He states that he is quite weak. He does not get out of bed. He kept repeating that he has to learn how to walk again. He has not been taking care of his wound so there have been no dressing changes in an area lady with bacteria. It is clear that the patient is unable to care for himself while living alone. His daughter is visiting from [place]. I was informed by the emergency department social organization professor that the plan is for the patient's daughter to take him back to [place] and pursue hospice care in [place]. Arrangements are being made for enrollment in hospice program near the daughter's place of residence. It is likely that the patient will be able to discharge as soon as he is accepted at hospice sensible take approximately 2 days travel to get to his daughter's place of residence. - Time Time Spent with patient: 35 or more minutes Smoking Cessation Education: 3 to 10 minutes Medications reviewed and adjusted accordingly: Yes Anticipated discharge: Hospice - In [place] where his daughter lives Within: within 48 hours
[2020-04-06 20:48] LABS: HEMATOCRIT 37.6 % (37.9-51.0); HEMOGLOBIN 12.8 g/dL (13.5-17.0); MEAN CORPUSCULAR HEMOGLOBIN 30.9 pg (27.0-33.4); MEAN CORPUSCULAR HGB CONC 34.1 g/dL (32.0-36.0); MEAN CORPUSCULAR VOLUME 91 fl (80-97); PLATELET COUNT 355 10^3/uL (150-450); RED BLOOD COUNT 4.15 10^6/uL (4.35-5.55); RED CELL DISTRIBUTION WIDTH 15.2 % (11.5-14.0); WHITE BLOOD COUNT 7.1 10^3/uL (4.0-10.5)
[2020-04-06] MEDS ORDERED: RINGERS SOLUTION,LACTATED 1,000 ML IV PRN ×2 (21:00)
[2020-04-06] MEDS: ATORVASTATIN CALCIUM 40 MG TABLET PO SCH (21:19)
[2020-04-06] MEDS: TAMSULOSIN HCL 0.4 MG CAP.SR.24H PO SCH (21:19)
[2020-04-06] MEDS: DOCUSATE SODIUM 100 MG CAPSULE PO SCH (21:19)
[2020-04-06] MEDS ORDERED: INSULIN GLARGINE,HUM.REC.ANLOG 1,000 UNIT/10 ML VIAL (PYX) SUBCUT ONE (21:27)
[2020-04-06] MEDS: INSULIN GLARGINE,HUM.REC.ANLOG 1,000 UNIT/10 ML VIAL SUBCUT SCH (21:29)
[2020-04-06] MEDS: INSULIN LISPRO 100 UNIT/ML 3 ML VIAL SUBCUT SCH (21:30)
[2020-04-06] MEDS ORDERED: WARFARIN SODIUM 5 MG TABLET PO SCH (22:00)
[2020-04-07] MEDS ORDERED: SODIUM HYPOCHLORITE 0.25% SOLN 473 ML BOTTLE ONE (02:17)
[2020-04-07] MEDS: SODIUM HYPOCHLORITE 0.25% SOLN 473 ML BOTTLE TP SCH ×2 (06:03→09:36)
[2020-04-07 06:42] LABS: INTERNATIONAL RATION (INR) 2.22
[2020-04-07] MEDS: INSULIN LISPRO 100 UNIT/ML 3 ML VIAL SUBCUT SCH ×4 (07:37→22:02)
[2020-04-07 08:44] LABS: ABSOLUTE EOSINOPHILS # (AUTO) 0.6 10^3/uL (0.0-0.6); ABSOLUTE LYMPHOCYTES (AUTO) 1.6 10^3/uL (0.5-4.7); ABSOLUTE MONOCYTES (AUTO) 0.7 10^3/uL (0.1-1.4); ABSOLUTE NEUT (AUTO) 4.2 10^3/uL (1.7-8.2); BASOPHILS % (AUTO) 0.6 % (0-2); EOSINOPHILS % (AUTO) 8.1 % (0-6); HEMATOCRIT 36.9 % (37.9-51.0); HEMOGLOBIN 12.5 g/dL (13.5-17.0); LYMPHOCYTES % (AUTO) 22.6 % (13-45); MEAN CORPUSCULAR HEMOGLOBIN 30.4 pg (27.0-33.4); MEAN CORPUSCULAR HGB CONC 33.8 g/dL (32.0-36.0); MEAN CORPUSCULAR VOLUME 90 fl (80-97); MONOCYTES % (AUTO) 9.6 % (3-13); PLATELET COUNT 358 10^3/uL (150-450); RED CELL DISTRIBUTION WIDTH 15.4 % (11.5-14.0); SEGMENTED NEUTROPHILS % (AUTO) 59.1 % (42-78); TOTAL CELLS COUNTED % (AUTO) 100 %; WHITE BLOOD COUNT 7.2 10^3/uL (4.0-10.5)
[2020-04-07 08:49] LABS: ALBUMIN 2.7 g/dL (3.5-5.0); ALKALINE PHOSPHATASE 145 U/L (38-126); ANION GAP 7 (5-19); ASPARTATE AMINO TRANSFERASE 49 U/L (17-59); BILIRUBIN,TOTAL 0.6 mg/dL (0.2-1.3); BLOOD UREA NITROGEN 23 mg/dL (7-20); CALCIUM 8.4 mg/dL (8.4-10.2); CARBON DIOXIDE 29 mmol/L (22-30); CHLORIDE 100 mmol/L (98-107); GLUCOSE 114 mg/dL (75-110); TOTAL PROTEIN 5.7 g/dL (6.3-8.2)
[2020-04-07] MEDS: DOCUSATE SODIUM 100 MG CAPSULE PO SCH ×2 (09:33→17:04)
[2020-04-07] MEDS: NICOTINE 21 MG/24 HR PATCH.TD24 TD SCH (09:33)
[2020-04-07] MEDS: VITAMIN B COMPLEX TABLET PO SCH (09:34)
[2020-04-07] MEDS: FERROUS SULFATE 325 MG TABLET PO SCH (09:34)
[2020-04-07] MEDS: FINASTERIDE 5 MG TABLET PO SCH (09:35)
[2020-04-07] MEDS: PRIMIDONE 50 MG TABLET PO SCH (09:35)
[2020-04-07] MEDS: ASCORBIC ACID 500 MG TABLET PO SCH ×2 (09:35→17:05)
[2020-04-07] MEDS: MULTIVITAMIN TABLET PO SCH (09:35)
[2020-04-07] MEDS: ZINC SULFATE 220 MG CAPSULE PO SCH (09:35)
[2020-04-07] MEDS: INSULIN GLARGINE,HUM.REC.ANLOG 1,000 UNIT/10 ML VIAL SUBCUT SCH ×2 (09:36→22:02)
[2020-04-07] MEDS: FLUTICASONE/UMECLIDIN/VILANTER 100-62.5-25 MCG/DOSE IH SCH (09:37)
[2020-04-07] MEDS: LAMOTRIGINE 100 MG TABLET PO SCH (09:42)
[2020-04-07] MEDS ORDERED: ENOXAPARIN SODIUM INJ 40 MG/0.4 ML DISP.SYRIN SUBCUT SCH (10:00)
[2020-04-07] MEDS ORDERED: HYDROCORTISONE SOD SUCCINATE INJ/PF 100 MG/2 ML SDV IV SCH (10:00)
[2020-04-07] MEDS ORDERED: METOPROLOL SUCCINATE 50 MG TAB.SR.24H PO SCH ×2 (10:00)
--- NOTE | 2020-04-07 13:36 | PDOC PROGRESS REPORT ---
Subjective Progress Note for:: 04/07/20 Subjective:: 74 year old male who was discharged from [facility] on March 26, 2020. 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 He had multiple surgeries including a colostomy. The infection was polymicrobial. He was broad-spectrum antibiotic therapy. He in fact was transferred to [facility] to maximize recovery in light of complex wound care critical illness weakness. Unfortunately patient was there for 3 days and signed himself out AGAINST MEDICAL ADVICE. He has a history of COPD as well as lung cancer. He has history of atrial fibrillation, hyperlipidemia and hypertension. He has diabetes mellitus, BPH and esophageal reflux. Osteoarthritis consistent with his age and history of depression. He continues to smoke "several packs a day ". After signing himself out AGAINST MEDICAL ADVICE he went home. He states that he has not been able to do much. He lays in bed all day because of his worsening weakness. His appetite is fair. He believes that he had a home health nurse helping with dressing changes but this is unlikely since there is no dressing in the wound and there is yellow mucoid drainage. He states that he occasionally gets lightheaded. He has no discomfort from the wound. Evaluation in the emergency department reveals WBC equals 9, hemoglobin equals 13 and platelet count of 376K. INR is therapeutic at 2.06. Electrolytes are mostly remarkable for an acute kidney injury with a BUN of 29 but his creatinine is 1.93. At the time of discharge from this facility his serum creatinine back was normal. Blood and urine cultures have been submitted. The patient will be admitted to observation status for his acute kidney injury. In addition we will resume wound care. We will continue his other medications including antihypertensives, statins, pain medication and medication for his benign prostatic hyperplasia. 04/07/2020-patient is comfortably in the bed eating request. Patient is requesting physical therapy and complaining is unable to walk. He wants to stay at least 3 to 4 days until strength comes back. PT consult was requested. Reason For Visit: DEHYDRATION,NON COMPLIANCE WITH WOUND CARE,WEAKNES Physical Exam Vital Signs: Temp Pulse Resp BP Pulse Ox 97.6 F 79 12 108/70 95 04/07/20 06:14 04/07/20 06:14 04/07/20 06:14 04/07/20 06:14 04/07/20 06:14 Intake & Output 04/06/20 04/07/20 04/08/20 06:59 06:59 06:59 Intake Total 2450 260 Output Total 600 Balance 1850 260 Weight 81.647 kg General appearance: PRESENT: no acute distress, cooperative, well-developed Head exam: PRESENT: atraumatic Eye exam: PRESENT: PERRLA Ear exam: PRESENT: normal external ear exam Teeth exam: PRESENT: poor dentation Neck exam: ABSENT: carotid bruit, JVD, lymphadenopathy, thyromegaly Respiratory exam: PRESENT: decreased breath sounds Cardiovascular exam: PRESENT: irregular rhythm, systolic murmur, tachycardia Pulses: PRESENT: normal dorsalis pedis pul GI/Abdominal exam: PRESENT: normal bowel sounds, soft. ABSENT: distended, guarding, mass, organolmegaly, rebound, tenderness Rectal exam: PRESENT: deferred Extremities exam: PRESENT: full ROM. ABSENT: calf tenderness, clubbing, pedal edema Neurological exam: PRESENT: alert, awake, oriented to person, oriented to place, oriented to time, oriented to situation, CN II-XII grossly intact. ABSENT: motor sensory deficit Psychiatric exam: PRESENT: appropriate affect, normal mood. ABSENT: homicidal ideation, suicidal ideation Skin exam: PRESENT: other - Patient has. Annual wound with the dressing. Presently receiving Dakin's dressing. Results Laboratory Results: 04/07/20 05:34 04/07/20 05:34 04/06/20 04/06/20 04/06/20 14:15 14:15 14:15 WBC 9.0 RBC 4.28 L Hgb 13.0 L Hct 38.7 MCV 90 MCH 30.5 MCHC 33.7 RDW 15.4 H Plt Count 376 Seg Neutrophils % 66.2 VBG pH 7.41 VBG pCO2 49.6 VBG HCO3 30.5 VBG Base Excess 4.4 Sodium 134.4 L Potassium 4.2 Chloride 96 L Carbon Dioxide 30 Anion Gap 8 BUN 29 H Creatinine 1.93 H Est GFR ( Amer) 41 L Glucose 132 H Lactic Acid Calcium 8.6 Magnesium Total Bilirubin 0.6 AST 44 Alkaline Phosphatase 164 H Total Protein 6.4 Albumin 3.3 L Urine Color Urine Appearance Urine pH Ur Specific Villard Urine Protein Urine Glucose (UA) Urine Ketones Urine Blood Urine RBC (Auto) 04/06/20 04/06/20 04/06/20 14:15 16:26 16:47 WBC RBC Hgb Hct MCV MCH MCHC RDW Plt Count Seg Neutrophils % VBG pH VBG pCO2 VBG HCO3 VBG Base Excess Sodium Potassium Chloride Carbon Dioxide Anion Gap BUN Creatinine Est GFR ( Amer) Glucose Lactic Acid 1.6 1.5 Calcium Magnesium Total Bilirubin AST Alkaline Phosphatase Total Protein Albumin Urine Color YELLOW Urine Appearance SLIGHTLY-CLOUDY Urine pH 5.0 Ur Specific Villard 1.015 Urine Protein NEGATIVE Urine Glucose (UA) 50 H Urine Ketones NEGATIVE Urine Blood NEGATIVE Urine RBC (Auto) 1 04/06/20 04/07/20 04/07/20 20:39 05:34 05:34 WBC 7.1 7.2 RBC 4.15 L 4.10 L Hgb 12.8 L 12.5 L Hct 37.6 L 36.9 L MCV 91 90 MCH 30.9 30.4 MCHC 34.1 33.8 RDW 15.2 H 15.4 H Plt Count 355 358 Seg Neutrophils % 59.1 VBG pH VBG pCO2 VBG HCO3 VBG Base Excess Sodium 136.1 L Potassium 4.0 Chloride 100 Carbon Dioxide 29 Anion Gap 7 BUN 23 H Creatinine 1.34 H Est GFR ( Amer) > 60 Glucose 114 H Lactic Acid Calcium 8.4 Magnesium 1.5 L Total Bilirubin 0.6 AST 49 Alkaline Phosphatase 145 H Total Protein 5.7 L Albumin 2.7 L Urine Color Urine Appearance Urine pH Ur Specific Villard Urine Protein Urine Glucose (UA) Urine Ketones Urine Blood Urine RBC (Auto) 04/06/20 14:15 Troponin I < 0.012 Assessment and Plan - Diagnosis (1) Adult failure to thrive Is this a current diagnosis for this admission?: Yes Plan: The patient will be admitted to observation status. He will be given IV fluids for his dehydration. He will be on a cardiac diabetic diet. I will try and arrange for low glucose protein supplements. He will also be started on vitamins. I will have physical therapy assess the patient as he may require a walker for safety when ambulating. I have also ordered stress dose of Solu- Cortef. 04/07/2020-patient is eating well. Blood pressure is 110/70. Stable. Plan is to discontinue IV fluids from today. To discontinue hydrocortisone from today. (2) ALEYDA (acute kidney injury) Is this a current diagnosis for this admission?: Yes Plan: Likely secondary to dehydration as the patient has proven unable to care for himself living alone. Fluid resuscitation. Monitor response of renal function to IV fluids. A creatinine of 1.93 technically meets the minimum standard for sepsis. I believe his abnormal creatinine and blood pressure (low but map 71) are more related to his dehydration. 04/07/2020-patient came in with serum creatinine 1.93 with IV fluids improved to 1.34. Acute on chronic kidney injury resolving. (3) Dehydration Is this a current diagnosis for this admission?: Yes Plan: Plan as above (4) Wound healing, delayed Is this a current diagnosis for this admission?: Yes Plan: The patient states that he was not able to provide any wound care for himself. In fact there is no dressing on the wound. The yellow mucoid discharge indicates substandard wound care. We will use Dakin's solution initially to clean up the wound bed thoroughly. We will then initiate saline wet-to-dry. (5) Diabetes mellitus type 2, insulin dependent Is this a current diagnosis for this admission?: No Plan: Diabetic diet. Continue Lantus. Sliding scale. Will need to adjust for stress dose of Solu-Cortef. 03/26/2020-2 discontinue IV hydrocortisone from today's blood sugar around 124. His appetite is good. Plan is to continue insulin sliding scale and Lantus at this time. (6) Longstanding persistent atrial fibrillation Is this a current diagnosis for this admission?: No Plan: Currently with good rate control. Continue metoprolol and warfarin. 04/07/2020-patient is on warfarin for longstanding atrial fibrillation INR today is 2.22 stable. (7) Essential hypertension Is this a current diagnosis for this admission?: No Plan: Blood pressures are soft with map just over 70. We will continue IV fluids. Will hold lisinopril especially due to her acute kidney injury. 04/07/2020-latest blood pressure is 110/70 stable. (8) Chronic anticoagulation Is this a current diagnosis for this admission?: Yes Plan: Warfarin protocol (9) Noncompliance with treatment plan Is this a current diagnosis for this admission?: Yes Plan: It is unfortunate that the patient left the LT[facility] AGAINST MEDICAL ADVICE. He has not had any wound care at home. It is unknown if he has been compliant with his medications. With such as severe infection requiring very aggressive surgery and a colostomy compliance is essential. (10) Chronic obstructive pulmonary disease Qualifiers: COPD type: COPD with acute exacerbation Qualified Code(s): J44.1 - Chronic obstructive pulmonary disease with (acute) exacerbation Is this a current diagnosis for this admission?: No Plan: Continue Trelegy inhaler - Plan Summary Summary: Unfortunately the patient left AMA from the LTAC. He was transferred there to maximize recovery from a severe perineal necrotizing fasciitis requiring aggressive surgical debridement and colostomy. He has been home for about 1 week. He states that he cannot take care of himself. He states that he is quite weak. He does not get out of bed. He kept repeating that he has to learn how to walk again. He has not been taking care of his wound so there have been no dressing changes in an area lady with bacteria. It is clear that the patient is unable to care for himself while living alone. His daughter is visiting from [place]. I was informed by the emergency department social worker psychiatric that the plan is for the patient's daughter to take him back to [place] and pursue hospice care in [place]. Arrangements are being made for enrollment in hospice program near the daughter's place of residence. It is likely that the patient will be able to discharge as soon as he is accepted at hospice sensible take approximately 2 days travel to get to his daughter's place of residence.
--- NOTE | 2020-04-07 14:29 | EKG REPORT ---
SEVERITY:- ABNORMAL ECG - ATRIAL FIBRILLATION, V-RATE 70-97 LEFT ANTERIOR FASCICULAR BLOCK NONSPECIFIC REPOL ABNORMALITY, DIFFUSE LEADS BORDERLINE PROLONGED QT INTERVAL : Confirmed by: Kameron Mendoza MD 07-Apr-2020 14:28:57
[2020-04-07] MEDS: TAMSULOSIN HCL 0.4 MG CAP.SR.24H PO SCH (17:05)
[2020-04-07] MEDS ORDERED: WARFARIN SODIUM 7.5 MG TABLET PO SCH (22:00)
[2020-04-07] MEDS: ATORVASTATIN CALCIUM 40 MG TABLET PO SCH (22:01)
[2020-04-08 06:04] LABS: INTERNATIONAL RATION (INR) 2.06; PROTHROMBIN TIME 23.6 SEC (11.4-15.4)
[2020-04-08] MEDS: INSULIN LISPRO 100 UNIT/ML 3 ML VIAL SUBCUT SCH ×2 (07:54→11:30)
[2020-04-08] MEDS ORDERED: INSULIN GLARGINE,HUM.REC.ANLOG 1,000 UNIT/10 ML VIAL SUBCUT SCH (10:00)
[2020-04-08] MEDS: PRIMIDONE 50 MG TABLET PO SCH (10:51)
[2020-04-08] MEDS: ZINC SULFATE 220 MG CAPSULE PO SCH (10:51)
[2020-04-08] MEDS: DOCUSATE SODIUM 100 MG CAPSULE PO SCH (10:51)
[2020-04-08] MEDS: FERROUS SULFATE 325 MG TABLET PO SCH (10:51)
[2020-04-08] MEDS: MULTIVITAMIN TABLET PO SCH (10:51)
[2020-04-08] MEDS: FINASTERIDE 5 MG TABLET PO SCH (10:51)
[2020-04-08] MEDS: VITAMIN B COMPLEX TABLET PO SCH (10:51)
[2020-04-08] MEDS: ASCORBIC ACID 500 MG TABLET PO SCH (10:51)
[2020-04-08] MEDS: LAMOTRIGINE 100 MG TABLET PO SCH (10:52)
[2020-04-08] MEDS: SODIUM HYPOCHLORITE 0.25% SOLN 473 ML BOTTLE TP SCH (10:52)
[2020-04-08] MEDS: NICOTINE 21 MG/24 HR PATCH.TD24 TD SCH (10:52)
[2020-04-08] MEDS: FLUTICASONE/UMECLIDIN/VILANTER 100-62.5-25 MCG/DOSE IH SCH (10:52)
[2020-04-08 12:56] VITALS: BP 121/66
--- NOTE | 2020-04-08 14:56 | PDOC DISCHARGE SUMMARY ---
Impression - Admit/DC Date/PCP Admission Date/Primary Care Provider: 04/06/20 17:13 GERRI AGUILERA MD Discharge Date: 04/08/20 - Discharge Diagnosis (1) Adult failure to thrive Is this a current diagnosis for this admission?: Yes (2) ALEYDA (acute kidney injury) Is this a current diagnosis for this admission?: Yes (3) Dehydration Is this a current diagnosis for this admission?: Yes (4) Wound healing, delayed Is this a current diagnosis for this admission?: Yes (5) Diabetes mellitus type 2, insulin dependent Is this a current diagnosis for this admission?: No (6) Longstanding persistent atrial fibrillation Is this a current diagnosis for this admission?: No (7) Essential hypertension Is this a current diagnosis for this admission?: No (8) Chronic anticoagulation Is this a current diagnosis for this admission?: Yes (9) Noncompliance with treatment plan Is this a current diagnosis for this admission?: Yes (10) Chronic obstructive pulmonary disease Is this a current diagnosis for this admission?: No - Assessment Summary: (1) Adult failure to thrive Is this a current diagnosis for this admission?: Yes Plan: The patient will be admitted to observation status. He will be given IV fluids for his dehydration. He will be on a cardiac diabetic diet. I will try and arrange for low glucose protein supplements. He will also be started on vitamins. I will have physical therapy assess the patient as he may require a walker for safety when ambulating. I have also ordered stress dose of Solu- Cortef. 04/07/2020-patient is eating well. Blood pressure is 110/70. Stable. Plan is to discontinue IV fluids from today. To discontinue hydrocortisone from today. 04/08/2020-patient blood pressures are stable during the hospital stay. This morning blood pressure is 120/66. Patient is appetite is good. Dietary consult was done during the hospital stay. (2) ALEYDA (acute kidney injury) Is this a current diagnosis for this admission?: Yes Plan: Likely secondary to dehydration as the patient has proven unable to care for himself living alone. Fluid resuscitation. Monitor response of renal function to IV fluids. A creatinine of 1.93 technically meets the minimum standard for sepsis. I believe his abnormal creatinine and blood pressure (low but map 71) are more related to his dehydration. 04/07/2020-patient came in with serum creatinine 1.93 with IV fluids improved to 1.34. Acute on chronic kidney injury resolving. 04/08/2020-came in with serum creatinine 1.9 improved to 1.34 with IV fluids. ALEYDA resolving. (3) Dehydration Is this a current diagnosis for this admission?: Yes Plan: Plan as above 04/08/2020-with IV fluids blood pressures improved. Dehydration resolved. Acute kidney injury resolving (4) Wound healing, delayed Is this a current diagnosis for this admission?: Yes Plan: The patient states that he was not able to provide any wound care for himself. In fact there is no dressing on the wound. The yellow mucoid discharge indicates substandard wound care. We will use Dakin's solution initially to clean up the wound bed thoroughly. We will then initiate saline wet-to-dry. 04/08/2020-wound cultures came back positive mixed skin. Afebrile. Blood cultures are negative. (5) Diabetes mellitus type 2, insulin dependent Is this a current diagnosis for this admission?: No Plan: Diabetic diet. Continue Lantus. Sliding scale. Will need to adjust for stress dose of Solu-Cortef. -2 discontinue IV hydrocortisone from today's blood sugar around 124. His appetite is good. Plan is to continue insulin sliding scale and Lantus at this time. 04/08/2020-patient blood sugar today is 347. Patient is advised to continue Lantus and insulin sliding scale at home. (6) Longstanding persistent atrial fibrillation Is this a current diagnosis for this admission?: No Plan: Currently with good rate control. Continue metoprolol and warfarin. 04/07/2020-patient is on warfarin for longstanding atrial fibrillation INR today is 2.22 stable. 04/08/2020-patient is on warfarin at home INR today is 2.06 within therapeutic range. (7) Essential hypertension Is this a current diagnosis for this admission?: No Plan: Blood pressures are soft with map just over 70. We will continue IV fluids. Will hold lisinopril especially due to her acute kidney injury. 04/07/2020-latest blood pressure is 110/70 stable. 04/08/2020-blood pressure today is 120/66. Stable. (8) Chronic anticoagulation Is this a current diagnosis for this admission?: Yes Plan: Warfarin protocol (9) Noncompliance with treatment plan Is this a current diagnosis for this admission?: Yes Plan: It is unfortunate that the patient left the LTAC AGAINST MEDICAL ADVICE. He has not had any wound care at home. It is unknown if he has been compliant with his medications. With such as severe infection requiring very aggressive surgery and a colostomy compliance is essential. (10) Chronic obstructive pulmonary disease Qualifiers: COPD type: COPD with acute exacerbation Qualified Code(s): J44.1 - Chronic obstructive pulmonary disease with (acute) exacerbation Is this a current diagnosis for this admission?: No Plan: Continue Trelegy inhaler - Plan Summary Summary: Unfortunately the patient left AMA from the LT. He was transferred there to maximize recovery from a severe perineal necrotizing fasciitis requiring aggressive surgical debridement and colostomy. He has been home for about 1 week. He states that he cannot take care of himself. He states that he is quite weak. He does not get out of bed. He kept repeating that he has to learn how to walk again. He has not been taking care of his wound so there have been no dressing changes in an area lady with bacteria. It is clear that the patient is unable to care for himself while living alone. His daughter is visiting from [place]. I was informed by the emergency department marriage and family social worker that the plan is for the patient's daughter to take him back to [place] and pursue hospice care in [place]. Arrangements are being made for enrollment in hospice program near the daughter's place of residence. It is likely that the patient will be able to discharge as soon as he is accepted at hospice sensible take approximately 2 days travel to get to his daughter's place of residence. - Additional Information Resuscitation Status: Do Not Resuscitate Discharge Diet: Cardiac Discharge Activity: Activity As Tolerated Referrals: PT MOVING, TO [place] [Other] Prescriptions: Zinc Sulfate [Zinc-220 Capsule] 220 mg PO DAILY 30 Days #30 capsule Home Medications: Alfuzosin HCl [Alfuzosin HCl ER] 10 mg PO DAILY 03/10/20 Atorvastatin Calcium [Lipitor 40 mg Tablet] 40 mg PO QHS 03/10/20 Ferrous Sulfate [Feosol 325 mg Tablet] 325 mg PO DAILY 03/10/20 Finasteride [Proscar 5 mg Tablet] 5 mg PO DAILY 03/10/20 Lamotrigine 100 mg PO DAILY 03/10/20 Primidone [Mysoline 50 mg Tablet] 50 mg PO QHS 03/10/20 Warfarin Sodium [Coumadin 5 mg Tablet] 5 mg PO MOWEFR@219903/10/20 Warfarin Sodium [Coumadin 5 mg Tablet] 7.5 mg PO SUTUTHSA@219903/10/20 Acetaminophen [Tylenol 325 mg Tablet] 650 mg PO Q4HP PRN tablet 03/26/20 Docusate Sodium [Colace 100 mg Capsule] 200 mg PO BID capsule 03/26/20 Fluticasone/Umeclidin/Vilanter [Trelegy 100-62.5-25 Mcg Ellipta 14 Dose/Dpi] 1 inh IH DAILY #1 inhaler 03/26/20 Guaifenesin/D-Methorphan Hb [Robitussin-Dm Syrup 10 ml Udcup] 10 ml PO QIDP PRN syrup 03/26/20 Insulin Glargine,Hum.rec.anlog [Lantus Insulin 100 Unit/1 ml 10 ml] 13 unit SUBCUT Q12 #1 vial 03/26/20 Insulin Lispro [Humalog Insulin (Lispro) 100 unit/mL] 0 - 12 unit SUBCUT ACHS #1 vial 03/26/20 Insulin Lispro [Humalog Insulin (Lispro) 100 unit/mL] 5 unit SUBCUT AC #1 vial 03/26/20 Lisinopril [Prinivil 5 mg Tablet] 5 mg PO DAILY #60 tablet 03/26/20 Metoprolol Succinate [Toprol Xl 50 mg Tab.sr] 50 mg PO DAILY #30 tab.sr.24h 03/26/20 Nicotine [Nicoderm 21 mg/24 Hr Transderm Patch] 1 each TD DAILY #30 patch.td24 03/26/20 Zinc Sulfate [Zinc-220 Capsule] 220 mg PO DAILY 30 Days #30 capsule 04/08/20 History of Present Illiness History of Present Illness: JAMILA HOWELL is a 74 year old male 74 year old male who was discharged from [facility] on March 26, 2020. 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 He had multiple surgeries including a colostomy. The infection was polymicrobial. He was broad-spectrum antibiotic therapy. He in fact was transferred to [facility] to maximize recovery in light of complex wound care critical illness weakness. Unfortunately patient was there for 3 days and signed himself out AGAINST MEDICAL ADVICE. He has a history of COPD as well as lung cancer. He has history of atrial fibrillation, hyperlipidemia and hypertension. He has diabetes mellitus, BPH and esophageal reflux. Osteoarthritis consistent with his age and history of depression. He continues to smoke "several packs a day ". After signing himself out AGAINST MEDICAL ADVICE he went home. He states that he has not been able to do much. He lays in bed all day because of his worsening weakness. His appetite is fair. He believes that he had a home health nurse helping with dressing changes but this is unlikely since there is no dressing in the wound and there is yellow mucoid drainage. He states that he occasionally gets lightheaded. He has no discomfort from the wound. Evaluation in the emergency department reveals WBC equals 9, hemoglobin equals 13 and platelet count of 376K. INR is therapeutic at 2.06. Electrolytes are mostly remarkable for an acute kidney injury with a BUN of 29 but his creatinine is 1.93. At the time of discharge from this facility his serum creatinine back was normal. Blood and urine cultures have been submitted. The patient will be admitted to observation status for his acute kidney injury. In addition we will resume wound care. We will continue his other medications including antihypertensives, statins, pain medication and medication for his benign prostatic hyperplasia. Hospital Course Hospital Course: 74 year old male who was discharged from [facility] on March 26, 2020. 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 He had multiple surgeries including a colostomy. The infection was polymicrobial. He was broad-spectrum antibiotic therapy. He in fact was transferred to [facility] to maximize recovery in light of complex wound care critical illness weakness. Unfortunately patient was there for 3 days and signed himself out AGAINST MEDICAL ADVICE. He has a history of COPD as well as lung cancer. He has history of atrial fibrillation, hyperlipidemia and hypertension. He has diabetes mellitus, BPH and esophageal reflux. Osteoarthritis consistent with his age and history of depression. He continues to smoke "several packs a day ". After signing himself out AGAINST MEDICAL ADVICE he went home. He states that he has not been able to do much. He lays in bed all day because of his worsening weakness. His appetite is fair. He believes that he had a home health nurse helping with dressing changes but this is unlikely since there is no dressing in the wound and there is yellow mucoid drainage. He states that he occasionally gets lightheaded. He has no discomfort from the wound. Evaluation in the emergency department reveals WBC equals 9, hemoglobin equals 13 and platelet count of 376K. INR is therapeutic at 2.06. Electrolytes are mostly remarkable for an acute kidney injury with a BUN of 29 but his creatinine is 1.93. At the time of discharge from this facility his serum creatinine back was normal. Blood and urine cultures have been submitted. The patient will be admitted to observation status for his acute kidney injury. In addition we will resume wound care. We will continue his other medications including antihypertensives, statins, pain medication and medication for his benign prostatic hyperplasia. 04/07/2020-patient is comfortably in the bed eating request. Patient is requesting physical therapy and complaining is unable to walk. He wants to stay at least 3 to 4 days until strength comes back. PT consult was requested. 04/08/2020-patient is going home with home health and hospice. Family is planning to take him to [place] in the next couple of days. Wound cultures came back positive for a mixed species. afebrile during the hospital stay vital signs are stable. Physical Exam Vital Signs: Temp Pulse Resp BP Pulse Ox 97.8 F 111 H 17 121/66 97 04/08/20 12:52 04/08/20 12:52 04/08/20 12:52 04/08/20 12:52 04/08/20 12:52 Intake & Output 04/07/20 04/08/20 04/09/20 06:59 06:59 06:59 Intake Total 2450 2456 720 Output Total 600 605 300 Balance 1850 1851 420 Weight 81.647 kg General appearance: PRESENT: no acute distress Head exam: PRESENT: atraumatic Eye exam: PRESENT: PERRLA Mouth exam: PRESENT: moist, tongue midline Teeth exam: PRESENT: poor dentation Neck exam: ABSENT: carotid bruit, JVD, lymphadenopathy, thyromegaly Respiratory exam: PRESENT: clear to auscultation vannessa. ABSENT: rales, rhonchi, wheezes Cardiovascular exam: PRESENT: irregular rhythm, systolic murmur GI/Abdominal exam: PRESENT: normal bowel sounds, soft. ABSENT: distended, guarding, mass, organolmegaly, rebound, tenderness Rectal exam: PRESENT: deferred, other - Perirectal wound is present looking better today compared to yesterday. Extremities exam: PRESENT: full ROM. ABSENT: calf tenderness, clubbing, pedal edema Neurological exam: PRESENT: alert, awake, oriented to person, oriented to place, oriented to time, oriented to situation, CN II-XII grossly intact. ABSENT: motor sensory deficit Psychiatric exam: PRESENT: appropriate affect, normal mood. ABSENT: homicidal ideation, suicidal ideation Results Laboratory Results: WBC 7.2 10^3/uL (4.0-10.5) 04/07/20 05:34 RBC 4.10 10^6/uL (4.35-5.55) L 04/07/20 05:34 Hgb 12.5 g/dL (13.5-17.0) L 04/07/20 05:34 Hct 36.9 % (37.9-51.0) L 04/07/20 05:34 MCV 90 fl (80-97) 04/07/20 05:34 MCH 30.4 pg (27.0-33.4) 04/07/20 05:34 MCHC 33.8 g/dL (32.0-36.0) 04/07/20 05:34 RDW 15.4 % (11.5-14.0) H 04/07/20 05:34 Plt Count 358 10^3/uL (150-450) 04/07/20 05:34 Lymph % (Auto) 22.6 % (13-45) 04/07/20 05:34 [place] % (Auto) 9.6 % (3-13) 04/07/20 05:34 Eos % (Auto) 8.1 % (0-6) H 04/07/20 05:34 Baso % (Auto) 0.6 % (0-2) 04/07/20 05:34 Absolute Neuts (auto) 4.2 10^3/uL (1.7-8.2) 04/07/20 05:34 Absolute Lymphs (auto) 1.6 10^3/uL (0.5-4.7) 04/07/20 05:34 Absolute Monos (auto) 0.7 10^3/uL (0.1-1.4) 04/07/20 05:34 Absolute Eos (auto) 0.6 10^3/uL (0.0-0.6) 04/07/20 05:34 Absolute Basos (auto) 0.0 10^3/uL (0.0-0.2) 04/07/20 05:34 Seg Neutrophils % 59.1 % (42-78) 04/07/20 05:34 PT 23.6 SEC (11.4-15.4) H 04/08/20 05:13 INR 2.06 04/08/20 05:13 VBG pH 7.41 (7.30-7.42) 04/06/20 14:15 VBG pCO2 49.6 mmHg (35-63) 04/06/20 14:15 VBG HCO3 30.5 mmol/L (20-32) 04/06/20 14:15 VBG Base Excess 4.4 mmol/L 04/06/20 14:15 Sodium 136.1 mmol/L (137-145) L 04/07/20 05:34 Potassium 4.0 mmol/L (3.6-5.0) 04/07/20 05:34 Chloride 100 mmol/L (98-107) 04/07/20 05:34 Carbon Dioxide 29 mmol/L (22-30) 04/07/20 05:34 Anion Gap 7 (5-19) 04/07/20 05:34 BUN 23 mg/dL (7-20) H 04/07/20 05:34 Creatinine 1.34 mg/dL (0.52-1.25) H 04/07/20 05:34 Est GFR ( Amer) > 60 (>60) 04/07/20 05:34 Est GFR (MDRD) Non-Af 52 (>60) L 04/07/20 05:34 Glucose 114 mg/dL (75-110) H 04/07/20 05:34 POC Glucose 81 mg/dL (70-110) 04/08/20 11:28 Lactic Acid 1.5 mmol/L (0.7-2.1) 04/06/20 16:26 Calcium 8.4 mg/dL (8.4-10.2) 04/07/20 05:34 Magnesium 1.5 mg/dL (1.6-2.3) L 04/07/20 05:34 Total Bilirubin 0.6 mg/dL (0.2-1.3) 04/07/20 05:34 Direct Bilirubin 0.0 mg/dL (0.0-0.4) 04/07/20 05:34 Neonat Total Bilirubin Not Reportable 04/07/20 05:34 Neonat Direct Bilirubin Not Reportable 04/07/20 05:34 Neonat Indirect Bili Not Reportable 04/07/20 05:34 AST 49 U/L (17-59) 04/07/20 05:34 ALT 43 U/L (<50) 04/07/20 05:34 Alkaline Phosphatase 145 U/L (38-126) H 04/07/20 05:34 Troponin I < 0.012 ng/mL 04/06/20 14:15 Total Protein 5.7 g/dL (6.3-8.2) L 04/07/20 05:34 Albumin 2.7 g/dL (3.5-5.0) L 04/07/20 05:34 Urine Color YELLOW 04/06/20 16:47 Urine Appearance SLIGHTLY-CLOUDY 04/06/20 16:47 Urine pH 5.0 (5.0-9.0) 04/06/20 16:47 Ur Specific [place] 1.015 04/06/20 16:47 Urine Protein NEGATIVE mg/dL (NEGATIVE) 04/06/20 16:47 Urine Glucose (UA) 50 mg/dL (NEGATIVE) H 04/06/20 16:47 Urine Ketones NEGATIVE mg/dL (NEGATIVE) 04/06/20 16:47 Urine Blood NEGATIVE (NEGATIVE) 04/06/20 16:47 Urine Nitrite (Reflex) NEGATIVE (NEGATIVE) 04/06/20 16:47 Urine Bilirubin NEGATIVE (NEGATIVE) 04/06/20 16:47 Urine Urobilinogen NEGATIVE mg/dL (<2.0) 04/06/20 16:47 Leukocyte Esterase Rfl TRACE (NEGATIVE) H 04/06/20 16:47 Urine RBC (Auto) 1 /HPF 04/06/20 16:47 U Hyaline Cast (Auto) 35 /LPF 04/06/20 16:47 Urine WBC (Reflex) 4 /HPF 04/06/20 16:47 Squamous Epi Cells Auto <1 /HPF 04/06/20 16:47 Urine Mucus (Auto) RARE /LPF 04/06/20 16:47 Urine Ascorbic Acid NEGATIVE (NEGATIVE) 04/06/20 16:47 04/06/20 14:15 Troponin I < 0.012 Plan Plan of Treatment: Patient is advised to follow-up with wound care clinic as an outpatient. Time Spent: Greater than 30 Minutes Stroke Is this a Stroke Patient?: No Acute Heart Failure - Is this a Heart Failure Patient?: No
== END 2020-04-08 13:38 | disposition hospice, home (50) ==
LOC: ER 12:56 → EH 17:13 → 4N 18:53
PROVIDERS: ADMIT Hospitalist; ATTEND Internal Medicine
DX: R62.7 Adult failure to thrive (principal); N17.9 Acute kidney failure, unspecified; E86.0 Dehydration; I48.11 Longstanding persistent atrial fibrillation; K21.9 Gastro-esophageal reflux disease without esophagitis; E11.22 Type 2 diabetes mellitus with diabetic chronic kidney disease; I12.9 Hypertensive chronic kidney disease with stage 1 through stage 4 chronic kidney disease, or unspecified chronic kidney disease; N18.9 Chronic kidney disease, unspecified; T81.89XA Other complications of procedures, not elsewhere classified, initial encounter; Y83.8 Other surgical procedures as the cause of abnormal reaction of the patient, or of later complication, without mention of misadventure at the time of the procedure; J44.1 Chronic obstructive pulmonary disease with (acute) exacerbation; M19.90 Unspecified osteoarthritis, unspecified site; E78.5 Hyperlipidemia, unspecified; N40.1 Benign prostatic hyperplasia with lower urinary tract symptoms; R35.1 Nocturia; F17.210 Nicotine dependence, cigarettes, uncomplicated; I95.9 Hypotension, unspecified; F32.9 Major depressive disorder, single episode, unspecified; Z91.19 Patient's noncompliance with other medical treatment and regimen; Z60.2 Problems related to living alone; Z93.3 Colostomy status; Z79.01 Long term (current) use of anticoagulants; Z66 Do not resuscitate; Z79.4 Long term (current) use of insulin; Z79.899 Other long term (current) drug therapy; Z85.118 Personal history of other malignant neoplasm of bronchus and lung
CPT/HCPCS: 93005; 99285; 96360; 96361; 36415 ×3; 87040; 87086; 82962 ×3; 83605; 83735; 85025 ×2; 85610 ×3; 80053 ×2; 81001; 84484; 82803; 93010; 97530 ×2; 97116; 97162; 99406; A9270 ×35; J1720; J3490 ×4; J7120 ×2; J1815

== ENCOUNTER 2020-04-14 21:22 | Emergency (ER) | payer BC, MEDICARE ==
--- NOTE | 2020-04-14 21:36 | ER Document Report ---
ED Medical Screen (RME) - General Chief Complaint: Shoulder Pain Stated Complaint: RIGHT SHOULDER PAIN Time Seen by Provider: 04/14/20 21:27 Primary Care Provider: GERRI AGUILERA MD [Primary Care Provider] - Follow up as needed Information source: Patient Notes: Patient presents complaining of right shoulder pain and right-sided chest discomfort. Patient states he has had the pain for the past 3 days. Patient denies any shortness of breath nausea or vomiting. Patient does have a history of previous lung cancer diabetes, A. fib and emphysema. Patient does still continue to smoke. I have greeted and performed a rapid initial assessment of this patient. A comprehensive ED assessment and evaluation of the patient, analysis of test results and completion of the medical decision making process will be conducted by additional ED providers. TRAVEL OUTSIDE OF THE [place] IN LAST 30 DAYS: No - Related Data Allergies/Adverse Reactions: Penicillins Allergy (Verified 04/03/20 12:57) Past Medical History - Social History Frequency of alcohol use: None Drug Abuse: None - Past Medical History Cardiac Medical History: Reports: Hx Atrial Fibrillation, Hx Hypercholesterolemia, Hx Hypertension Pulmonary Medical History: Reports: Hx Asthma, Hx Bronchitis, Hx COPD Neurological Medical History: Reports: Hx Cerebrovascular Accident - 1997. Denies: Hx Seizures Endocrine Medical History: Reports: Hx Diabetes Mellitus Type 1, Hx Diabetes Mellitus Type 2 Renal/ Medical History: Reports: Hx Benign Prostatic Hyperplasia. Denies: Hx Peritoneal Dialysis Malignancy Medical History: Reports Hx Lung Cancer GI Medical History: Reports: Hx Gastritis, Hx Gastroesophageal Reflux Disease, Hx Ulcer, Hx Colonoscopy Musculoskeltal Medical History: Reports Hx Arthritis Psychiatric Medical History: Reports: Hx Anxiety, Hx Depression Past Surgical History: Reports: Hx Colostomy, Hx Orthopedic Surgery - L Arm, Other - Lung surgery. Aggressive debridement of the perineum - Immunizations Hx Diphtheria, Pertussis, Tetanus Vaccination: Yes Physical Exam - Vital signs Vitals: Temp Pulse Resp BP Pulse Ox 98.1 F 112 H 18 110/63 97 04/14/20 21:22 04/14/20 21:22 04/14/20 21:22 04/14/20 21:22 04/14/20 21:22 - Respiratory Respiratory status: No respiratory distress Breath sounds: Wheezing Chest palpation: Normal - Cardiovascular Rhythm: Tachycardia Heart sounds: S1 appreciated, S2 appreciated Course - Vital Signs Vital signs: Temp Pulse Resp BP Pulse Ox 98.1 F 112 H 18 110/63 97 04/14/20 21:22 04/14/20 21:22 04/14/20 21:22 04/14/20 21:22 04/14/20 21:22 Doctor's Discharge - Discharge Referrals: GERRI AGUILERA MD [Primary Care Provider] - Follow up as needed
[2020-04-14] MEDS ORDERED: TRAMADOL HCL 50 MG TABLET PO ONE (21:43)
--- NOTE | 2020-04-14 22:37 | RADIOLOGY REPORT (SQ) ---
EXAM DESCRIPTION: X-ray, two views of the chest CLINICAL HISTORY: 74 years Male, cp COMPARISON: Portable view of the chest March 10, 2020 FINDINGS: Lungs: Lung volumes and aeration have improved when compared to the previous examination. There is prominence of the perihilar interstitial lung markings though no focal consolidation. No pneumothorax or pleural effusion. Mediastinum: Cardiac and mediastinal silhouette are normal. Bones: Osseous structures are normal. IMPRESSION: Overall improvement in lung volumes and aeration. No acute process.
--- NOTE | 2020-04-14 22:41 | RADIOLOGY REPORT (SQ) ---
EXAM DESCRIPTION: XR SHOULDER 2 OR MORE VIEWS COMPLETED DATE/TME: 04/14/2020 21:34 CLINICAL HISTORY: 74 years, Male, shoulder pain COMPARISON: None. NUMBER OF VIEWS: 3 TECHNIQUE: 3 views right shoulder LIMITATIONS: None. FINDINGS: Osteopenia. Negative for acute fracture or dislocation. Advanced degenerative changes of the acromioclavicular and glenohumeral joints. Soft tissues are unremarkable IMPRESSION: Osteopenia. Advanced degenerative change copyright 2010 [employer]- All Rights Reserved
[2020-04-14 23:11] LABS: ABSOLUTE BASOPHILS # (AUTO) 0.1 10^3/uL (0.0-0.2); ABSOLUTE EOSINOPHILS # (AUTO) 0.2 10^3/uL (0.0-0.6); ABSOLUTE LYMPHOCYTES (AUTO) 1.2 10^3/uL (0.5-4.7); ABSOLUTE MONOCYTES (AUTO) 0.9 10^3/uL (0.1-1.4); ABSOLUTE NEUT (AUTO) 11.3 10^3/uL (1.7-8.2); BASOPHILS % (AUTO) 0.6 % (0-2); EOSINOPHILS % (AUTO) 1.7 % (0-6); HEMATOCRIT 37.1 % (37.9-51.0); HEMOGLOBIN 12.7 g/dL (13.5-17.0); LYMPHOCYTES % (AUTO) 8.8 % (13-45); MEAN CORPUSCULAR HEMOGLOBIN 30.5 pg (27.0-33.4); MEAN CORPUSCULAR HGB CONC 34.2 g/dL (32.0-36.0); MEAN CORPUSCULAR VOLUME 89 fl (80-97); MONOCYTES % (AUTO) 6.3 % (3-13); PLATELET COUNT 503 10^3/uL (150-450); RED BLOOD COUNT 4.15 10^6/uL (4.35-5.55); RED CELL DISTRIBUTION WIDTH 15.1 % (11.5-14.0); SEGMENTED NEUTROPHILS % (AUTO) 82.6 % (42-78); TOTAL CELLS COUNTED % (AUTO) 100 %; WHITE BLOOD COUNT 13.7 10^3/uL (4.0-10.5)
[2020-04-14 23:16] LABS: INTERNATIONAL RATION (INR) 3.29; PROTHROMBIN TIME 34.2 SEC (11.4-15.4)
[2020-04-14 23:28] LABS: ALBUMIN 3.5 g/dL (3.5-5.0); ALKALINE PHOSPHATASE 158 U/L (38-126); ANION GAP 9 (5-19); ASPARTATE AMINO TRANSFERASE 33 U/L (17-59); BILIRUBIN,DIRECT 0.2 mg/dL (0.0-0.4); BILIRUBIN,TOTAL 0.5 mg/dL (0.2-1.3); BLOOD UREA NITROGEN 13 mg/dL (7-20); CALCIUM 8.6 mg/dL (8.4-10.2); CARBON DIOXIDE 28 mmol/L (22-30); CHLORIDE 100 mmol/L (98-107); GLUCOSE 176 mg/dL (75-110); POTASSIUM 3.7 mmol/L (3.6-5.0); TOTAL PROTEIN 6.5 g/dL (6.3-8.2)
--- NOTE | 2020-04-15 00:07 | ER Document Report ---
Entered by THO BLANKENSHIP SCRIBE 04/14/20 [id number] Acting as scribe for:MARYJANE BENITEZ DO ED Extremity Problem, Upper - General Chief Complaint: Shoulder Pain Stated Complaint: RIGHT SHOULDER PAIN Time Seen by Provider: 04/14/20 21:27 Primary Care Provider: GERRI AGUILERA MD [Primary Care Provider] - Follow up as needed CARLOS BORJAS MD [ACTIVE STAFF] - 04/16/20 Mode of Arrival: Medic Information source: Patient Notes: This 74 year old male patient with a history of A fib and COPD (on 3L home O2 at PM) brought in by EMS from home presents to the ED today with complaints of right shoulder pain for the past x3-4 days. Denies recent fall, injury, or trauma. Also denies prior injury to that shoulder. Patient is left hand dominant. No fever, chills, or chest pain. No change in usual SOB. TRAVEL OUTSIDE OF THE [place] IN LAST 30 DAYS: No - Related Data Allergies/Adverse Reactions: Penicillins Allergy (Verified 04/03/20 12:57) Past Medical History - General Information source: Patient - Social History Smoking Status: Current Every Day Smoker Cigarette use (# per day): Yes Chew tobacco use (# tins/day): No Smoking Education Provided: No Frequency of alcohol use: None Drug Abuse: None Family History: Reviewed & Not Pertinent, Arthritis, CAD, COPD, DM, Hyperlipidemia, Hypertension, Thyroid Disfunction, Other - Alcoholism Patient has suicidal ideation: No Patient has homicidal ideation: No - Past Medical History Cardiac Medical History: Reports: Hx Atrial Fibrillation, Hx Hypercholesterolemia, Hx Hypertension Pulmonary Medical History: Reports: Hx Asthma, Hx Bronchitis, Hx COPD Neurological Medical History: Reports: Hx Cerebrovascular Accident - 1997 Endocrine Medical History: Reports: Hx Diabetes Mellitus Type 1, Hx Diabetes Mellitus Type 2 Renal/ Medical History: Reports: Hx Benign Prostatic Hyperplasia Malignancy Medical History: Reports Hx Lung Cancer GI Medical History: Reports: Hx Gastritis, Hx Gastroesophageal Reflux Disease, Hx Ulcer, Hx Colonoscopy Musculoskeletal Medical History: Reports Hx Arthritis Psychiatric Medical History: Reports: Hx Anxiety, Hx Depression Past Surgical History: Reports: Hx Colostomy, Hx Orthopedic Surgery - L Arm, Other - Lung surgery. Aggressive debridement of the perineum - Immunizations Hx Diphtheria, Pertussis, Tetanus Vaccination: Yes Hx Pneumococcal Vaccination: 09/25/13 Review of Systems - Review of Systems Constitutional: See HPI. denies: Chills, Fever EENT: No symptoms reported Cardiovascular: See HPI. denies: Chest pain Respiratory: See HPI, Short of breath Gastrointestinal: No symptoms reported Genitourinary: No symptoms reported Male Genitourinary: No symptoms reported Musculoskeletal: See HPI, Joint pain Skin: No symptoms reported Hematologic/Lymphatic: No symptoms reported Neurological/Psychological: No symptoms reported -: Yes All other systems reviewed and negative Physical Exam - Vital signs Vitals: Temp Pulse Resp BP Pulse Ox 98.1 F 112 H 18 110/63 97 04/14/20 21:22 04/14/20 21:22 04/14/20 21:22 04/14/20 21:22 04/14/20 21:22 - General General appearance: Alert In distress: None - HEENT Head: Normocephalic, Atraumatic Eyes: Normal Pupils: PERRL - Respiratory Respiratory status: No respiratory distress Chest status: Nontender Breath sounds: Normal Chest palpation: Normal - Cardiovascular Rhythm: Regular Heart sounds: Normal auscultation Murmur: No Friction rub: No Gallop: None auscultated - Abdominal Inspection: Other - Colostomy present LLQ Distension: No distension Bowel sounds: Normal Tenderness: Nontender - Abdomen soft Organomegaly: No organomegaly - Back Back: Normal, Nontender - Extremities General lower extremity: Normal inspection. No: Edema Shoulder: Other - Positive impingement signs. Internal rotation cause some pain to anterior right shoulder.. No: Deformity, Ecchymosis - Neurological Neuro grossly intact: Yes Cognition: Normal Orientation: AAOx4 [place] Coma Scale Eye Opening: Spontaneous [place] Coma Scale Verbal: Oriented [place] Coma Scale Motor: Obeys Commands [place] Coma Scale Total: 15 Speech: Normal Motor strength normal: LUE, RUE, LLE, RLE Sensory: Normal - Psychological Associated symptoms: Normal affect, Normal mood - Skin Skin Temperature: Warm Skin Moisture: Dry Skin Color: Normal Course - Re-evaluation Re-evalutation: 04/15/20 00:00 MDM 74 year old male arrives with right shoulder pain for about 4 days. + impingment signs. Has known copd and a fib. Anticoagulated. No chest pain and no change in his usual sob. Heading to [place] in the am. He is going to see a doctor in [place] regarding this. No fever or chills and no covid exposure. - Vital Signs Vital signs: Temp Pulse Resp BP Pulse Ox 98.1 F 112 H 17 110/63 100 04/14/20 21:22 04/14/20 21:22 04/15/20 00:00 04/14/20 21:22 04/15/20 00:00 - Laboratory Result Diagrams: 04/14/20 23:00 04/14/20 23:00 Laboratory results interpreted by me: 04/14/20 04/14/20 04/14/20 23:00 23:00 23:00 WBC 13.7 H RBC 4.15 L Hgb 12.7 L Hct 37.1 L RDW 15.1 H Plt Count 503 H Lymph % (Auto) 8.8 L Absolute Neuts (auto) 11.3 H Seg Neutrophils % 82.6 H PT 34.2 H Glucose 176 H Magnesium 1.5 L Alkaline Phosphatase 158 H - Diagnostic Test Radiology reviewed: Image reviewed, Reports reviewed - EKG Interpretation by Me Rate: Tachycardia Rhythm: A.Fib - A fib with RVR [address] elevation or depression repolarization abnormaltiy my interpretation. Discharge - Discharge Clinical Impression: Tendinitis, COPD exacerbation Right shoulder pain Qualifiers: Chronicity: acute Qualified Code(s): M25.511 - Pain in right shoulder Atrial fibrillation Qualifiers: Atrial fibrillation type: unspecified Qualified Code(s): I48.91 - Unspecified atrial fibrillation Condition: Stable Disposition: HOME, SELF-CARE Instructions: Shoulder Injury ([facility]), Tendonitis ([facility]) Additional Instructions: Rest, ice to shoulder. See an orthopedic doctor in [place] or the referral doc tor here. Take the medicine as directed. Forms: Smoking Cessation Education Referrals: GERRI AGUILERA MD [Primary Care Provider] - Follow up as needed CARLOS BORJAS MD [ACTIVE STAFF] - 04/16/20 I personally performed the services described in the documentation, reviewed and edited the documentation which was dictated to the scribe in my presence, and it accurately records my words and actions.
[2020-04-15] MEDS ORDERED: HYDROCODONE/ACETAMINOPHEN 5-325 MG (6 TAB/ER DISP) PO PRN (00:08)
[2020-04-15 00:24] VITALS: BP 138/92
--- NOTE | 2020-04-15 09:29 | EKG REPORT ---
SEVERITY:- ABNORMAL ECG - ATRIAL FIBRILLATION, V-RATE 81-140 BORDERLINE LEFT AXIS DEVIATION REPOL ABNRM SUGGESTS ISCHEMIA, DIFFUSE LEADS : Confirmed by: Dara West 15-Apr-2020 09:28:20
== END 2020-04-15 00:29 | disposition home or self-care (01) ==
LOC: ER 21:22
DX: J44.1 Chronic obstructive pulmonary disease with (acute) exacerbation (principal); M25.511 Pain in right shoulder; M77.9 Enthesopathy, unspecified; F17.210 Nicotine dependence, cigarettes, uncomplicated; I48.91 Unspecified atrial fibrillation; Z99.81 Dependence on supplemental oxygen; Z88.0 Allergy status to penicillin
CPT/HCPCS: 93005; 99284; 36415; 83735; 85025; 85610; 80053; 84484; 71046; 73030; 93010; A9270 ×2